=== PATIENT | female | born 1965 | race Caucasian/White ===

== ENCOUNTER 2020-05-01 07:39 | Outpatient (REF) | payer OTHER, SELFPAY ==
[2020-05-01 07:59] LABS: COVID-19 Test Negative (Negative)
== END 2020-05-01 07:40 | disposition home or self-care (01) ==
LOC: HO.LAB 07:39
PROVIDERS: PCP Internal Medicine; Visit Provider Internal Medicine
DX: Z20.822 Contact with and (suspected) exposure to COVID-19 (principal)
CPT/HCPCS: 36415; 87635; C9803

== ENCOUNTER 2020-06-02 10:17 | Outpatient (REF) | payer OTHER, SELFPAY ==
--- NOTE | ~2020-06-02 | XR_ITS ---
EXAMINATION: XR HIP, RIGHT CLINICAL INFORMATION: Right hip pain COMPARISON: None TECHNIQUE: Two views of the right hip. FINDINGS: Bone alignment is normal. No fracture or dislocation is seen. The joint space is normal. Soft tissues are normal. XR/XR hip RT w PEL1V IMPRESSION: Normal right hip.
[2020-06-02 11:18] LABS: Hematocrit 34.5 % (37-47); Hemoglobin 9.9 g/dl (12.0-16.0); Mean Corpuscular HGB Conc 28.7 g/dl (31.0-35.0); Mean Corpuscular Hemoglobin 21.6 pg (27.0-33.0); Mean Corpuscular Volume 75.3 fL (80-98); Mean Platelet Volume 9.9 fL (9.4-12.3); Platelet Count 445 X10*3/uL (160-400); Red Blood Count 4.58 X10*6/uL (4.20-5.50); Red Cell Distribution Width 15.7 % (11.0-16.0); White Blood Count 6.4 X10*3/uL (4.8-10.8)
[2020-06-02 11:39] LABS: Alanine Aminotransferase 25 U/L (0-31); Albumin Level 4.2 g/dL (3.5-5.0); Alkaline Phosphatase 92 U/L (39-117); Anion Gap 12 (12-20); Aspartate Amino Transferase 21 U/L (5-31); Bilirubin Direct 0.2 mg/dL (0.0-0.5); Bilirubin Total 0.6 mg/dL (0.0-1.0); Blood Urea Nitrogen 12 mg/dL (9-16); Calcium 8.9 mg/dL (8.4-10.2); Carbon Dioxide 24 mmol/L (22-29); Chloride 109 mmol/L (96-108); Cholesterol 180 mg/dL; Estimated Glomerular Filt Rate > 60; Glucose Random 100 mg/dL (60-115); HDL Cholesterol 34 mg/dL; LDL Cholesterol Calculated 126 mg/dl; Potassium 4.4 mmol/L (3.3-5.1); Sodium 141 mmol/L (135-145); Total Protein 7.2 g/dL (6.5-8.0); Triglycerides 100 mg/dL
[2020-06-02 14:27] LABS: Erythrocyte Sedimentation Rate 26 MM/HR (0-20)
== END 2020-06-02 10:18 | disposition home or self-care (01) ==
LOC: HO.LAB 10:17
PROVIDERS: PCP Internal Medicine; Visit Provider Internal Medicine
DX: K21.9 Gastro-esophageal reflux disease without esophagitis (principal); M25.551 Pain in right hip
CPT/HCPCS: 36415; 73502; 80048; 80061; 80076; 85027; 85652

== ENCOUNTER 2020-07-30 12:53 | Outpatient (REF) | payer OTHER, SELFPAY | END 2020-07-30 12:54 | disposition home or self-care (01) | LOC: HO.LAB 12:53 | PROVIDERS: Visit Provider Nurse Practitioner Family | DX: R30.0 Dysuria (principal) | CPT/HCPCS: 87086 ==

== ENCOUNTER 2020-07-30 13:58 | Emergency (ER) | payer OTHER, SELFPAY ==
--- NOTE | ~2020-07-30 | CT_ITS ---
EXAMINATION: CT ABDOMEN AND PELVIS WITHOUT CONTRAST CLINICAL INFORMATION: Left flank pain COMPARISON: CT abdomen and pelvis noncontrast 11/05/2015; ultrasound renal 05/29/2016 TECHNIQUE: Multidetector volumetric imaging was performed from the superior aspect of the liver through the pubic symphysis. Sagittal and coronal reformatted images were obtained on the technologist's workstation. No oral or intravenous contrast. This CT examination was performed using dose optimization techniques as appropriate, variously including the following: *Automated exposure control *Adjustment of mA and/or kV according to patient size (this includes techniques or standardized protocols for targeted exams where dose is matched to indication/reason for exam; i.e. extremities or head) *Use of iterative reconstruction technique DLP: 723 mGy-cm FINDINGS: LUNG BASES: The visualized lung bases are unremarkable. LIVER, GALLBLADDER, AND BILIARY TREE: The liver is normal in size, shape, and attenuation. No focal hepatic lesion or biliary ductal dilatation is present. Prior cholecystectomy. Common duct unremarkable. PANCREAS: Unremarkable. SPLEEN: Normal in size. Small splenule left upper quadrant, 0.8 cm. ADRENAL GLANDS: Normal. KIDNEYS, URETERS, BLADDER: There is a punctate calculus at the left bladder base under 3 mm (series 4 image 689, coronal 55, sagittal 43). No bladder dilatation or wall thickening or diverticulum. There is no hydronephrosis, hydroureter, or perinephric stranding. No other definite urinary tract calculi. There is a cyst lower pole right kidney 1.1 cm and water attenuation, 7 HU. GASTROINTESTINAL TRACT: No bowel obstruction or acute inflammatory changes in bowel or mesentery. Appendix normal. There is some accentuated circumferential submucosal areolar tissue in the cecum and ascending colon. No wall thickening or paracolic stranding. Terminal ileum unremarkable. ABDOMINAL WALL: No significant hernia is appreciated. LYMPH NODES: No lymphadenopathy. VASCULAR: Incidental retroaortic left renal vein. PELVIC VISCERA: Unremarkable. OSSEOUS STRUCTURES: Unremarkable. CT/CT abdomen pelvis wo con IMPRESSION: 1. Punctate calculus left bladder base, under 3 mm. No proximal obstruction or perinephric stranding. 2. No bowel obstruction or acute inflammatory changes in bowel or mesentery. 3. Prior cholecystectomy. No ductal dilatation.
[2020-07-30 14:01] VITALS: BP 134/67; BP 143/78; PULSE 78; PULSE 79; RESP 16; TEMP 36.8; O2SAT 97; BMI 29.9
[2020-07-30 14:28] VITALS: PULSE 79; RESP 16
[2020-07-30] MEDS: 0.9 % Sodium Chloride 1,000 ML 999 ML IVCONT (14:31)
[2020-07-30 14:36] LABS: Basophils Absolute Auto 0.1 X10*3/uL (0.0-0.2); Basophils Percent Auto 0.6 % (0-2); Eosinophils Absolute Auto 0.3 X10*3/uL (0.0-0.4); Eosinophils Percent Auto 3.4 % (0-4); Hematocrit 38.4 % (37-47); Hemoglobin 11.2 g/dl (12.0-16.0); Imm Gran Abs Auto 0.04 X10*3/uL (0.00-0.03); Imm Gran Pct Auto 0.4 % (0.0-0.4); Lymphocytes Absolute Auto 1.9 X10*3/uL (1.2-4.9); Lymphocytes Percent Auto 19.9 % (20-40); Mean Corpuscular HGB Conc 29.2 g/dl (31.0-35.0); Mean Corpuscular Volume 78.7 fL (80-98); Mean Platelet Volume 9.2 fL (9.4-12.3); Monocytes Absolute Auto 0.4 X10*3/uL (0.1-1.2); Monocytes Percent Auto 4.2 % (2-11); Neutrophils Absolute Auto 6.9 X10*3/uL (2.0-8.3); Neutrophils Percent Auto 71.5 % (45-73); Platelet Count 371 X10*3/uL (160-400); Red Blood Count 4.88 X10*6/uL (4.20-5.50); Red Cell Distribution Width 18.9 % (11.0-16.0); White Blood Count 9.7 X10*3/uL (4.8-10.8)
[2020-07-30 14:37] LABS: MANUAL DIFF FLAG NO
[2020-07-30 15:08] LABS: Alanine Aminotransferase 28 U/L (0-31); Albumin Level 4.3 g/dL (3.5-5.0); Alkaline Phosphatase 90 U/L (39-117); Anion Gap 14 (12-20); Aspartate Amino Transferase 21 U/L (5-31); Bilirubin Direct 0.2 mg/dL (0.0-0.5); Bilirubin Total 0.5 mg/dL (0.0-1.0); Blood Urea Nitrogen 17 mg/dL (9-16); Calcium 8.8 mg/dL (8.4-10.2); Carbon Dioxide 24 mmol/L (22-29); Chloride 110 mmol/L (96-108); Creatinine Clr Calc Pharmacy 71.5; Estimated Glomerular Filt Rate > 60; Glucose Random 139 mg/dL (60-115); Lipase 6 U/L (8-78); Sodium 144 mmol/L (135-145); Total Protein 7.1 g/dL (6.5-8.0)
[2020-07-30 15:14] LABS: Troponin-I High Sensitivity < 3.5 ng/L (<3.5-17.0)
--- NOTE | 2020-07-30 15:50 | ED.FEMALEGU ---
HPI - Female Genitourinary General Chief complaint: Urogenital-Female Stated complaint: DIZZINESS FROM URGENT CARE Time Seen by Provider: 07/30/20 14:11 Source: patient Mode of arrival: ambulatory Limitations: no limitations History of Present Illness HPI Narrative: 55-year-old female came in for evaluation of urinary symptoms. 55-year-old female came in from the walk-in urgent care clinic patient was there for evaluation of frequency urination with dysuria while patient was evaluated there started to have severe left flank pain and became diaphoretic and the lightheadedness lasted for about 10-15 minutes patient was transferred to the emergency department for further evaluation for her symptoms. Patient in the emergency department appear very stable with no acute distress, patient declined any pain male, no chest pain, do not feel lightheadedness any more. Related Data Home Medications Medication Instructions Recorded Confirmed topiramate 100 mg tablet 100 mg PO BEDTIME 06/08/20 06/18/20 Previous Rx's Medication Instructions Recorded fluticasone 250 mcg-salmeterol 50 1 inh INHALATION Q12H #60 ea 04/09/20 mcg/dose blistr powdr for inhalation meloxicam 15 mg tablet 15 mg PO DAILY 30 Days #30 tab 06/02/20 esomeprazole magnesium 40 mg 40 mg PO DAILY #90 cap 06/11/20 capsule,delayed release cholecalciferol (vitamin D3) 50 50 mcg PO DAILY #90 cap 06/18/20 mcg (2,000 unit) capsule docusate sodium 100 mg capsule 100 mg PO DAILY #90 cap 06/18/20 ferrous fumarate 325 mg (106 mg 325 mg PO DAILY #90 tab 06/25/20 iron) tablet citalopram 10 mg tablet 10 mg PO DAILY #90 tab 07/09/20 montelukast 10 mg tablet 10 mg PO DAILY #90 tab 07/09/20 Allergies Allergy/AdvReac Type Severity Reaction Status Date / Time hair dye Allergy Unknown itchiness Uncoded 06/02/20 09:36 Review of Systems Review of Systems: All other systems are reviewed and are negative Constitutional: Reports as per HPI and Reports no additional constitutional complaints Eyes: Reports as per HPI and Reports no additional eye complaints Reports system reviewed and no additional complaints, except as documented Cardiovascular: Reports as per HPI and Reports no additional cardiovascular complaints Respiratory: Reports as per HPI and Reports no additional respiratory complaints Gastrointestinal: Reports as per HPI and Reports no additional gastrointestinal complaints Genitourinary: Reports no additional female genitourinary complaints Musculoskeletal: Reports no additional musculoskeletal complaints Skin/Breast: Reports system reviewed and no additional complaints, except as docu Psychiatric: Reports no additional psychiatric complaints Endocrine: Reports no additional endocrine complaints Hematologic/Lymphatic: Reports no additional hematologic/lymphatic complaints Allergic/Immunologic: Reports no additional allergic/immunologic complaints Reports system reviewed and no additional complaints, except as documented and Reports Abnormal speech present [facility] Past Medical History Medical History Chronic right sacroiliac pain Depression Dyslipidemia GERD (gastroesophageal reflux disease) Kidney stones Microcytic hypochromic anemia Mild intermittent asthma Vitamin D deficiency Surgical History H/O cystoscopy Hx of cholecystectomy Previous section Family History Family History Father Diabetes mellitus Bronchial asthma Mother Breast cancer Social History Social History Alcohol intake: never Smoking Status: Never smoker Use of substances other than those prescribed or required for medical reasons: No Advance Directives: No Advance Directives Information Provided: No Physical Exam Vital Signs: Vital Signs: Last Vital Signs Temp 98.2 F 07/30/20 14:01 Pulse 79 07/30/20 14:28 Resp 16 07/30/20 14:28 BP 134/67 07/30/20 14:01 Pulse Ox 97 07/30/20 14:01 Body Mass Index 29.9 Vital signs have been reviewed as appeared to be correct. Blood pressure normal. Heart rate normal. Respiration rate normal. Temperature normal. Oxygen saturation normal. Appearance: Alert. Oriented X3. No acute distress. Head: Normal external exam. Normocephalic. Atraumatic. No Garsia signs noted. No raccoon eyes noted Eyes: PERRLA. EOMI. Conjunctiva and sclera normal. Eyelids normal. ENT: TM's Normal. Pharynx normal. Uvula midline. Moist mucous membranes. No trismus noted. No drooling noted. No muffled voice noted. Neck: Normal inspection. Neck supple. FROM. No adenopathy. Thyroid Normal. No meningeal signs. No neck mass noted. CVS: Normal heart rate and rhythm. Heart sound normal. No murmurs noted. Pulses normal throughout. Respiratory: No respiratory distress. Painless inspiration. Breath sounds normal. No wheezes/rales/rhonchi noted. Chest nontender. No accessory muscle usage noted or decreased air movement noted. Abdomen: Soft and nontender. Bowel sounds normal in all 4 quadrants. No distention noted. No organomegaly noted. No visible injury noted. Back: No CVA tenderness. Full range of motion noted. Skin: Skin warm and dry. Normal skin color. Normal skin turgor. No rashes/lesions/lacerations noted. Extremities: No lower extremity edema. Extremities exhibit normal range of motion. Extremities nontender. Neuro: Oriented X 3. No motor deficit. No sensory deficit. Reflexes normal. Course Course Course Narrative: Assessment and plan. 55-year-old female came in for few days of urine symptoms, patient had sudden pain while she was evaluated at the Urgent Care with diaphoresis was sent here, patient now is asymptomatic with no pain CT suggesting recently passing stone in the bladder. Patient has unremarkable labs, patient has no symptoms now. Patient was instructed to drink plenty of fluid at this point no further intervention is needed. [facility] - Female Genitourinary Lab Data Attestation: I reviewed the patient's lab results. Result diagrams: 07/30/20 14:27 07/30/20 14:27 Labs: Lab Results 07/30/20 07/30/20 07/30/20 Range/Units 14:27 14:27 14:27 WBC 9.7 (4.8-10.8) X10*3/uL RBC 4.88 (4.20-5.50) X10*6/uL Hgb 11.2 L (12.0-16.0) g/dl Hct 38.4 (37-47) % MCV 78.7 L (80-98) fL MCH 23.0 L (27.0-33.0) pg MCHC 29.2 L (31.0-35.0) g/dl RDW 18.9 H (11.0-16.0) % Plt Count 371 (160-400) X10*3/uL MPV 9.2 L (9.4-12.3) fL Immature Gran % (Auto) 0.4 (0.0-0.4) % Neut % (Auto) 71.5 (45-73) % Lymph % (Auto) 19.9 L (20-40) % [place] % (Auto) 4.2 (2-11) % Eos % (Auto) 3.4 (0-4) % Baso % (Auto) 0.6 (0-2) % Lymph # (Auto) 1.9 (1.2-4.9) X10*3/uL [place] # (Auto) 0.4 (0.1-1.2) X10*3/uL Eos # (Auto) 0.3 (0.0-0.4) X10*3/uL Baso # (Auto) 0.1 (0.0-0.2) X10*3/uL Abs Immat Gran (auto) 0.04 H (0.00-0.03) X10*3/uL Absolute Neuts (auto) 6.9 (2.0-8.3) X10*3/uL Absolute Nucleated RBC 0.000 (0.0-0.012) X10*3/uL Nucleated RBC % (auto) 0.0 (0.0-0.2) /100WBC Sodium 144 (135-145) mmol/L Potassium 4.0 (3.3-5.1) mmol/L Chloride 110 H (96-108) mmol/L Carbon Dioxide 24 (22-29) mmol/L Anion Gap 14 (12-20) BUN 17 H (9-16) mg/dL Creatinine 0.95 (0.5-1.4) mg/dL Estim Creat Clear Calc 71.5 Estimated GFR > 60 Random Glucose 139 H D (60-115) mg/dL Calcium 8.8 (8.4-10.2) mg/dL Total Bilirubin 0.5 (0.0-1.0) mg/dL Direct Bilirubin 0.2 (0.0-0.5) mg/dL AST 21 (5-31) U/L ALT 28 (0-31) U/L Alkaline Phosphatase 90 (39-117) U/L Troponin I High Sens < 3.5 (<3.5-17.0) ng/L Total Protein 7.1 (6.5-8.0) g/dL Albumin 4.3 (3.5-5.0) g/dL Lipase 6 L (8-78) U/L Imaging Data CT scan - abdomen: Radiologist's impression: 1. Punctate calculus left bladder base, under 3 mm. No proximal obstruction or perinephric stranding. 2. No bowel obstruction or acute inflammatory changes in bowel or mesentery. 3. Prior cholecystectomy. No ductal dilatation. Discharge Plan Discharge Clinical Impression: Dysuria, Renal colic on left side Patient Disposition: Home, Self-Care Instructions: Renal Colic (ED) Prescriptions: No Action fluticasone propion-salmeterol [Advair Diskus] 250-50 mcg/dose blister with device 1 inh inhalation Q12H Qty: 60 RF: 6 esomeprazole magnesium 40 mg capsule,delayed release(DR/EC) 40 mg PO DAILY Qty: 90 RF: 0 ferrous fumarate 325 mg (106 mg iron) tablet 325 mg PO DAILY Qty: 90 RF: 0 citalopram 10 mg tablet 10 mg PO DAILY Qty: 90 RF: 1 montelukast 10 mg tablet 10 mg PO DAILY Qty: 90 RF: 1 topiramate 100 mg tablet 100 mg PO BEDTIME RF: 0 meloxicam 15 mg tablet 15 mg PO DAILY 30 Days Qty: 30 RF: 0 cholecalciferol (vitamin D3) 50 mcg (2,000 unit) capsule 50 mcg PO DAILY Qty: 90 RF: 0 docusate sodium 100 mg capsule 100 mg PO DAILY Qty: 90 RF: 1 Referrals: Brandi Gallegos MD [Primary Care Provider] - 2 days
[2020-07-30 16:08] LABS: Appearance Urine CLEAR; Color Urine YELLOW; Glucose Urine UA NEG (NEG); Leukocyte Esterase Urine NEG (NEG); Nitrite Urine NEG (NEG); PH 5.5 (5.0-8.0); Specific Gravity - Urine 1.025 (1.005-1.025); Urine Blood 2+ (NEG); Urine Ketones NEG (NEG); Urine Protein NEG (NEG-TRACE)
[2020-07-30 16:12] LABS: UPreg QC Valid YES; Urine Pregnancy NEGATIVE (NEGATIVE)
[2020-07-30 16:22] LABS: Squamous Epithelial Cell Urine 1+ /LPF; WBC Urine 0-2 /HPF (0-4)
== END 2020-07-30 16:28 | disposition home or self-care (01) ==
PROVIDERS: Emergency Provider Emergency Medicine; PCP Internal Medicine
DX: N23 Unspecified renal colic (principal); R30.0 Dysuria; R42 Dizziness and giddiness; Z79.899 Other long term (current) drug therapy
CPT/HCPCS: 36415; 74176; 80048; 80076; 81001; 81003; 81025; 83690; 84484; 85025; 96360; 99285

== ENCOUNTER 2020-08-17 07:35 | Outpatient (REF) | payer OTHER, SELFPAY ==
[2020-08-17 07:53] LABS: COVID-19 Test Negative (Negative)
== END 2020-08-17 07:36 | disposition home or self-care (01) ==
LOC: HO.EMPCOV 07:35
PROVIDERS: Visit Provider Internal Medicine
DX: Z20.822 Contact with and (suspected) exposure to COVID-19 (principal)
CPT/HCPCS: 36415; 87635; C9803

== ENCOUNTER 2020-09-06 11:12 | Outpatient (REF) | payer OTHER, SELFPAY ==
[2020-09-06 11:40] LABS: MANUAL DIFF FLAG NO
[2020-09-06 11:50] LABS: Basophils Absolute Auto 0.1 X10*3/uL (0.0-0.2); Basophils Percent Auto 0.7 % (0-2); Eosinophils Absolute Auto 0.4 X10*3/uL (0.0-0.4); Eosinophils Percent Auto 5.5 % (0-4); Hematocrit 39.2 % (37-47); Hemoglobin 11.8 g/dl (12.0-16.0); Imm Gran Abs Auto 0.02 X10*3/uL (0.00-0.03); Imm Gran Pct Auto 0.3 % (0.0-0.4); Lymphocytes Absolute Auto 2.4 X10*3/uL (1.2-4.9); Lymphocytes Percent Auto 35.6 % (20-40); Mean Corpuscular HGB Conc 30.1 g/dl (31.0-35.0); Mean Corpuscular Hemoglobin 24.1 pg (27.0-33.0); Mean Corpuscular Volume 80.2 fL (80-98); Mean Platelet Volume 9.2 fL (9.4-12.3); Monocytes Absolute Auto 0.4 X10*3/uL (0.1-1.2); Monocytes Percent Auto 6.1 % (2-11); Neutrophils Absolute Auto 3.5 X10*3/uL (2.0-8.3); Neutrophils Percent Auto 51.8 % (45-73); Platelet Count 401 X10*3/uL (160-400); Red Blood Count 4.89 X10*6/uL (4.20-5.50); Red Cell Distribution Width 16.6 % (11.0-16.0); White Blood Count 6.9 X10*3/uL (4.8-10.8)
[2020-09-06 12:13] LABS: Iron 41 mcg/dL (30-160); Percent Iron Saturation 12 % (15-50); Total Iron Binding Capacity 349 mcg/dL (228-428); Unsaturated Iron Binding 308 ug/dL
[2020-09-06 12:37] LABS: Ferritin 27 ng/mL (10-250); Vitamin D 25-OH Total 37.7 ng/mL (>30)
== END 2020-09-06 11:13 | disposition home or self-care (01) ==
LOC: HO.LAB 11:12
PROVIDERS: PCP Internal Medicine; Visit Provider Internal Medicine
DX: D50.9 Iron deficiency anemia, unspecified (principal); E55.9 Vitamin D deficiency, unspecified
CPT/HCPCS: 36415; 82306; 82728; 83540; 85025

== ENCOUNTER 2020-10-18 07:22 | Outpatient (REF) | payer OTHER, SELFPAY ==
--- NOTE | ~2020-10-18 | MM_ITS ---
EXAMINATION: MM SCREENING DIGITAL BREAST TOMOSYNTHESIS, BILATERAL CLINICAL INFORMATION: Screening. Asymptomatic. The lifetime risk of breast cancer based on the Tyrer-Cuzick Model is 14.8%. COMPARISON: Mammography: October 13, 2019 and studies dating back to July 12, 2014 TECHNIQUE: Digital breast tomosynthesis is performed in both the craniocaudal and mediolateral oblique views along with computer-aided detection (CAD). Synthesized 2D images are generated from the tomosynthesis. Additional left exaggerated craniocaudal view performed. FINDINGS: The breasts are heterogeneously dense, which may obscure small masses (ACR BI-RADS breast composition Category c). There are no significant masses, abnormal calcifications, or other abnormalities. MM/MM tomosynthesis screening BI IMPRESSION: There are no significant changes from prior study. ASSESSMENT: BI-RADS 1: Negative RECOMMENDATION: Routine annual mammography screening. This patient's information was entered into a reminder system with a target due date for their next mammogram.
== END 2020-10-18 07:23 | disposition home or self-care (01) ==
LOC: HO.MAMMO 07:22
PROVIDERS: Visit Provider Internal Medicine
DX: Z12.31 Encounter for screening mammogram for malignant neoplasm of breast (principal)
CPT/HCPCS: 77063; 77067

== ENCOUNTER 2021-03-19 08:48 | Outpatient (REF) | payer OTHER, SELFPAY ==
[2021-03-19 11:41] LABS: MANUAL DIFF FLAG NO
[2021-03-19 11:44] LABS: Basophils Absolute Auto 0.1 X10*3/uL (0.0-0.2); Basophils Percent Auto 1.1 % (0-2); Eosinophils Absolute Auto 0.3 X10*3/uL (0.0-0.4); Eosinophils Percent Auto 4.8 % (0-4); Hematocrit 41.2 % (37.0-47.0); Imm Gran Abs Auto 0.02 X10*3/uL (0.00-0.03); Imm Gran Pct Auto 0.3 % (0.0-0.4); Lymphocytes Absolute Auto 2.2 X10*3/uL (1.2-4.9); Lymphocytes Percent Auto 33.3 % (20-40); Mean Corpuscular HGB Conc 31.6 g/dl (31.0-35.0); Mean Corpuscular Hemoglobin 26.6 pg (27.0-33.0); Mean Corpuscular Volume 84.4 fL (80.0-98.0); Monocytes Absolute Auto 0.4 X10*3/uL (0.1-1.2); Monocytes Percent Auto 6.3 % (2-11); Neutrophils Absolute Auto 3.5 x10*3/uL (2.0-8.3); Neutrophils Percent Auto 54.2 % (45-73); Platelet Count 395 X10*3/uL (160-400); Red Blood Count 4.88 X10*6/uL (4.20-5.50); Red Cell Distribution Width 13.3 % (11.0-16.0); White Blood Count 6.5 X10*3/uL (4.8-10.8)
[2021-03-19 12:15] LABS: Anion Gap 13 (12-20); Blood Urea Nitrogen 8 mg/dL (9-16); Calcium 9.4 mg/dL (8.4-10.2); Carbon Dioxide 24 mmol/L (22-29); Chloride 110 mmol/L (96-108); Cholesterol 199 mg/dL; Estimated Glomerular Filt Rate > 60; Glucose Fasting 108 mg/dL (60-99); HDL Cholesterol 31 mg/dL; Iron 49 mcg/dL (30-160); LDL Cholesterol Calculated 145 mg/dl; Percent Iron Saturation 15 % (15-50); Sodium 143 mmol/L (135-145); Total Iron Binding Capacity 333 mcg/dL (228-428); Triglycerides 115 mg/dL; Unsaturated Iron Binding 284 ug/dL
[2021-03-19 12:37] LABS: Vitamin D 25-OH Total 33.8 ng/mL (>30)
== END 2021-03-19 08:49 | disposition home or self-care (01) ==
LOC: HO.HMGCLDS 08:48
PROVIDERS: PCP Internal Medicine; Visit Provider Internal Medicine
DX: Z00.01 Encounter for general adult medical examination with abnormal findings (principal); D50.9 Iron deficiency anemia, unspecified; E55.9 Vitamin D deficiency, unspecified; E78.5 Hyperlipidemia, unspecified; F32.9 Major depressive disorder, single episode, unspecified; I10 Essential (primary) hypertension; J45.20 Mild intermittent asthma, uncomplicated; K21.9 Gastro-esophageal reflux disease without esophagitis; M21.611 Bunion of right foot
CPT/HCPCS: 36415; 80048; 80061; 82306; 83540; 85025

== ENCOUNTER 2021-05-10 03:29 | Emergency (ER) | payer OTHER, SELFPAY ==
--- NOTE | ~2021-05-10 | CT_ITS ---
EXAMINATION: CT ABDOMEN AND PELVIS WITHOUT CONTRAST CLINICAL INFORMATION: Right flank pain COMPARISON: 07/30/2020 TECHNIQUE: Multidetector volumetric imaging was performed from the superior aspect of the liver through the pubic symphysis. Sagittal and coronal reformatted images were obtained on the technologist's workstation. This CT examination was performed using dose optimization techniques as appropriate, variously including the following: *Automated exposure control *Adjustment of mA and/or kV according to patient size (this includes techniques or standardized protocols for targeted exams where dose is matched to indication/reason for exam; i.e. extremities or head) *Use of iterative reconstruction technique DLP: 267 mGy-cm FINDINGS: LUNG BASES: The visualized lung bases are unremarkable. LIVER, GALLBLADDER, AND BILIARY TREE: The liver is normal in size, shape, and attenuation. No focal hepatic lesion or biliary ductal dilatation is present. Cholecystectomy. PANCREAS: Unremarkable. SPLEEN: Unremarkable. ADRENAL GLANDS: Unremarkable. KIDNEYS AND URETERS: The kidneys are normal in size, shape, and attenuation. No hydronephrosis, hydroureter, or calculi seen. No perinephric stranding. Right midpole simple renal cyst measures 1.5 cm. No follow-up imaging recommended. BLADDER: Unremarkable. GASTROINTESTINAL TRACT: The stomach is unremarkable. Normal caliber small bowel. No obstruction. No colonic wall thickening or acute inflammatory changes. Normal appendix. No free air or free fluid. ABDOMINAL WALL: No significant hernia is appreciated. LYMPH NODES: Normal. VASCULAR: Normal caliber aorta. Retroaortic left renal vein. PELVIC VISCERA: The uterus and adnexa are unremarkable. OSSEOUS STRUCTURES: No acute or suspicious osseous abnormality. CT/CT abdomen pelvis wo con IMPRESSION: No acute findings of the abdomen or pelvis. No inflammatory changes. No hydronephrosis or nephrolithiasis. Fleischner guidelines were followed.
[2021-05-10 03:54] VITALS: BP 155/90; PULSE 75; RESP 20; TEMP 37; O2SAT 96; BMI 30.7
--- NOTE | 2021-05-10 04:07 | ED_ITS ---
HPI - Abdominal Pain General Chief Complaint: Abdominal Pain Stated Complaint: lower R side back pain [id number] Time Seen by Provider: 05/10/21 04:03 Source: patient Mode of arrival: ambulatory Limitations: no limitations History of Present Illness MD elicited complaint: flank pain Pertinent past history: kidney stones Onset (ago): week(s) (3) Pain Consistency: intermittent Location: RLQ Severity: moderate Quality: stabbing Radiation: RLQ Migration to: RLQ Exacerbating factors: movement Relieving factors: nothing Context: history of similar episodes Associated symptoms: denies other symptoms Related Data Home Medications Medication Instructions Recorded Confirmed topiramate 100 mg tablet 100 mg PO BEDTIME 06/08/20 03/19/21 cetirizine 10 mg tablet 10 mg PO DAILY 03/19/21 03/19/21 diclofenac sodium 1 % topical gel g TOPICAL 03/19/21 03/19/21 fluocinonide 0.05 % topical cream appl TOPICAL 03/19/21 03/19/21 Previous Rx's Medication Instructions Recorded cholecalciferol (vitamin D3) 50 50 mcg PO DAILY #90 cap 06/18/20 mcg (2,000 unit) capsule ferrous fumarate 325 mg (106 mg 325 mg PO DAILY #90 tab 09/17/20 iron) tablet esomeprazole magnesium 40 mg 40 mg PO DAILY #90 cap 12/03/20 capsule,delayed release hydroxyzine HCl 25 mg tablet 25 mg PO BEDTIME PRN #20 tab 12/10/20 docusate sodium 100 mg capsule 100 mg PO DAILY #90 cap 12/24/20 fluticasone 250 mcg-salmeterol 50 1 inh INHALATION Q12H #60 ea 02/06/21 mcg/dose blistr powdr for inhalation (Advair Diskus) citalopram 10 mg tablet 10 mg PO DAILY #90 tab 04/16/21 montelukast 10 mg tablet 10 mg PO DAILY #90 tab 04/16/21 cyclobenzaprine 10 mg tablet 10 mg PO TID PRN #14 tab 05/10/21 nitrofurantoin 100 mg PO BID 7 Days #14 cap 05/10/21 monohydrate/macrocrystals 100 mg capsule (Macrobid) Allergies Allergy/AdvReac Type Severity Reaction Status Date / Time hair dye Allergy Unknown itchiness Uncoded 05/10/21 03:58 Review of Systems Review of Systems Constitutional : No Fever, No Chills ENT/Mouth : No sore throat Eyes: No Eye Pain, No Swelling, No Redness Cardiovascular : No Chest Pain, No SOB Respiratory : No Cough, No Sputum, No Wheezing Gastrointestinal : no Nausea, no Vomiting, No Diarrhea, positive abdominal pain Genitourinary : no Dysuria, no urinary frequency, no Hematuria, positive Flank Pain, no hesitancy Musculoskeletal : No joint pain, No Myalgias, pos back pain Skin : No Skin Lesions, No rash Neuro : No Weakness, No Numbness, No Headache Psych : No Anxiety/Panic, No Depression Heme/Lymph: No Bruising, No Lymphadenopathy Endocrine : No Polyuria, No Polydipsia All other systems reviewed and are negative Physical Exam Verdana 4l Vital Signs: Verdana 4d Verdana 4d Vital Signs: Verdana 4d Verdana 4Bd Last Vital Signs Verdana 4d Continuity Manager New 4d Continuity Manager New 4d Temp 98.6 F 05/10/21 03:54 Continuity Manager New 4d Pulse 75 05/10/21 03:54 Continuity Manager New 4d Resp 20 05/10/21 03:54 BP 155/90 H 05/10/21 03:54 Pulse Ox 96 05/10/21 03:54 BMI result Body Mass Index 30.7 Appearance: Alert. Oriented X3. No acute distress. Eyes: Pupils equal, round and reactive to light. ENT: Pharynx normal. Neck: Normal inspection. Neck supple. CVS: Normal heart rate and rhythm. Pulses normal. Respiratory: No respiratory distress. Breath sounds normal. Abdomen: Soft and nontender. Back: pos R CVA ttp Skin: Skin warm and dry. Normal skin color. Normal skin turgor. Extremities: No lower extremity edema. No calf ttp Neuro: Oriented X 3. No motor deficit. No sensory deficit. Course Course Course Narrative: no acute CT scan findings - UA + will start on macrobid and flexeril MDM - Abdominal Pain MDM Narrative Medical decision making narrative: 55 yo female with hx of HLD, depression, asthma, anemia, GERD here with c/o R flank pain x 3 weeks worse with movements denies trauma at this time will need labs, UA, CT scan for renal colic. No vomiting will start on oral pain medications. Dispo per results and findings. Lab Data Result diagrams: 05/10/21 03:56 05/10/21 03:56 Labs: Lab Results 05/10/21 05/10/21 05/10/21 Range/Units 03:56 03:56 03:56 WBC 7.5 (4.8-10.8) X10*3/uL RBC 4.82 (4.20-5.50) X10*6/uL Hgb 13.1 (12.0-16.0) g/dl Hct 40.4 (37.0-47.0) % MCV 83.8 (80.0-98.0) fL MCH 27.2 (27.0-33.0) pg MCHC 32.4 (31.0-35.0) g/dl RDW 12.9 (11.0-16.0) % Plt Count 365 (160-400) X10*3/uL MPV 9.4 (9.4-12.3) fL Absolute Nucleated RBC 0.000 (0.0-0.012) X10*3/uL Nucleated RBC % (auto) 0.0 (0.0-0.2) /100WBC Sodium 142 (135-145) mmol/L Potassium 3.9 (3.3-5.1) mmol/L Chloride 105 (96-108) mmol/L Carbon Dioxide 29 (22-29) mmol/L Anion Gap 12 (12-20) BUN 9 (9-16) mg/dL Creatinine 0.85 (0.5-1.4) mg/dL Estim Creat Clear Calc 80.8 Estimated GFR > 60 Random Glucose 113 (60-115) mg/dL Calcium 9.4 (8.4-10.2) mg/dL Total Bilirubin 0.5 (0.0-1.0) mg/dL AST 27 (5-31) U/L ALT 35 H (0-31) U/L Alkaline Phosphatase 90 (39-117) U/L Total Protein 7.3 (6.5-8.0) g/dL Albumin 4.1 (3.5-5.0) g/dL Urine Color Urine Appearance Urine pH (5.0-8.0) Ur Specific [place] (1.005-1.025) Urine Protein (NEG-TRACE) MG/DL Urine Glucose (UA) (NEG) MG/DL Urine Ketones (NEG) MG/DL Urine Blood (NEG) Urine Nitrite (NEG) Ur Leukocyte Esterase (NEG) Urine RBC (0) /HPF Urine WBC (0-4) /HPF Ur Squamous Epith Cells /LPF Urine Bacteria /LPF Hyaline Casts /LPF Urine Mucus /LPF COVID-19 ([facility]) Negative (Negative) COVID-19 Clin Com See Note 05/10/21 Range/Units 04:35 WBC (4.8-10.8) X10*3/uL RBC (4.20-5.50) X10*6/uL Hgb (12.0-16.0) g/dl Hct (37.0-47.0) % MCV (80.0-98.0) fL MCH (27.0-33.0) pg MCHC (31.0-35.0) g/dl RDW (11.0-16.0) % Plt Count (160-400) X10*3/uL MPV (9.4-12.3) fL Absolute Nucleated RBC (0.0-0.012) X10*3/uL Nucleated RBC % (auto) (0.0-0.2) /100WBC Sodium (135-145) mmol/L Potassium (3.3-5.1) mmol/L Chloride (96-108) mmol/L Carbon Dioxide (22-29) mmol/L Anion Gap (12-20) BUN (9-16) mg/dL Creatinine (0.5-1.4) mg/dL Estim Creat Clear Calc Estimated GFR Random Glucose (60-115) mg/dL Calcium (8.4-10.2) mg/dL Total Bilirubin (0.0-1.0) mg/dL AST (5-31) U/L ALT (0-31) U/L Alkaline Phosphatase (39-117) U/L Total Protein (6.5-8.0) g/dL Albumin (3.5-5.0) g/dL Urine Color YELLOW Urine Appearance CLEAR Urine pH 6.0 (5.0-8.0) Ur Specific [place] 1.020 (1.005-1.025) Urine Protein NEG (NEG-TRACE) MG/DL Urine Glucose (UA) NEG (NEG) MG/DL Urine Ketones NEG (NEG) MG/DL Urine Blood NEG (NEG) Urine Nitrite NEG (NEG) Ur Leukocyte Esterase 1+ H (NEG) Urine RBC 0-2 (0) /HPF Urine WBC 30-49 H (0-4) /HPF Ur Squamous Epith Cells 2+ /LPF Urine Bacteria 2+ /LPF Hyaline Casts 0-2 /LPF Urine Mucus 1+ /LPF COVID-19 ([facility]) (Negative) COVID-19 Clin Com Discharge Plan Discharge Clinical Impression: Acute flank pain, UTI (urinary tract infection) Patient Disposition: Home, Self-Care Instructions: Urinary Tract Infection in Women (DC), Flank Pain (ED) Additional Instructions: return to ED for any worsening symptoms or concerns Prescriptions: New cyclobenzaprine 10 mg tablet 10 mg PO TID PRN (Reason: muscle spasm) Qty: 14 0RF nitrofurantoin monohyd/m-cryst [Macrobid] 100 mg capsule 100 mg PO BID 7 Days Qty: 14 0RF Rx Instructions: must administer with a meal/food No Action ferrous fumarate 325 mg (106 mg iron) tablet 325 mg PO DAILY Qty: 90 0RF esomeprazole magnesium 40 mg capsule,delayed release(DR/EC) 40 mg PO DAILY Qty: 90 0RF docusate sodium 100 mg capsule 100 mg PO DAILY Qty: 90 1RF fluticasone propion-salmeterol [Advair Diskus] 250-50 mcg/dose blister with device 1 inh inhalation Q12H Qty: 60 6RF citalopram 10 mg tablet 10 mg PO DAILY Qty: 90 1RF montelukast 10 mg tablet 10 mg PO DAILY Qty: 90 1RF topiramate 100 mg tablet 100 mg PO BEDTIME 0RF diclofenac sodium 1 % gel topical 0RF fluocinonide 0.05 % cream topical 0RF cetirizine 10 mg tablet 10 mg PO DAILY 0RF cholecalciferol (vitamin D3) 50 mcg (2,000 unit) capsule 50 mcg PO DAILY Qty: 90 0RF hydroxyzine HCl 25 mg tablet 25 mg PO BEDTIME PRN (Reason: itching) Qty: 20 0RF Referrals: Brandi Gallegos MD [Primary Care Provider] - 3 days (if not better) Stand Alone Forms: Work/School Release [facility] Past Medical History Attestation statement: The following information was validated with the patient. Medical History Bunion of great toe of right foot Chronic right sacroiliac pain Depression Dyslipidemia GERD (gastroesophageal reflux disease) Kidney stones Microcytic hypochromic anemia Mild intermittent asthma Numerous moles Positional lightheadedness Rash of back Vitamin D deficiency Surgical History H/O cystoscopy Hx of cholecystectomy Previous section Family History Family History Father Diabetes mellitus Bronchial asthma Mother Breast cancer Social History Social History Housing: Condominium Alcohol intake: never Patient Tobacco Use Status: Never used Tobacco e-Cigarette/Vaping Use: Never Used Advance Directives: No Advance Directives Information Provided: No Current occupational status: employed
[2021-05-10 04:08] LABS: Hematocrit 40.4 % (37.0-47.0); Hemoglobin 13.1 g/dl (12.0-16.0); Mean Corpuscular HGB Conc 32.4 g/dl (31.0-35.0); Mean Corpuscular Hemoglobin 27.2 pg (27.0-33.0); Mean Corpuscular Volume 83.8 fL (80.0-98.0); Mean Platelet Volume 9.4 fL (9.4-12.3); Platelet Count 365 X10*3/uL (160-400); Red Blood Count 4.82 X10*6/uL (4.20-5.50); Red Cell Distribution Width 12.9 % (11.0-16.0); White Blood Count 7.5 X10*3/uL (4.8-10.8)
[2021-05-10] MEDS: HYDROcodone Bit/Acetam 5/325 TABLET 1 TAB PO (04:27)
[2021-05-10] MEDS: Ondansetron ODT 4 MG TAB.RAPDIS TRANSLINGU (04:27)
[2021-05-10 04:28] LABS: COVID-19 Test Negative (Negative); IDNOW Serial# 9DD0AD1C
[2021-05-10] MEDS: Cyclobenzaprine HCl 10 MG TABLET PO (04:28)
[2021-05-10 04:36] LABS: Alanine Aminotransferase 35 U/L (0-31); Albumin Level 4.1 g/dL (3.5-5.0); Alkaline Phosphatase 90 U/L (39-117); Anion Gap 12 (12-20); Aspartate Amino Transferase 27 U/L (5-31); Bilirubin Total 0.5 mg/dL (0.0-1.0); Blood Urea Nitrogen 9 mg/dL (9-16); Calcium 9.4 mg/dL (8.4-10.2); Carbon Dioxide 29 mmol/L (22-29); Chloride 105 mmol/L (96-108); Creatinine Clr Calc Pharmacy 80.8; Estimated Glomerular Filt Rate > 60; Glucose Random 113 mg/dL (60-115); Potassium 3.9 mmol/L (3.3-5.1); Sodium 142 mmol/L (135-145); Total Protein 7.3 g/dL (6.5-8.0)
[2021-05-10 04:43] LABS: Appearance Urine CLEAR; Color Urine YELLOW; Glucose Urine UA NEG (NEG); Leukocyte Esterase Urine 1+ (NEG); Nitrite Urine NEG (NEG); UACC Culture Trigger YES; Urine Blood NEG (NEG); Urine Ketones NEG (NEG); Urine Protein NEG (NEG-TRACE)
[2021-05-10 04:51] LABS: Bacteria Urine 2+ /LPF; Hyaline Casts Urine 0-2 /LPF; Mucus Urine 1+ /LPF; RBC Urine 0-2 /HPF (0); Squamous Epithelial Cell Urine 2+ /LPF; UACC CULT YES; WBC Urine 30-49 /HPF (0-4)
[2021-05-10] MEDS: Nitrofurantoin Monohyd/M-Cryst 100 MG CAPSULE PO (05:15)
[2021-05-10 05:17] VITALS: BP 141/73; PULSE 77
== END 2021-05-10 05:20 | disposition home or self-care (01) ==
PROVIDERS: Emergency Provider Emergency Medicine; PCP Internal Medicine
DX: R10.31 Right lower quadrant pain (principal); N39.0 Urinary tract infection, site not specified; Z79.899 Other long term (current) drug therapy; Z20.822 Contact with and (suspected) exposure to COVID-19
CPT/HCPCS: 36415; 74176; 80053; 81001; 85027; 87086; 87635; 99284

== ENCOUNTER 2021-06-25 19:49 | Emergency (ER) | payer OTHER, SELFPAY ==
[2021-06-25 20:28] VITALS: BP 167/84; PULSE 76; RESP 18; TEMP 37; O2SAT 96; BMI 30.2
== END 2021-06-26 00:41 | disposition left against medical advice (07) ==
PROVIDERS: Emergency Provider Emergency Medicine; PCP Internal Medicine
DX: R51.9 Headache, unspecified (principal)
CPT/HCPCS: 99281; 99282

== ENCOUNTER → 2021-07-19 07:58 | Outpatient (BNVA) | payer OTHER, SELFPAY | PROVIDERS: PCP Internal Medicine; Visit Provider Advanced Practice Midwife | DX: Z13.89 Encounter for screening for other disorder (principal) ==

== ENCOUNTER 2021-10-21 07:33 | Outpatient (REF) | payer OTHER, SELFPAY ==
--- NOTE | ~2021-10-21 | MM_ITS ---
EXAMINATION: MM SCREENING DIGITAL BREAST TOMOSYNTHESIS, BILATERAL CLINICAL INFORMATION: Screening. Asymptomatic. The lifetime risk of breast cancer based on the Tyrer-Cuzick Model is 18%. COMPARISON: Mammography: 10/18/2020, 10/13/2019, 08/03/2018 TECHNIQUE: Digital breast tomosynthesis is performed in both the craniocaudal and mediolateral oblique views along with computer-aided detection (CAD). Synthesized 2D images are generated from the tomosynthesis. FINDINGS: There are scattered areas of fibroglandular density (ACR BI-RADS breast composition Category b). There are no significant masses, abnormal calcifications, or other abnormalities. Parenchymal pattern is similar to prior studies. MM/MM tomosynthesis screening BI IMPRESSION: No mammographic evidence of malignancy. ASSESSMENT: BI-RADS 1: Negative RECOMMENDATION: Routine annual mammography screening. This patient's information was entered into a reminder system with a target due date for their next mammogram.
== END 2021-10-21 07:34 | disposition home or self-care (01) ==
LOC: HO.MAMMO 07:33
PROVIDERS: PCP Internal Medicine; Visit Provider Internal Medicine
DX: Z12.31 Encounter for screening mammogram for malignant neoplasm of breast (principal)
CPT/HCPCS: 77063; 77067

== ENCOUNTER 2022-01-24 11:53 | Emergency (ER) | payer OTHER, SELFPAY ==
[2022-01-24 11:55] VITALS: BP 139/111; PULSE 71; RESP 18; TEMP 36.8; O2SAT 97; BMI 30.2
--- NOTE | 2022-01-24 12:01 | ECG_ITS ---
Test Reason : DIZZINESS Blood Pressure : / mmHG Vent. Rate : 072 BPM Atrial Rate : 072 BPM P-R Int : 142 ms QRS Dur : 080 ms QT Int : 408 ms P-R-T Axes : 006 -17 030 degrees QTc Int : 446 ms Normal sinus rhythm Normal ECG No previous ECGs available Referred By: Generic ED Physician Electronically Signed By:MEGHNA QUINONEZ MD
[2022-01-24 12:16] LABS: MANUAL DIFF FLAG NO
[2022-01-24 12:18] LABS: Basophils Absolute Auto 0.1 X10*3/uL (0.0-0.2); Eosinophils Absolute Auto 0.3 X10*3/uL (0.0-0.4); Eosinophils Percent Auto 4.2 % (0-4); Hematocrit 40.7 % (37.0-47.0); Hemoglobin 13.1 g/dl (12.0-16.0); Imm Gran Abs Auto 0.03 X10*3/uL (0.00-0.03); Imm Gran Pct Auto 0.4 % (0.0-0.4); Lymphocytes Absolute Auto 1.8 X10*3/uL (1.2-4.9); Lymphocytes Percent Auto 25.5 % (20-40); Mean Corpuscular HGB Conc 32.2 g/dl (31.0-35.0); Mean Corpuscular Hemoglobin 26.9 pg (27.0-33.0); Mean Corpuscular Volume 83.6 fL (80.0-98.0); Mean Platelet Volume 9.2 fL (9.4-12.3); Monocytes Absolute Auto 0.4 X10*3/uL (0.1-1.2); Neutrophils Absolute Auto 4.5 x10*3/uL (2.0-8.3); Neutrophils Percent Auto 62.9 % (45-73); Platelet Count 350 X10*3/uL (160-400); Red Blood Count 4.87 X10*6/uL (4.20-5.50); Red Cell Distribution Width 12.9 % (11.0-16.0); White Blood Count 7.2 X10*3/uL (4.8-10.8)
[2022-01-24 12:31] LABS: Anion Gap 16 (12-20); Blood Urea Nitrogen 12 mg/dL (9-16); Calcium 9.1 mg/dL (8.4-10.2); Carbon Dioxide 25 mmol/L (22-29); Chloride 105 mmol/L (96-108); Creatinine Clr Calc Pharmacy 79.1; Estimated Glomerular Filt Rate > 60; Glucose Random 114 mg/dL (60-115); Sodium 142 mmol/L (135-145)
[2022-01-24 12:38] LABS: Troponin-I High Sensitivity < 3.5 ng/L (<3.5-17.0)
--- OUTSIDE RECORDS SUMMARY | 2022-01-24 15:07 | XMS_ITS ---
:1965 Author Name Brandi Gallegos Care Team Providers Name Role Phone Rosy Brandi Grullon Unavailable Unavailable PROBLEMS Type Condition ICD9-CM Code CLI10-IF Code Onset Condition SNO MED Code Dates Status Problem Hallux rigidus, M20.21 Active 6654 000 right foot Problem Hallux valgus M20.12 Active 331172 01 (acquired), left foot ALLERGIES Substance Reaction Event Type Date Status Hair Dye Sweling ,itcing Drug Allergy Dec, Active ENCOUNTERS Encounter Location Date Diagnosis [facility] [address], [place] [address] [facility] Dec, Karthik lux valgus [place], [place] (acquired), [place]f [place] [id number] M20.12 ; Hallux rigidus, right f oot M20.21 ; Pain in right foot M79.671 and Metatarsalgia, r ight foot M77.41 [facility] [address] Jan, Karthik lux rigidus, right [place], [place] foot M20.21 ; H allux [id number] valgus (acquired ), left foot M20.12 ; Pa in in right foot M79.6 71 and Metatarsalgia, r ight foot M77.41 IMMUNIZATIONS Vaccine Route Administration Date Status COVID-19 Pfizer BioNTech Vaccine Unknown Apr 26, 2020 Administered Influenza Unknown Jan 15, 2021 Administered SOCIAL HISTORY Qualifiers Date Never Smoker REASON FOR REFERRAL FUNCTIONAL STATUS PLAN OF CARE Activity Details Follow Up prn Reason: Future Appointment Provider Name:Kaye armenta, 2022-02-28 01:45:00 PM, [address] [facility] [place], [phone], Pending Test X ray : Foot, left 3V Pending Test X ray : Foot, right 3V VITAL SIGNS Height 5 ft 6 in in 2021-12-26 Weight 189 lbs 2021-12-26 BMI 30.50 kg/m2 2021-12-26 Blood pressure systolic 120 mm Hg 2021-12-26 Blood pressure diastolic 70 mm Hg 2021-12-26 MEDICATIONS Medication Instructions Dosage Frequency Start End Duration Statu s Date Date Esomeprazole Orally Once a 1 capsule 24h 30 day(s) A ctive Magnesium 40 MG day Docusate Sodium Orally Once a 1 tablet as 24h Active 100 MG day needed Voltaren 1 % Externally apply as directed 30 day s Active bid to foot Citalopram Orally Once a 1 tablet 24h Active Hydrobromide 10 day MG iron Active Topiramate 100 Orally Once a 1 tablet 24h Ac tive MG day Advair Diskus Active Montelukast Orally Once a 1 tablet 24h Activ e Sodium 10 MG day PROCEDURES Procedure Date Ordered Result Body Site X-RAY EXAM OF LEFT FOOT 3V Feb 07, 2021 X-RAY EXAM OF RIGHT FOOT 3V Feb 07, 2021 RESULTS No Results REASON FOR VISIT Insurance Providers [facility] Member Patient Patient Patient Patient Patient Subscriber Subscriber Subscriber Group Insurance Plan Plan Plan Plan ID Relationship Address Phone Name Date of ID Name Date of No Type Insurance Insurance Insurance Coverage to Subscriber Address Phone Name Dates [place] [phone] [employer] [place] [id number] Benefits [id number] [address] MEDICAL (GENERAL) HISTORY Type Description Date Medical History Headaches/Migraines Medical History Reflux ( GERD) Surgical History No know Surgical history
== END 2022-01-24 15:24 | disposition left against medical advice (07) ==
PROVIDERS: Emergency Provider Emergency Medicine; PCP Internal Medicine
DX: R42 Dizziness and giddiness (principal); H53.8 Other visual disturbances; R51.9 Headache, unspecified; R07.89 Other chest pain; Z79.899 Other long term (current) drug therapy
CPT/HCPCS: 36415; 80048; 84484; 85025; 93005; 99283; 99284

== ENCOUNTER 2022-01-30 16:33 | Emergency (ER) | payer OTHER, SELFPAY ==
--- NOTE | ~2022-01-30 | CT_ITS ---
EXAMINATION: CT HEAD WITHOUT CONTRAST CLINICAL INFORMATION: Word finding difficulty and dizziness COMPARISON: None TECHNIQUE: Contiguous axial imaging was performed from the skull base to vertex without intravenous administration of contrast. This CT examination was performed using dose optimization techniques as appropriate, variously including the following: *Automated exposure control *Adjustment of mA and/or kV according to patient size (this includes techniques or standardized protocols for targeted exams where dose is matched to indication/reason for exam; i.e. extremities or head) *Use of iterative reconstruction technique DLP: 711 mGy-cm FINDINGS: No intra or extra-axial fluid collection, hemorrhage, or mass. The taylor-white matter differentiation is maintained. No territorial encephalomalacia. No ventriculomegaly, midline shift or herniation. Basal cisterns are patent. No cerebral volume loss. Small focus of apparent low attenuation in the left caudate head on image 26, series 2, possibly a lacunar infarct of uncertain acuity versus artifact. No calvarial fracture. Hyperostosis frontalis interna noted. Visualized paranasal sinuses and mastoid air cells are normally aerated. CT/CT head/brain wo IV con IMPRESSION: 1. No intracranial hemorrhage or mass. 2. Small focus of apparent low attenuation in the left caudate head, possibly a lacunar infarct of uncertain acuity versus artifact. If clinical concern for acute infarct, consider MRI for further assessment as indicated.
[2022-01-30 16:39] VITALS: BP 184/80; PULSE 76; RESP 16; O2SAT 96; BMI 29.9
== END 2022-01-30 22:28 | disposition left against medical advice (07) ==
PROVIDERS: Emergency Provider Emergency Medicine; PCP Internal Medicine
DX: R51.9 Headache, unspecified (principal); M54.50 Low back pain, unspecified; E11.9 Type 2 diabetes mellitus without complications; Z20.822 Contact with and (suspected) exposure to COVID-19; Z79.899 Other long term (current) drug therapy
CPT/HCPCS: 70450; 99281; 99284

== ENCOUNTER 2022-02-12 00:55 | Emergency (ER) | payer OTHER, SELFPAY ==
--- NOTE | ~2022-02-12 | CT_ITS ---
EXAMINATION: CT angio head neck CLINICAL INFORMATION: Dizziness. COMPARISON: CT scan of the head 01/30/2022. TECHNIQUE: Hand Tennis Ball Coverer images were obtained. A CT angiogram of the head and neck was performed in the arterial phase after the intravenous administration of 70 mL Omnipaque 350. Pre and delayed postcontrast images of the head were also obtained. MIP reconstructions were generated in multiple orientations at the acquisition workstation. Multiple three-dimensional surface rendered images and maximum intensity projection images were generated on a dedicated 3-D lab workstation. Arterial stenoses are measured in accordance with NASCET criteria or similar method if applicable. This CT examination was performed using dose optimization techniques as appropriate, including one or more of the following: Automated exposure control, iterative reconstruction, and adjustment of technique factors (mA and/or kVp) according to patient size (this includes techniques or standardized protocols for targeted exams where dose is matched to indication/reason for exam). Fleischner Society criteria for the followup of incidental pulmonary nodules was implemented if appropriate. Total exam dose-length product 2377 mGy-cm FINDINGS: Head: There is subtle focus of hypoattenuation involving the left caudate head. Garcia-white matter differentiation is otherwise preserved. Postcontrast images reveal no abnormal intracranial mass or enhancement. No intracranial mass effect or midline shift. Lateral and third ventricles are normal. No hydrocephalus. The calvarium and skull base are intact. Mastoid air cells and middle ear cavities are well aerated. There are a few small retention cysts within the maxillary sinuses and sphenoid sinus. Otherwise no active paranasal sinus disease. CT angiogram neck: The aortic arch apex is normal. Origins of the major aortic branches are widely patent. Common carotid arteries and carotid bifurcations are normal. No stenosis of the extracranial internal carotid arteries. The cervical segments of the vertebral arteries as well as their origins are patent. CT angiogram head: Intracranial internal carotid arteries are normal. Intradural vertebral artery segments and basilar artery are normal. Anterior, middle, and posterior cerebral artery complexes are normal. No intracranial large vessel occlusion. No evidence of aneurysm or high flow vascular lesion. Other: Soft tissues of the neck including the thyroid gland are normal. No pathologically enlarged cervical lymph nodes. Lung apices are clear. CT/CT angio head neck IMPRESSION: Unremarkable CT angiogram of the head and neck. No stenosis of the cervical carotid or vertebral arteries. No intracranial large vessel occlusion. Again there is a subtle focus of hypoattenuation visualized within the left caudate head. Garcia-white matter distribution is otherwise preserved. No abnormal intracranial mass or enhancement.
[2022-02-12 01:18] VITALS: BP 154/94; PULSE 82; RESP 18; TEMP 36.9; O2SAT 96; BMI 30.3
[2022-02-12 02:37] LABS: MANUAL DIFF FLAG NO
[2022-02-12 02:50] LABS: Basophils Absolute Auto 0.1 X10*3/uL (0.0-0.2); Basophils Percent Auto 0.8 % (0-2); Eosinophils Absolute Auto 0.3 X10*3/uL (0.0-0.4); Eosinophils Percent Auto 4.2 % (0-4); Hematocrit 41.1 % (37.0-47.0); Hemoglobin 13.1 g/dl (12.0-16.0); Imm Gran Abs Auto 0.02 X10*3/uL (0.00-0.03); Imm Gran Pct Auto 0.3 % (0.0-0.4); Lymphocytes Percent Auto 39.6 % (20-40); Mean Corpuscular HGB Conc 31.9 g/dl (31.0-35.0); Mean Corpuscular Hemoglobin 26.7 pg (27.0-33.0); Mean Corpuscular Volume 83.7 fL (80.0-98.0); Mean Platelet Volume 9.3 fL (9.4-12.3); Monocytes Absolute Auto 0.5 X10*3/uL (0.1-1.2); Monocytes Percent Auto 6.8 % (2-11); Neutrophils Absolute Auto 3.6 x10*3/uL (2.0-8.3); Neutrophils Percent Auto 48.3 % (45-73); Platelet Count 359 X10*3/uL (160-400); Red Blood Count 4.91 X10*6/uL (4.20-5.50); White Blood Count 7.5 X10*3/uL (4.8-10.8)
--- NOTE | 2022-02-12 02:52 | PC.NURSE ---
pt a&ox3, at bedside, labs drawn, pt pending ED provider.
[2022-02-12 03:01] LABS: Anion Gap 16 (12-20); Blood Urea Nitrogen 12 mg/dL (9-16); Calcium 9.2 mg/dL (8.4-10.2); Carbon Dioxide 26 mmol/L (22-29); Chloride 104 mmol/L (96-108); Creatinine Clr Calc Pharmacy 74.9; Estimated Glomerular Filt Rate > 60; Glucose Random 109 mg/dL (60-115); Potassium 3.8 mmol/L (3.3-5.1); Sodium 142 mmol/L (135-145)
[2022-02-12 03:44] LABS: COVID-19 Test Negative (Negative)
[2022-02-12 06:00] VITALS: BP 131/79; PULSE 69; RESP 16; TEMP 36.8; O2SAT 94
--- NOTE | 2022-02-12 06:42 | ED.DIZZY ---
HPI - Dizziness General Chief Complaint: Dizziness Stated Complaint: light headed, dizziness Time Seen by Provider: 02/12/22 06:36 Source: patient and old records reviewed Mode of arrival: ambulatory Limitations: no limitations History of Present Illness HPI Narrative: 56 yo female with hx of asthma, depression, HLD was seen here on 01/30 in waiting room but LWT had CT scan that showed possible left lacunar infarct. She has been experiencing intermittent non reproduceable lightheadness. No other symptoms. She has not had a cold or change in mediactions, no CP/SOB. MD elicited complaint: dizziness and lightheadedness Onset (ago): week(s) (3) Timing: sudden onset, gradual onset and intermittent Severity: moderate Description: lightheadedness Context: other (occurs at any time) History of similar symptoms: No Exacerbating factors: nothing Relieving factors: nothing Associated symptoms: denies other symptoms Related Data Home Medications Medication Instructions Recorded Confirmed cetirizine 10 mg tablet 10 mg PO DAILY 03/19/21 05/19/21 fluocinonide 0.05 % topical cream appl topical 03/19/21 05/19/21 Previous Rx's Medication Instructions Recorded cholecalciferol (vitamin D3) 50 50 mcg PO DAILY #90 caps 06/18/20 mcg (2,000 unit) capsule ferrous fumarate 325 mg (106 mg 325 mg PO DAILY #90 tabs 09/17/20 iron) tablet hydroxyzine HCl 25 mg tablet 25 mg PO BEDTIME PRN itching #20 12/10/20 tabs docusate sodium 100 mg capsule 100 mg PO DAILY #90 caps 12/24/20 fluticasone 250 mcg-salmeterol 50 1 inh inhalation Q12H #60 ea 02/06/21 mcg/dose blistr powdr for inhalation (Advair Diskus) cyclobenzaprine 10 mg tablet 10 mg PO TID PRN muscle spasm #14 05/10/21 tabs citalopram 10 mg tablet 10 mg PO DAILY #90 tabs 10/25/21 montelukast 10 mg tablet 10 mg PO DAILY #90 tabs 10/25/21 esomeprazole magnesium 40 mg 40 mg PO DAILY #90 caps 11/19/21 capsule,delayed release aspirin 81 mg tablet,delayed 81 mg PO DAILY #30 tabs 02/12/22 release atorvastatin 20 mg tablet 20 mg PO BEDTIME #30 tabs 02/12/22 Allergies Allergy/AdvReac Type Severity Reaction Status Date / Time hair dye Allergy Unknown itchiness Uncoded 01/24/22 10:40 Review of Systems Review of Systems: Constitutional : No Fever, No Chills, No Fatigue ENT/Mouth : No sore throat, No Rhinorrhea Eyes: No Eye Pain, No Swelling, No Redness Cardiovascular : No Chest Pain, No SOB, No Dyspnea on Exertion Respiratory : No Cough, No Sputum Gastrointestinal : No Nausea, No Vomiting, No Diarrhea, No abdominal Pain Genitourinary : No Dysuria, No Urinary Frequency, No Hematuria, Musculoskeletal : No joint pain, No Myalgias, No Joint Swelling Skin : No Skin Lesions, No rash Neuro : No Weakness, No Numbness, pos Dizziness, no Headache Psych : No Anxiety/Panic, No Depression Heme/Lymph: No Bruising, No Bleeding,No Lymphadenopathy Endocrine : No Polyuria, No Polydipsia All other systems reviewed and are negative [facility] Past Medical History Attestation statement: The following information was validated with the patient. Medical History Bunion of great toe of right foot Chronic right sacroiliac pain Depression Dyslipidemia GERD (gastroesophageal reflux disease) Kidney stones Microcytic hypochromic anemia Mild intermittent asthma Numerous moles Positional lightheadedness Rash of back Vitamin D deficiency Surgical History H/O cystoscopy Hx of cholecystectomy Previous section Family History Family History Father Diabetes mellitus Bronchial asthma Mother Breast cancer Social History Social History Housing: Condominium Alcohol intake: never Patient Tobacco Use Status: Never used Tobacco Smoked in Last 30 Days: No e-Cigarette/Vaping Use: Never Used Use of substances other than those prescribed or required for medical reasons: No Advance Directives: No Advance Directives Information Provided: No Current occupational status: employed Physical Exam Vital Signs: Vital Signs: Last Vital Signs Temp 98.4 F 02/12/22 08:55 Pulse 70 02/12/22 08:55 Resp 18 02/12/22 08:55 BP 136/85 02/12/22 08:55 Pulse Ox 95 02/12/22 08:55 O2 Del Method 02/12/22 08:55 BMI result Body Mass Index 30.3 Appearance: Alert. Oriented X3. No acute distress. Eyes: Pupils equal, round and reactive to light. ENT: Pharynx normal. Neck: Normal inspection. Neck supple. CVS: Normal heart rate and rhythm. Pulses normal. Respiratory: No respiratory distress. Breath sounds normal. Abdomen: Soft and nontender. Skin: Skin warm and dry. Normal skin color. Normal skin turgor. Extremities: No lower extremity edema. No calf ttp Neuro: Oriented X 3. No motor deficit. No sensory deficit. no ataxia, no drift Course Course Course Narrative: will start on aspirin and statin, refer to PCP, no afib here and carotids are clear - suspect this might be cause of her symptoms. BP has been good other than initial on arrival MDM - Dizziness MDM Narrative Medical decision making narrative: 56 yo female with hx of asthma, depression, HLD was seen here on 01/30 in waiting room but LWT had CT scan that showed possible left lacunar infarct - at this time will obtain basic labs, EKG, CTA head and neck to look for possible cause and to see if lacunar infarct is present as cause of her symptoms. dispo per results and findings. has no CP/SOB to suggest ACS or PE. Lab Data Result diagrams: 02/12/22 02:32 02/12/22 02:32 Labs: Lab Results 02/12/22 02/12/22 02/12/22 Range/Units 02:32 02:32 02:32 WBC 7.5 (4.8-10.8) X10*3/uL RBC 4.91 (4.20-5.50) X10*6/uL Hgb 13.1 (12.0-16.0) g/dl Hct 41.1 (37.0-47.0) % MCV 83.7 (80.0-98.0) fL MCH 26.7 L (27.0-33.0) pg MCHC 31.9 (31.0-35.0) g/dl RDW 13.0 (11.0-16.0) % Plt Count 359 (160-400) X10*3/uL MPV 9.3 L (9.4-12.3) fL Immature Gran % (Auto) 0.3 (0.0-0.4) % Neut % (Auto) 48.3 (45-73) % Lymph % (Auto) 39.6 (20-40) % [place] % (Auto) 6.8 (2-11) % Eos % (Auto) 4.2 H (0-4) % Baso % (Auto) 0.8 (0-2) % Lymph # (Auto) 3.0 (1.2-4.9) X10*3/uL [place] # (Auto) 0.5 (0.1-1.2) X10*3/uL Eos # (Auto) 0.3 (0.0-0.4) X10*3/uL Baso # (Auto) 0.1 (0.0-0.2) X10*3/uL Abs Immat Gran (auto) 0.02 (0.00-0.03) X10*3/uL Absolute Neuts (auto) 3.6 (2.0-8.3) x10*3/uL Absolute Nucleated RBC 0.000 (0.0-0.012) X10*3/uL Nucleated RBC % (auto) 0.0 (0.0-0.2) /100WBC Sodium 142 (135-145) mmol/L Potassium 3.8 (3.3-5.1) mmol/L Chloride 104 (96-108) mmol/L Carbon Dioxide 26 (22-29) mmol/L Anion Gap 16 (12-20) BUN 12 (9-16) mg/dL Creatinine 0.90 (0.5-1.4) mg/dL Estim Creat Clear Calc 74.9 Estimated GFR > 60 Random Glucose 109 (60-115) mg/dL Calcium 9.2 (8.4-10.2) mg/dL Troponin I High Sens (<3.5-17.0) ng/L Urine Color Urine Appearance Urine pH (5.0-9.0) Ur Specific [place] (1.005-1.025) Urine Protein (Neg-Trace) mg/dL Urine Glucose (UA) (Negative) mg/dL Urine Ketones (Negative) mg/dL Urine Blood (Negative) Urine Nitrite (Negative) Ur Leukocyte Esterase (Negative) COVID-19 ([facility]) Negative (Negative) COVID-19 Clin Com See Note 02/12/22 02/12/22 Range/Units 02:32 07:19 WBC (4.8-10.8) X10*3/uL RBC (4.20-5.50) X10*6/uL Hgb (12.0-16.0) g/dl Hct (37.0-47.0) % MCV (80.0-98.0) fL MCH (27.0-33.0) pg MCHC (31.0-35.0) g/dl RDW (11.0-16.0) % Plt Count (160-400) X10*3/uL MPV (9.4-12.3) fL Immature Gran % (Auto) (0.0-0.4) % Neut % (Auto) (45-73) % Lymph % (Auto) (20-40) % [place] % (Auto) (2-11) % Eos % (Auto) (0-4) % Baso % (Auto) (0-2) % Lymph # (Auto) (1.2-4.9) X10*3/uL [place] # (Auto) (0.1-1.2) X10*3/uL Eos # (Auto) (0.0-0.4) X10*3/uL Baso # (Auto) (0.0-0.2) X10*3/uL Abs Immat Gran (auto) (0.00-0.03) X10*3/uL Absolute Neuts (auto) (2.0-8.3) x10*3/uL Absolute Nucleated RBC (0.0-0.012) X10*3/uL Nucleated RBC % (auto) (0.0-0.2) /100WBC Sodium (135-145) mmol/L Potassium (3.3-5.1) mmol/L Chloride (96-108) mmol/L Carbon Dioxide (22-29) mmol/L Anion Gap (12-20) BUN (9-16) mg/dL Creatinine (0.5-1.4) mg/dL Estim Creat Clear Calc Estimated GFR Random Glucose (60-115) mg/dL Calcium (8.4-10.2) mg/dL Troponin I High Sens < 3.5 (<3.5-17.0) ng/L Urine Color Yellow Urine Appearance Hazy Urine pH 6.0 (5.0-9.0) Ur Specific [place] >= 1.030 H (1.005-1.025) Urine Protein Negative (Neg-Trace) mg/dL Urine Glucose (UA) Negative (Negative) mg/dL Urine Ketones Negative (Negative) mg/dL Urine Blood Negative (Negative) Urine Nitrite Negative (Negative) Ur Leukocyte Esterase Negative (Negative) COVID-19 ([facility]) (Negative) COVID-19 Clin Com ECG Data Attestation: I personally reviewed and interpreted this ECG as follows: ECG interpretation date: 02/12/22 ECG interpretation time: 07:31 Interpretation: Rate: 69 Rhythm: NSR [place]: left Normal P waves. Normal JAI. Normal QRS complex. ST T wave : normal no MARIXA qTC: normal prior studies: no acute ischemia The study has been interpreted contemporaneously by me. . Discharge Plan Discharge Clinical Impression: Left sided lacunar infarction Patient Disposition: Home, Self-Care Instructions: Ischemic Stroke (DC), Stroke (DC) Additional Instructions: return to ED for any worsening symptoms or concerns please follow up with your primary care doctor for ECHO as well as outpatient holter monitor lipid studies are pending from the ED - your primary care doctor should be able to view them start on aspirin 81mg daily take new statin medication daily Prescriptions: New aspirin 81 mg tablet,delayed release (DR/EC) 81 mg PO DAILY Qty: 30 0RF atorvastatin 20 mg tablet 20 mg PO BEDTIME Qty: 30 0RF No Action ferrous fumarate 325 mg (106 mg iron) tablet 325 mg PO DAILY Qty: 90 0RF docusate sodium 100 mg capsule 100 mg PO DAILY Qty: 90 1RF fluticasone propion-salmeterol [Advair Diskus] 250-50 mcg/dose blister with device 1 inh inhalation Q12H Qty: 60 6RF montelukast 10 mg tablet 10 mg PO DAILY Qty: 90 1RF citalopram 10 mg tablet 10 mg PO DAILY Qty: 90 1RF esomeprazole magnesium 40 mg capsule,delayed release(DR/EC) 40 mg PO DAILY Qty: 90 0RF cyclobenzaprine 10 mg tablet 10 mg PO TID PRN (Reason: muscle spasm) Qty: 14 0RF fluocinonide 0.05 % cream topical cetirizine 10 mg tablet 10 mg PO DAILY cholecalciferol (vitamin D3) 50 mcg (2,000 unit) capsule 50 mcg PO DAILY Qty: 90 0RF hydroxyzine HCl 25 mg tablet 25 mg PO BEDTIME PRN (Reason: itching) Qty: 20 0RF Referrals: Physician,Nonstaff [Primary Care Provider] - (PCP this week) Stand Alone Forms: Work/School Release
--- NOTE | 2022-02-12 07:04 | ECG_ITS ---
Test Reason : dizziness Blood Pressure : / mmHG Vent. Rate : 069 BPM Atrial Rate : 069 BPM P-R Int : 148 ms QRS Dur : 080 ms QT Int : 426 ms P-R-T Axes : 010 -10 013 degrees QTc Int : 456 ms Normal sinus rhythm Normal ECG When compared with ECG of 24-JAN-2022 12:05, No significant change was found Referred By: Roslyn King Electronically Signed By:MEGHNA QUINONEZ MD
[2022-02-12 07:05] VITALS: BP 148/81; PULSE 69
[2022-02-12 07:06] VITALS: BP 168/84; PULSE 75
[2022-02-12 07:08] VITALS: BP 164/88; PULSE 80
[2022-02-12 07:28] LABS: Appearance Urine Hazy; Color Urine Yellow; Glucose Urine UA Negative (Negative); Leukocyte Esterase Urine Negative (Negative); Nitrite Urine Negative (Negative); Specific Gravity - Urine >= 1.030 (1.005-1.025); Urine Blood Negative (Negative); Urine Ketones Negative (Negative); Urine Protein Negative (Neg-Trace)
[2022-02-12 08:24] LABS: Troponin-I High Sensitivity < 3.5 ng/L (<3.5-17.0)
[2022-02-12 08:55] VITALS: BP 136/85; PULSE 70; RESP 18; TEMP 36.9; O2SAT 95
[2022-02-12] MEDS: iohexoL 350 MG/ML 100 ML INFUS..BTL IV (09:03)
[2022-02-12 10:46] LABS: Cholesterol 200 mg/dL; HDL Cholesterol 36 mg/dL; LDL Cholesterol Calculated 140 mg/dl; Triglycerides 121 mg/dL
--- NOTE | 2022-02-12 10:52 | MHC.STROKE ---
09:[address] VALERA THAT PATIENT IS A STROKE FROM 01/30/22 AND IS REQUESTING I SEE THE PATIENT. I MET WITH THE PATIENT TO PROVIDE STROKE EDUCATION. I REVIEWED THE STROKE BOOKLET, HER BP, HER CTA RESULTS, I GAVE HER A COPY OF THE CTA REPORT. WE DISCUSSED HER RISK FACTORS AND GOALS. SHE WILL FOLLOW UP WITH HER PCP AND AN ECHO IS RECOMMENDED TO COMPLETE HER WORK UP. HER LIPID PANEL IS PENDING AND SHE WILL CHECK WITH HER PCP.
== END 2022-02-12 10:46 | disposition home or self-care (01) ==
PROVIDERS: Emergency Provider Emergency Medicine
DX: I63.81 Other cerebral infarction due to occlusion or stenosis of small artery (principal); R42 Dizziness and giddiness; E78.5 Hyperlipidemia, unspecified; Z20.822 Contact with and (suspected) exposure to COVID-19; Z79.899 Other long term (current) drug therapy
CPT/HCPCS: 70496; 70498; 80048; 80061; 81003; 84484; 85025; 87635; 93005; 99284; 99285; Q9967

== ENCOUNTER → 2022-03-04 07:15 | Outpatient (REF) | payer OTHER, SELFPAY ==
--- NOTE | 2022-03-04 07:20 | CA_ITS ---
Transthoracic Echocardiogram Patient (Last, First, Middle): Steff Brandt, Gender: Female Date of : 1965 Age: 56 Procedure Date: 03/04/2022 Procedure Type: Transthoracic Echocardiogram Location: OP Height: 167.64 cm Weight: 85.28 kg BSA: 1.95 m2 Heart Rate: bpm BP: 140 / 90 mmHg Reinsurance Analyst: TO Referring MD: Brandi Gallegos MD Symptoms: R42 - Dizziness and giddiness Study Quality: Technically Difficult, contrast used ECG Rhythm: Sinus Conclusions: - The left ventricular systolic function is normal. The calculated ejection fraction is 69% by biplane method. - There is mild septal asymmetric hypertrophy. - No obvious valvular pathology seen on this study. Findings Procedure Information Contrast agent, definity, is being given per protocol without apparent complications. Left Ventricle Normal left ventricular cavity size. There is normal left ventricular wall thickness. The left ventricular systolic function is normal. The calculated ejection fraction is 69% by biplane method. There is no evidence of regional wall motion abnormalities. Diastolic function is normal for age. There is mild septal asymmetric hypertrophy. Right Ventricle Normal right ventricular cavity size and systolic function. Atria Both atria are normal in size. Interatrial shunt cannot be excluded. Aortic Valve There is a normal trileaflet aortic valve. There is no aortic valve stenosis. There is no aortic valve regurgitation. Mitral Valve The mitral valve appears normal. There is no mitral valve regurgitation. There is no mitral valve stenosis. Pulmonic Valve The pulmonic valve is likely normal. Tricuspid Valve There is trace tricuspid valve regurgitation. There is no evidence of pulmonary hypertension. Great Vessels The asc aorta is normal in size. Venous The inferior vena cava is normal in size and collapses greater than 50% with inspiration. Pericardium/Pleural There is no evidence of pericardial effusion. Prior Study Comparison No prior study available for comparison. If clinically indicated, consider bubble study. Recommendations, Care & Conclusions No obvious valvular pathology seen on this study. Measurements 2D Linear Measurements IVSd: 1.23 0.6-0.9/0.6-1.0 cm LVIDd: 4.30 3.9-5.3/4.2-5.9 cm LVIDd Index: 2.21 2.4-3.2/2.2-3.1 cm/m2 LVIDs: 2.73 2.0-3.6 cm LVPWd: 0.97 0.7-1.1 cm LA Diam: 3.50 2.7-3.8/3.0-4.0 cm LAIDs Index: 1.79 1.5-2.3 cm/m2 LV Mass: 202.66 67-162/88-224 g LV Mass Index: 103.93 43-95/49-115 g/m2 LVOT Diam: 2.00 3.0+(-)1.3 cm 2D Systolic Function EF 4C: 69.00 >55% EF 2C: 66.80 >55% EF BiP: 68.50 >55% Mitral Valve MV Pk E: 0.43 MV PK A: 0.64 MV Decel Time: 186.00 E/A: 0.70 E'Lateral: 8.92 E'Medial: 6.53 E/E' Med: 6.60 E/E' Lat: 4.80 PHT: 55.00 MVA PHT: 4.00 Decel Fallon: 2.30 Aortic Valve AoV Pk Joseph: 1.16 AoV Mn Joseph: 0.81 AoV VTI: 0.22 AoV Pk Grad: 5.00 Aov Mn Grad: 3.00 NTAHALY Cont.VTI: 1.98 LVOT LVOT Pk Joseph: 0.83 LVOT Mn Joseph: 0.52 LVOT VTI: 0.14 LVOT Pk Grad: 3.00 LVOT Mn Grad: 1.00 LVOT Diam: 2.00 LVOT Area: 3.14 Diastolic Function MV Pk E: 0.43 MV Pk A: 0.64 E/A: 0.70 E'Medial: 6.53 E/E' Med: 6.60 E' Laterial: 8.92 E/E' Lat: 4.80 Right Ventricle TAPSE (mm): 19.40 TVS' Joseph: 8.59 Tricuspid Valve RA Press: 3.00 Great Vessels Aorta Sinus of Valsalva: 3.25 2.0-3.5 cm Ao Asc: 2.80 2.1-3.4 cm Updated in Other Vendor System with Status of Final Saurabh Rangel MD electronically signed on 03/04/2022 12:24:51 PM with status of Final
== END ==
LOC: HO.CARD 07:15
PROVIDERS: Visit Provider Internal Medicine
DX: R42 Dizziness and giddiness (principal)
CPT/HCPCS: 93306; Q9957

== ENCOUNTER 2022-04-11 16:34 | Outpatient (REF) | payer OTHER, SELFPAY ==
[2022-04-11 17:29] LABS: Influenza A PCR NEGATIVE (Negative); Influenza B PCR NEGATIVE (Negative); Resp Syncy Virus RNA Qual PCR NEGATIVE (Negative); SARS COV2 PCR INHOUSE NEGATIVE (Negative)
== END 2022-04-11 16:35 | disposition home or self-care (01) ==
LOC: HO.LNP 16:34
PROVIDERS: Visit Provider Physician Assistant Medical
DX: Z20.822 Contact with and (suspected) exposure to COVID-19 (principal); R05.9 Cough, unspecified
CPT/HCPCS: 0241U

== ENCOUNTER 2022-04-15 07:41 | Emergency (ER) | payer OTHER, SELFPAY ==
--- NOTE | ~2022-04-15 | XR_ITS ---
EXAMINATION: XR CHEST CLINICAL INFORMATION: Cough. COMPARISON: None TECHNIQUE: Frontal view of the chest was obtained. FINDINGS: The lungs are well-expanded and clear. Heart size and pulmonary vascularity is normal. There is moderate spondylosis dorsal spine. No lytic or sclerotic process seen. XR/XR chest 1V IMPRESSION: Unremarkable chest examination.
[2022-04-15 07:46] VITALS: BP 130/84; PULSE 102; O2SAT 95
[2022-04-15 07:47] VITALS: BP 138/78; PULSE 113; RESP 18; TEMP 36.9; O2SAT 94; BMI 30.3
--- NOTE | 2022-04-15 08:02 | ECG_ITS ---
Test Reason : UPPER RESPIRATORY Blood Pressure : / mmHG Vent. Rate : 096 BPM Atrial Rate : 096 BPM P-R Int : 134 ms QRS Dur : 076 ms QT Int : 354 ms P-R-T Axes : 013 -18 -14 degrees QTc Int : 447 ms Normal sinus rhythm Normal ECG When compared with ECG of 12-FEB-2022 07:21, No significant change was found Referred By: Roslyn King Electronically Signed By:CHARLES TOLEDO
[2022-04-15 08:11] LABS: COVID-19 Test Positive (Negative); IDNOW Serial# 16C4AD1C
[2022-04-15 08:22] LABS: MANUAL DIFF FLAG NO
--- NOTE | 2022-04-15 08:22 | ED_ITS ---
HPI - URI/Sore Throat General Chief Complaint: Upper Respiratory Symptoms Stated Complaint: +COVID W/SOB 95%RA PER EMS Time Seen by Provider: 04/15/22 07:56 Source: patient Mode of arrival: EMS Limitations: no limitations History of Present Illness HPI Narrative: 56 yo female with hx of HLD, GERD, prior episodes of dizziness, vaccinated for COVID x 3 here with c/o feeling URI symptoms x 3 weeks went to an urgent care on Thursday her COVID was negative but then home test today was positive. Her main complaint is lack of appetite and nausea. She feels weak and dizzy when she stands. Her triage states chest pain and dyspnea but she denies chest pain and shortness of breath to me on triage. She states she just feels nauseated and dehydrated with dizziness and hasn't been able to eat or drink much. MD elicited complaint: other (cough, nausea, dizziness) Onset (ago): week(s) (3 weeks of URI but dizziness n/v for 3 days) Consistency: intermittent Severity: moderate Description of mucous: clear Able to tolerate fluids by mouth: Yes Exacerbating factors: other (gets dizzy when she stands) Relieving factors: rest Associated symptoms: myalgias, rhinorrhea and cough Treatments prior to arrival: none Related Data Home Medications Medication Instructions Recorded Confirmed cetirizine 10 mg tablet 10 mg PO DAILY 03/19/21 02/21/22 fluocinonide 0.05 % topical cream appl topical 03/19/21 02/21/22 Previous Rx's Medication Instructions Recorded cholecalciferol (vitamin D3) 50 50 mcg PO DAILY #90 caps 06/18/20 mcg (2,000 unit) capsule citalopram 10 mg tablet 10 mg PO DAILY #90 tabs 10/25/21 montelukast 10 mg tablet 10 mg PO DAILY #90 tabs 10/25/21 esomeprazole magnesium 40 mg 40 mg PO DAILY #90 caps 11/19/21 capsule,delayed release aspirin 81 mg tablet,delayed 81 mg PO DAILY #90 tabs 03/13/22 release atorvastatin 20 mg tablet 20 mg PO BEDTIME #90 tabs 03/13/22 fluticasone 250 mcg-salmeterol 50 1 inh inhalation Q12H #180 ea 03/13/22 mcg/dose blistr powdr for inhalation (Advair Diskus) amoxicillin 875 mg-potassium 1 tab PO BID #10 tabs 04/11/22 clavulanate 125 mg tablet dextromethorphan-guaifenesin 10 10 ml PO Q4-6H PRN cough #237 mL 04/11/22 mg-100 mg/5 mL oral syrup (Adult Tussin DM) ondansetron 4 mg disintegrating 4 mg PO Q8H PRN nausea and 04/15/22 tablet vomiting #20 tabs Allergies Allergy/AdvReac Type Severity Reaction Status Date / Time hair dye Allergy Unknown itchiness Uncoded 04/11/22 12:46 Review of Systems Review of Systems: Constitutional : No Fever, pos Chills, pos Fatigue, pos anorexia ENT/Mouth : No sore throat, pos Rhinorrhea Eyes: No Eye Pain, No Swelling, No Redness Cardiovascular : No Chest Pain, No SOB, No Dyspnea on Exertion Respiratory : pos Cough, No Sputum Gastrointestinal : pos Nausea, pos Vomiting, No Diarrhea, No abdominal Pain Genitourinary : No Dysuria, No Urinary Frequency, No Hematuria, Musculoskeletal : No joint pain, No Myalgias, No Joint Swelling Skin : No Skin Lesions, No rash Neuro : No Weakness, No Numbness, pos Dizziness, no Headache Psych : No Anxiety/Panic, No Depression Heme/Lymph: No Bruising, No Bleeding,No Lymphadenopathy Endocrine : No Polyuria, No Polydipsia All other systems reviewed and are negative [facility] Past Medical History Attestation statement: The following information was validated with the patient. Medical History Bunion of great toe of right foot Chronic right sacroiliac pain Depression Dyslipidemia GERD (gastroesophageal reflux disease) Kidney stones Microcytic hypochromic anemia Mild intermittent asthma Numerous moles Positional lightheadedness Rash of back Vitamin D deficiency Surgical History H/O cystoscopy Hx of cholecystectomy Previous section Family History Family History Father Diabetes mellitus Bronchial asthma Mother Breast cancer Social History Social History Housing: Condominium Alcohol intake: never Patient Tobacco Use Status: Never used Tobacco e-Cigarette/Vaping Use: Never Used Advance Directives: No Advance Directives Information Provided: Yes Current occupational status: employed Cognitive needs: No Hearing needs: No Vision needs: Yes Physical Exam Vital Signs: Vital Signs: Last Vital Signs Temp 98.5 F 04/15/22 07:47 Pulse 85 04/15/22 09:53 Resp 16 04/15/22 09:53 BP 115/61 04/15/22 09:53 Pulse Ox 94 04/15/22 09:53 O2 Del Method 04/15/22 09:53 BMI result Body Mass Index 30.3 Appearance: Alert. Oriented X3. No acute distress. Eyes: Pupils equal, round and reactive to light. ENT: Pharynx normal. Neck: Normal inspection. Neck supple. CVS: Normal heart rate and rhythm. Pulses normal. Respiratory: No respiratory distress. Breath sounds normal. Abdomen: Soft and non-tender. Skin: Skin warm and dry. Normal skin color. Normal skin turgor. Extremities: No lower extremity edema. No calf ttp Neuro: Oriented X 3. No motor deficit. No sensory deficit. no drift Course Course Course Narrative: labs stable, feels better can be DC home. Medications Administered Discontinued Medications Generic Name Dose Route Start Last Admin Trade Name Freq PRN Reason Stop Dose Admin Acetaminophen 650 mg 04/15/22 08:21 04/15/22 08:30 Acetaminophen 325 Mg Tablet PO 04/15/22 08:22 650 mg ONCE ONE Administration Sodium Chloride 1,000 mls @ 999 mls/hr 04/15/22 08:15 04/15/22 09:38 Ns IVCONT 04/15/22 09:15 Infused .Q1H1M ARMAAN Infusion Ondansetron HCl 4 mg 04/15/22 08:02 04/15/22 08:30 Ondansetron Hcl 4 Mg/2 Ml Vial IVPUSH 04/15/22 08:03 4 mg ONCE ONE Administration Medical Decision Making Medical Decision Making MDM Narrative: 56 yo female with hx of HLD, GERD, prior episodes of dizziness, vaccinated for COVID x 3 here wtih URI symptoms and n/v with dizziness upon standing but no other neuro deficits - at this time suspect dehydration and has hx of dizziness posterior stroke seems unlikely. She also denies CP/SOB to me VTE seems unlikely without shortness of breath or chest pain - denies any issues taking deep breaths. Will obtain basic labs, hydrate, zofran and reassess. I have reviewed and interpreted the patient's labs and reviewed and interpreted radiologist readings of studies done in ED today. Differential Diagnosis Differential Diagnoses: The differential diagnosis associated with the presentation includes COVID, dehydration, vertigo Lab Data MDM Lab Attestation statement: I reviewed the patient's lab results. Result Diagrams: 04/15/22 08:13 04/15/22 08:13 Labs: Lab Results 04/15/22 04/15/22 04/15/22 Range/Units 07:56 07:56 08:13 WBC 6.5 (4.8-10.8) X10*3/uL RBC 4.40 (4.20-5.50) X10*6/uL Hgb 11.3 L (12.0-16.0) g/dl Hct 36.3 L (37.0-47.0) % MCV 82.5 (80.0-98.0) fL MCH 25.7 L (27.0-33.0) pg MCHC 31.1 (31.0-35.0) g/dl RDW 13.3 (11.0-16.0) % Plt Count 338 (160-400) X10*3/uL MPV 9.0 L (9.4-12.3) fL Immature Gran % (Auto) 0.3 (0.0-0.4) % Neut % (Auto) 70.4 (45-73) % Lymph % (Auto) 17.7 L (20-40) % [place] % (Auto) 10.3 (2-11) % Eos % (Auto) 0.8 (0-4) % Baso % (Auto) 0.5 (0-2) % Lymph # (Auto) 1.2 (1.2-4.9) X10*3/uL [place] # (Auto) 0.7 (0.1-1.2) X10*3/uL Eos # (Auto) 0.1 (0.0-0.4) X10*3/uL Baso # (Auto) 0.0 (0.0-0.2) X10*3/uL Abs Immat Gran (auto) 0.02 (0.00-0.03) X10*3/uL Absolute Neuts (auto) 4.6 (2.0-8.3) x10*3/uL Absolute Nucleated RBC 0.000 (0.0-0.012) X10*3/uL Nucleated RBC % (auto) 0.0 (0.0-0.2) /100WBC Sodium (135-145) mmol/L Potassium (3.3-5.1) mmol/L Chloride (96-108) mmol/L Carbon Dioxide (22-29) mmol/L Anion Gap (12-20) BUN (9-16) mg/dL Creatinine (0.5-1.4) mg/dL Estim Creat Clear Calc Estimated GFR Random Glucose (60-115) mg/dL Calcium (8.4-10.2) mg/dL Magnesium (1.6-2.6) mg/dL Total Bilirubin (0.0-1.0) mg/dL Direct Bilirubin (0.0-0.5) mg/dL AST (5-31) U/L ALT (0-31) U/L Alkaline Phosphatase (39-117) U/L Troponin I High Sens (<3.5-17.0) ng/L Total Protein (6.5-8.0) g/dL Albumin (3.5-5.0) g/dL Lipase (8-78) U/L COVID-19 (SARITA) Positive A (Negative) COVID-19 Clin Com See Note Influenza Type A (NICK) Negative (Negative) Influenza Type B (NICK) Negative (Negative) Influenza A & B Note See Note 04/15/22 04/15/22 Range/Units 08:13 08:13 WBC (4.8-10.8) X10*3/uL RBC (4.20-5.50) X10*6/uL Hgb (12.0-16.0) g/dl Hct (37.0-47.0) % MCV (80.0-98.0) fL MCH (27.0-33.0) pg MCHC (31.0-35.0) g/dl RDW (11.0-16.0) % Plt Count (160-400) X10*3/uL MPV (9.4-12.3) fL Immature Gran % (Auto) (0.0-0.4) % Neut % (Auto) (45-73) % Lymph % (Auto) (20-40) % [place] % (Auto) (2-11) % Eos % (Auto) (0-4) % Baso % (Auto) (0-2) % Lymph # (Auto) (1.2-4.9) X10*3/uL [place] # (Auto) (0.1-1.2) X10*3/uL Eos # (Auto) (0.0-0.4) X10*3/uL Baso # (Auto) (0.0-0.2) X10*3/uL Abs Immat Gran (auto) (0.00-0.03) X10*3/uL Absolute Neuts (auto) (2.0-8.3) x10*3/uL Absolute Nucleated RBC (0.0-0.012) X10*3/uL Nucleated RBC % (auto) (0.0-0.2) /100WBC Sodium 139 (135-145) mmol/L Potassium 4.2 (3.3-5.1) mmol/L Chloride 104 (96-108) mmol/L Carbon Dioxide 27 (22-29) mmol/L Anion Gap 12 (12-20) BUN 14 (9-16) mg/dL Creatinine 0.87 (0.5-1.4) mg/dL Estim Creat Clear Calc 77.5 Estimated GFR > 60 Random Glucose 126 H (60-115) mg/dL Calcium 8.8 (8.4-10.2) mg/dL Magnesium 1.9 (1.6-2.6) mg/dL Total Bilirubin 0.5 (0.0-1.0) mg/dL Direct Bilirubin 0.2 (0.0-0.5) mg/dL AST 57 H (5-31) U/L ALT 54 H (0-31) U/L Alkaline Phosphatase 79 (39-117) U/L Troponin I High Sens < 3.5 (<3.5-17.0) ng/L Total Protein 6.9 (6.5-8.0) g/dL Albumin 4.0 (3.5-5.0) g/dL Lipase 14 (8-78) U/L COVID-19 ([facility]ARITA) (Negative) COVID-19 Clin Com Influenza Type A (NICK) (Negative) Influenza Type B (NICK) (Negative) Influenza A & B Note Independent Interpretation I performed an independent interpretation of an: EKG and Plain X-Ray Interpretation: Rate: 96 Rhythm: NSR Lillian: left Normal P waves. Normal JAI. Normal QRS complex. ST T wave : no MARIXA, nonspecific qTC: normal prior studies: no acute ischemia The study has been interpreted contemporaneously by me. . Independent Historian Clinical information obtained from an independent historian. History obtained from or confirmed by: EMS External Record Review External record reviewed: Inpatient record and Prior outpatient labs Prescription Management I considered prescription management with: Antiviral (out of window for paxlovid given symptoms > 5 days) Discharge Plan Discharge Clinical Impression: COVID-19 Nausea & vomiting Qualifiers: Vomiting type: unspecified Qualified Code(s): R11.2 - Nausea with vomiting, unspecified Patient Disposition: Home, Self-Care Instructions: Acute Nausea and Vomiting (ED), COVID-19 (Coronavirus Disease 2019) (ED) Additional Instructions: return to ED for any worsening symptoms or concerns return for chest pain, you are so short of breath you cannot walk to your own bathroom, numbness, weakness. take your medications as prescribed, stay hydrated. Prescriptions: New ondansetron 4 mg tablet,disintegrating 4 mg PO Q8H PRN (Reason: nausea and vomiting) Qty: 20 0RF No Action montelukast 10 mg tablet 10 mg PO DAILY Qty: 90 1RF citalopram 10 mg tablet 10 mg PO DAILY Qty: 90 1RF esomeprazole magnesium 40 mg capsule,delayed release(DR/EC) 40 mg PO DAILY Qty: 90 0RF aspirin 81 mg tablet,delayed release (DR/EC) 81 mg PO DAILY Qty: 90 1RF atorvastatin 20 mg tablet 20 mg PO BEDTIME Qty: 90 1RF fluticasone propion-salmeterol [Advair Diskus] 250-50 mcg/dose blister with device 1 inh inhalation Q12H Qty: 180 1RF fluocinonide 0.05 % cream topical cetirizine 10 mg tablet 10 mg PO DAILY cholecalciferol (vitamin D3) 50 mcg (2,000 unit) capsule 50 mcg PO DAILY Qty: 90 0RF dextromethorphan-guaifenesin [Adult Tussin DM] 10-100 mg/5 mL syrup 10 ml PO Q4-6H PRN (Reason: cough) Qty: 237 0RF amoxicillin-pot clavulanate 875-125 mg tablet 1 tab PO BID Qty: 10 0RF Interventions: ED Discharge Assessment Last Done: 04/15/22 10:50 Discharge Date/Time: 04/15/22 10:51
[2022-04-15 08:24] LABS: IDNOW Serial# BCCEAD1C; Influenza A Negative (Negative); Influenza B2 Negative (Negative)
[2022-04-15 08:25] LABS: Basophils Percent Auto 0.5 % (0-2); Eosinophils Absolute Auto 0.1 X10*3/uL (0.0-0.4); Eosinophils Percent Auto 0.8 % (0-4); Hematocrit 36.3 % (37.0-47.0); Hemoglobin 11.3 g/dl (12.0-16.0); Imm Gran Abs Auto 0.02 X10*3/uL (0.00-0.03); Imm Gran Pct Auto 0.3 % (0.0-0.4); Lymphocytes Absolute Auto 1.2 X10*3/uL (1.2-4.9); Lymphocytes Percent Auto 17.7 % (20-40); Mean Corpuscular HGB Conc 31.1 g/dl (31.0-35.0); Mean Corpuscular Hemoglobin 25.7 pg (27.0-33.0); Mean Corpuscular Volume 82.5 fL (80.0-98.0); Monocytes Absolute Auto 0.7 X10*3/uL (0.1-1.2); Monocytes Percent Auto 10.3 % (2-11); Neutrophils Absolute Auto 4.6 x10*3/uL (2.0-8.3); Neutrophils Percent Auto 70.4 % (45-73); Platelet Count 338 X10*3/uL (160-400); Red Cell Distribution Width 13.3 % (11.0-16.0); White Blood Count 6.5 X10*3/uL (4.8-10.8)
[2022-04-15] MEDS: 0.9 % Sodium Chloride 1,000 ML 999 ML IVCONT (08:29)
[2022-04-15] MEDS: ondansetron HCL 4 MG/2 ML VIAL IVPUSH (08:30)
[2022-04-15] MEDS: Acetaminophen 325 MG TABLET 650 MG PO (08:30)
[2022-04-15 08:48] LABS: Alanine Aminotransferase 54 U/L (0-31); Alkaline Phosphatase 79 U/L (39-117); Anion Gap 12 (12-20); Aspartate Amino Transferase 57 U/L (5-31); Bilirubin Direct 0.2 mg/dL (0.0-0.5); Bilirubin Total 0.5 mg/dL (0.0-1.0); Blood Urea Nitrogen 14 mg/dL (9-16); Calcium 8.8 mg/dL (8.4-10.2); Carbon Dioxide 27 mmol/L (22-29); Chloride 104 mmol/L (96-108); Creatinine Clr Calc Pharmacy 77.5; Estimated Glomerular Filt Rate > 60; Glucose Random 126 mg/dL (60-115); Lipase 14 U/L (8-78); Magnesium 1.9 mg/dL (1.6-2.6); Potassium 4.2 mmol/L (3.3-5.1); Sodium 139 mmol/L (135-145); Total Protein 6.9 g/dL (6.5-8.0)
[2022-04-15 08:50] LABS: Troponin-I High Sensitivity < 3.5 ng/L (<3.5-17.0)
[2022-04-15 09:53] VITALS: BP 115/61; PULSE 85; RESP 16; O2SAT 94
== END 2022-04-15 10:51 | disposition home or self-care (01) ==
PROVIDERS: Emergency Provider Emergency Medicine; PCP Internal Medicine
DX: U07.1 COVID-19 (principal); R11.2 Nausea with vomiting, unspecified; E78.5 Hyperlipidemia, unspecified; Z79.02 Long term (current) use of antithrombotics/antiplatelets; Z79.82 Long term (current) use of aspirin; Z79.899 Other long term (current) drug therapy
CPT/HCPCS: 36415; 71045; 80048; 80076; 83690; 83735; 84484; 85025; 87502; 87635; 93005; 96361; 96374; 99284; J2405

== ENCOUNTER → 2022-04-22 08:12 | Outpatient (BNVA) | payer OTHER, SELFPAY | PROVIDERS: PCP Internal Medicine; Visit Provider Psychiatry & Neurology Neurology | DX: R42 Dizziness and giddiness (principal) ==

== ENCOUNTER → 2022-05-01 09:05 | Outpatient (REF) | payer OTHER, SELFPAY | LOC: HO.SL 09:05 | PROVIDERS: PCP Internal Medicine; Visit Provider Psychiatry & Neurology Neurology | DX: G47.10 Hypersomnia, unspecified (principal); R06.83 Snoring | CPT/HCPCS: 95806 ==

== ENCOUNTER 2022-05-02 07:16 | Outpatient (REF) | payer OTHER, SELFPAY ==
--- NOTE | ~2022-05-02 | MR_ITS ---
EXAMINATION: MR head/brain wo con CLINICAL INFORMATION: Transient cerebral ischemic attack. COMPARISON: CT angiography head 02/12/2022. TECHNIQUE: Unenhanced MRI of the brain FINDINGS: Diffusion-weighted images demonstrate no evidence of acute infarcts. The ventricles and sulci are normal in size and configuration. Mild number scattered punctate T2 hyperintensities are noted with findings most pronounced within the left and right suresh radiata. Minimal scattered periventricular T2 hyperintensities and minimal subcortical punctate T2 hyperintensities are additionally noted. Susceptibility weighted images reveal no evidence of acute or chronic hemorrhage within the brain parenchyma. The craniocervical junction cerebellar tonsils are normal in configuration. No marrow signal abnormalities are noted. Normal flow-related signal intensity is visualized in the major intracranial vessels and dural sinuses. Mild mucosal thickening is present in the maxillary sinuses. Moderate scattered mucosal thickening and retained secretions are present in the ethmoid air cells and frontal sinuses. Moderate concentric mucosal thickening is noted in the sphenoid sinus. No mastoid or middle ear cavity effusions visualized. MR/MR head/brain wo con IMPRESSION: *Mild chronic microangiopathic ischemic changes. In the correct clinical setting, findings could correlate with hypertensive or diabetic microangiopathic disease. *Mild-moderate chronic pansinusitis.
== END 2022-05-02 07:17 | disposition home or self-care (01) ==
LOC: HO.MRI 07:16
PROVIDERS: PCP Internal Medicine; Visit Provider Psychiatry & Neurology Neurology
DX: R42 Dizziness and giddiness (principal); Z86.73 Personal history of transient ischemic attack (TIA), and cerebral infarction without residual deficits
CPT/HCPCS: 70551

== ENCOUNTER → 2022-06-27 20:30 | Outpatient (REF) | payer OTHER, SELFPAY | LOC: HO.SL 20:30 | PROVIDERS: PCP Internal Medicine; Visit Provider Psychiatry & Neurology Neurology | DX: G47.33 Obstructive sleep apnea (adult) (pediatric) (principal); R06.83 Snoring | CPT/HCPCS: 95810 ==

== ENCOUNTER 2022-08-28 05:49 | Day surgery (SDC) | payer OTHER, SELFPAY ==
[2022-08-11 07:16] LABS: MANUAL DIFF FLAG NO
[2022-08-11 07:32] LABS: Basophils Absolute Auto 0.1 X10*3/uL (0.0-0.2); Basophils Percent Auto 0.8 % (0-2); Eosinophils Absolute Auto 0.4 X10*3/uL (0.0-0.4); Eosinophils Percent Auto 4.9 % (0-4); Hemoglobin 10.3 g/dl (12.0-16.0); Imm Gran Abs Auto 0.02 X10*3/uL (0.00-0.03); Imm Gran Pct Auto 0.3 % (0.0-0.4); Lymphocytes Absolute Auto 2.7 X10*3/uL (1.2-4.9); Lymphocytes Percent Auto 33.3 % (20-40); Mean Corpuscular HGB Conc 29.4 g/dl (31.0-35.0); Mean Corpuscular Hemoglobin 22.3 pg (27.0-33.0); Mean Corpuscular Volume 75.8 fL (80.0-98.0); Mean Platelet Volume 9.3 fL (9.4-12.3); Monocytes Absolute Auto 0.5 X10*3/uL (0.1-1.2); Monocytes Percent Auto 5.9 % (2-11); Neutrophils Absolute Auto 4.4 x10*3/uL (2.0-8.3); Neutrophils Percent Auto 54.8 % (45-73); Platelet Count 428 X10*3/uL (160-400); Red Blood Count 4.62 X10*6/uL (4.20-5.50); Red Cell Distribution Width 15.6 % (11.0-16.0)
--- NOTE | 2022-08-11 07:36 | ECG_ITS ---
Test Reason : preop Blood Pressure : / mmHG Vent. Rate : 083 BPM Atrial Rate : 083 BPM P-R Int : 144 ms QRS Dur : 078 ms QT Int : 394 ms P-R-T Axes : 030 -07 042 degrees QTc Int : 462 ms Normal sinus rhythm Normal ECG When compared with ECG of 15-APR-2022 08:13, No significant change was found Referred By: Brandi Gallegos Electronically Signed By:RACHEL AZAR MD
[2022-08-11 07:54] LABS: Alanine Aminotransferase 19 U/L (0-31); Aspartate Amino Transferase 17 U/L (5-31); Blood Urea Nitrogen 10 mg/dL (9-16); Cholesterol 126 mg/dL; Estimated Glomerular Filt Rate > 60; HDL Cholesterol 33 mg/dL; LDL Cholesterol Calculated 72 mg/dl; Triglycerides 105 mg/dL
[2022-08-26 11:30] VITALS: BMI 31.6
[2022-08-26 14:55] VITALS: BMI 31.0
--- NOTE | 2022-08-27 10:48 | P.CONAN_ITS ---
Documented by User: Krystin Schneider NP 08/27/22 10:50 HPI - Anesthesia Eval Consult details Narrative: 57yo F for Right Cheilectomy 1st Metatarsal joint, Arthro surface implant PCP cleared PMF[facility] Active Problems Active Problems: All Active Problems (Updated 08/26/22 @ 14:57 by Sarai Rosas, RN) Hypersomnia (Acute) Migraine (Acute) Microcytic hypochromic anemia (Acute) Tubular adenoma of colon (Acute) Positional lightheadedness (Acute) Numerous moles (Acute) Bunion of great toe of right foot (Acute) Mild intermittent asthma (Acute) Dyslipidemia (Acute) Depression (Acute) Chronic right sacroiliac pain (Acute) GERD (gastroesophageal reflux disease) (Acute) Past Medical History Medical History (Updated 08/26/22 @ 14:57 by Sarai Rosas, JOSELINE) Bunion of great toe of right foot Chronic right sacroiliac pain Depression Dyslipidemia GERD (gastroesophageal reflux disease) Kidney stones Microcytic hypochromic anemia Mild intermittent asthma Numerous moles 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 Positional lightheadedness Rash of back Tubular adenoma of colon Vitamin D deficiency Family History Family History Father Diabetes mellitus Bronchial asthma Mother Breast cancer Surgical History Surgical History H/O cystoscopy Hx of cholecystectomy Previous section Social History Social History (Updated 08/26/22 @ 14:55 by Sarai Rosas RN) Housing: Condominium Are you a primary medicare sales executive to a significant other at home: No Do you presently have visiting nurse or other home services: No Alcohol intake: never Patient Tobacco Use Status: Never used Tobacco e-Cigarette/Vaping Use: Never Used Use of substances other than those prescribed or required for medical reasons: No Have you been hit, kicked, punched, or otherwise hurt by someone within the past year? If so, by whom?: No Are you DNR?: No Advance Directives: No Advance Directives Information Provided: Yes Advance Directives on File: No Recently lost weight without trying: No Nutrition Risks: No Nutritional Risk Current occupational status: employed Cognitive needs: No Hearing needs: No Vision needs: Yes Meds Allergies Allergy/AdvReac Type Severity Reaction Status Date / Time hair dye Allergy Unknown itchiness Uncoded 08/13/22 09:47 Home Medications Medication Instructions Recorded Confirmed Last Taken Type esomeprazole magnesium 40 mg 40 mg PO BEDTIME 08/26/22 Unknown History capsule,delayed release Exam Exam Date and Time: August 27, 2022 1048 Height,Weight and Vital Signs: Height 5 ft 6 in Weight 87.09 kg Pertinent Lab Results Pertinent Lab Results: Laboratory Tests 08/11/22 08/11/22 07:15 07:15 WBC 8.0 RBC 4.62 Hgb 10.3 L Hct 35.0 L MCV 75.8 L MCH 22.3 L MCHC 29.4 L RDW 15.6 Plt Count 428 H D MPV 9.3 L Immature Gran % (Auto) 0.3 Neut % (Auto) 54.8 Lymph % (Auto) 33.3 [place] % (Auto) 5.9 Eos % (Auto) 4.9 H Baso % (Auto) 0.8 Lymph # (Auto) 2.7 [place] # (Auto) 0.5 Eos # (Auto) 0.4 Baso # (Auto) 0.1 Abs Immat Gran (auto) 0.02 Absolute Neuts (auto) 4.4 Absolute Nucleated RBC 0.000 Nucleated RBC % (auto) 0.0 BUN 10 Creatinine 0.84 Estim Creat Clear Calc TNP Estimated GFR > 60 AST 17 ALT 19 Triglycerides 105 Cholesterol 126 LDL Cholesterol, Calc 72 HDL Cholesterol 33 Narrative Narrative: EKG 08/2022 Vent. Rate : 083 BPM ? ? Atrial Rate : 083 BPM ?? P-R Int : 144 ms? QRS Dur : 078 ms ? ? QT Int : 394 ms ? ? ? P-R-T Axes : 030 -07 042 degrees ?? QTc Int : 462 ms ? Normal sinus rhythm Normal ECG When compared with ECG of 15-APR-2022 08:13, No significant change was found Assessment and Plan Assessment Anesthesia Assessment: Chart Reviewed Documented by User: Ana María Noriega MD 08/28/22 07:28 [facility] Past Medical History Medical History (Updated 08/26/22 @ 14:57 by Sarai Rosas, RN) Bunion of great toe of right foot Chronic right sacroiliac pain Depression Dyslipidemia GERD (gastroesophageal reflux disease) Kidney stones Microcytic hypochromic anemia Mild intermittent asthma Numerous moles 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 Positional lightheadedness Rash of back Tubular adenoma of colon Vitamin D deficiency Family History Family History Father Diabetes mellitus Bronchial asthma Mother Breast cancer Family history of problems with anesthesia: No Surgical History Surgical History H/O cystoscopy Hx of cholecystectomy Previous section History of Problems with Anesthesia: No Social History Social History (Updated 08/26/22 @ 14:55 by Sarai Rosas, RN) Housing: [facility] Are you a primary medicare sales executive to a significant other at home: No Do you presently have visiting nurse or other home services: No Alcohol intake: never Patient Tobacco Use Status: Never used Tobacco e-Cigarette/Vaping Use: Never Used Use of substances other than those prescribed or required for medical reasons: No Have you been hit, kicked, punched, or otherwise hurt by someone within the past year? If so, by whom?: No Are you DNR?: No Advance Directives: No Advance Directives Information Provided: Yes Advance Directives on File: No Recently lost weight without trying: No Nutrition Risks: No Nutritional Risk Current occupational status: employed Cognitive needs: No Hearing needs: No Vision needs: Yes Meds Allergies Allergy/AdvReac Type Severity Reaction Status Date / Time hair dye Allergy Unknown itchiness Uncoded 08/13/22 09:47 Home Medications Medication Instructions Recorded Confirmed Last Taken Type esomeprazole magnesium 40 mg 40 mg PO BEDTIME 08/26/22 Unknown History capsule,delayed release Exam Airway Mallampati Class: III TM Dist: >3cm Neck ROM: Full Assessment and Plan Assessment Anesthesia Assessment: Anesthesia Plan Discussed Final Anesthetic Review Family History of Problems with Anesthesia: No History of Problems with Anesthesia: No NPO: Yes ASA Class: III Final Preanesthetic Review: No Changes in Pt Med Stat, Meds/Allgs Chart Reviewed, Consent Obtained/Reviewed and Anes Risks/Benef Reviewed Patient Risk: Intermediate Procedure Risk: Low Anesthetic Plan Anesthetic Plan: MAC: Disposition: Standard PACU
--- NOTE | 2022-08-27 14:15 | HP_ITS ---
DATE OF SERVICE: 08/28/2022 PREOPERATIVE DIAGNOSIS: Hallux limitus, right foot. PLANNED PROCEDURE: Cheilectomy, right foot with possible 1st MPJ implant, right foot. PAST MEDICAL HISTORY: Headaches, migraines, GERD. CURRENT MEDICATIONS: Ferrous sulfate, baby aspirin, atorvastatin, Advair, citalopram, docusate sodium, omeprazole, iron, montelukast sodium. SURGICAL HISTORY: Denies. FAMILY HISTORY: Foot problems, kidney disease, liver disease, poor circulation, diabetes, hypertension, heart disease, stroke, cancer. SOCIAL HISTORY: Patient is a nonsmoker. Denies any illicit drug use. Relates no alcohol use. 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 ALLERGIES: SHE HAS ALLERGIES TO HAIR DYE. NO KNOWN DRUG ALLERGIES. HOSPITALIZATIONS: Denies. REVIEW OF SYSTEMS: Within normal limits. HISTORY OF PRESENT ILLNESS: This is a 57-year-old female, who presents with sharp, aching and throbbing pain in her right great toe joint that has been getting progressively worse over the last several years. She has tried changing shoes, Aleve, and rest without any relief of symptoms. PHYSICAL EXAMINATION: GENERAL: Reveals a pleasant, alert, well-nourished, well-developed, well-hydrated individual, who demonstrates proper attention to body habitus, in no acute distress. She is oriented x3. NEUROLOGIC: Reveals normal pain sensation. Vibratory sensation is intact. Pinprick sensation is normal. There is no anesthesias, burning, or tingling bilaterally. VASCULAR: DP and PT pulses are 2/4 bilaterally. Capillary refill is immediate to all digits. Skin temperature, elasticity, and turgor are normal. Pigmentation is normal. There is no edema. DERMATOLOGIC: Reveals normal texture, elasticity and turgor. There are no masses. Interspaces are clear. ORTHOPEDIC: Muscle strength is 5/5 in a symmetrical fashion. There is a dorsally medially prominent 1st metatarsophalangeal joint of the right foot with pain on palpation. There is limited dorsal range of motion, plantar range of motion and pain associated with range of motion of the right 1st metatarsophalangeal joint. IMAGING STUDIES: X-ray exam reveals normal bone and soft tissue density per patient's age and sex. There is increased 1st intermetatarsal angle and hallux abductus angle consistent with small bunion deformity as well as narrowing of the 1st MPJ joint space with increased density of the 1st MPJ and an asymmetrical narrowing. There is squaring of the 1st metatarsal head and there is an exostosis located at the dorsal aspect of the 1st metatarsal head. PLAN: Podiatric surgical procedures were discussed in detail with the patient including risks, benefits, and possible complications. No guarantees were given and written and oral informed consents were obtained. We discussed potential surgical complications including, but not limited to, pain, swelling, bleeding, scarring, numbness, infection, delayed or nonhealing, floppy, unstable or shortened toe, recurrence, failure of the procedure, plantar flexor downward or upper position of toe, need for further surgery, as well as possibility of life, limb, or toe. Also discussed the possibility of failure of implants and need for further surgery. Discussed the use of IV and local anesthesia and the usual postoperative course for healing. No guarantees were given. The patient verbally indicated a full understanding of the above mentioned conversation. Discussed with them specific surgical interventions including a cheilectomy versus modified Alvarado bunionectomy versus joint implants versus joint fusion. Discussed the benefits and recovery times of all the above decisions. We discussed making an intraoperative decision upon evaluation of the cartilage of the 1st metatarsophalangeal joint. The patient has verbally and written consent saying that she wants to have either a cheilectomy or if the cartilage is severely damaged to have a joint implant. The patient like to proceed with surgical treatment. She will obtain preoperative labs as well as medical clearance for surgery and anesthesia. She is made aware to stop any and all blood thinners at least 1 week prior to surgery and is aware that driving is not allowed for portion of the postoperative period. The patient is also made aware of the smoking, tobacco is not allowed. The patient was given a prescription for narcotic. She can have fill the prescription and discuss she should take the lowest dosage of narcotics for shortest duration of time. The patient will be partial weightbearing to the right foot with a postoperative shoe and crutches as needed. The patient will follow up in my office for all postoperative followup care. Kaye Monte DPM LP/PRECIOUS / [id number]
--- NOTE | ~2022-08-28 | FL_ITS ---
EXAMINATION: XR FLUOROSCOPY WITH IMAGES CLINICAL INFORMATION: Right bunion. COMPARISON: None available. TECHNIQUE: Fluoroscopy Supervised By: Kaye Monte. Fluoroscopy Time: 13.64 seconds. Cumulative Dose: 0.3843 mGy. DAP: 0.0232 Gycm2. Images: 2. FINDINGS: There are 2 images of right 1st digit revealing prosthesis along the distal 1st metatarsal at the metatarsophalangeal joint in alignment. No other bony abnormality seen. FL/FL guidance in OR IMPRESSION: Fluoroscopy was provided to referring physician for right 1st digit bunion correction and placement of right 1st distal metatarsal prosthesis.
[2022-08-28 06:26] VITALS: BP 144/74; PULSE 88; RESP 16; TEMP 36.2; O2SAT 96
[2022-08-28] MEDS: Lactated Ringers 1,000 ML 100 ML IVCONT (06:37)
--- NOTE | 2022-08-28 07:36 | MHC.SHP ---
Pre-Procedural Eval Section A Date of Service: 08/28/22 The patient is an INPATIENT: No Changes since office visit: No Cold of Flu in the past 2 weeks, No New Medical Problems, No Changes in Medication and No Patient answered all questions The History & Physical has been completed within 30 days and I have reviewed it.: Yes Section B Chief Complaint: Other deformities of toe(s) (acquired), right foot Allergies: Allergies Allergy/AdvReac Type Severity Reaction Status Date / Time hair dye Allergy Unknown itchiness Uncoded 08/13/22 09:47 Plan I have reviewed the history and physical and performed a pertinent physical examination on my patient. No changes have occurred unless specified. Time Spent With Patient Time: Total time managing care of this patient today ____ minutes.
[2022-08-28 08:55] VITALS: BP 146/77; PULSE 82; RESP 16; TEMP 36.6; O2SAT 100
[2022-08-28 09:10] VITALS: BP 137/79; PULSE 73; RESP 16; TEMP 36.6; O2SAT 96
--- NOTE | 2022-08-28 09:10 | PM.OP ---
Brief Operative Note Date of Service: 08/28/22 Pre-op diagnosis: Hallux Limitus Right Post-op diagnosis: same Procedure: Right partial 1st MPJ implant Implants: Arthrosurface 1st MPJ implant Surgeon: Kaye Monte Anesthesia: MAC and local Was an Graphic Design Teacher used for this Procedure?: Yes Graphic Design Teacher: Carl Flood Estimated blood loss (mL): 1 Tourniquet time (min): 39 Pathology: none sent Condition: stable Disposition: PACU
--- NOTE | 2022-08-28 14:22 | OP_ITS ---
DATE OF SERVICE: 08/28/2022 SURGEON: Kaye Monte DPM PREOPERATIVE DIAGNOSIS: Hallux limitus, right foot. POSTOPERATIVE DIAGNOSIS: Hallux limitus, right foot. PROCEDURE PERFORMED: A right partial 1st metatarsophalangeal joint implant with Arthrosurface. ESTIMATED BLOOD LOSS: Less than 1 cc. COMPLICATIONS: None. ANESTHESIA: Monitored anesthetic care with local consisting preoperatively of 18 cc of 0.5% Marcaine plain and 2% lidocaine plain and postoperatively of 0.5% Marcaine plain and 1 cc of dexamethasone ASSISTANTS: Carl Flood DPM. SPECIMENS: Bone right 1st Metatarsal GRAFT OR IMPLANTS: Implant was the eduardo 1st metatarsophalangeal joint implant from [employer]ros[employer]. HEMOSTASIS: A pneumatic ankle tourniquet set at 250 mmHg for 39 minutes. INDICATIONS FOR SURGERY: The patient had painful arthritic joint to the right 1st metatarsophalangeal joint with significant arthritic changes on x-ray, pain on palpation, and with range of motion and walking of the right foot. The above-mentioned surgery was discussed in detail with the patient including risks, benefits, and possible complications. No guarantees were given and written and oral informed consent was obtained. PROCEDURE IN DETAIL: Patient was brought into the operating room, placed on the operating table in the supine position. The patient was given 2 g of cefazolin as a prophylactic preoperative antibiotic. The right foot was anesthetized with the above mentioned local anesthetic and the foot was scrubbed, prepped, and draped in a sterile manner. Attention was directed to the right foot. The foot was exsanguinated and pneumatic ankle tourniquet was inflated to 250 mmHg. Attention was directed to the 1st metatarsophalangeal joint where an incision was made. The incision was deepened down through subcutaneous tissue. Great care being taken to retract vital, neuro, and vascular structures, and all bleeders were cauterized as necessary. A capsulotomy was made medial and parallel to the extensor tendon and the soft tissues were freed about the head of the 1st metatarsal base of the proximal phalanx. Upon incision into the 1st metatarsophalangeal joint, there was noted to be significant dorsal medial and lateral hypertrophy of the joints in both the head of the 1st metatarsal and base of the proximal phalanx, and upon evaluation of the 1st metatarsal head cartilage, about 75% of the cartilage was degenerated or worn away with significant bone on bone arthritis. A McGlamry elevator was introduced to free up any adhesions. It was decided to move forward with the 1st MPJ implant at that time due to the severe cartilage damage. Minimal damage was noted to the base of the proximal phalanx cartilage, therefore a eduardo implant was used. A guide pin from the Arthrosurface kit was then placed in the central aspect of the 1st metatarsal head and was checked under C-arm fluoroscopy. The 1st metatarsal head was then drilled with the drill guide. The hole was then tapped with 1 mm of decompression and then the stem of the implant, a 9.5 mm taper post was inserted under standard technique. The joint was then reamed distally as well as dorsally. Any remaining hypertrophied bone was removed with power instrumentation, rongeurs, and was power rasped smooth. The wound was irrigated with normal sterile saline. A trial was placed and the foot was put through range of motion. The trial implant was removed, and then the implant was inserted. A 15 mm x 2.5 mm x 4.5 mm DF component was then placed and tapped into insertion. Any remaining overhanging bone or uneven bone was removed and the wound was copiously irrigated with normal sterile saline. The toe was put through range of motion. On the table, there was noted to be about 80 degrees of dorsiflexory range of motion of the 1st metatarsophalangeal joint. The capsular structures were then reapproximated with 3-0 Vicryl in a continuous running fashion. The subcutaneous tissues were reapproximated with 4-0 Vicryl in an interrupted suture technique and the skin was reapproximated with 5-0 Monocryl in a continuous running fashion, and 4-0 nylon for retention sutures. A postoperative injection of 5 cc of 0.5% Marcaine plain and 1 cc of dexamethasone was administered to the foot. The incision was then dressed with Steri-Strips, Betadine soaked gauze, 4x4s, fluffs, Kerlix, cast padding, and an Jhonatan bandage. The patient tolerated procedure and anesthesia well. She was transferred to the recovery room with vital signs stable and vascular status at preoperative levels. Following a period of postoperative recovery the patient be discharged home with written and oral postoperative instructions, and the patient will follow up in my office for all postoperative followup care. Kaye Monte DPM LP/PRECIOUS / [id number] SARIAH
== END 2022-08-28 10:00 | disposition home or self-care (01) ==
PROVIDERS: PCP Internal Medicine; Visit Provider Podiatrist
PROC: (CPT 28291; principal; 2022-08-28 07:30)
DX: M20.5X1 Other deformities of toe(s) (acquired), right foot (principal); E78.5 Hyperlipidemia, unspecified; D50.9 Iron deficiency anemia, unspecified; G47.33 Obstructive sleep apnea (adult) (pediatric); J45.20 Mild intermittent asthma, uncomplicated; E55.9 Vitamin D deficiency, unspecified; K21.9 Gastro-esophageal reflux disease without esophagitis; F32.A Depression, unspecified; Z79.82 Long term (current) use of aspirin; Z79.51 Long term (current) use of inhaled steroids; Z79.899 Other long term (current) drug therapy
CPT/HCPCS: 28291; 36415; 80061; 82565; 84450; 84460; 84520; 85025; 88304; 88311; 93005; C1776; J0690; J1100; J2250; J2405; J3010

== ENCOUNTER 2022-10-20 10:41 | Outpatient (AMB) | payer OTHER, SELFPAY ==
--- NOTE | 2022-10-20 12:10 | MHC.OFFWIV ---
Intake Vital Signs 10/20/22 12:18 Height 5 ft 6 in BP 138/82 Blood Pressure Location Lt brachial Position Sitting Pulse 71 Pulse Source Pulse Oximeter Temp 96.4 F L Temp Source Temporal Artery Scan Pulse Oximetry (%) 98 Oxygen Delivery Method Room Air Intake Visit Reasons: EP, ? UTI Intake Note: Pt is here c/o frequent urination, burning sensation as well as lower back pain since this morning. Patient Tobacco Use Status: Never used Tobacco Allergies hair dye Allergy (Unknown, Uncoded 10/20/22 12:18) itchiness HPI EP, ? UTI HPI Details Patient presents with pain in the left flank and pelvis along with burning with urination and blood in the urine since this morning. Patient does note personal history of kidney stones, none recently. She does have nausea and vomiting secondary to pain. Denies fever, chills, anorexia, diarrhea or upper abdominal pain. [facility] Medical History (Updated 08/26/22 @ 14:57 by Sarai Rosas RN) Bunion of great toe of right foot Chronic right sacroiliac pain Depression Dyslipidemia GERD (gastroesophageal reflux disease) Kidney stones Microcytic hypochromic anemia Mild intermittent asthma Numerous moles 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 Positional lightheadedness Rash of back Tubular adenoma of colon Vitamin D deficiency Surgical History H/O cystoscopy Hx of cholecystectomy Previous section Family History Father Diabetes mellitus Bronchial asthma Mother Breast cancer Social History (Updated 08/26/22 @ 14:55 by Sarai Rosas RN) Housing: Condominium Are you a primary child care associate teacher to a significant other at home: No Do you presently have visiting nurse or other home services: No Alcohol intake: never Patient Tobacco Use Status: Never used Tobacco e-Cigarette/Vaping Use: Never Used Current occupational status: employed Cognitive needs: No Hearing needs: No Vision needs: Yes Female Reproductive History Menstrual Age of Menarche: 10 Review of Systems Const Reports as per HPI and Reports no additional complaints Card Reports as per HPI and Reports no additional complaints Resp Reports as per HPI and Reports no additional complaints GI Reports as per HPI and Reports no additional complaints Reports as per HPI Musc Reports no additional complaints and Reports as per HPI Neuro Reports no additional complaints and Reports as per HPI Physical Exam Vital Signs: Last Vital Signs Temp 96.4 F L 10/20/22 12:18 Pulse 71 10/20/22 12:18 BP 138/82 10/20/22 12:18 Pulse Ox 98 10/20/22 12:18 Oxygen Delivery Method Room Air 10/20/22 12:18 Const General: cooperative, comfortable and no acute distress Orientation/consciousness: patient oriented x3 Resp Effort & Inspection: normal respiratory effort Auscultation: clear to auscultation bilaterally Cardio Rate: regular rate Rhythm: regular rhythm Heart sounds: S1 normal heart sound present and S2 normal heart sound present GI Other: Abimbola exam except diffuse pain in the lower abdomen General: Yes CVA tenderness (Left) Back/Spine/Pelvis Back: CVA tenderness (Left) Neuro General: patient oriented x3 Extrem General: Yes no pedal edema Results AMB Urinalysis, Automated UA Leukoctes 0 Jacques/uL Last Edit by Mary Jo Tim CMA on 10/20/22 12:24 UA Nitrite Negative Last Edit by Mary Jo Tim CMA on 10/20/22 12:24 UA Urobilinogen 0.2 mg/dL Last Edit by Mary Jo Tim CMA on 10/20/22 12:24 UA Protein 15 mg/dL Last Edit by Mary Jo Tim CMA on 10/20/22 12:24 UA pH 6.0 Last Edit by Mary Jo Tim CMA on 10/20/22 12:24 UA Blood 200 Chente/uL Last Edit by Mary Jo Tim CMA on 10/20/22 12:24 UA Specific [place] 1.025 Last Edit by Mary Jo Tim CMA on 10/20/22 12:24 UA Ketone Negative Last Edit by Mary Jo Tim CMA on 10/20/22 12:24 UA Bilirubin 0 mg/dL Last Edit by Mary Jo Tim CMA on 10/20/22 12:24 UA Glucose 0 mg/dL Last Edit by Mary Jo Tim CMA on 10/20/22 12:24 Results Reviewed Results Reviewed: Laboratory Last Values Urine pH (Auto) 6.0 10/20/22 12:22 Specific [place] (Auto) 1.025 10/20/22 12:22 Urine Protein (Auto) 15 mg/dL 10/20/22 12:22 Glucose (UA)(Auto) 0 mg/dL 10/20/22 12:22 Urine Ketones (Auto) Negative 10/20/22 12:22 Urine Blood (Auto) 200 Chente/uL 10/20/22 12:22 Urine Nitrite (Auto) Negative 10/20/22 12:22 Urine Bilirubin (Auto) 0 mg/dL 10/20/22 12:22 Urine Urobilinogen (Auto) 0.2 mg/dL 10/20/22 12:22 Leukocyte Esterase (Auto) 0 Jacques/uL 10/20/22 12:22 Assessment & Plan Assessment & Plan (1) Flank pain, acute: Code(s): R10.9 - Unspecified abdominal pain (2) Hematuria: Code(s): R31.9 - Hematuria, unspecified Qualifiers: Hematuria type: other microscopic Qualified Code(s): R31.29 - Other microscopic hematuria (3) History of nephrolithiasis: Code(s): Z87.442 - Personal history of urinary calculi Plan Stat ultrasound of the kidneys to rule out nephro lithiasis that may be obstructing. I have sent medications to pharmacy Macrobid, Percocet for severe pain, Flomax and prednisone. Will report ultrasound results as available. Will direct her to ER if there is an obstructing stone that may need Urology consult. Orders: Orders US renal doppler Today R10.9 - Unspecified abdominal pain, R31.9 - Hematuria, unspecified, Z87.442 - Personal history of urinary calculi DONNELL Eduardo AMB Urinalysis Automated Today Z13.9 - Encounter for screening, unspecified Bismark Yeboah MD Medications: New nitrofurantoin monohyd/m-cryst 100 mg (Macrobid) must administer with a meal/food 100 mg PO Q12H 5 days 10 caps 0RF DONNELL Eduardo prednisone 20 mg PO DAILY 5 days 5 tabs 0RF DONNELL Eduardo tamsulosin (Flomax) 0.8 mg (2 x 0.4 mg) PO DAILY 14 caps 0RF DONNELL Eduardo oxycodone-acetaminophen 5-325 mg (Percocet) Partial Fill upon patient request. 1 tab PO Q6H PRN 7 tabs 0RF pain (scale score 7-10) DONNELL Eduardo Discontinued esomeprazole magnesium 40 mg PO DAILY 90 caps 0RF Coding Level of Care Code Est Pt Level 4 (27587) Diagnoses Flank pain, acute R10.9 Hematuria R31.29 Hematuria type: other microscopic History of nephrolithiasis Z87.442
[2022-10-20 12:18] VITALS: BP 138/82; PULSE 71; TEMP 35.8; O2SAT 98
== END 2022-10-20 13:31 | disposition home or self-care (01) ==
PROVIDERS: PCP Internal Medicine; Visit Provider Physician Assistant
DX: R10.9 Unspecified abdominal pain (principal); R31.29 Other microscopic hematuria; Z87.442 Personal history of urinary calculi; Z13.9 Encounter for screening, unspecified
CPT/HCPCS: 81003; 99214

== ENCOUNTER 2022-10-20 13:11 | Outpatient (REF) | payer OTHER, SELFPAY | END 2022-10-20 13:12 | disposition home or self-care (01) | LOC: HO.HMGCX 13:11 | PROVIDERS: PCP Internal Medicine; Visit Provider Physician Assistant | DX: R10.9 Unspecified abdominal pain (principal); R31.9 Hematuria, unspecified; Z87.442 Personal history of urinary calculi | CPT/HCPCS: 76775 ==

== ENCOUNTER 2022-10-24 13:00 | Outpatient (RCR) | payer OTHER, SELFPAY | END 2022-12-03 16:00 | disposition home or self-care (01) | LOC: HO.PTCHIC 13:00 | PROVIDERS: PCP Internal Medicine; Visit Provider Podiatrist | DX: M20.21 Hallux rigidus, right foot (principal) | CPT/HCPCS: 97110; 97112; 97140; 97161 ==

== ENCOUNTER 2022-11-05 07:22 | Outpatient (REF) | payer OTHER, SELFPAY ==
--- NOTE | ~2022-11-05 | MM_ITS ---
EXAMINATION: MM SCREENING DIGITAL BREAST TOMOSYNTHESIS, BILATERAL CLINICAL INFORMATION: Screening. Asymptomatic. The lifetime risk of breast cancer based on the Tyrer-Cuzick Model is 13.4%. COMPARISON: Mammography: 10/28/2020, 10/13/2019, 08/03/2018, and dating back to 2017. TECHNIQUE: Digital breast tomosynthesis is performed in both the craniocaudal and mediolateral oblique views along with computer-aided detection (CAD). Synthesized 2D images are generated from the tomosynthesis. FINDINGS: There are scattered areas of fibroglandular density (ACR BI-RADS breast composition Category b). Breast parenchyma is bordering on heterogeneously dense. There is a small 1 rounded view asymmetry in the central right breast on the CC projection, middle one third, which localizes inferiorly on the tomographic views. No definite correlate on the right MLO view. Diagnostic imaging recommended. There are otherwise no suspicious masses, suspicious grouped calcifications, or areas of architectural distortion. The parenchymal pattern is stable from prior exams. MM/MM tomosynthesis screening BI IMPRESSION: 1 view asymmetry seen in the right CC view centrally, middle one third, localizing inferiorly on the tomographic projections without MLO correlate. Recommend the following views: 3-D spot compression cc view, 90 degree full-field mediolateral 3-D view, and scheduled ultrasound if felt warranted by the reading clinician. There are no suspicious findings in the left breast. Stable pattern of asymmetric breast tissue noted in the upper outer quadrant of both breasts. ASSESSMENT: BI-RADS BI-RADS 0 - Incomplete: Needs additional Imaging. RECOMMENDATION: 1. Additional views of the right breast. 2. Targeted ultrasound if warranted after review of the additional views. 3. Radiology department staff will contact the patient for additional imaging. Additional Imaging required This examination should not preclude the clinical evaluation of a suspicious palpable abnormality.
== END 2022-11-05 07:23 | disposition home or self-care (01) ==
LOC: HO.MAMMO 07:22
PROVIDERS: PCP Internal Medicine; Visit Provider Internal Medicine
DX: Z12.31 Encounter for screening mammogram for malignant neoplasm of breast (principal)
CPT/HCPCS: 77063; 77067

== ENCOUNTER → 2022-11-05 07:30 | Outpatient (BNV) | payer OTHER, SELFPAY | PROVIDERS: PCP Internal Medicine; Visit Provider Radiology Diagnostic Radiology | DX: Z12.31 Encounter for screening mammogram for malignant neoplasm of breast (principal) | CPT/HCPCS: 77063; 77067 ==

== ENCOUNTER 2022-12-01 12:55 | Outpatient (REF) | payer OTHER, SELFPAY ==
--- NOTE | ~2022-12-01 | US_ITS ---
EXAMINATION: MM DIAGNOSTIC DIGITAL BREAST TOMOSYNTHESIS, RIGHT US BREAST LIMITED, RIGHT MAMMOGRAPHY: CLINICAL INFORMATION: Evaluate small 1 view asymmetry in the central right breast on CC projection, middle one third seen on screening exam. The lifetime risk of breast cancer based on the Tyrer-Cuzick Model is 13.4%. COMPARISON: Mammography: A 2122, 11/05/2022, 10/21/2021, and dating back to 2013. TECHNIQUE: Digital breast tomosynthesis is performed in full field right digital 3-D mediolateral view, as well as 3-D spot compression right CC and right mediolateral views along with computer-aided detection (CAD). Synthesized 2D images are generated from the tomosynthesis. FINDINGS: There are scattered areas of fibroglandular density (ACR BI-RADS breast composition Category b). The small rounded one view asymmetry completely effaces on spot compression views, consistent with superimposition artifact of normal tissue. Additionally, on the full-field right mediolateral view, a 1 view asymmetry in the anterior right breast just inferior to the nipple line also effaces near completely on spot compression view, and is consistent with superimposition artifact of normal tissue. ULTRASOUND: CLINICAL INFORMATION: Evaluate one view asymmetry anterior right breast just inferior to the nipple line, seen on ML view. COMPARISON: No prior breast ultrasound. TECHNIQUE: Targeted sonographic evaluation was performed using a high frequency linear transducer. Selected archived documentation. FINDINGS: RIGHT BREAST: There is a mixture of fatty and fibroglandular tissue. No suspicious mass is seen. There is no pathologic acoustic shadowing. There is no axillary adenopathy. There is no ultrasonographic imaging correlate to the one view asymmetric density in the anterior right breast. US/US breast RT limited mamm only IMPRESSION: No imaging findings suspicious for malignancy. Recommend the patient resume routine annual screening to include both breasts. OVERALL ASSESSMENT: Mammography: BI-RADS 1 - Negative Ultrasound: BI-RADS 1 - Negative RECOMMENDATION: 1 year F/U Results were provided to the patient at time of visit by the technologist. This patient's information was entered into a reminder system with a target due date for their next mammogram.
== END 2022-12-01 12:56 | disposition home or self-care (01) ==
LOC: HO.MAMMO 12:55
PROVIDERS: PCP Internal Medicine; Visit Provider Internal Medicine
DX: N64.89 Other specified disorders of breast (principal)
CPT/HCPCS: 76642; 77061; 77065

== ENCOUNTER → 2022-12-01 13:00 | Outpatient (BNV) | payer OTHER, SELFPAY | PROVIDERS: PCP Internal Medicine; Visit Provider Radiology Diagnostic Radiology | DX: R92.8 Other abnormal and inconclusive findings on diagnostic imaging of breast (principal) | CPT/HCPCS: 76642; 77061; 77065 ==

== ENCOUNTER 2023-04-16 11:42 | Emergency (ER) | payer OTHER, SELFPAY ==
[2023-04-16 12:58] VITALS: BP 144/89; PULSE 92; RESP 16; TEMP 36.6; O2SAT 99; BMI 28.0
--- NOTE | 2023-04-16 13:09 | ED_ITS ---
HPI - Chest Pain General Chief Complaint: Headache Stated Complaint: Dizziness Related Data Home Medications ?Medication ?Instructions ?Recorded ?Confirmed topiramate 25 mg tablet 25 mg PO DAILY 08/24/23 02/05/24 Previous Rx's ?Medication ?Instructions ?Recorded montelukast 10 mg tablet 10 mg PO DAILY #90 tabs 08/12/23 albuterol sulfate 90 mcg/actuation 2 puff inhalation QID PRN 08/24/23 aerosol inhaler shortness of breath or wheezing #8.5 grams atorvastatin 20 mg tablet 20 mg PO BEDTIME #90 tabs 09/21/23 esomeprazole magnesium 40 mg 40 mg PO BEDTIME #90 caps 10/20/23 capsule,delayed release fluticasone 250 mcg-salmeterol 50 1 inh inhalation Q12H #60 ea 12/18/23 mcg/dose blistr powdr for inhalation (Wixela Inhub) folic acid 1 mg tablet 2 mg (2 x 1 mg) PO DAILY #90 tabs 01/08/24 citalopram 10 mg tablet 10 mg PO DAILY #30 tabs 02/08/24 Allergies Allergy/AdvReac Type Severity Reaction Status Date / Time No Known Allergies Allergy Verified 02/08/24 09:21 [facility] Past Medical History Onset Date is defined in the Problem List Problems that require an onset date and time if occurred within 24 hrs of arrival to the ED Aortic Dissection and Rupture; Neurologic impairment; Cardiopulmonary Arrest; Endotracheal Intubation; Insertion or Replacement of Mechanical Circulatory Assist Device Medical History (Updated 02/14/24 @ 04:58 by Yon Cantu MD) History of kidney stones History of depression History of adenomatous polyp of colon Vitamin B12 deficiency 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 Bunion of great toe of right foot Microcytic hypochromic anemia Mild intermittent asthma Dyslipidemia Chronic right sacroiliac pain GERD (gastroesophageal reflux disease) Surgical History H/O cystoscopy Previous section Hx of cholecystectomy Family History Family History Father Diabetes mellitus Bronchial asthma Mother Breast cancer Cervical cancer Social History Social History Household Members: Spouse Housing: Condominium Are you a primary caregivers homecare to a significant other at home: No Do you presently have visiting nurse or other home services: No Alcohol intake: never Patient Tobacco Use Status: Never used Tobacco e-Cigarette/Vaping Use: Never Used service: No Current occupational status: employed Current occupation: [employer] Cognitive needs: No Hearing needs: No Vision needs: Yes Physical Exam 2 Vital Signs: Vital Signs: Last Vital Signs Temp 98.1 F 04/16/23 13:10 Pulse 82 04/16/23 13:10 Resp 16 04/16/23 13:10 BP 167/72 H 04/16/23 13:10 Pulse Ox 97 04/16/23 13:10 O2 Del Method Room Air 04/16/23 13:10 BMI result Body Mass Index 31.4 Course Reevaluation(s) Reevaluation #1: RME: 57yo female with Asthma, and GERD who presents with dizziness and neck pain on the right for one day. Patient told in the past she had a minor stroke and she is worried that today is a stroke. Denies nausea or vomiting and states that she has had blurry vision. Patient with frontal headache. MRI showed mild small vessel disease in April. PE: non focal neuro exam Medical Decision Making Lab Data 04/16/23 13:56 04/16/23 13:56 Labs: Lab Results 04/16/23 Range/Units 13:56 WBC 7.5 (4.8-10.8) X10*3/uL RBC 4.55 (4.20-5.50) X10*6/uL Hgb 11.3 L (12.0-16.0) g/dl Hct 36.8 L (37.0-47.0) % MCV 80.9 (80.0-98.0) fL MCH 24.8 L (27.0-33.0) pg MCHC 30.7 L (31.0-35.0) g/dl RDW 13.4 (11.0-16.0) % Plt Count 401 H (160-400) X10*3/uL MPV 9.1 L (9.4-12.3) fL Immature Gran % (Auto) 0.3 (0.0-0.4) % Neut % (Auto) 60.8 (45-73) % Lymph % (Auto) 28.6 (20-40) % Taylor % (Auto) 5.6 (2-11) % Eos % (Auto) 3.9 (0-4) % Baso % (Auto) 0.8 (0-2) % Lymph # (Auto) 2.1 (1.2-4.9) X10*3/uL Taylor # (Auto) 0.4 (0.1-1.2) X10*3/uL Eos # (Auto) 0.3 (0.0-0.4) X10*3/uL Baso # (Auto) 0.1 (0.0-0.2) X10*3/uL Abs Immat Gran (auto) 0.02 (0.00-0.03) X10*3/uL Absolute Neuts (auto) 4.6 (2.0-8.3) x10*3/uL Absolute Nucleated RBC 0.000 (0.0-0.012) X10*3/uL Nucleated RBC % (auto) 0.0 (0.0-0.2) /100WBC Sodium 143 (135-145) mmol/L Potassium 3.8 (3.3-5.1) mmol/L Chloride 106 (96-108) mmol/L Carbon Dioxide 30 H (22-29) mmol/L Anion Gap 11 L (12-20) BUN 9 (9-16) mg/dL Creatinine 0.77 (0.5-1.4) mg/dL Estim Creat Clear Calc 88.0 Estimated GFR > 60 Random Glucose 139 H (60-115) mg/dL Calcium 9.4 D (8.4-10.2) mg/dL Discharge Plan Discharge Clinical Impression: Patient left without being seen Patient Disposition: Elopement Prescriptions: No Action montelukast 10 mg tablet 10 mg PO DAILY Qty: 90 1RF atorvastatin 20 mg tablet 20 mg PO BEDTIME Qty: 90 1RF Rx Instructions: Schedule next PCP appt for future refills esomeprazole magnesium 40 mg capsule,delayed release(DR/EC) 40 mg PO BEDTIME Qty: 90 1RF fluticasone propion-salmeterol [Wixela Inhub] 250-50 mcg/dose blister with device 1 inh inhalation Q12H Qty: 60 2RF folic acid 1 mg Tablet 2 mg PO DAILY Qty: 90 3RF topiramate 25 mg tablet 25 mg PO DAILY albuterol sulfate 90 mcg/actuation HFA aerosol inhaler 2 puff inhalation QID PRN (Reason: shortness of breath or wheezing) Qty: 8.5 0RF citalopram 10 mg tablet 10 mg PO DAILY Qty: 30 0RF Discharge Date/Time: 04/17/23 02:58 Print Language: Chadian
[2023-04-16 13:10] VITALS: BP 167/72; PULSE 82; RESP 16; TEMP 36.7; O2SAT 97; BMI 31.4
== END 2023-04-17 02:58 | disposition left against medical advice (07) ==
LOC: HO.ED 04-17 02:51
PROVIDERS: Emergency Provider Emergency Medicine; PCP Internal Medicine
DX: R07.89 Other chest pain (principal); R42 Dizziness and giddiness; Z79.899 Other long term (current) drug therapy
CPT/HCPCS: 36415; 70450; 80048; 85025; 93005; 99283; 99284

== ENCOUNTER → 2023-04-16 13:16 | Outpatient (BNV) | payer OTHER, SELFPAY | PROVIDERS: PCP Internal Medicine; Visit Provider Internal Medicine Cardiovascular Disease | DX: R42 Dizziness and giddiness (principal); G43.909 Migraine, unspecified, not intractable, without status migrainosus | CPT/HCPCS: 93010 ==

== ENCOUNTER 2023-05-07 08:04 | Outpatient (AMB) | payer OTHER, SELFPAY ==
[2023-05-07 08:20] VITALS: BP 154/80; BMI 31.8
--- NOTE | 2023-05-07 08:20 | A.OFFVIS_ITS ---
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 She is doing well with no concerns. Does not eat a healthy diet currently. Is not currently active with exercise. Currently not sexually active. Denies any vaginal irritation. Dryness with intimacy. STI testing offered; she declines. Last pap smear; 2017. Last mammogram; 2022. Colonoscopy is not UTD. Denies any family history of ovarian or colon cancer. FH breast cancer. [facility] Medical History 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 Tubular adenoma of colon Positional lightheadedness Numerous moles Rash of back Bunion of great toe of right foot Kidney stones Vitamin D deficiency Microcytic hypochromic anemia Mild intermittent asthma Dyslipidemia Depression Chronic right sacroiliac pain GERD (gastroesophageal reflux disease) Surgical History H/O cystoscopy Previous section Hx of cholecystectomy Family History (Updated 05/07/23 @ 08:23 by ALFREDA Mercedes) Father Diabetes mellitus Bronchial asthma Mother Breast cancer Cervical cancer Social History (Updated 05/07/23 @ 09:02 by Sonia Cole CNM) Housing: Condominium Are you a primary healthcare or medical to a significant other at home: No Do you presently have visiting nurse or other home services: No Alcohol intake: never Patient Tobacco Use Status: Never used Tobacco e-Cigarette/Vaping Use: Never Used Current occupational status: employed Current occupation: [employer] Cognitive needs: No Hearing needs: No Vision needs: Yes Female Reproductive History Menstrual Age of Menarche: 10 control method: none Total pregnancies: 1 Number of Living Children: 1 Review of Systems Const All systems reviewed & are unremarkable except as noted in HPI and below Reports as per HPI Eyes Reports no additional complaints ENT Reports no additional complaints Card Reports no additional complaints Resp Reports no additional complaints GI Reports as per HPI and Reports no additional complaints Reports as per HPI Musc Reports no additional complaints Skin/Breast Reports as per HPI Neuro Reports no additional complaints Psych Reports no additional complaints Endo Reports no additional complaints Alden/Lymph Reports no additional complaints Aller/Immun Reports no additional complaints Physical Exam Vital Signs: Last Vital Signs BP 154/80 H 05/07/23 08:20 BMI result Body Mass Index 31.8 Const General: cooperative, healthy appearing, no acute distress, well developed and alert Orientation/consciousness: patient oriented x3 HEENT Head: Yes normal to inspection Eyes General: appearance normal, both eyes and all related structures Neck Neck: Yes normal visual inspection Thyroid: Thyroid normal Chest Chest palpation & inspection: normal inspection of the chest and other (no puckering, dimpling, peau de orange, retraction, discharge, masses) Breast/axilla inspection: normal inspection of the breasts Breast/axilla palpation: normal palpation of the breasts Resp Effort & Inspection: normal respiratory effort GI Inspection: Yes normal to inspection, Yes obesity and Yes scar Palpation (GI): Soft to palpation Rectal Exam - Female: deferred General: Yes bladder normal to palpation External Female Exam: normal external appearance and normal appearance of the urethra Speculum Exam - Vagina: normal appearance of the vagina, normal palpation, normal vaginal discharge and vagina atrophic Speculum Exam - Cervix: normal appearance of the cervix, normal palpation and Other cervical findings present (Bled with Pap) Bimanual exam- vagina & uterus: normal bimanual exam, normal palpation, uterine size normal, bladder normal to palpation, normal palpation and non-tender Bimanual Exam- Adnexa, other: no masses Skin Other: Multiple nevi General skin exam: no rashes or lesions noted Rashes: no rashes Neuro General: patient oriented x3 Cognition (Neuro): normal cognition Extrem General: Yes normal to inspection Psych Attitude: cooperative Thought process: Normal thought process present Assessment & Plan Assessment & Plan (1) Encounter for well woman exam with routine gynecological exam: Code(s): Z01.419 - Encounter for gynecological examination (general) (routine) without abnormal findings (2) Multiple nevi: Code(s): D22.9 - Melanocytic nevi, unspecified Plan Discussed: Current recommendations for pap smears per ASCCP guidelines. Breast awareness, periodic self breast exams and yearly mammogram. Maintain a healthy lifestyle, well balanced diet including Calcium 1,200 mg and Vitamin D 600 IU daily, and routine exercise. Vaginal dryness: Replens, lubrication. Contact the office with any postmenopausal bleeding. Discuss colonoscopy planning with her PCP. Referral to Dermatology for general skin check. All of her questions and concerns were addressed to the best of my ability. 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 This note is constructed using voice recognition software. While every effort has been made to ensure accuracy, agricultural research technologist errors may have been included. Orders: Orders Pap Smear Today Z01.419 - Encounter for gynecological examination (general) (routine) without abnormal findings Referrals Dermatology Referral D22.9 - Melanocytic nevi, unspecified Coding Level of Care Code Est Pt Prev Care 40-64y(27820) Diagnoses Encounter for well woman exam with routine gynecological exam Z01.419 Multiple nevi D22.9
== END 2023-05-07 09:05 | disposition home or self-care (01) ==
LOC: HO.HWSW 08:04
PROVIDERS: PCP Internal Medicine; Visit Provider Advanced Practice Midwife
DX: Z01.419 Encounter for gynecological examination (general) (routine) without abnormal findings (principal); D22.9 Melanocytic nevi, unspecified
CPT/HCPCS: 99396

== ENCOUNTER 2023-05-07 08:04 | Outpatient (REF) | payer OTHER, SELFPAY ==
[2023-05-15 05:29] LABS: HPV mRNA E6/E7 rflx Not Detected (Not Detected)
== END 2023-05-07 08:05 | disposition home or self-care (01) ==
LOC: HO.LNP 08:04
PROVIDERS: PCP Internal Medicine; Visit Provider Advanced Practice Midwife
DX: Z01.419 Encounter for gynecological examination (general) (routine) without abnormal findings (principal); D22.9 Melanocytic nevi, unspecified
CPT/HCPCS: 87624; 88142

== ENCOUNTER 2023-08-24 08:03 | Outpatient (AMB) | payer OTHER, SELFPAY ==
--- NOTE | 2023-08-24 08:12 | AM.OFFWIN_ITS ---
Intake Vital Signs 08/24/23 08:18 Height 5 ft 6 in Weight 197 lb BMI 31.8 BP 136/82 Blood Pressure Location Rt brachial Position Sitting Pulse 76 Pulse Source Pulse Oximeter Temp 98.8 F Temp Source Oral Pulse Oximetry (%) 98 Intake Visit Reasons: EP wheezing and coughing Intake Note: pt is here for wheezing, coughing since Patient Tobacco Use Status: Never used Tobacco Allergies hair dye Allergy (Unknown, Uncoded 08/24/23 08:19) itchiness Do you need a note to return to daycare/school/sports/work: Yes HPI HPI Comments History of Present Illness Details Patient today for sick visit Endorses cough, congestion and wheezing for last 4 days. Denies ear pain, sore throat, headache, fatigue, bodyaches. Denies fever, chest pain, shortness of breath, palpitations, syncope, weakness history of asthma, using her daily inhaler, Wixela, as prescribed has used albuterol MDI in the past but does not currently have one [facility] Medical History 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 Tubular adenoma of colon Positional lightheadedness Numerous moles Rash of back Bunion of great toe of right foot Kidney stones Vitamin D deficiency Microcytic hypochromic anemia Mild intermittent asthma Dyslipidemia Depression Chronic right sacroiliac pain GERD (gastroesophageal reflux disease) Surgical History H/O cystoscopy Previous section Hx of cholecystectomy Family History (Updated 05/07/23 @ 08:23 by ALFREDA Mercedes) Father Diabetes mellitus Bronchial asthma Mother Breast cancer Cervical cancer Social History (Updated 05/07/23 @ 09:02 by Sonia Cole CNM) Housing: Condominium Are you a primary care team assistant to a significant other at home: No Do you presently have visiting nurse or other home services: No Alcohol intake: never Patient Tobacco Use Status: Never used Tobacco e-Cigarette/Vaping Use: Never Used Current occupational status: employed Current occupation: [employer] Cognitive needs: No Hearing needs: No Vision needs: Yes Female Reproductive History Menstrual Age of Menarche: 10 Review of Systems Const All systems reviewed & are unremarkable except as noted in HPI and below Physical Exam Vital Signs: Last Vital Signs Temp 98.8 F 08/24/23 08:18 Pulse 76 08/24/23 08:18 BP 136/82 08/24/23 08:18 Pulse Ox 98 08/24/23 08:18 BMI result Body Mass Index 31.8 General: awake, alert, oriented. Answers questions appropriately. Fully engaged in examination. Skin: warm, dry, intact HEENT: TMs intact bilaterally, no redness. Posterior pharynx without erythema or exudate. Sclera without icterus or injection. Cardiac: External chest normal in appearance. Respiratory: +cough. faint expiratory wheeze Abdomen: without gross distension. Neurological: Oriented to person, place, time and situation. Thought process intact. Psychiatric: Appropriate mood and affect. Good judgment and insight. Assessment & Plan Assessment & Plan (1) URI (upper respiratory infection): Code(s): J06.9 - Acute upper respiratory infection, unspecified Plan URI, no abx warranted. Albuterol MDI as needed Prednisone 40mg po daily X 5 days Benzonatate 100mg po bid as needed Rest, drink plenty of fluids, tylenol or motrin as needed. Follow up with pcp or in clinic for any new or worsening symptoms. Go to ER for shortness of breath, chest pain, palpitations, weakness, dizziness. Medications: New albuterol sulfate 90 mcg/actuation 2 puffs inhalation QID PRN 8.5 grams 0RF shortness of breath or wheezing benzonatate 100 mg PO BID PRN 20 caps 0RF cough prednisone 40 mg (2 x 20 mg) PO DAILY 5 days 10 tabs 0RF Coding Level of Care Code Est Pt Level 3 (10900) Diagnoses URI (upper respiratory infection) J06.9
[2023-08-24 08:18] VITALS: BP 136/82; PULSE 76; TEMP 37.1; O2SAT 98; BMI 31.8
== END 2023-08-24 09:31 | disposition home or self-care (01) ==
PROVIDERS: PCP Internal Medicine; Visit Provider Registered Nurse Emergency
DX: J06.9 Acute upper respiratory infection, unspecified (principal)
CPT/HCPCS: 99213

== ENCOUNTER 2023-09-25 11:59 | Outpatient (AMB) | payer OTHER, SELFPAY ==
[2023-09-25 12:10] VITALS: BP 128/80; PULSE 93; TEMP 36.9; O2SAT 98; BMI 30.8
--- NOTE | 2023-09-25 12:10 | MHC.OFFWIV ---
Intake Vital Signs 09/25/23 12:10 Height 5 ft 6 in Weight 191 lb BMI 30.8 BP 128/80 Blood Pressure Location Rt brachial Position Sitting Pulse 93 Pulse Source Pulse Oximeter Temp 98.5 F Temp Source Oral Pulse Oximetry (%) 98 Oxygen Delivery Method Room Air Intake Visit Reasons: EP dizzy/headache Intake Note: pt here c/o dizzy/headache. Started 3 wks ago. Comes and goes intermittently Patient Tobacco Use Status: Never used Tobacco Allergies hair dye Allergy (Unknown, Uncoded 09/25/23 12:11) itchiness Do you need a note to return to daycare/school/sports/work: No HPI HPI Comments History of Present Illness Details 58-year-old female complaining of dizziness for the last few weeks. She denies any ear pain, head congestion, cough, fever or sore throat. She denies any associated chest pain, shortness of breath. She states she has been eating and drinking normally. She states the dizziness feels like she is off balance and not room spinning. She states this has never happened before. She has not done anything to make it better but she says it just kind of gets better on its own with time. Movement seems to make it worse. [facility] Medical History 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 Tubular adenoma of colon Positional lightheadedness Numerous moles Rash of back Bunion of great toe of right foot Kidney stones Vitamin D deficiency Microcytic hypochromic anemia Mild intermittent asthma Dyslipidemia Depression Chronic right sacroiliac pain GERD (gastroesophageal reflux disease) Surgical History H/O cystoscopy Previous section Hx of cholecystectomy Family History (Updated 05/07/23 @ 08:23 by ALFREDA Mercedes) Father Diabetes mellitus Bronchial asthma Mother Breast cancer Cervical cancer Social History (Updated 05/07/23 @ 09:02 by Sonia Cole CNM) Housing: Condominium Are you a primary respiratory care specialist to a significant other at home: No Do you presently have visiting nurse or other home services: No Alcohol intake: never Patient Tobacco Use Status: Never used Tobacco e-Cigarette/Vaping Use: Never Used Current occupational status: employed Current occupation: [employer] Cognitive needs: No Hearing needs: No Vision needs: Yes Female Reproductive History Menstrual Age of Menarche: 10 Review of Systems Const All systems reviewed & are unremarkable except as noted in HPI and below Physical Exam Const General: cooperative, healthy appearing, comfortable, no acute distress and well developed Orientation/consciousness: patient oriented x3 Limitations: no limitations HEENT Head: Yes normal to inspection Ears: external ears normal, TM normal on the left, Abnormal EAC present EAC tenderness on the right and TM abnormal (right side ) wth effusion, erythematous and with fluid behind the TM Mouth: Normal oral and palatal mucosa present and moist mucous membranes Throat: Yes posterior oropharynx normal, Yes tonsils normal and Yes uvula midline Eyes General: appearance normal, both eyes and all related structures Resp Effort & Inspection: normal respiratory effort and able to speak in complete sentences Neuro General: patient oriented x3 Assessment & Plan Assessment & Plan (1) Otitis media, right: Code(s): H66.91 - Otitis media, unspecified, right ear Qualifiers: Otitis media type: mucoid Chronicity: acute Qualified Code(s): H65.191 - Other acute nonsuppurative otitis media, right ear Plan: Symptoms are likely from the ear infection, advised if it does not resolve once her infection clears up to follow up with her PCP. Plan See above Medications: New amoxicillin 875 mg PO Q12H 10 tabs 0RF Coding Level of Care Code Est Pt Level 3 (84535) Diagnoses Acute mucoid otitis media of right ear H65.191 Otitis media type: mucoid Chronicity: acute
== END 2023-09-25 13:06 | disposition home or self-care (01) ==
PROVIDERS: PCP Internal Medicine; Visit Provider Physician Assistant
DX: H65.191 Other acute nonsuppurative otitis media, right ear (principal)
CPT/HCPCS: 99213

== ENCOUNTER 2023-10-12 10:05 | Emergency (ER) | payer OTHER, SELFPAY ==
--- NOTE | ~2023-10-12 | XR_ITS ---
EXAMINATION: XR CHEST CLINICAL INFORMATION: Dizziness COMPARISON: Chest x-ray on 04/15/2022 TECHNIQUE: Frontal view of the chest was obtained. FINDINGS: vascularity. LUNGS: Lungs are clear. No pneumothorax is seen. BONES: Bony skeleton is intact. XR/XR chest 1V IMPRESSION: Unchanged Normal chest x-ray.
[2023-10-12 10:30] VITALS: BP 146/66; PULSE 85; RESP 16; TEMP 36.3; O2SAT 96; BMI 30.2
--- NOTE | 2023-10-12 10:34 | ECG_ITS ---
Test Reason : CP Blood Pressure : / mmHG Vent. Rate : 079 BPM Atrial Rate : 079 BPM P-R Int : 136 ms QRS Dur : 080 ms QT Int : 392 ms P-R-T Axes : 005 -17 011 degrees QTc Int : 449 ms Normal sinus rhythm Normal ECG When compared with ECG of 16-APR-2023 14:46, No significant change was found Referred By: Generic ED Physician Electronically Signed By:CHARLES TOLEDO
[2023-10-12 11:08] LABS: MANUAL DIFF FLAG NO
[2023-10-12 11:10] LABS: Basophils Absolute Auto 0.1 X10*3/uL (0.0-0.2); Basophils Percent Auto 0.8 % (0-2); Eosinophils Absolute Auto 0.2 X10*3/uL (0.0-0.4); Eosinophils Percent Auto 2.9 % (0-4); Hematocrit 32.2 % (37.0-47.0); Hemoglobin 9.2 g/dl (12.0-16.0); Imm Gran Abs Auto 0.03 X10*3/uL (0.00-0.03); Imm Gran Pct Auto 0.4 % (0.0-0.4); Lymphocytes Percent Auto 26.1 % (20-40); Mean Corpuscular HGB Conc 28.6 g/dl (31.0-35.0); Mean Corpuscular Hemoglobin 21.1 pg (27.0-33.0); Mean Corpuscular Volume 73.9 fL (80.0-98.0); Mean Platelet Volume 9.2 fL (9.4-12.3); Monocytes Absolute Auto 0.5 X10*3/uL (0.1-1.2); Monocytes Percent Auto 6.5 % (2-11); Neutrophils Percent Auto 63.3 % (45-73); Platelet Count 457 X10*3/uL (160-400); Red Blood Count 4.36 X10*6/uL (4.20-5.50); Red Cell Distribution Width 17.2 % (11.0-16.0); White Blood Count 7.8 X10*3/uL (4.8-10.8)
[2023-10-12 11:26] LABS: Alanine Aminotransferase 17 U/L (0-31); Albumin Level 4.3 g/dL (3.5-5.0); Alkaline Phosphatase 93 U/L (39-117); Anion Gap 13 (12-20); Aspartate Amino Transferase 17 U/L (5-31); Bilirubin Total 0.4 mg/dL (0.0-1.0); Blood Urea Nitrogen 13 mg/dL (9-16); Calcium 9.6 mg/dL (8.4-10.2); Carbon Dioxide 22 mmol/L (22-29); Chloride 112 mmol/L (96-108); Creatinine Clr Calc Pharmacy 74.5; Estimated Glomerular Filt Rate > 60; Glucose Random 143 mg/dL (60-115); Potassium 3.7 mmol/L (3.3-5.1); Sodium 143 mmol/L (135-145); Total Protein 7.6 g/dL (6.5-8.0)
[2023-10-12 11:33] LABS: Troponin-I High Sensitivity < 2.7 ng/L (<3.5-17.0)
[2023-10-12 13:57] VITALS: BP 151/70; PULSE 81; RESP 16; TEMP 36.9; O2SAT 98
--- NOTE | 2023-10-12 13:59 | ED.GENADULT ---
HPI - General Adult General Chief complaint: Dizziness Stated complaint: lightheaded dizzy Time Seen by Provider: 10/12/23 21:52 Source: patient Mode of arrival: ambulatory Limitations: no limitations History of Present Illness ED Provider: tatiana EWING narrative: Patient Complaining of dizziness new onset severe several months getting worse lately feels off balance especially when she changes position quickly no ringing in the ear no focal weakness no tremors no headache no syncope or palpitation no tinnitus no nausea no vomiting Related Data Home Medications ?Medication ?Instructions ?Recorded ?Confirmed topiramate 25 mg tablet 25 mg PO DAILY 08/24/23 Previous Rx's ?Medication ?Instructions ?Recorded esomeprazole magnesium 40 mg 40 mg PO BEDTIME #90 caps 12/08/22 capsule,delayed release fluticasone 250 mcg-salmeterol 50 1 inh inhalation Q12H #180 ea 02/05/23 mcg/dose blistr powdr for inhalation (Advair Diskus) fluticasone 250 mcg-salmeterol 50 1 inh inhalation Q12H #60 ea 05/21/23 mcg/dose blistr powdr for inhalation (Wixela Inhub) aspirin 81 mg tablet,delayed 81 mg PO DAILY #90 tabs 07/09/23 release citalopram 10 mg tablet 10 mg PO DAILY #90 tabs 08/12/23 montelukast 10 mg tablet 10 mg PO DAILY #90 tabs 08/12/23 albuterol sulfate 90 mcg/actuation 2 puff inhalation QID PRN 08/24/23 aerosol inhaler shortness of breath or wheezing #8.5 grams prednisone 20 mg tablet 40 mg (2 x 20 mg) PO DAILY 5 days 08/24/23 #10 tabs atorvastatin 20 mg tablet 20 mg PO BEDTIME #90 tabs 09/21/23 amoxicillin 875 mg tablet 875 mg PO Q12H #10 tabs 09/25/23 meclizine 25 mg tablet 25 mg PO TID PRN dizziness #20 tabs 10/12/23 Allergies Allergy/AdvReac Type Severity Reaction Status Date / Time No Known Allergies Allergy Verified 10/12/23 10:32 Review of Systems Review of Systems: Yes all other systems are reviewed and are negative PMFSH Past Medical History Medical History 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 Tubular adenoma of colon Positional lightheadedness Numerous moles Rash of back Bunion of great toe of right foot Kidney stones Vitamin D deficiency Microcytic hypochromic anemia Mild intermittent asthma Dyslipidemia Depression Chronic right sacroiliac pain GERD (gastroesophageal reflux disease) Surgical History H/O cystoscopy Previous section Hx of cholecystectomy Family History Family History Father Diabetes mellitus Bronchial asthma Mother Breast cancer Cervical cancer Social History Social History Housing: Condominium Are you a primary complex care nurse to a significant other at home: No Do you presently have visiting nurse or other home services: No Alcohol intake: never Patient Tobacco Use Status: Never used Tobacco Smoked in Last 30 Days: No e-Cigarette/Vaping Use: Never Used Use of substances other than those prescribed or required for medical reasons: No Advance Directives: No Do you have a plan to hurt others: No Plan Patient : No Current occupational status: employed Current occupation: [employer] Cognitive needs: No Hearing needs: No Vision needs: Yes Physical Exam ED Vital Signs: Vital Signs - 24 hr 10/12/23 22:10 10/12/23 22:48 10/12/23 22:48 Temperature Pulse Rate 81 84 86 Respiratory Rate Blood Pressure 147/69 H 153/76 H 150/74 H Pulse Oximetry Oxygen Delivery Method 10/12/23 23:21 10/12/23 23:44 Temperature 98.0 F 98.0 F Pulse Rate 80 80 Respiratory Rate 16 16 Blood Pressure 140/77 H 140/77 H Pulse Oximetry 98 98 Oxygen Delivery Method Room Air Room Air BMI result Body Mass Index 30.2 Appearance: Alert. Oriented X3. No acute distress. No orthostatic hypotension Eyes: PERRLA, No Nystagmus ENT: Pharynx normal. Oral Mucosa moist Neck: Normal inspection. Neck supple. CVS: Normal heart rate and rhythm. Pulses normal. Respiratory: No respiratory distress. Equal air entry bilateral, no wheezing/rales/rhonchi Abdomen: Soft and nontender. Bowel sounds are present, no mass palpable, no CVA tenderness Skin: Skin warm and dry. Normal skin color. Normal skin turgor. Extremities: No lower extremity edema. No calf tenderness Neuro: Oriented X 3. No motor deficit. No sensory deficit.No cerebellar signs , cranial nerves II-XII intact no tremor Course Course Course Narrative: RME performed by Angelica Hamilton PA-C. Patient is a 58 year old assigned female at presenting to the emergency department with lightheadedness. Patient states she has been feeling lightheaded for months and it is worse when she goes from sitting to standing. Detailed physical exam and review of systems are deferred to the crisis clinician. EKG, labs, imaging, and swabs ordered. Patient placed back in the waiting room pending room availability and results. Medications Administered Discontinued Medications Generic Name Dose Route Start Last Admin Trade Name Freq PRN Reason Stop Dose Admin Meclizine HCl 50 mg 10/12/23 22:18 10/12/23 22:27 Meclizine Hcl 25 Mg Tablet PO 10/12/23 22:19 50 mg ONCE ONE Administration Medical Decision Making Medical Decision Making [facility] [place] Narrative: Patient with nonspecific no central signs likely benign positional vertigo blood pressure stable history of same for many months will prescribe meclizine labs are stable patient had CT scan in 05/06 which was negative for similar reasons Differential Diagnosis Differential Diagnoses: The differential diagnosis associated with the presentation includes BPPV/cerebellar stroke/orthostatic hypotension Admission/Observation Consideration of admission/observation: Escalation of care including admission/observation considered Lab Data [facility] [place] Lab Attestation statement: I reviewed the patient's lab results. 10/12/23 11:02 10/12/23 11:02 Labs: Lab Results 10/12/23 10/12/23 10/12/23 Range/Units 11:02 19:44 22:59 WBC 7.8 (4.8-10.8) X10*3/uL RBC 4.36 (4.20-5.50) X10*6/uL Hgb 9.2 L (12.0-16.0) g/dl Hct 32.2 L (37.0-47.0) % MCV 73.9 L (80.0-98.0) fL MCH 21.1 L (27.0-33.0) pg MCHC 28.6 L (31.0-35.0) g/dl RDW 17.2 H (11.0-16.0) % Plt Count 457 H (160-400) X10*3/uL MPV 9.2 L (9.4-12.3) fL Immature Gran % (Auto) 0.4 (0.0-0.4) % Neut % (Auto) 63.3 (45-73) % Lymph % (Auto) 26.1 (20-40) % [place] % (Auto) 6.5 (2-11) % Eos % (Auto) 2.9 (0-4) % Baso % (Auto) 0.8 (0-2) % Lymph # (Auto) 2.0 (1.2-4.9) X10*3/uL [place] # (Auto) 0.5 (0.1-1.2) X10*3/uL Eos # (Auto) 0.2 (0.0-0.4) X10*3/uL Baso # (Auto) 0.1 (0.0-0.2) X10*3/uL Abs Immat Gran (auto) 0.03 (0.00-0.03) X10*3/uL Absolute Neuts (auto) 5.0 (2.0-8.3) x10*3/uL Absolute Nucleated RBC 0.000 (0.0-0.012) X10*3/uL Nucleated RBC % (auto) 0.0 (0.0-0.2) /100WBC Sodium 143 (135-145) mmol/L Potassium 3.7 (3.3-5.1) mmol/L Chloride 112 H (96-108) mmol/L Carbon Dioxide 22 (22-29) mmol/L Anion Gap 13 (12-20) BUN 13 (9-16) mg/dL Creatinine 0.88 (0.5-1.4) mg/dL Estim Creat Clear Calc 74.5 Estimated GFR > 60 Random Glucose 143 H (60-115) mg/dL Calcium 9.6 (8.4-10.2) mg/dL Total Bilirubin 0.4 (0.0-1.0) mg/dL AST 17 (5-31) U/L ALT 17 (0-31) U/L Alkaline Phosphatase 93 (39-117) U/L Troponin I High Sens < 2.7 (<3.5-17.0) ng/L Total Protein 7.6 (6.5-8.0) g/dL Albumin 4.3 (3.5-5.0) g/dL Urine Color Yellow Urine Appearance Clear Urine pH 6.5 (5.0-9.0) Ur Specific [place] 1.020 (1.005-1.025) Urine Protein Negative (Neg-Trace) mg/dL Urine Glucose (UA) Negative (Negative) mg/dL Urine Ketones Trace (Negative) mg/dL Urine Blood Negative (Negative) Urine Nitrite Negative (Negative) Ur Leukocyte Esterase Negative (Negative) Influenza Type A (PCR) NEGATIVE (Negative) Influenza Type B (PCR) NEGATIVE (Negative) RSV RNA Qual (PCR) NEGATIVE (Negative) SARS-CoV-2 RNA (RT-PCR) NEGATIVE (Negative) Independent Interpretation I performed an independent interpretation of an: EKG Interpretation: Normal sinus rhythm heart rate 79 beats per minute normal interval normal axis no arrhythmias no acute ST T wave changes Discharge Plan Discharge Clinical Impression: Benign paroxysmal positional vertigo Patient Disposition: Home, Self-Care Instructions: Benign Paroxysmal Positional Vertigo (ED) Additional Instructions: Care and cautions as advised Meclizine 1 tablet every 8 hours as needed for dizziness Follow with your PCP Prescriptions: New meclizine 25 mg tablet 25 mg PO TID PRN (Reason: dizziness) Qty: 20 0RF No Action esomeprazole magnesium 40 mg capsule,delayed release(DR/EC) 40 mg PO BEDTIME Qty: 90 1RF fluticasone propion-salmeterol [Advair Diskus] 250-50 mcg/dose blister with device 1 inh inhalation Q12H Qty: 180 1RF fluticasone propion-salmeterol [Wixela Inhub] 250-50 mcg/dose blister with device 1 inh inhalation Q12H Qty: 60 2RF aspirin 81 mg tablet,delayed release (DR/EC) 81 mg PO DAILY Qty: 90 1RF citalopram 10 mg tablet 10 mg PO DAILY Qty: 90 1RF montelukast 10 mg tablet 10 mg PO DAILY Qty: 90 1RF atorvastatin 20 mg tablet 20 mg PO BEDTIME Qty: 90 1RF Rx Instructions: Schedule next PCP appt for future refills amoxicillin 875 mg tablet 875 mg PO Q12H Qty: 10 0RF topiramate 25 mg tablet 25 mg PO DAILY albuterol sulfate 90 mcg/actuation HFA aerosol inhaler 2 puff inhalation QID PRN (Reason: shortness of breath or wheezing) Qty: 8.5 0RF prednisone 20 mg tablet 40 mg PO DAILY 5 Days Qty: 10 0RF Interventions: ED Discharge Assessment Last Done: 10/12/23 23:44 Discharge Date/Time: 10/12/23 23:45 Print Language: Barbadian
[2023-10-12 20:33] LABS: Influenza A PCR NEGATIVE (Negative); Influenza B PCR NEGATIVE (Negative); Resp Syncy Virus RNA Qual PCR NEGATIVE (Negative); SARS COV2 PCR INHOUSE NEGATIVE (Negative)
[2023-10-12 22:10] VITALS: BP 147/69; PULSE 81
[2023-10-12] MEDS: Meclizine HCl 25 MG TABLET 50 MG PO (22:27)
[2023-10-12 22:48] VITALS: BP 150/74; BP 153/76; PULSE 84; PULSE 86
[2023-10-12 23:07] LABS: Appearance Urine Clear; Color Urine Yellow; Glucose Urine UA Negative (Negative); Leukocyte Esterase Urine Negative (Negative); Nitrite Urine Negative (Negative); PH 6.5 (5.0-9.0); Urine Blood Negative (Negative); Urine Ketones Trace mg/dL (Negative); Urine Protein Negative (Neg-Trace)
[2023-10-12 23:21] VITALS: BP 140/77; PULSE 80; RESP 16; TEMP 36.7; O2SAT 98
[2023-10-12 23:44] VITALS: BP 140/77; PULSE 80; RESP 16; TEMP 36.7; O2SAT 98
== END 2023-10-12 23:45 | disposition home or self-care (01) ==
PROVIDERS: Physician Assistant Medical; Emergency Provider Internal Medicine; PCP Internal Medicine
DX: H81.13 Benign paroxysmal vertigo, bilateral (principal); R07.89 Other chest pain; Z79.899 Other long term (current) drug therapy; Z03.818 Encounter for observation for suspected exposure to other biological agents ruled out
CPT/HCPCS: 0241U; 36415; 71045; 80053; 81003; 84484; 85025; 93005; 99283; 99285

== ENCOUNTER → 2023-10-12 10:34 | Outpatient (BNV) | payer OTHER, SELFPAY | PROVIDERS: PCP Internal Medicine; Visit Provider Internal Medicine | DX: R07.9 Chest pain, unspecified (principal) | CPT/HCPCS: 93010 ==

== ENCOUNTER 2023-11-11 07:15 | Outpatient (REF) | payer OTHER, SELFPAY ==
--- NOTE | ~2023-11-11 | MM_ITS ---
EXAMINATION: MM SCREENING DIGITAL BREAST TOMOSYNTHESIS, BILATERAL CLINICAL INFORMATION: Screening. Asymptomatic. COMPARISON: Mammography: This study is compared with prior exams dating back to 2019. TECHNIQUE: Digital breast tomosynthesis is performed in both the craniocaudal and mediolateral oblique views along with computer-aided detection (CAD). Synthesized 2D images are generated from the tomosynthesis. FINDINGS: There are scattered areas of fibroglandular density (ACR BI-RADS breast composition Category b). There is a focal asymmetry in the deep third of the low 12:00 position of the right breast. Additional mammographic and targeted sonographic imaging of this finding is advised. In the left breast, there are no significant masses, abnormal calcifications, or other abnormalities. MM/MM tomosynthesis screening BI IMPRESSION: Focal asymmetry of the right breast warrants additional mammographic and targeted sonographic imaging. No mammographic signs of malignancy left breast. ASSESSMENT: BI-RADS BI-RADS 0 - Incomplete: Needs additional Imaging. RECOMMENDATION: 1. Additional views of the right breast. 2. Targeted ultrasound after review of the additional views. 3. Radiology department staff will contact the patient for additional imaging. Additional Imaging required This examination should not preclude the clinical evaluation of a suspicious palpable abnormality. This patient's information was entered into a reminder system with a target due date for their next mammogram.
== END 2023-11-11 07:16 | disposition home or self-care (01) ==
LOC: HO.MAMMO 07:15
PROVIDERS: PCP Internal Medicine; Visit Provider Internal Medicine
DX: Z12.31 Encounter for screening mammogram for malignant neoplasm of breast (principal)
CPT/HCPCS: 77063; 77067

== ENCOUNTER → 2023-11-11 07:30 | Outpatient (BNV) | payer OTHER, SELFPAY | PROVIDERS: PCP Internal Medicine; Visit Provider Radiology Diagnostic Radiology | DX: Z12.31 Encounter for screening mammogram for malignant neoplasm of breast (principal) | CPT/HCPCS: 77063; 77067 ==

== ENCOUNTER 2023-12-21 09:12 | Outpatient (AMB) | payer OTHER, SELFPAY ==
--- NOTE | 2023-12-21 10:41 | MHC.OFFWIV ---
Intake Vital Signs 12/21/23 10:45 12/21/23 11:02 Height 5 ft 6 in Weight 187 lb BMI 30.2 BP 148/82 H Blood Pressure Location Rt brachial Position Sitting Pulse 109 H 105 H Pulse Source Pulse Oximeter Pulse Oximeter Temp 98.8 F Temp Source Oral Pulse Oximetry (%) 98 Oxygen Delivery Method Room Air Intake Visit Reasons: EP cough, fever, body ache [phone] Intake Note: pt c/o cough, fever, body aches. Started yesterday. Tested POS for Covid this morning Patient Tobacco Use Status: Never used Tobacco Allergies No Known Allergies Allergy (Verified 12/21/23 10:41) Do you need a note to return to daycare/school/sports/work: Yes HPI HPI Comments History of Present Illness Details Patient is a 58-year-old female complaining of 2 days have headaches, body aches, subjective fevers and chills, a slight dry cough. She denies any nausea vomiting diarrhea, shortness of breath or chest pain. She states she has not been drinking as much as she know she should be. She states she tested positive for COVID this morning, she states her and her are both sick. [facility] Medical History 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 Tubular adenoma of colon Positional lightheadedness Numerous moles Rash of back Bunion of great toe of right foot Kidney stones Vitamin D deficiency Microcytic hypochromic anemia Mild intermittent asthma Dyslipidemia Depression Chronic right sacroiliac pain GERD (gastroesophageal reflux disease) Surgical History H/O cystoscopy Previous section Hx of cholecystectomy Family History Father Diabetes mellitus Bronchial asthma Mother Breast cancer Cervical cancer Social History Housing: Condominium Are you a primary childcare teacher to a significant other at home: No Do you presently have visiting nurse or other home services: No Alcohol intake: never Patient Tobacco Use Status: Never used Tobacco e-Cigarette/Vaping Use: Never Used Current occupational status: employed 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: No Hearing needs: No Vision needs: Yes Female Reproductive History Menstrual Age of Menarche: 10 Review of Systems Const All systems reviewed & are unremarkable except as noted in HPI and below Physical Exam Vital Signs: Last Vital Signs Temp 98.8 F 12/21/23 10:45 Pulse 105 H 12/21/23 11:02 BP 148/82 H 12/21/23 10:45 Pulse Ox 98 12/21/23 10:45 Oxygen Delivery Method Room Air 12/21/23 10:45 BMI result Body Mass Index 30.2 Const General: cooperative, healthy appearing, comfortable and no acute distress Orientation/consciousness: patient oriented x3 Limitations: no limitations HEENT Head: Yes normal to inspection Ears: hearing grossly normal bilaterally, external ears normal and TM's normal bilaterally General nose exam: Normal external nose present, Normal nares present and No nasal discharge present Face and sinus: Yes normal facial exam and Yes sinus tenderness Mouth: Normal oral and palatal mucosa present and moist mucous membranes Throat: Yes tonsils normal, Yes uvula midline and Yes posterior oropharynx abnormal (Erythema) Eyes General: appearance normal, both eyes and all related structures Neck Neck: Yes normal visual inspection Resp Effort & Inspection: normal respiratory effort, able to speak in complete sentences, Actively coughing, no respiratory distress, not tachypneic, no tripod positioning and no use of accessory muscles Auscultation: clear to auscultation bilaterally Cardio Rate: regular rate Rhythm: regular rhythm Heart sounds: normal S1 and S2 Skin General skin exam: no rashes or lesions noted Neuro General: patient oriented x3 Extrem General: Yes normal to inspection and Yes no clubbing, cyanosis or edema Assessment & Plan Assessment & Plan (1) Sinusitis: Code(s): J32.9 - Chronic sinusitis, unspecified Qualifiers: Sinusitis location: maxillary Chronicity: acute Recurrence: non-recurrent Qualified Code(s): J01.00 - Acute maxillary sinusitis, unspecified Plan: Indigo interacts with patient's medications, discuss this with her. She should use Flonase and [id number] medications to feel better, can also use a Neti pot with distilled water. Did discuss her heart rate being a little elevated most likely due to some dehydration so I recommended she increase her fluid intake a little bit and avoid getting dehydrated. Wrote work note for this week and recommended she wear a mask at work next week for her 1st 5 days back. Plan See above Orders: Orders SARS-CoV2/FLU/RSV Today J06.9 - Acute upper respiratory infection, unspecified Coding Level of Care Code Est Pt Level 3 (31151) Diagnoses Acute non-recurrent maxillary sinusitis J01.00 Sinusitis location: maxillary Chronicity: acute Recurrence: non-recurrent
[2023-12-21 10:45] VITALS: BP 148/82; PULSE 109; TEMP 37.1; O2SAT 98; BMI 30.2
[2023-12-21 11:02] VITALS: PULSE 105
== END 2023-12-21 11:15 | disposition home or self-care (01) ==
PROVIDERS: PCP Internal Medicine; Visit Provider Physician Assistant
DX: J01.00 Acute maxillary sinusitis, unspecified (principal)
CPT/HCPCS: 99213

== ENCOUNTER 2023-12-21 10:52 | Outpatient (REF) | payer OTHER, SELFPAY ==
[2023-12-21 14:53] LABS: Influenza A PCR NEGATIVE (Negative); Influenza B PCR NEGATIVE (Negative); Resp Syncy Virus RNA Qual PCR NEGATIVE (Negative); SARS COV2 PCR INHOUSE POSITIVE (Negative)
== END 2023-12-21 10:53 | disposition home or self-care (01) ==
LOC: HO.LAB 10:52
PROVIDERS: Visit Provider Physician Assistant
DX: J06.9 Acute upper respiratory infection, unspecified (principal)
CPT/HCPCS: 0241U

== ENCOUNTER 2023-12-30 10:52 | Outpatient (REF) | payer OTHER, SELFPAY ==
--- NOTE | ~2023-12-30 | MM_ITS ---
EXAMINATION: MM DIAGNOSTIC DIGITAL BREAST TOMOSYNTHESIS, RIGHT CLINICAL INFORMATION: Diagnostic exam, follow-up focal asymmetry right breast 1:00 axis seen on screening exam. COMPARISON: Mammography: 11/11/2023, 12/01/2022, 11/05/2022, 10/21/2021, and exams dating back to 2017. TECHNIQUE: Digital breast tomosynthesis is performed in the following views: 3-D Spot compression right CC and right MLO views. Computer-aided diagnosis was used for this study. FINDINGS: There are scattered areas of fibroglandular density (ACR BI-RADS breast composition Category b). Spot compression views demonstrate no definite persistence of the focal asymmetry in question within the right breast 1:00 axis. Spot compression views demonstrate this is consistent with overlapping normal fibroglandular tissues, (summation artifact) and has an appearance which is unchanged from exams dating back to 2017. No persistent suspicious abnormalities are present. MM/MM tomosynthesis added views R IMPRESSION: There are no persistent findings suspicious for malignancy. Recommend the patient resume routine annual screening mammography. ASSESSMENT: BI-RADS BI-RADS 1 - Negative RECOMMENDATION: 1 year F/U Results were provided to the patient at time of visit by the technologist. This patient's information was entered into a reminder system with a target due date for their next mammogram. Electronically signed by: Fabien Hurt MD 12/30/2023 11:54 AM EDT
== END 2023-12-30 10:53 | disposition home or self-care (01) ==
LOC: HO.MAMMO 10:52
PROVIDERS: PCP Internal Medicine; Visit Provider Internal Medicine
DX: N64.89 Other specified disorders of breast (principal)
CPT/HCPCS: 77061; 77065

== ENCOUNTER → 2023-12-30 11:00 | Outpatient (BNV) | payer OTHER, SELFPAY | PROVIDERS: PCP Internal Medicine; Visit Provider Radiology Diagnostic Radiology | DX: N64.89 Other specified disorders of breast (principal) | CPT/HCPCS: 77061; 77065 ==

== ENCOUNTER 2024-01-01 07:13 | Outpatient (REF) | payer OTHER, SELFPAY ==
[2024-01-01 07:26] LABS: MANUAL DIFF FLAG NO
[2024-01-01 07:59] LABS: Basophils Absolute Auto 0.1 X10*3/uL (0.0-0.2); Basophils Percent Auto 0.6 % (0-2); Eosinophils Absolute Auto 0.3 X10*3/uL (0.0-0.4); Eosinophils Percent Auto 3.8 % (0-4); Hemoglobin 8.5 g/dl (12.0-16.0); Imm Gran Abs Auto 0.06 X10*3/uL (0.00-0.03); Imm Gran Pct Auto 0.8 % (0.0-0.4); Lymphocytes Absolute Auto 2.7 X10*3/uL (1.2-4.9); Lymphocytes Percent Auto 34.3 % (20-40); Mean Corpuscular HGB Conc 27.4 g/dl (31.0-35.0); Mean Corpuscular Hemoglobin 19.6 pg (27.0-33.0); Mean Corpuscular Volume 71.6 fL (80.0-98.0); Mean Platelet Volume 9.5 fL (9.4-12.3); Monocytes Absolute Auto 0.6 X10*3/uL (0.1-1.2); Monocytes Percent Auto 7.2 % (2-11); Neutrophils Absolute Auto 4.2 x10*3/uL (2.0-8.3); Neutrophils Percent Auto 53.3 % (45-73); Platelet Count 611 X10*3/uL (160-400); Red Blood Count 4.33 X10*6/uL (4.20-5.50); Red Cell Distribution Width 18.1 % (11.0-16.0); White Blood Count 7.9 X10*3/uL (4.8-10.8)
[2024-01-01 08:44] LABS: Alanine Aminotransferase 20 U/L (0-31); Albumin Level 4.1 g/dL (3.5-5.0); Alkaline Phosphatase 82 U/L (39-117); Aspartate Amino Transferase 17 U/L (5-31); Bilirubin Direct 0.2 mg/dL (0.0-0.5); Bilirubin Total 0.4 mg/dL (0.0-1.0); Iron 21 mcg/dL (30-160); Percent Iron Saturation 7 % (15-50); Total Iron Binding Capacity 315 mcg/dL (228-428); Total Protein 7.5 g/dL (6.5-8.0); Unsaturated Iron Binding 294 ug/dL
[2024-01-01 08:50] LABS: Carcinoembryonic Antigen < 1.73 ng/mL; Ferritin 12 ng/mL (10-250)
[2024-01-01 08:57] LABS: Folate 14.1 ng/mL (> or = 4.0); Vitamin B12 198 pg/mL (200-900)
[2024-01-04 09:38] LABS: Immunoglobulin A 483 mg/dL (47-310)
[2024-01-04 20:33] LABS: Gliadin Deamidated IgA Ab <1.0 U/mL; Gliadin Deamidated IgG Ab <1.0 U/mL; Transglutaminase Ab IgG <1.0 U/mL; Transglutaminase IgA <1.0 U/mL
[2024-01-05 23:24] LABS: Endomysial IgA Antibody Negative (Negative)
== END 2024-01-01 07:14 | disposition home or self-care (01) ==
LOC: HO.LAB 07:13
PROVIDERS: PCP Internal Medicine; Visit Provider Internal Medicine
DX: D50.9 Iron deficiency anemia, unspecified (principal)
CPT/HCPCS: 36415; 80076; 82378; 82607; 82728; 82746; 82784; 83540; 85025; 86231; 86258; 86364

== ENCOUNTER → 2024-01-08 10:16 | Outpatient (BNV) | payer OTHER, SELFPAY | PROVIDERS: PCP Internal Medicine; Visit Provider Internal Medicine Medical Oncology | DX: D50.9 Iron deficiency anemia, unspecified (principal) | CPT/HCPCS: 99204; 99213 ==

== ENCOUNTER 2024-01-13 08:47 | Day surgery (SDC) | payer OTHER, SELFPAY ==
--- NOTE | 2024-01-12 10:04 | HO.ANESPROP2 ---
Documented by User: Krystin Schneider NP 01/12/24 10:06 HPI - Anesthesia Eval Consult details Narrative: 58yo F for Upper Endoscopy and Colonoscopy Follows [facility] [place] Heme for anemia. Transfused 1 unit PRBC 01/08/28 at [facility] Active Problems Active Problems: All Active Problems Sinusitis (Acute) Otitis media, right (Acute) URI (upper respiratory infection) (Acute) Migraine (Acute) Hypersomnia (Acute) Microcytic hypochromic anemia (Acute) Tubular adenoma of colon (Acute) Positional lightheadedness (Acute) Numerous moles (Acute) Bunion of great toe of right foot (Acute) Mild intermittent asthma (Acute) Dyslipidemia (Acute) Depression (Acute) Chronic right sacroiliac pain (Acute) GERD (gastroesophageal reflux disease) (Acute) Past Medical History Medical History 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 Tubular adenoma of colon Positional lightheadedness Numerous moles Rash of back Bunion of great toe of right foot Kidney stones Vitamin D deficiency Microcytic hypochromic anemia Mild intermittent asthma Dyslipidemia Depression Chronic right sacroiliac pain GERD (gastroesophageal reflux disease) Family History Family History Father Diabetes mellitus Bronchial asthma Mother Breast cancer Cervical cancer Family history of problems with anesthesia: No Surgical History Surgical History H/O cystoscopy Previous section Hx of cholecystectomy History of Problems with Anesthesia: No Social History Social History Housing: Condominium Are you a primary career services assistant to a significant other at home: No Do you presently have visiting nurse or other home services: No Alcohol intake: never Patient Tobacco Use Status: Never used Tobacco e-Cigarette/Vaping Use: Never Used Use of substances other than those prescribed or required for medical reasons: No Are you DNR?: No Advance Directives: No Advance Directives Information Provided: Yes Current occupational status: employed 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 Rate : 079 BPM Atrial Rate : 079 BPM P-R Int : 136 ms QRS Dur : 080 ms QT Int : 392 ms P-R-T Axes : 005 -17 011 degrees QTc Int : 449 ms Normal sinus rhythm Normal ECG When compared with ECG of 16-APR-2023 14:46, No significant change was found Assessment and Plan Assessment Anesthesia Assessment: Chart Reviewed Final Anesthetic Review Family History of Problems with Anesthesia: No History of Problems with Anesthesia: No Documented by User: Naya Kay MD 01/13/24 10:27 COUNT INCLUDES THE [facility] Past Medical History Medical History 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 Tubular adenoma of colon Positional lightheadedness Numerous moles Rash of back Bunion of great toe of right foot Kidney stones Vitamin D deficiency Microcytic hypochromic anemia Mild intermittent asthma Dyslipidemia Depression Chronic right sacroiliac pain GERD (gastroesophageal reflux disease) Family History Family History Father Diabetes mellitus Bronchial asthma Mother Breast cancer Cervical cancer Surgical History Surgical History H/O cystoscopy Previous section Hx of cholecystectomy Social History Social History Housing: Condominium Are you a primary career services assistant to a significant other at home: No Do you presently have visiting nurse or other home services: No Alcohol intake: never Patient Tobacco Use Status: Never used Tobacco e-Cigarette/Vaping Use: Never Used Use of substances other than those prescribed or required for medical reasons: No Are you DNR?: No Advance Directives: No Advance Directives Information Provided: Yes Current occupational status: employed 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 Cognitive needs: No Hearing needs: No Vision needs: Yes Meds Allergies Allergy/AdvReac Type Severity Reaction Status Date / Time No Known Allergies Allergy Verified 01/13/24 09:31 Home Medications ?Medication ?Instructions ?Recorded ?Confirmed ?Last Taken ?Type topiramate 25 mg tablet 25 mg PO DAILY 08/24/23 01/13/24 Unknown History Exam Airway Mallampati Class: III TM Dist: >3cm Neck ROM: Full Heart: rrr Lungs: cta Assessment and Plan Assessment Anesthesia Assessment: Anesthesia Plan Discussed Final Anesthetic Review NPO: Yes ASA Class: III Final Preanesthetic Review: No Changes in Pt Med Stat, Meds/Allgs Chart Reviewed, Consent Obtained/Reviewed and Anes Risks/Benef Reviewed Patient Risk: Intermediate Procedure Risk: Low Anesthetic Plan Anesthetic Plan: MAC: Disposition: Standard PACU
[2024-01-13 09:31] VITALS: BP 141/73; PULSE 77; RESP 16; TEMP 36.3; O2SAT 97; BMI 30.2
[2024-01-13] MEDS: Lactated Ringers 1,000 ML 100 ML IVCONT (09:59)
[2024-01-13 12:28] VITALS: BP 118/84; PULSE 114; RESP 16; TEMP 37.4; O2SAT 94
--- NOTE | 2024-01-13 12:40 | PM.OP ---
Brief Operative Note Date of Service: 01/13/24 Pre-op diagnosis: Anemia Post-op diagnosis: other (Hiatal hernia, Gastric polyps, R/O Celiac disease, Diverticulosis) Procedure: EGD with biopsies, Colonoscopy to the cecum and TI Surgeon: Amarjit Linares MD Anesthesia: MAC Was an Mechanical Engineering Specialist used for this Procedure?: No Estimated blood loss (mL): 2.0 Pathology: other (A. Descending duodenum B. Gastric polyps) Condition: stable Disposition: PACU
[2024-01-13 12:51] VITALS: BP 112/65; PULSE 86; RESP 18; TEMP 36.3; O2SAT 96
--- NOTE | 2024-01-13 13:23 | OP_ITS ---
DATE OF SERVICE: 01/13/2024 SURGEON: Amarjit Linares MD INDICATIONS: The patient presents for evaluation of iron-deficiency anemia. Full consent has been obtained from her for this, including risks of bleeding and perforation. PREOPERATIVE DIAGNOSIS: Iron-deficiency anemia. POSTOPERATIVE DIAGNOSIS: PROCEDURE PERFORMED: Esophagogastroduodenoscopy with biopsies, and colonoscopy to the cecum and terminal ileum. ESTIMATED BLOOD LOSS: COMPLICATIONS: ANESTHESIA: Monitored anesthesia care. ASSISTANTS: SPECIMENS: POSTOPERATIVE DIAGNOSES: Iron-deficiency anemia, hiatal hernia, gastric polyps, rule out celiac disease, diverticulosis, and internal hemorrhoids. DESCRIPTION OF PROCEDURE: The patient was placed in the left lateral decubitus position. The Olympus video gastroscope was passed in the posterior oropharynx and upper esophagus under direct vision. The scope was passed slowly to the distal esophagus. The gastroesophageal junction appeared at 35 cm. This appeared regular, without any sign of esophagitis nor Hernandez esophagus. There was a small hiatal hernia. The scope entered the stomach and was advanced to pylorus. The duodenum was cannulated to the descending portion. The duodenum including the bulb appeared normal without mass or ulceration. Biopsies were obtained from the 2nd and 3rd portions of duodenum. The scope was withdrawn back in the stomach. The gastric antrum and body appeared normal with good peristalsis. The scope was retroflexed, visualizing the proximal stomach carefully, which appeared normal, without any sign of mass or ulceration, other than some hyperplastic-appearing gastric polyps. Two of these were biopsied. The scope was straightened and withdrawn back to the esophagus. The esophageal mucosa appeared normal. The scope was withdrawn from the patient. She was turned around for the colonoscopy. The digital rectal exam revealed no abnormalities. The Olympus video pediatric colonoscope was then entered into the rectum and advanced to the cecum with the assistance of abdominal wall pressure. Once in the cecum, I did identify normal-appearing cecal pouch with appendiceal orifice and a normal-appearing ileocecal valve. The terminal ileum was cannulated and appeared normal. Scope was withdrawn back in the colon. The entire cecum and ileocecal valve appeared normal. The scope was slowly withdrawn assessing all mucosal surfaces carefully. Preparation was excellent. I did not visualize any sign of polyps, colitis, nor angiodysplasias. There was a mild amount of sigmoid diverticulosis. In the rectum, scope was retroflexed, visualizing internal hemorrhoids, but no other pathology. The rectal mucosa appeared normal. The scope was straightened and withdrawn from the patient. She tolerated the procedure well and was returned to the recovery area in stable condition. IMPRESSION: 1. Hiatal hernia. 2. Gastric polyps. 3. Rule out celiac disease. 4. Diverticulosis. 5. Internal hemorrhoids. PLAN: The results of the biopsy will be checked. At this point, I do not see any findings today that would account for her anemia, although we shall await the results of the duodenal biopsies to assess for any celiac disease, although recent laboratories were negative for that. She has already received a unit of blood and a single iron infusion from Dr. Canela in Hematology and is schedule for further iron infusions. However, I shall start her on some oral iron and will most likely refer her for a small bowel video capsule study for further evaluation of the anemia. I did advise her to speak with her primary care physician and/or neurologist as to whether she needs the low-dose aspirin on a long-term basis as there is no definite indication for that at this time and perhaps that is contributing to the anemia as well. She will be seen in followup in the office. This has been discussed with her as well. MD MANDO Nuñez/PRECIOUS / [phone]
== END 2024-01-13 13:06 | disposition home or self-care (01) ==
PROVIDERS: PCP Internal Medicine; Visit Provider Internal Medicine
PROC: (CPT 45378; principal; 2024-01-13 10:20)
DX: D50.9 Iron deficiency anemia, unspecified (principal); Z86.0101 Personal history of adenomatous and serrated colon polyps; K57.30 Diverticulosis of large intestine without perforation or abscess without bleeding; K64.8 Other hemorrhoids; K21.9 Gastro-esophageal reflux disease without esophagitis; K44.9 Diaphragmatic hernia without obstruction or gangrene; K31.7 Polyp of stomach and duodenum; R53.83 Other fatigue; G47.33 Obstructive sleep apnea (adult) (pediatric); R42 Dizziness and giddiness; I10 Essential (primary) hypertension; J45.909 Unspecified asthma, uncomplicated; Z79.82 Long term (current) use of aspirin; Z79.899 Other long term (current) drug therapy; Z79.51 Long term (current) use of inhaled steroids; Z90.49 Acquired absence of other specified parts of digestive tract
CPT/HCPCS: 45378; 43239; 88305; J1100; J1596; J2003; J2704

== ENCOUNTER 2024-02-08 08:30 | Outpatient (AMB) | payer OTHER, SELFPAY ==
[2024-02-08 08:49] VITALS: BP 136/80; PULSE 82; O2SAT 97; BMI 30.5
--- NOTE | 2024-02-08 08:49 | MHC.PC.OV ---
Vital Signs 02/08/24 08:49 Height 5 ft 6 in Weight 189 lb BMI 30.5 BP 136/80 Blood Pressure Location Lt brachial Position Sitting Pulse 82 Pulse Source Pulse Oximeter Pulse Oximetry (%) 97 Oxygen Delivery Method Room Air Intake Visit Reasons: PE overdue Intake Note: Pt is here today for her PE: last mammogram 12/30/23, papsmear 05/12/23, colonoscopy 06/08/17 Allergies No Known Allergies Allergy (Verified 02/08/24 09:21) Medication List - Last Reconciled 02/08/24 by Brandi Gallegos MD albuterol sulfate 90 mcg/actuation 2 puffs inhalation QID PRN atorvastatin 20 mg PO BEDTIME citalopram 10 mg PO DAILY esomeprazole magnesium 40 mg PO BEDTIME fluticasone propion-salmeterol 250-50 mcg/dose (Wixela Inhub) 1 inh inhalation Q12H folic acid 2 mg (2 x 1 mg) PO DAILY montelukast 10 mg PO DAILY topiramate 25 mg PO DAILY Tobacco use date assessed: 02/08/24 Dental Screening Dental Screen Date: 02/08/24 Did you have a dental visit in the last 12 months?: Yes Did you have a dental problem in the last 6 months where you did not have access to dental care?: Yes Was dental information given to patient?: Patient has dentist HPI PE overdue HPI Details 58 year old lady with past medical history of dyslipidemia, mild intermittent asthma, depression in remission, GERD, history of internal hemorrhoids and tubular adenoma of colon, and anemia, here today for her physical exam, she is up-to-date with her screening mammogram, last done 12/30/2023, up-to-date with her cervical cancer screening, goes to her own OBGYN, last Pap smear was done 05/12/2023, last screening colonoscopy done 01/13/2024, done by Dr. Linares showed presence of diverticulosis and internal hemorrhoids with no polyps seen. Asthma stable controlled on Wixela and albuterol inhaler, would like to taking montelukast. Patient also would like to taper off citalopram, states that depression is controlled, does not feel that she needs it. Overdue for recheck on her lipids has been compliant with taking her medications Up-to-date with her vaccines but does not want to get a COVID booster. [facility] Medical History History of kidney stones History of depression History of adenomatous polyp of colon Vitamin B12 deficiency 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 Bunion of great toe of right foot Microcytic hypochromic anemia Mild intermittent asthma Dyslipidemia Chronic right sacroiliac pain GERD (gastroesophageal reflux disease) Surgical History H/O cystoscopy Previous section Hx of cholecystectomy Family History Father Diabetes mellitus Bronchial asthma Mother Breast cancer Cervical cancer Social History Household Members: Spouse Housing: Condominium Are you a primary career information specialist to a significant other at home: No Do you presently have visiting nurse or other home services: No Alcohol intake: never Patient Tobacco Use Status: Never used Tobacco e-Cigarette/Vaping Use: Never Used service: No Current occupational status: employed Current occupation: [employer] Cognitive needs: No Hearing needs: No Vision needs: Yes Female Reproductive History Menstrual Age of Menarche: 10 Questionnaire PHQ-9 Over the last 2 weeks, how often have you been bothered by any of the following problems? 1. Little interest or pleasure in doing things: not at all 2. Feeling down, depressed, or hopeless: not at all 3. Trouble falling or staying asleep, or sleeping too much: not at all 4. Feeling tired or having little energy: not at all 5. Poor appetite or overeating: not at all 6. Feeling bad about yourself - or that you are a failure or have let yourself or your family down: not at all 7. Trouble concentrating on things, such as reading the newspaper or watching television: not at all 8. Moving or speaking so slowly that other people could have noticed. Or the opposite - being so fidgety or restless that you have been moving around a lot more than usual: not at all 9. Thoughts that you would be better off or of hurting yourself in some way: not at all Total score: 0 Depression Screening Interpretation: Negative Depression Screening Done: Yes 99548 - PHQ-9 Billing: Yes Source: Developed by Drs. Amarjit Serrato, Omar Cantu and colleagues, with an educational mitchell from [employer]. Thrive Questionnaire Date Thrive assessed: 02/08/24 I am a: Patient What is your living situation today?: I have a steady place to live Within the past 12 months, did the food you bought not last and you didn't have the money to get more?: Never true Within the past 12 months, did you worry whether your food would run out before you got money to buy more?: Never true Do you have trouble paying for medicines?: No Do you have trouble getting transportation to medical appointments?: No Do you have trouble paying your heating and electricity bill?: No Do you have trouble taking care of your child, family member or friend?: No Do you have trouble with day-to-day activities such as bathing, preparing meals, shopping, managing finances, etc.?: No Are you currently unemployed and looking for a job?: No Are you interested in more education?: No Please select the resources that you would like help with: None Currently or been in a relationship where the following occur: No concerns reported THRIVE Score: 0 AUDIT C Alcohol Use Questionnaire (AUDIT-C) 1. How often do you have a drink containing alcohol?: Never Total Score: 0 JEZ-7 AMB Questionnaire JEZ-7 Date JEZ - 7 assessed: 02/08/24 Feeling nervous, anxious, or on edge: 0 = Not at all Not being able to stop or control worryin = Not at all Worrying too much about different things: 0 = Not at all Trouble relaxin = Not at all Being so restless that it is hard to sit still: 0 = Not at all Becoming easily annoyed or irritable: 0 = Not at all Feeling afraid as if something awful might happen: 0 = Not at all Total JEZ-7 score (0-4 normal; 5-9 mild; 10-14 moderate; 15-21 severe): 0 Source: Developed by Sasha Pitts Kurt Kroenke and colleagues, with an educational mitchell from [employer]. JEZ-7 Assessment Billing JEZ-7 Assessment Tool: JEZ-7 Assessment 37402 Review of Systems Const Denies fatigue, Denies headache(s), Denies lethargy, Denies malaise and Denies weakness Eyes Details: She sees Dr. Neff Denies change in vision and Denies diplopia ENT Reports Normal hearing present and Denies headache(s) Card Denies chest pain, Denies palpitations and Denies dyspnea Resp Denies cough and Denies dyspnea GI Reports no additional complaints Reports no additional complaints Musc Reports as per HPI, Denies muscle weakness, Reports stiffness and Denies tingling Skin/Breast Denies breast pain, Denies breast mass, Denies lesions and Denies rash Neuro Reports Normal hearing present, Denies headache(s), Denies focal weakness, Denies memory loss, Denies seizure-like activity, Denies Sensory deficit (Neuro), Denies tingling and Denies weakness Psych Denies memory loss Endo Denies fatigue and Denies palpitations Alden/Lymph Denies easy bleeding and Denies easy bruising Aller/Immun Reports seasonal rhinorrhea Physical exam (Primary Care) Vital Signs: Last Vital Signs Pulse 82 02/08/24 08:49 BP 136/80 02/08/24 08:49 Pulse Ox 97 02/08/24 08:49 Oxygen Delivery Method Room Air 02/08/24 08:49 BMI result Body Mass Index 30.5 Tobacco/Smoking Status: Tobacco use Status Tobacco use date assessed 02/08/24 02/08/24 08:52 Patient Tobacco Use Status Never used Tobacco 02/08/24 08:52 e-Cigarette/Vaping Use Never Used 02/08/24 08:52 PHQ-9: PHQ-9 Score PHQ-9: Total score 0 02/08/24 09:23 Depression Screening Interpretation: Negative Thrive Assessment: Date of Thrive Assessment Date Thrive assessed 02/08/24 02/08/24 08:52 Currently or been in a relationship where the following occur: No concerns reported Advance Care Planning discussion: Completed/Scanned Date of discussion: 02/08/24 Who was present: Patient Forms completed: Health Care Proxy Time spent: 16-45 minutes Actual minutes spent: 4 Const General: cooperative, comfortable and no acute distress Nutritional Appearance: obese Orientation/consciousness: patient oriented x3 HENMT Head: Yes normocephalic and Yes atraumatic General nose exam: Normal external nose present and No nasal discharge present Face and sinus: Yes face symmetric Mouth: Normal oral and palatal mucosa present and moist mucous membranes Eyes General: appearance normal, both eyes and all related structures Neck Neck: Yes full ROM Chest Breast/axilla palpation: normal palpation of the breasts Resp Effort & Inspection: normal respiratory effort and able to speak in complete sentences Auscultation: clear to auscultation bilaterally Cardio Other: S1-S2 present regular rate and rhythm GI Palpation (GI): Soft to palpation, nontender and no guarding Auscultation: normoactive bowel sounds General: Yes no CVA tenderness Back/Spine/Pelvis Back: no CVA tenderness and No back tenderness Skin General skin exam: no rashes or lesions noted Neuro General: patient oriented x3, gait normal, moves all extremities, Normal light touch and pain sensation, no focal motor deficits, CN's II-XI intact bilaterally and deep tendon reflexes 2+ bilaterally Cranial nerves: Yes Normal hearing present Gait exam (Neuro): Normal gait present Sensory Exam: No Sensory deficit (Neuro) Romberg Test: Negative Extrem General: Yes full ROM, Yes no clubbing, cyanosis or edema, Yes normal gait and Yes other (bunion right ) Psych Appearance: grossly normal and well kempt Mental Status: mental status grossly normal Speech and movement: Normal speech and movement present Affect: normal affect Attitude: cooperative Thought process: Normal thought process present Thought content: Normal thought content present Coding Level of Care Code Est Pt Prev Care 40-64y(74940) Diagnoses Annual visit for general adult medical examination with abnormal findings Z00. Vitamin B12 deficiency E53.8 Microcytic hypochromic anemia D50.9 Mild intermittent asthma J45.20 Dyslipidemia E78.5 Gastroesophageal reflux disease without esophagitis K21.9 Esophagitis presence: without esophagitis History of depression Z86.59 Advanced directives, counseling/discussion Z71.89 Additional Codes Vital Signs *Quality* - Advance Care Planning discussion: Completed/Scanned ([id number]) Vital Signs *Quality* - Time spent: 16-45 minutes ([id number]) JEZ-7 Assessment Billing - JEZ-7 Assessment Tool: JEZ-7 Assessment 28574 ([id number]) Assessment & Plan Assessment & Plan (1) Annual visit for general adult medical examination with abnormal findings: Code(s): Z00.01 - Encounter for general adult medical examination with abnormal findings Plan: Will check appropriate labs. Recommended dental visit every 6 months and regular eye exams, at least every 2 years. Take adequate calcium in diet and vitamin-D 3 at 2000 IU per cap once a day, in addition to weight-bearing exercises to help maintain good muscle tone and weight control. she is up-to-date with her screening mammogram, last done 12/30/2023, up-to-date with her cervical cancer screening, goes to her own OBGYN, last Pap smear was done 05/12/2023, last screening colonoscopy done 01/13/2024, done by Dr. Linares showed presence of diverticulosis and internal hemorrhoids with no polyps seen. Has had all her adult vaccinations, but does not want to get a COVID booster (2) Vitamin B12 deficiency: Code(s): E53.8 - Deficiency of other specified B group vitamins Category: Medical Plan: Ordered vitamin B12 level checked (3) Microcytic hypochromic anemia: Code(s): D50.9 - Iron deficiency anemia, unspecified Category: Medical Plan: Ordered vitamin B12 folic acid level (4) Mild intermittent asthma: Code(s): J45.20 - Mild intermittent asthma, uncomplicated Category: Medical Plan: Controlled on present treatment (5) Dyslipidemia: Code(s): E78.5 - Hyperlipidemia, unspecified Category: Medical Plan: Fasting lipid panel ordered today Continue atorvastatin 20 mg a day , in addition to adherence to low-cholesterol diet and regular exercise, at least 30 minutes 3 to 4 times a week. Advised patient to make healthy food choices, eat more fruits, vegetables, whole grains, wild caught fish and low-fat dairy. Limit amount of meat and fried or fatty food products, as well as processed foods and fast foods. (6) GERD (gastroesophageal reflux disease): Code(s): K21.9 - Gastro-esophageal reflux disease without esophagitis Category: Medical Qualifiers: Esophagitis presence: without esophagitis Qualified Code(s): K21.9 - Gastro-esophageal reflux disease without esophagitis Plan: Controlled on esomeprazole 40 mg daily (7) History of depression: Code(s): Z86.59 - Personal history of other mental and behavioral disorders Plan: Patient would like to taper off citalopram, prescription was given for 10 mg tablet for 30 tablets, and instruct patient on how to slowly taper off citalopram (8) Advanced directives, counseling/discussion: Code(s): Z71.89 - Other specified counseling Plan: Initiated the conversation about Advanced Directives. Advanced Directives help patients prepare for current and future decisions about their medical treatment and place of care. Discussed with patient that it is a process where a patients current condition and prognosis are reviewed, their wishes for information regarding their illness are elicited, and likely medical dilemmas are presented and options discussed. Healthcare proxy form completed today. The form can be amended as needed, reviewed yearly and make changes as needed Orders: Orders Lipid Panel 02/08/24 E53.8 - Deficiency of other specified B group vitamins, Z00.01 - Encounter for general adult medical examination with abnormal findings, Z13.220 - Encounter for screening for lipoid disorders, Z78.0 - Asymptomatic menopausal state Vitamin D 25-OH Total 02/08/24 E53.8 - Deficiency of other specified B group vitamins, Z00.01 - Encounter for general adult medical examination with abnormal findings, Z13.220 - Encounter for screening for lipoid disorders, Z78.0 - Asymptomatic menopausal state Vitamin B12 and Folate 02/08/24 E53.8 - Deficiency of other specified B group vitamins, Z00.01 - Encounter for general adult medical examination with abnormal findings, Z13.220 - Encounter for screening for lipoid disorders, Z78.0 - Asymptomatic menopausal state Medications: Refilled citalopram 10 mg PO DAILY 30 tabs 0RF
== END 2024-02-08 09:43 | disposition home or self-care (01) ==
PROVIDERS: PCP Internal Medicine; Visit Provider Internal Medicine
DX: Z00.01 Encounter for general adult medical examination with abnormal findings (principal); E53.8 Deficiency of other specified B group vitamins; D50.9 Iron deficiency anemia, unspecified; J45.20 Mild intermittent asthma, uncomplicated; E78.5 Hyperlipidemia, unspecified; K21.9 Gastro-esophageal reflux disease without esophagitis; Z86.59 Personal history of other mental and behavioral disorders; Z71.89 Other specified counseling; Z00.00 Encounter for general adult medical examination without abnormal findings

== ENCOUNTER → 2024-02-08 08:30 | Outpatient (BNVA) | payer OTHER, SELFPAY | PROVIDERS: PCP Internal Medicine; Visit Provider Internal Medicine | DX: Z00.01 Encounter for general adult medical examination with abnormal findings (principal); E53.8 Deficiency of other specified B group vitamins; D50.9 Iron deficiency anemia, unspecified; J45.20 Mild intermittent asthma, uncomplicated; E78.5 Hyperlipidemia, unspecified; K21.9 Gastro-esophageal reflux disease without esophagitis; Z86.59 Personal history of other mental and behavioral disorders; Z71.89 Other specified counseling | CPT/HCPCS: 96127 ==

== ENCOUNTER 2024-02-19 08:04 | Outpatient (REF) | payer OTHER, SELFPAY ==
[2024-02-19 09:36] LABS: Cholesterol 125 mg/dL (<200); HDL Cholesterol 33 mg/dL (>40); LDL Cholesterol Calculated 69 mg/dL (<100); Triglycerides 118 mg/dL (<150)
[2024-02-19 10:01] LABS: Vitamin D 25-OH Total 21.9 ng/mL (>30)
[2024-02-19 11:30] LABS: Folate > 20.0 ng/mL (> or = 4.0); Vitamin B12 292 pg/mL (200-900)
== END 2024-02-19 08:05 | disposition home or self-care (01) ==
LOC: HO.LAB 08:04
PROVIDERS: PCP Internal Medicine; Visit Provider Internal Medicine
DX: Z00.01 Encounter for general adult medical examination with abnormal findings (principal); Z13.220 Encounter for screening for lipoid disorders; E53.8 Deficiency of other specified B group vitamins; Z78.0 Asymptomatic menopausal state
CPT/HCPCS: 36415; 80061; 82306; 82607; 82746

== ENCOUNTER 2024-03-04 14:00 | Outpatient (RCR) | payer OTHER, SELFPAY ==
[2024-01-11 14:00] VITALS: BP 129/72; PULSE 78; RESP 18; TEMP 36.6; O2SAT 98; BMI 30.2
[2024-01-11] MEDS: Iron Sucrose Complex 200 MG, Iron Sucrose Complex 100 MG in 0.9 % Sodium Chloride 250 ML 177 MG IV (14:09)
[2024-01-11] MEDS: 0.9 % Sodium Chloride Flush 10 ML SYRINGE 5 ML IVFLUSH (15:46)
[2024-01-22 13:55] VITALS: BP 136/76; PULSE 74; RESP 16; TEMP 36.6; O2SAT 98
[2024-01-22] MEDS: Iron Sucrose Complex 200 MG, Iron Sucrose Complex 100 MG in 0.9 % Sodium Chloride 250 ML 177 MG IV (14:04)
[2024-01-29] MEDS: Iron Sucrose Complex 200 MG, Iron Sucrose Complex 100 MG in 0.9 % Sodium Chloride 250 ML 177 MG IV (13:55)
[2024-01-29 13:57] VITALS: BP 152/62; PULSE 83; RESP 16; TEMP 36.6; O2SAT 98
[2024-02-05 13:51] VITALS: BP 160/57; PULSE 87; RESP 18; TEMP 36.3
[2024-02-05] MEDS: Iron Sucrose Complex 200 MG, Iron Sucrose Complex 100 MG in 0.9 % Sodium Chloride 250 ML 177 MG IV (14:02)
--- NOTE | 2024-02-05 14:20 | HO.INF ---
LABS DUE ON FOURTH VISIT. SOME LABS DRAWN IN DR MESA OFFICE. DR MESA CONTACTED. NO NEED FOR FURTHER LABS TODAY.
[2024-02-12 13:52] VITALS: BP 153/57; PULSE 84; RESP 16; TEMP 36.6; O2SAT 96
[2024-02-12] MEDS: Iron Sucrose Complex 200 MG, Iron Sucrose Complex 100 MG in 0.9 % Sodium Chloride 250 ML 177 MG IV (13:56)
[2024-02-19 13:49] VITALS: BP 157/64; PULSE 88; RESP 18; TEMP 36.6; O2SAT 97
[2024-02-19] MEDS: Iron Sucrose Complex 200 MG, Iron Sucrose Complex 100 MG in 0.9 % Sodium Chloride 250 ML 177 MG IV (13:54)
[2024-02-26 13:52] VITALS: BP 146/79; PULSE 79; TEMP 36.2; O2SAT 97
[2024-02-26] MEDS: Iron Sucrose Complex 200 MG, Iron Sucrose Complex 100 MG in 0.9 % Sodium Chloride 250 ML 177 MG IV (13:58)
[2024-03-04 13:51] VITALS: BP 133/78; PULSE 82; RESP 14; TEMP 36.1; O2SAT 95
[2024-03-04] MEDS: Iron Sucrose Complex 200 MG, Iron Sucrose Complex 100 MG in 0.9 % Sodium Chloride 250 ML 177 MG IV (13:59)
[2024-03-04 15:33] LABS: Hematocrit 38.9 % (37.0-47.0); Hemoglobin 12.3 g/dl (12.0-16.0); Mean Corpuscular HGB Conc 31.6 g/dl (31.0-35.0); Mean Corpuscular Hemoglobin 25.7 pg (27.0-33.0); Mean Corpuscular Volume 81.2 fL (80.0-98.0); Mean Platelet Volume 9.1 fL (9.4-12.3); Platelet Count 312 X10*3/uL (160-400); Red Blood Count 4.79 X10*6/uL (4.20-5.50); Red Cell Distribution Width 21.4 % (11.0-16.0); White Blood Count 6.5 X10*3/uL (4.8-10.8)
[2024-03-04 16:07] LABS: Alanine Aminotransferase 34 U/L (0-31); Alkaline Phosphatase 88 U/L (39-117); Anion Gap 12 (12-20); Aspartate Amino Transferase 31 U/L (5-31); Bilirubin Total 0.3 mg/dL (0.0-1.0); Blood Urea Nitrogen 10 mg/dL (9-16); Calcium 9.2 mg/dL (8.4-10.2); Carbon Dioxide 25 mmol/L (22-29); Chloride 108 mmol/L (96-108); Creatinine Clr Calc Pharmacy 88.7; Estimated Glomerular Filt Rate > 60; Glucose Random 127 mg/dL (60-115); Potassium 3.8 mmol/L (3.3-5.1); Sodium 141 mmol/L (135-145)
[2024-03-04 16:21] LABS: Ferritin 859 ng/mL (10-250)
== END 2024-03-04 15:46 | disposition home or self-care (01) ==
LOC: HO.INF 14:00
PROVIDERS: Visit Provider Internal Medicine Medical Oncology
DX: D50.9 Iron deficiency anemia, unspecified (principal)
CPT/HCPCS: 36415; 80053; 82728; 85027; 96365; 96366; J1756

== ENCOUNTER 2024-03-08 12:51 | Outpatient (AMB) | payer OTHER, SELFPAY ==
--- NOTE | 2024-03-08 13:00 | AM.OFFWIN_ITS ---
Intake Vital Signs 03/08/24 13:01 Weight 188 lb 6 oz BP 128/82 Blood Pressure Location Lt brachial Position Sitting Pulse 82 Pulse Source Pulse Oximeter Pulse Oximetry (%) 98 Oxygen Delivery Method Room Air Intake Visit Reasons: EP-light continue headaches Intake Note: Patient here for headaches and lightheaded that has been present since thursday. Patient Tobacco Use Status: Never used Tobacco Allergies No Known Allergies Allergy (Verified 03/08/24 13:02) Do you need a note to return to daycare/school/sports/work: Yes HPI HPI Comments History of Present Illness Details History of Present Illness The patient is a 58-year-old female presenting with dizziness and ear congestion. The dizziness has been ongoing since the previous Thursday, coinciding with an iron infusion. The dizziness is described as a sensation of being off balance and has been occurring daily. The patient denies passing out or losing consciousness. Associated symptoms include a mild cough but no nausea or vomiting. There is no reported ear pain, head stuffiness, or cold-like congestion. The patient has a history of headaches and was previously advised to undergo vestibular rehabilitation, which she did not pursue. Meclizine (25mg) has been used to manage symptoms in the past; however, the medication induced drowsiness, unsuitable for daytime use. The patient has had multiple courses of antibiotics for dental issues, the last of which was approximately a month ago after the removal of an infected tooth. Physical Exam General: Cooperative, healthy appearing, comfortable and no acute distress Orientation/consciousness: Patient oriented x3 Limitations: No limitations Head: Normal to inspection Ears: Hearing grossly normal bilaterally, external ears normal, and purulent effusion noted bilateral TM's Nose: Normal external nose present, Normal nares present and No nasal discharge present Face and sinus: Normal facial exam Mouth: Normal oral and palatal mucosa present and moist mucous membranes Throat: Yes tonsils normal, Yes uvula midline. Posterior oropharynx erythema Eyes: Appearance normal, both eyes and all related structures Neck: Normal visual inspection Respirtory: Normal respiratory effort, able to speak in complete sentences, Actively coughing, no respiratory distress, not tachypneic, no tripod positioning and no use of accessory muscles Skin: No rashes or lesions noted Neuro: Patient oriented x3, all cranial nerves intact and working with no deficits Extremities: Normal to inspection and Yes no clubbing, cyanosis or edema [facility] Medical History History of kidney stones History of depression History of adenomatous polyp of colon Vitamin B12 deficiency 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 Bunion of great toe of right foot Microcytic hypochromic anemia Mild intermittent asthma Dyslipidemia Chronic right sacroiliac pain GERD (gastroesophageal reflux disease) Surgical History H/O cystoscopy Previous section Hx of cholecystectomy Family History Father Diabetes mellitus Bronchial asthma Mother Breast cancer Cervical cancer Social History Household Members: Spouse Housing: Condominium Are you a primary senior care provider to a significant other at home: No Do you presently have visiting nurse or other home services: No Alcohol intake: never Patient Tobacco Use Status: Never used Tobacco e-Cigarette/Vaping Use: Never Used service: No Current occupational status: employed Current occupation: [employer] Cognitive needs: No Hearing needs: No Vision needs: Yes Female Reproductive History Menstrual Age of Menarche: 10 Review of Systems Const All systems reviewed & are unremarkable except as noted in HPI and below Physical Exam Vital Signs: Last Vital Signs Pulse 82 03/08/24 13:01 BP 128/82 03/08/24 13:01 Pulse Ox 98 03/08/24 13:01 Oxygen Delivery Method Room Air 03/08/24 13:01 Assessment & Plan Assessment & Plan (1) Otitis media: Code(s): H66.90 - Otitis media, unspecified, unspecified ear Qualifiers: Otitis media type: suppurative Chronicity: acute Laterality: bilateral Recurrence: non-recurrent Spontaneous tympanic membrane rupture: without spontaneous rupture Qualified Code(s): H66.003 - Acute suppurative otitis media without spontaneous rupture of ear drum, bilateral Plan: Patient requesting liquid antibiotics so I sent amoxicillin to pharmacy along with a smaller dose of meclizine with the hopes it is effective but does not make her drowsy. Medications: New meclizine 12.5 mg PO TID PRN 20 tabs 0RF dizziness amoxicillin 875 mg (10.9375 mL) PO BID 10 days 220 mL 0RF Coding Level of Care Code Est Pt Level 3 (05292) Diagnoses Non-recurrent acute suppurative otitis media of both ears without spontaneous rupture of tympanic membranes H66.003 Otitis media type: suppurative Chronicity: acute Laterality: bilateral Recurrence: non-recurrent Spontaneous tympanic membrane rupture: without spontaneous rupture
[2024-03-08 13:01] VITALS: BP 128/82; PULSE 82; O2SAT 98
== END 2024-03-08 13:27 | disposition home or self-care (01) ==
PROVIDERS: PCP Internal Medicine; Visit Provider Physician Assistant
DX: H66.003 Acute suppurative otitis media without spontaneous rupture of ear drum, bilateral (principal)

== ENCOUNTER 2024-03-31 10:46 | Outpatient (AMB) | payer OTHER, SELFPAY ==
--- OUTSIDE RECORDS SUMMARY | 2024-03-31 10:48 | XMS_ITS ---
Author Organization [facility] Address [address] [place] [address] Care Team Providers Care Orthopedic Physical Therapist Name Role Phone Rosy GUZMAN, Brandi Primary Care Provider Amarjit Dawson [phone] REASON FOR VISIT ? on iron pill Encounters Encounter Location Date Provider Diagnosis [facility] [address] [place] [address] 02/03/2024 Amarjit Linares PLAN OF TREATMENT Next Appt Details Provider Name:Amarjit Linares , 06/24/2024 02:20:00 PM, [address], [address], [place], [address],
--- OUTSIDE RECORDS SUMMARY | 2024-03-31 10:48 | XMS_ITS ---
Author Organization [facility] Address [address] [place] [address] Care Team Providers Care Food Sampler Name Role Phone Brandi Gallegos MD Primary Care Provider Amarjit Dawson [phone] REASON FOR VISIT B12 deficiency MEDICATIONS Medication SIG (Take, Route, Frequency, Duration) Notes Start Date End Date Status Lisinopril 10 MG TK 1 T PO QD Oral fo r 30 Not-Taking Montelukast Sodium 10 MG TK 1 T PO QD IN THE THIERNO Oral for 30 Active Citalopram Hydrobromide 10 MG TK 1 T PO QD Oral for 30 Active Topiramate 100 MG TK 1 T PO QD HS Oral for 30 Active Esomeprazole Magnesium 20 MG 1 tablet Orally Once a day Active Advair Diskus 100-50 MCG/DOSE INHALE 1 PUFF PO BID Inhalation for 30 Active Aspirin 81 81 MG 1 tablet Orally Once a day for 30 day(s) Active Atorvastatin Calcium 10 MG 1 tablet Orally Once a day for 30 day(s) Active Encounters Encounter Location Date Provider Diagnosis [facility] [address] [place] [address] 03/03/2024 Amarjit Linares B12 deficiency E53.8 ASSESSMENTS Encounter Date Diagnosis Assessment Notes Treatment Notes Treatment Clinical Notes 03/03/2024 B12 deficiency (ICD-10 - E53.8) PLAN OF TREATMENT Next Appt Details Provider Name:Amarjit Linares , 06/24/2024 02:20:00 PM, [address], [address], [place], [address], MEDICATIONS ADMINISTERED Medication Instructions Date of Administration Dosage Notes B-12 03/03/2024 1000 mL
--- OUTSIDE RECORDS SUMMARY | 2024-03-31 10:48 | XMS_ITS ---
Author Organization [facility] Address [address] [place] [address] Care Team Providers Care Square Cutter Name Role Phone Brandi Gallegos MD Primary Care Provider Amarjit Dawson [phone] REASON FOR VISIT B12 deficiency MEDICATIONS Medication SIG (Take, Route, Frequency, Duration) Notes Start Date End Date Status Montelukast Sodium 10 MG TK 1 T PO QD IN THE THIERNO Oral for 30 Active Citalopram Hydrobromide 10 MG TK 1 T PO QD Oral for 30 Active Topiramate 100 MG TK 1 T PO QD HS Oral for 30 Active Esomeprazole Magnesium 20 MG 1 tablet Orally Once a day Active Lisinopril 10 MG TK 1 T PO QD Oral fo r 30 Not-Taking Advair Diskus 100-50 MCG/DOSE INHALE 1 PUFF PO BID Inhalation for 30 Active Aspirin 81 81 MG 1 tablet Orally Once a day for 30 day(s) Active Atorvastatin Calcium 10 MG 1 tablet Orally Once a day for 30 day(s) Active Encounters Encounter Location Date Provider Diagnosis [facility] [address] [place] [address] 01/27/2024 Amarjit Linares B12 deficiency E53.8 ASSESSMENTS Encounter Date Diagnosis Assessment Notes Treatment Notes Treatment Clinical Notes 01/27/2024 B12 deficiency (ICD-10 - E53.8) PLAN OF TREATMENT Next Appt Details Provider Name:Amarjit Linares , 06/24/2024 02:20:00 PM, [address], [address], [place], [address],
--- OUTSIDE RECORDS SUMMARY | 2024-03-31 10:49 | XMS_ITS ---
Author Organization [facility] Address [address] [place] [address] Care Team Providers Care Truck Shop Supervisor Name Role Phone Rosy GUZMAN, Brandi Grullon Primary Care Provider Un available Carl Flood Unavailable [phone] Kaye Monte Unavailable [phone] Allergies Allergen (clinical drug ingredient) Drug/Non Drug Allergy documented on EMR Reaction Allergy Type Onset Date Status Hair dye Hair Dye Sweling ,itcing Allergy Acti ve REASON FOR VISIT Pcp- 09/02, Post-op Medications Medication SIG (Take, Route, Frequency, Duration) Notes Start Date End Date Status Work Note . . . Patient can retu rn full duty without restrictions starting November 11 2022 10/28/2022 Active Advair Diskus Active Esomeprazole Magnesium 40 MG 1 capsule Orally Once a day for 30 day(s) Active Citalopram Hydrobromide 10 MG 1 tablet Orally Once a day Active Docusate Sodium 100 MG 1 tablet as neede d Orally Once a day Active Atorvastatin Calcium Active Voltaren 1 % as directed External ly apply bid to foot for 30 days Not-Taking Ferrous Sulfate Acti ve Baby Aspirin Active Topiramate 100 MG 1 tablet Orally Once a day Not-Taking Neurontin 300 MG 1 capsule Orally Onc e a day at night for 14 days 08/21/2022 Active oxyCODONE HCl 5 MG 1-2 tablet as needed Orally every 4-6 hrs for 7 days 08/21/2022 Active iron Active Montelukast Sodium 10 MG 1 tablet Orally Once a day Active Physical Therapy . . . 2-3x/week for 3- 4 weeks 09/14/2022 Active Social History Tobacco Use: Social History Observation Description Date Details (start date - stop date) Never Smoker NA - NA Tobacco Use/Smoking Question Answer Notes Are you a: nonsmoker Additional Findings: Tobacco Non-User Current no n-smoker Alcohol Screen Question Answer Notes Did you have a drink containing alcohol in the p ast year? No Points 0 Interpretation Negative Tobacco use other than smoking: Question Answer Notes Are you an other tobacco user? No Vital Signs Height 5 ft 6 in in 10/28/2022 Weight 192 lbs 10/28/2022 BMI 30.99 kg/m2 10/28/2022 Encounters Encounter Location Date Provider Diagnosis [facility] [address] [place] [address] 10/28/2022 Kaye Monte Hallux rigidus, right foot M20.21 Assessments Encounter Date Diagnosis (ICD Code) Assessment Notes Treatment Notes Treatment Clinical Notes Section Notes 10/28/2022 Hallux rigidus, right foot (ICD-10 - M20.21) Plan Of Treatment Medication Medication Name Sig Start Date Stop Date Notes Work Note . . . Patient can retu rn full duty without restrictions starting November 11 2022 10/28/2022 Pending Test Test Name Order Date X ray : Foot, right 3V 10/28/2022 Next Appt Details Follow Up: prn, Reason: Progress Notes * Steff PARMAR LDOB:1965 (57 yo F)Acc No.[id number]:10/28/2022 Progress Notes Patient:?Steff Parmar Provider:?Kaye Monte DPM :1965???Age:57 Y???Sex:Female D ate:10/28/2022 Address:[address] [place] [address], [address], [place], [place] Pcp:Surendra Pang Subjective: * Chief Complaints: * ???Pcp- 09/02Post-op * HPI: ???Post-op:?The patient presents for post-op of?Right 1st MPJ implant.?Date of Surgery?:?08/28/2022 ?Current symptoms include?Pt denies fever, chills, nausea, calf pain, SOB, or increased anxiety, Pt states pain under control.? Pt presents WB with sneaker, relates little to no pain and occational swelling. Pt states she started PT on October 16. * ROS:?General/Constitutional:?Nausea?denies, denies, denies, denies.?Vomiting?denies, denies, denies, denies.?Hunger Thirst?denies, denies, denies, denies.?Loss appetite?denies, denies, denies, denies.?Chills?denies, denies, denies, denies.?Fatigue?denies, denies, denies, denies.?Fever?denies, denies, denies, denies.?Night Sweats?denies, denies, denies, denies.?Unexplained weight loss?denies, denies, denies, denies.?Unexplained weight gain?denies, denies, denies, denies.?HEENTM:?Dentures?denies, denies, denies, denies.?Dizziness?denies, denies, denies, denies.?Glasses/contacts?denies, denies, denies, denies.?Retinopathy?denies, denies, denies, denies.?Blurred/double vision?denies, denies, denies, denies.?TMJ?denies, denies, denies, denies.?Discharge/drainage?denies, denies, denies, denies.?Implants?denies, denies, denies, denies.?Sore throat?denies, denies, denies, denies.?Dental implants?denies, denies, denies, denies.?Hard of hearing ?denies, denies, denies, denies.?Difficulty chewing/swallowing/speaking?denies, denies, denies, denies.?Nose bleeds?denies, denies, denies, denies.?Sore mouth?denies, denies, denies, denies.?Respiratory:?On Oxygen?denies, denies, denies, denies.?Pneumonia/pleurisy?denies, denies, denies, denies.?Bronchitis?denies, denies, denies, denies.?Emphysema?denies, denies, denies, denies.?Coughing?denies, denies, denies, denies. Cough blood?denies, denies, denies, denies.?Shortness of breath?denies, denies, denies, denies.?Wheezing?denies, denies, denies, denies.?Cardiovascular:?Pacemaker?denies, denies, denies, denies.?MVP?denies, denies, denies, denies.?WPW?denies, denies, denies, denies.?CHF?denies, denies, denies, denies.?Heart attack?denies, denies, denies, denies.?Septal defect?denies, denies, denies, denies.?Rapid beat?denies, denies, denies, denies.?Chest pain ?denies, denies, denies, denies.?Atrial Fib.?denies, denies, denies, denies.?Murmur/Palpitations?denies, denies, denies, denies.?Gastrointestinal:?Hemorrhoids?denies, denies, denies, denies.?Stomach/Abdominal pain?denies, denies, denies, denies.?Dark blood stool?denies, denies, denies, denies.?Irritable bowel ?denies, denies, denies, denies.?Constipation?denies, denies, denies, denies.?Diarrhea?denies, denies, denies, denies.?Hematology:?Swelling?denies, denies, denies, denies.?Clots?denies, denies, denies, denies.?Varicose Veins?denies, denies, denies, denies.?Bruising?denies, denies, denies, denies.?Bleeding problem?denies, denies, denies, denies.?Genitourinary:?Blood urine?denies, denies, denies, denies.?Frequent/Painfu/urination/bladder control?denies, denies, denies, denies.?Kidney stones?denies, denies, denies, denies.?Infection (UTI)?denies, denies, denies, denies.?Nephropathy denies, denies, denies, denies.?sex trans dis (STD)?denies, denies, denies, denies.?Prostate?denies, denies, denies, denies.?Musculoskeletal:?Hammertoes?denies, denies, denies, denies.?Bunions?denies, denies, denies, denies.?Back Pain?denies, denies, denies, denies.?Muscle Cramps/ Resting?denies, denies, denies, denies.?Muscle cramps / walking?denies, denies, denies, denies.?Generalized aches and pains?denies, denies, denies, denies.?Weakness?denies, denies, denies, denies.?Integ.:?Naranjo?denies, denies, denies, denies.?Scars?denies, denies, denies, denies.?Corns/calluses?denies, denies, denies, admits.?Ingrown nails?denies, denies, denies, denies.?Painful nails?denies, denies, denies, denies. Open Sores?denies, denies, denies, denies.?Rashes?denies, denies, denies, denies.?Neurologic:?Difficulty sleeping?denies, denies, denies, denies.?Brain disorder?denies, denies, denies, denies.?Numbness?denies, denies, denies, denies.?Balance trouble?denies, denies, denies, denies.?Confusion?denies, denies, denies, denies.?Fainting/blackouts?denies, denies, denies, denies.?Tingling?denies, denies, denies, denies.?Tremors?denies, denies, denies, denies.? * Medical History:? * Surgical History:?1st MPJ Ri ght Arthrosurface Implant 08/28/22 * Hospitalization/Major Diagno stic Procedure:?Denies Past Hospitalization * Family History:?Mother: dece ased, foot problems.?Father: alive, foot problems, kidney/liver disease, defects, poor circulation, diagnosed with Family history of arthritis, Diabetic - NIDDM, Unspecified essential hypertension, Unspecified heart disease, Unspecified cerebral artery occlusion with cerebral infarction, Other malignant neoplasm of unspecified site.? * Social History:?Tobacco Use:?Tobacco Use/Smoking?Are you a:?nonsmoker ?Additional Findings: Tobacco Non-User?Current non-smoker ?Tobacco use other than smoking?Are you an other tobacco user??No ???Drugs/Alcohol:?Drugs?Have you used drugs other than those for medical reasons in the past 12 months??No ?Alcohol Screen?Did you have a drink containing alcohol in the past year??No ?Points?0 ?Interpretation?Negative ???Miscellaneous:?Caffeine: yes, frequency:, 1-2 cups per day. ?Exercise: yes. 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 * Medications:?TakingFerrous S ulfate Baby Aspirin Atorvastatin Calcium Advair Diskus Citalopram Hydrobromide 10 MG Tablet 1 tablet Orally Once a dayDocusate Sodium 100 MG Capsule 1 tablet as needed Orally Once a dayEsomeprazole Magnesium 40 MG Capsule Delayed Release 1 capsule Orally Once a dayiron Montelukast Sodium 10 MG Tablet 1 tablet Orally Once a dayNeurontin 300 MG Capsule 1 capsule Orally Once a day at nightoxyCODONE HCl 5 MG Tablet 1-2 tablet as needed Orally every 4-6 hrsPhysical Therapy . . . . 2-3x/weekTaking Ferrous Sulfate Taking Baby Aspirin Taking Atorvastatin Calcium Taking Advair Diskus Taking Citalopram Hydrobromide 10 MG Tablet 1 tablet Orally Once a dayTaking Docusate Sodium 100 MG Capsule 1 tablet as needed Orally Once a dayTaking Esomeprazole Magnesium 40 MG Capsule Delayed Release 1 capsule Orally Once a dayTaking iron Taking Montelukast Sodium 10 MG Tablet 1 tablet Orally Once a dayTaking Neurontin 300 MG Capsule 1 capsule Orally Once a day at nightTaking oxyCODONE HCl 5 MG Tablet 1-2 tablet as needed Orally every 4-6 hrsTaking Physical Therapy . . . . 2-3x/weekNot-Taking/PRNTopiramate 100 MG Tablet 1 tablet Orally Once a dayVoltaren 1 % Gel as directed Externally apply bid to footMedication List reviewed and reconciled with the patientNot-Taking/PRN Topiramate 100 MG Tablet 1 tablet Orally Once a dayNot-Taking/PRN Voltaren 1 % Gel as directed Externally apply bid to footMedication List reviewed and reconciled with the patient * Allergies:?Hair Dye: Sweling ,itcing - Allergyyes[Allergies Verified] Objective: * Vitals:?Ht: 5 ft 6 in, Wt:19 2, BMI:30.99, Shoe size: 7W, Ht-cm: 167.64 cm, Wt- k.09 kg. * Examination: ???Dermatologic: ?SURGICAL SITE??Incision edges are well aligned and adhered, CFT intact , No signs or symptoms consistent with infection , (+), NO??Pain on palpation/No ecchymosis/LESS edema, (-), erythema/hematoma/dehiscence/cellulitis.?Orthopedic: ?BUNION:?alignment of toe is rectus in all plains, ROM is without discomfort; ROM about 60 degrees right 1st MPJ.?X-Rays: ?Views:?3 views of Foot , RIGHT , AP , LAT , LO.?Findings:?Normal bone and soft tissue density consistent for Patients age and sex , increase in soft tissue contour and density at the symptomatic site , radiolucent soft tissue gas absent.?HAV:?Balaji 1st MPJ right intact and stable 1st metatarsal head, clean resection of bone, no sharp edges or spicules.?Fracture:?Negative fractures identified.? Assessment: * Assessment: 1.?Hallux rigidus, right raimundo t - M20.21 (Primary)? Plan: * Treatment: * Imaging:? * ?Imaging: X ray : Foot, right 3V * Procedure Codes:?46788 X-RAY EXAM OF RIGHT FOOT 3V, Modifiers: 26 , RT * Preventive Medicine:? ??Counseling:?Post-op:?I reviewed with the patient the usual surgical post-op course. The patient is to call with any questions/complications, and will follow-up as needed, perform ROM (3-4 times a day; 20-25 reps each) exercises at the foot joint and ankle, continue with firm-soled shoe for stability and support-discussed better brands of shoes, gradually increase activity to tolerance, The Pt. was counseled on the x- rays, continued treatment options, and the importance of following all homecare instructions, Pt to continue to ice and elevate foot to help with post op swelling and pain, return to work November 11.? * Follow Up:?prn * Images: * Sign off status: Completed true * Provider:?Kaye Monte DPM Date:? Generated for Tsering jeffrey/Mikayla/Mary Lou on:?03/31/2024 10:48 AM EST History and Physical Notes * HPI (History of Present Illness) Category Sub-Category Detail Notes Category Not es Post-op The patient presents for post-op of Right 1st MPJ implant Pt presents WB with sneaker, relates little to no pain and occational swelling. Pt states she started PT on October 16 Current symptoms include Pt denies fever , chills, nausea, calf pain, SOB, or increased anxiety, Pt states pain under control Date of Surgery :: 08/28/2022 Examination Category Sub-Category Detail Notes Category Not es Dermatologic SURGICAL SITE Incision edges a re well aligned and adhered, CFT intact , No signs or symptoms consistent with infection , (+), NO Pain on palpation/No ecchymosis/LESS edema, (-), erythema/hematoma/dehiscence/castro lulitis Orthopedic BUNION: alignment of toe is rectus in all plains, ROM is without discomfort; ROM about 60 degrees right 1st MPJ X-Rays - IMAGING REPORT Findings: Normal b one and soft tissue density consistent for Patients age and sex , increase in soft tissue contour and density at the symptomatic site , radiolucent soft tissue gas absent Fracture: Negative fractures i dentified HAV: Balaji 1st MPJ right i ntact and stable 1st metatarsal head, clean resection of bone, no sharp edges or spicules Views: 3 views of Foot , RI GHT , AP , LAT , LO
--- OUTSIDE RECORDS SUMMARY | 2024-03-31 10:49 | XMS_ITS ---
Author Organization [facility] Address [address] [place] [address] Care Team Providers Care Fire Fighter Name Role Phone Rosy GUZMAN, Brandi Grullon Primary Care Provider Un available Carl Flood Unavailable [phone] Kaye Monte Unavailable [phone] Encounters Encounter Location Date Provider Diagnosis [facility] [address] [place] [address] 10/08/2022 Kaye Monte Plan Of Treatment No Information Progress Notes * Steff PARMAR LDOB:1965 (58 yo F)Acc No.[id number]:10/08/2022 Progress Notes Patient:?Steff PARMAR Provider:?Kaye Monte DPM :1965???Age:57 Y???Sex:Female D ate:10/08/2022 Address:[address] [place] [address], [address], [id number] Pcp:Surendra Pang Subjective: * Chief Complaints: * ??? * Medical History:? Objective: * Vitals:? Assessment: Plan: * Treatment: * Images: * The named appointment provid er may or may not be the originator of this progress note, and it is not deemed complete until electronically signed by the appointment provider. Sign off status: Pending * Provider:?Kaye Monte DPM Date:? Generated for Tsering jeffrey/Mikayla/Mary Lou on:?03/31/2024 10:48 AM EST
--- OUTSIDE RECORDS SUMMARY | 2024-03-31 10:49 | XMS_ITS | Patient Health Record ---
Author Organization [facility] Formerly [facility] Address [address] [place] [address] Care Team Providers Care Agriculturist Name Role Phone Rosy GUZMAN, Brandi Grullon Primary Care Provider Un available Carl Flood Unavailable [phone] Allergies Allergen (clinical drug ingredient) Drug/Non Drug Allergy documented on EMR Reaction Allergy Type Onset Date Status Hair dye Hair Dye Sweling ,itcing Allergy Acti ve Reason For Referral No Information Medications Medication SIG (Take, Route, Frequency, Duration) Notes Start Date End Date Status Neurontin 300 MG 1 capsule Orally Onc e a day at night for 14 days 08/21/2022 Active oxyCODONE HCl 5 MG 1-2 tablet as needed Orally every 4-6 hrs for 7 days 08/21/2022 Active iron Active Montelukast Sodium 10 MG 1 tablet Orally Once a day Active Atorvastatin Calcium Active Voltaren 1 % as directed External ly apply bid to foot for 30 days Not-Taking Advair Diskus Active Ferrous Sulfate Acti ve Physical Therapy . . . 2-3x/week for 3- 4 weeks 09/14/2022 Active Baby Aspirin Active Topiramate 100 MG 1 tablet Orally Once a day Not-Taking Work Note . . . Patient can retu rn full duty without restrictions starting November 11 2022 10/28/2022 Active Esomeprazole Magnesium 40 MG 1 capsule Orally Once a day for 30 day(s) Active Citalopram Hydrobromide 10 MG 1 tablet Orally Once a day Active Docusate Sodium 100 MG 1 tablet as neede d Orally Once a day Active Immunizations Vaccine Route Administration Date Status Comme nts COVID-19 Pfizer BioNTech Vaccine Unknown 04/26/2020 Administered 1st 04/04/2020 Influenza Unknown 01/15/2021 Administered Social History Tobacco Use: Social History Observation [...] Are you an other tobacco user? No Problems Problem Type SNOMED Code ICD Code Onset Dates Problem Status W/U Status Risk Notes Problem Acquired hallux valgus (35290629) Hallux valgus (acquired), left foot (M20.12) Active confirmed Problem [id number] Hallux valgus (acquired), right foot (M20.11) Active confirmed Problem Acquired hallux rigidus (7253472) Hallux rigidus, right foot (M20.21) Active confirmed Plan Of Treatment Pending Test Test Name Order Date X ray : Foot, left 3V 02/07/2021 X ray : Foot, right 3V 07/30/2022 X ray : Foot, right 3V 09/02/2022 X ray : Foot, right 3V 09/12/2022 X ray : Foot, right 3V 09/23/2022 X ray : Foot, right 3V 10/28/2022 X ray : Foot, right 3V 02/07/2021 Insurance Providers Payer Name Payer Address Payer Phone Subscriber Number Group Number Insured Name Patient Relationship to Insured Coverage Start Date Coverage End Date Blue Benefits [address] [address] [place] [address] [id number] Steff Brandt Self - patient is the insured Medical (General) History Medical History History ICD Code Headaches/Migraines Reflux ( GERD) Surgical History Surgery Date(Month/Year) 1st MPJ Right Arthrosurface Implant 08/28
--- OUTSIDE RECORDS SUMMARY | 2024-03-31 10:49 | XMS_ITS | Patient Health Record ---
Author Organization [facility] Address [address] [place] [address] Care Team Providers Care Fire Operations Forester Name Role Phone Rosy GUZMAN, Brandi Primary Care Provider Amarjit Dawson [phone] ALLERGIES No Known Allergies RESULTS Component Value Reference Range Notes Ferritin Reviewed date:01/01/2024 04:46:05 PM Interpretation: Performing Lab:[facility], [address] [place] [phone] Notes/Report: Ferritin 12 10-250 ng/mL Vitamin B12 and Folate Reviewed date:01/07/2024 07:03:32 PM Interpretation: Performing Lab:[facility], [address] [place] [phone] Notes/Report: Vitamin B12 198 200-900 pg/mL NORMAL 200-900 PG/ML INDETERMINATE 160-199 PG/ML DEFICIENT < 160 PG/ML Folate 14.1 > or = 4.0 ng/mL Reference Values: > or = 4.0 ng/mL < 4.0 ng/mL suggests folate deficiency Methotrexate, aminopterin and folinic acid (leucovorin) are chemotherapeutic agents whose molecular structures are similar to folate; therefore, the Breaker Machine Tender folate assay cannot be used for patients using these drugs. Complete Blood Count Auto Di ff Reviewed date:01/07/2024 07:02:33 PM Interpretation: Performing Lab:[facility], [address] [place] [phone] Notes/Report: White Blood Count 7.9 4.8-10.8 X10*3/uL Red Blood Count 4.33 4.20-5.50 X10*6/uL Hemoglobin 8.5 12.0-16.0 g/dl Hematocrit 31.0 37.0-47.0 % Mean Corpuscular Volume 71.6 80.0-98.0 fL Mean Corpuscular Hemoglobin 19.6 27.0-33.0 pg Mean Corpuscular HGB Conc 27.4 31.0-35.0 g/dl Red Cell Distribution Width 18.1 11.0-16.0 % Platelet Count 611 160-400 X10*3/uL Mean Platelet Volume 9.5 9.4-12.3 fL Neutrophils Percent Auto 53.3 45-73 % Imm Gran Pct Auto 0.8 0.0-0.4 % Lymphocytes Percent Auto 34.3 20-40 % Monocytes Percent Auto 7.2 2-11 % Eosinophils Percent Auto 3.8 0-4 % Basophils Percent Auto 0.6 0-2 % NRBC Pct Auto 0.0 0.0-0.2 /100WBC Neutrophils Absolute Auto 4.2 2.0-8.3 x10*3/u L Imm Gran Abs Auto 0.06 0.00-0.03 X10*3/uL Lymphocytes Absolute Auto 2.7 1.2-4.9 X10*3/u L Monocytes Absolute Auto 0.6 0.1-1.2 X10*3/uL Eosinophils Absolute Auto 0.3 0.0-0.4 X10*3/u L Basophils Absolute Auto 0.1 0.0-0.2 X10*3/uL NRBC Abs Auto 0.000 0.0-0.012 X10*3/uL Liver Panel Reviewed date:01/01/2024 04:45:28 PM Interpretation: Performing Lab:[facility], [address] [place] [phone] Notes/Report: Bilirubin Total 0.4 0.0-1.0 mg/dL Bilirubin Direct 0.2 0.0-0.5 mg/dL Aspartate Amino Transferase 17 5-31 U/L Alanine Aminotransferase 20 0-31 U/L Total Protein 7.5 6.5-8.0 g/dL Albumin Level 4.1 3.5-5.0 g/dL Alkaline Phosphatase 82 39-117 U/L IRON PROFILE Reviewed date:01/01/2024 04:45:36 PM Interpretation: Performing Lab:[facility], [address] [place] [phone] Notes/Report: Iron 21 30-160 mcg/dL Total Iron Binding Capacity 315 228-428 mcg/d L Percent Iron Saturation 7 15-50 % Unsaturated Iron Binding 294 Carcinoembryonic Antigen Reviewed date:01/01/2024 04:45:43 PM Interpretation: Performing Lab:[facility], [address] [place] [phone] Notes/Report: Carcinoembryonic Antigen < 1.73 CEA Reference Range: 93.4% Non-Smokers = 0.0-3.0 ng/mL 95.6% Smokers = 0.0-5.0 ng/mL CEA Methodology: Viera Alinity i Chemiluminescent Microparticle Immunoassay (CMIA) CEA testing can have significant value in monitoring of patients with diagnosed malignancies in whom changing concentrations of CEA are observed. Values obtained with different assay methods cannot be used interchangeably. Immunoglobulin A Reviewed date:01/06/2024 07:04:20 PM Interpretation: Performing Lab:[facility], [address] [place] [phone] Notes/Report: Immunoglobulin A 483 47-310 mg/dL THIS TEST WAS PERFORMED AT: [facility] [address] [place] [phone] CHADWICK MENDEZ MD Transglutaminase Ab IgG Reviewed date:01/06/2024 07:04:27 PM Interpretation: Performing Lab:[facility], [address] [place] [phone] Notes/Report: Transglutaminase Ab IgG <1.0 Value Interpretation ----- <15.0 Antibody not detected > or = 15.0 Antibody detected THIS TEST WAS PERFORMED AT: [facility] [address] [place] [phone] CHADWICK MENDEZ MD Transglutaminase IgA Reviewed date:01/06/2024 07:04:33 PM Interpretation: Performing Lab:[facility], [address] [place] [phone] Notes/Report: Transglutaminase IgA <1.0 Value Interpretation ----- <15.0 Antibody not detected > or = 15.0 Antibody detected THIS TEST WAS PERFORMED AT: [facility] [address] [place] [phone] CHADWICK MENDEZ MD Gliadin Ab Panel Reviewed date:01/06/2024 07:04:41 PM Interpretation: Performing Lab:[facility], [address] [place] [phone] Notes/Report: Gliadin Deamidated IgA Ab <1.0 Value Interpretation ----- <15.0 Antibody not detected > or = 15.0 Antibody detected Gliadin Deamidated IgG Ab <1.0 Value Interpretation ----- <15.0 Antibody not detected > or = 15.0 Antibody detected THIS TEST WAS PERFORMED AT: [facility] [address] [place] [phone] CHADWICK MENDEZ MD Endomysial IgA rflx Titer Reviewed date:01/06/2024 07:04:48 PM Interpretation: Performing Lab:[facility], [address] [place] [phone] Notes/Report: Endomysial IgA Antibody Negative Negative THIS TEST WAS PERFORMED AT: [employer]/[address] [phone] CRISSY FORMAN MD,PHD Endomysial Titer TNP Pathology Reviewed date:01/27/2024 12:38:02 AM Interpretation: Performing Lab:[facility], [address] [place] [phone] Notes/Report: REASON FOR REFERRAL No Information MEDICATIONS Medication SIG (Take, Route, Frequency, Duration) [...] Once a day for 30 day(s) Active Montelukast Sodium 10 MG TK 1 T PO QD IN THE THIERNO Oral for 30 Active Citalopram Hydrobromide 10 MG TK 1 T PO QD Oral for 30 Active Topiramate 100 MG TK 1 T PO QD HS Oral for 30 Active Esomeprazole Magnesium 20 MG 1 tablet Orally Once a day Active IMMUNIZATIONS Vaccine Route Administration Date Status Comme nts Influenza Unknown 03/10/2023 Administered SOCIAL HISTORY Tobacco Use: Social History Observation Description Date Details (start date - stop date) Never Smoker NA - NA Sex Assigned At : Social History Observation Description Sex Assigned At Unknown Tobacco Use/Smoking Question Answer Notes Patient is a nonsmoker Alcohol Screen Question Answer Notes Did you have a drink containing alcohol in the p ast year? No Points 0 Interpretation Negative PROBLEMS Problem Type ICD Code Onset Dates Problem Status W/U Status Risk SNOMED Code Notes Problem Gastroesophageal reflux disease, esophagitis presence not specified (K21.9) Active confirmed [id number] Problem Encounter for screening for malignant neoplasm of colon (Z12.11) Active confirmed 679552577 Problem History of adenomatous polyp of colon (Z86.010) Active confirmed History o f adenomatous polyp of colon (553589361) Problem Microcytic anemia (D50.9) Active confirmed Microcytic anemia (543771574) Problem B12 deficiency (E53.8) Active confirmed 040133155 Problem Iron deficiency anemia (D50.9) Active confirmed Iron deficien cy anemia (38063100) Problem Diverticulosis of large intestine without perforation or abscess without bleeding (K57.30) Active confirmed Diverticul ar disease of colon (624932619) Problem Gastric polyps (K31.7) Active confirmed Benign neoplasm of stomach (78714326) Problem Anemia (D64.9) Active confirmed Anemia (593500190) VITAL SIGNS Temperature 97.8 degrees Fahrenheit 12/30/2023 Blood pressure diastolic 00 mm Hg 12/30/2023 Height 66 in 12/30/2023 Blood pressure systolic 000 mm Hg 12/30/2023 Weight 189 lb 6 oz lbs 12/30/2023 BMI 30.56 kg/m2 12/30/2023 Encounters Encounter Location Date Provider Diagnosis [facility] Outpatient [address] [place] [phone] 01/13/2024 Amarjit Linares Iron deficiency anem ia D50.9 ; Diverticulosis of large intestine without perforation or abscess without bleeding K57.30 ; Other hemorrhoids K64.8 ; Hiatal hernia K44.9 and Gastric polyps K31.7 [facility] [address] [place] [phone] 10/01/2023 Amarjit Linares [facility] [address] [place] [phone] 12/30/2023 Amarjit Linares Gastroesophageal ref lux disease, esophagitis presence not specified K21.9 ; Microcytic anemia D50.9 ; Encounter for screening for malignant neoplasm of colon Z12.11 and History of adenomatous polyp of colon Z86.010 [facility] [address] [place] [phone] 01/08/2024 Amarjit Linares B12 deficiency E53.8 [facility] [address] [place] [phone] 01/15/2024 Amarjit Linares B12 deficiency E53.8 [facility] [address] [place] [phone] 01/27/2024 Amarjit Linares B12 deficiency E53.8 [facility] [address] [place] [phone] 03/03/2024 Amarjit Linares B12 deficiency E53.8 [facility] [address] [place] [phone] 08/24/2023 Amarjit Linares [facility] [address] [place] [phone] 12/30/2023 Amarjit Linares [facility] [address] [place] [phone] 01/07/2024 Amarjit Linaers [facility] [address] [place] [phone] 01/17/2024 Amarjit Linares [facility] [address] [place] [id number] 01/26/2024 Amarjit Linares Anemia D64.9 [facility] [address] [place] [phone] 02/03/2024 Amarjit Linares ASSESSMENTS Encounter Date Diagnosis Assessment Notes Treatment Notes Treatment Clinical Notes 01/13/2024 Diverticulosis of large intestine without perforation or abscess without bleeding (ICD-10 - K57.30) 01/13/2024 Iron deficiency anem ia (ICD-10 - D50.9) 12/30/2023 Gastroesophageal reflux disease, esophagitis presence not specified (ICD-10 - K21.9) 12/30/2023 Microcytic anemia (ICD-10 - D50.9) 01/08/2024 B12 deficiency (ICD- 10 - E53.8) 01/15/2024 B12 deficiency (ICD- 10 - E53.8) 01/27/2024 B12 deficiency (ICD- 10 - E53.8) 03/03/2024 B12 deficiency (ICD- 10 - E53.8) 01/26/2024 Anemia (ICD-10 - D64.9) 01/13/2024 Other hemorrhoids (ICD-10 - K64.8) 12/30/2023 Encounter for screening for malignant neoplasm of colon (ICD-10 - Z12.11) Do not take aspirin for 3 days before the colonoscopy 01/13/2024 Hiatal hernia (ICD-1 0 - K44.9) 12/30/2023 History of adenomato us polyp of colon (ICD-10 - Z86.010) 01/13/2024 Gastric polyps (ICD- 10 - K31.7) PLAN OF TREATMENT Pending Test Test Name Order Date LIVER PROFILE 12/30/2023 IRON + IBC (FE) 12/30/2023 IRON + IBC (FE) 01/26/2024 CEA 12/30/2023 CBC w DIFF 12/30/2023 CBC w DIFF 01/26/2024 CELIAC PANEL #10 12/30/2023 Ferritin 01/26/2024 Vitamin B12 01/26/2024 Future Test Test Name Order Date UPPER GI ENDOSCOPY 03/24/2017 COLONOSCOPY 03/24/2017 UPPER GI ENDOSCOPY 12/30/2023 COLONOSCOPY 12/30/2023 Next Appt Details Provider Name:Amarjit Linares , 06/24/2024 02:20:00 PM, [address] [place] [address], [address], [place], [address], Insurance Providers Payer Name Payer Address Payer Phone Subscriber Number Group Number Insured Name Patient Relationship to Insured Coverage Start Date Coverage End Date [employer] [place] [address] [address] [place] [address] [id number] Steff Brandt Self - patient is the insured MEDICATIONS ADMINISTERED Medication Instructions Date of Administration Dosage Notes B12 01/08/2024 1000 mL B12 01/15/2024 1000 mL B12 01/27/2024 1000 mL B-12 03/03/2024 1000 mL MEDICAL (GENERAL) HISTORY Medical History History ICD Code Hypertension Asthma Denies AR,DM,CV ,renal disease Kidney stones Depression/Anxiety Migraines Colonoscopy 05/2017 small tubular adenoma s removed EGD in 05/2017 small hiatal hernia but no esophagitis or Hernandez's esophagus Microcytic anemia with a hemoglobin of 9 .2 and MCV of 74 in October of 2023 Surgical History Surgery Date(Month/Year) Cholecystectomy x1
--- NOTE | 2024-03-31 12:41 | MHC.OFFWIV ---
Intake Vital Signs 03/31/24 12:42 Weight 187 lb BP 130/92 H Blood Pressure Location Rt brachial Position Sitting Pulse 96 Pulse Source Pulse Oximeter Temp 99.4 F Temp Source Oral Pulse Oximetry (%) 96 Oxygen Delivery Method Room Air Intake Visit Reasons: EP coughing, wheezing Intake Note: Patient here for cough,sneezing and congestion that started thursday. Patient Tobacco Use Status: Never used Tobacco Allergies No Known Allergies Allergy (Verified 03/31/24 12:44) Do you need a note to return to daycare/school/sports/work: No HPI HPI Comments History of Present Illness Details History The patient is a 58-year-old female presenting with cough and wheezing. The symptoms began approximately five days ago, which aligns with the onset on Thursday. The cough is characterized as dry and persistent. She denies fever but mentioned having a slight elevation in temperature to 99.4?F, although she does not perceive this as significant. Despite the lack of apparent fever, the patient experiences fatigue and headaches. The wheezing started concurrently and differs from previous encounters as the patient has not been diagnosed with asthma or COPD, yet is using Wixella, a medication typically for such conditions. She has a rescue inhaler but has predominantly relied on Wixella and has not increased its use. In terms of recent interventions, the patient has been self-medicating with Nyquil and Tylenol, without notable relief. She has not utilized any decongestants. There are no reports of nasal congestion or sore throat. There is no shortness of breath or ear pain, but she reports a background of ear surgery with resultant scar tissue. No other members of her household are reported ill. Home COVID testing was negative. Physical Exam General: Cooperative, healthy appearing, comfortable and no acute distress Orientation/consciousness: Patient oriented x3 Limitations: No limitations Head: Normal to inspection Ears: Hearing grossly normal bilaterally, external ears normal and TM's normal bilaterally. Some wax in the left ear, scar tissue present right TM Nose: Normal external nose present, Normal nares present and No nasal discharge present Face and sinus: Normal facial exam and No sinuses nontender Mouth: Normal oral and palatal mucosa present and moist mucous membranes Throat: Yes tonsils normal, Yes uvula midline. Posterior oropharynx erythema Eyes: Appearance normal, both eyes and all related structures Neck: Normal visual inspection Respiratory: Expiratory wheezes. Normal respiratory effort, able to speak in complete sentences, Actively coughing, no respiratory distress, not tachypneic, no tripod positioning and no use of accessory muscles. Cardiovascular: Regular rate and rhythm. Normal S1 and S2 Skin: No rashes or lesions noted Neuro: Patient oriented x3 Extremities: Normal to inspection and Yes no clubbing, cyanosis or edema PFSH Medical History History of kidney stones History of depression History of adenomatous polyp of colon Vitamin B12 deficiency 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 Bunion of great toe of right foot Microcytic hypochromic anemia Mild intermittent asthma Dyslipidemia Chronic right sacroiliac pain GERD (gastroesophageal reflux disease) Surgical History H/O cystoscopy Previous section Hx of cholecystectomy Family History Father Diabetes mellitus Bronchial asthma Mother Breast cancer Cervical cancer Social History Household Members: Spouse Housing: Condominium Are you a primary patient care assistant to a significant other at home: No Do you presently have visiting nurse or other home services: No Alcohol intake: never Patient Tobacco Use Status: Never used Tobacco e-Cigarette/Vaping Use: Never Used service: No Current occupational status: employed Current occupation: [employer] Cognitive needs: No Hearing needs: No Vision needs: Yes Female Reproductive History Menstrual Age of Menarche: 10 Review of Systems Const All systems reviewed & are unremarkable except as noted in HPI and below Physical Exam Vital Signs: Last Vital Signs Temp 99.4 F 03/31/24 12:42 Pulse 106 H 03/31/24 12:42 BP 130/92 H 03/31/24 12:42 Pulse Ox 96 03/31/24 12:42 Oxygen Delivery Method Room Air 03/31/24 12:42 Assessment & Plan Assessment & Plan (1) URI, acute: Code(s): J06.9 - Acute upper respiratory infection, unspecified Plan: Plan -Sent flu/covid and RSV testing - Initiate a course of prednisone, 40 mg daily in the morning for five days to reduce inflammation and expand airway passages. - Start azithromycin Z-Rashad with a loading dose of two tablets on the first day, followed by one tablet daily for four days as an anti-inflammatory and antibiotic coverage, pending chest x-ray results. - Order a chest x-ray to evaluate for possible pneumonia. If pneumonia is confirmed, consider an additional antibiotic for comprehensive coverage. - Patient advised regarding maintaining adequate hydration to counter possible dehydration and fluid loss from low-grade fever. - Prescriptions will be sent to the [facility] pharmacy. - Instruct the patient to remain at home until results and overall condition improve sufficiently. - Authorization to provide a work note excusing absence from work until symptoms resolve and upon reassessment of improvement. Patient was informed and verbally consented to the use of an ambient scribe for clinic note documentation during this visit Orders: Orders XR chest 2V Today R05.9 - Cough, unspecified SARS-CoV2/FLU/RSV Today J06.9 - Acute upper respiratory infection, unspecified Medications: New azithromycin For 250 mg dose pack: take 500 mg today (day 1), then 250 mg for 4 days (days 2-5) PO 6 tabs 0RF prednisone 40 mg (2 x 20 mg) PO DAILY 10 tabs 0RF Coding Level of Care Code Est Pt Level 4 (00553) Diagnoses URI, acute J06.9
[2024-03-31 12:42] VITALS: BP 130/92; PULSE 96; TEMP 37.4; O2SAT 96
== END 2024-03-31 13:01 | disposition home or self-care (01) ==
PROVIDERS: PCP Internal Medicine; Visit Provider Physician Assistant
DX: J06.9 Acute upper respiratory infection, unspecified (principal)

== ENCOUNTER 2024-03-31 10:46 | Outpatient (REF) | payer OTHER, SELFPAY ==
[2024-03-31 17:40] LABS: Influenza A PCR NEGATIVE (Negative); Influenza B PCR NEGATIVE (Negative); Resp Syncy Virus RNA Qual PCR NEGATIVE (Negative); SARS COV2 PCR INHOUSE NEGATIVE (Negative)
== END 2024-03-31 10:47 | disposition home or self-care (01) ==
LOC: HO.LAB 10:46
PROVIDERS: PCP Internal Medicine; Visit Provider Physician Assistant
DX: J06.9 Acute upper respiratory infection, unspecified (principal)
CPT/HCPCS: 0241U

== ENCOUNTER 2024-03-31 12:57 | Outpatient (REF) | payer OTHER, SELFPAY ==
--- NOTE | ~2024-03-31 | XR_ITS ---
EXAMINATION: XR CHEST CLINICAL INFORMATION: R05.9 - Cough, unspecified COMPARISON: 10/12/2023 TECHNIQUE: 2 views of the chest were obtained. FINDINGS: Heart is normal in size. There is streaky opacity seen in the left lung base best appreciated on the AP view likely within the lingula. No pleural effusions. XR/XR chest 2V IMPRESSION: Streaky opacity in the left lung base likely within the lingula. Electronically signed by: Glen Nolasco MD 04/02/2024 08:42 PM EST
== END 2024-03-31 12:58 | disposition home or self-care (01) ==
LOC: HO.HMGCX 12:57
PROVIDERS: PCP Internal Medicine; Visit Provider Physician Assistant
DX: R05.9 Cough, unspecified (principal)
CPT/HCPCS: 71046

== ENCOUNTER 2024-04-07 07:29 | Emergency (ER) | payer OTHER, SELFPAY ==
--- NOTE | ~2024-04-07 | CT_ITS ---
EXAMINATION: CT ABDOMEN AND PELVIS WITHOUT CONTRAST CLINICAL INFORMATION: Left flank pain. COMPARISON: None available. TECHNIQUE: Multidetector volumetric imaging was performed from the superior aspect of the liver through the pubic symphysis. Sagittal and coronal reformatted images were obtained on the technologist's workstation. This CT examination was performed using dose optimization techniques as appropriate, variously including the following: *Automated exposure control *Adjustment of mA and/or kV according to patient size (this includes techniques or standardized protocols for targeted exams where dose is matched to indication/reason for exam; i.e. extremities or head) *Use of iterative reconstruction technique DLP: 684 mGy-cm FINDINGS: LUNG BASES: The visualized lung bases are unremarkable. LIVER, GALLBLADDER, AND BILIARY TREE: The liver is normal in size, shape, and attenuation. No focal hepatic lesion or biliary ductal dilatation is present. Gallbladder is surgically absent. PANCREAS: Unremarkable. SPLEEN: Unremarkable. ADRENAL GLANDS: Unremarkable. KIDNEYS AND URETERS: -There are small cysts in the left kidney upper pole, right kidney mid to lower pole. No hydronephrosis or mass. - There is a 2 mm nonobstructing calculus in the inferior pole of the right kidney. No additional calculi. -Ureters are nondilated. BLADDER: Unremarkable. GASTROINTESTINAL TRACT: The small and large bowel are unremarkable. No evidence of appendicitis. ABDOMINAL WALL: No significant hernia is appreciated. LYMPH NODES: Normal. VASCULAR: -Normal. -Retroaortic left renal vein. PELVIC VISCERA: -Senescent uterus. No adnexal masses. OSSEOUS STRUCTURES: -No lytic or blastic bone lesions. No fractures. -Mild spinal degenerative changes, most notable at L5-S1. CT/CT abdomen pelvis wo IV con IMPRESSION: 1. No acute findings in the abdomen or pelvis. No obstructive uropathy identified. No etiology for left flank pain. 2. 2 mm nonobstructing calculus inferior pole right kidney. 3. Cholecystectomy. 4. Additional ancillary findings as discussed. Electronically signed by: Fabien Hurt MD 04/07/2024 10:16 AM SAGAR
--- OUTSIDE RECORDS SUMMARY | 2024-04-07 07:31 | XMS_ITS ---
Author Organization [facility] Address [address] [place] [address] Care Team Providers Care Gamewell Operator Name Role Phone Brandi Gallegos MD Primary Care Provider Amarjit Dawson [phone] REASON FOR VISIT B12 deficiency MEDICATIONS Medication [...] Active Encounters Encounter Location Date Provider Diagnosis [facility] [address] [place] [address] 01/27/2024 Amarjit Linares B12 deficiency E53.8 ASSESSMENTS Encounter Date Diagnosis Assessment Notes Treatment Notes Treatment Clinical Notes 01/27/2024 B12 deficiency (ICD-10 - E53.8) PLAN OF TREATMENT Next Appt Details Provider Name:Amarjit Linares , 06/24/2024 02:20:00 PM, [address], [address], [place], [address],
--- OUTSIDE RECORDS SUMMARY | 2024-04-07 07:31 | XMS_ITS | Patient Health Record ---
Author Organization [facility] Address [address] [place] [address] Care Team Providers Care Customer Leader Name Role Phone Rosy GUZMAN, Brandi Primary Care Provider Amarjit Dawson [phone] ALLERGIES No Known Allergies RESULTS Component Value Reference Range Notes Ferritin Reviewed date:01/01/2024 04:46:05 PM Interpretation: Performing Lab:[facility], [address] [place] [phone] Notes/Report: Ferritin 12 10-250 ng/mL Vitamin B12 and Folate Reviewed date:01/07/2024 07:03:32 PM Interpretation: Performing Lab:[facility], [address] [place] [phone] Notes/Report: Vitamin B12 198 200-900 pg/mL NORMAL 200-900 PG/ML INDETERMINATE 160-199 PG/ML DEFICIENT < 160 PG/ML Folate 14.1 > or = 4.0 ng/mL Reference Values: > or = 4.0 ng/mL < 4.0 ng/mL suggests folate deficiency Methotrexate, aminopterin and folinic acid (leucovorin) are chemotherapeutic agents whose molecular structures are similar to folate; therefore, the Environmental Conflict Manager folate assay cannot be used for patients using these drugs. Complete Blood Count Auto Di ff Reviewed date:01/07/2024 07:02:33 PM Interpretation: Performing Lab:[facility], [address] [place] [phone] Notes/Report: White Blood Count 7.9 4.8-10.8 X10*3/uL [...] Panel Reviewed date:01/01/2024 04:45:28 PM Interpretation: Performing Lab:[facility], [address] [place] [phone] Notes/Report: Bilirubin Total 0.4 0.0-1.0 mg/dL Bilirubin Direct 0.2 0.0-0.5 mg/dL Aspartate Amino Transferase 17 5-31 U/L Alanine Aminotransferase 20 0-31 U/L Total Protein 7.5 6.5-8.0 g/dL Albumin Level 4.1 3.5-5.0 g/dL Alkaline Phosphatase 82 39-117 U/L IRON PROFILE Reviewed date:01/01/2024 04:45:36 PM Interpretation: Performing Lab:[facility], [address] [place] [phone] Notes/Report: Iron 21 30-160 mcg/dL Total Iron Binding Capacity 315 228-428 mcg/d L Percent Iron Saturation 7 15-50 % Unsaturated Iron Binding 294 Carcinoembryonic Antigen Reviewed date:01/01/2024 04:45:43 PM Interpretation: Performing Lab:[facility], [address] [place] [phone] Notes/Report: Carcinoembryonic Antigen < 1.73 CEA Reference [...] A Reviewed date:01/06/2024 07:04:20 PM Interpretation: Performing Lab:[facility], [address] [place] [phone] Notes/Report: Immunoglobulin A 483 47-310 mg/dL THIS TEST WAS PERFORMED AT: [facility] [address] [place] [phone] CHADWICK MENDEZ MD Transglutaminase Ab IgG Reviewed date:01/06/2024 07:04:27 PM Interpretation: Performing Lab:[facility], [address] [place] [phone] Notes/Report: Transglutaminase Ab IgG <1.0 Value Interpretation ----- <15.0 Antibody not detected > or = 15.0 Antibody detected THIS TEST WAS PERFORMED AT: [facility] [address] [place] [phone] CHADWICK MENDEZ MD Transglutaminase IgA Reviewed date:01/06/2024 07:04:33 PM Interpretation: Performing Lab:[facility], [address] [place] [phone] Notes/Report: Transglutaminase IgA <1.0 Value Interpretation ----- <15.0 Antibody not detected > or = 15.0 Antibody detected THIS TEST WAS PERFORMED AT: [facility] [address] [place] [phone] CHADWICK MENDEZ MD Gliadin Ab Panel Reviewed date:01/06/2024 07:04:41 PM Interpretation: Performing Lab:[facility], [address] [place] [phone] Notes/Report: Gliadin Deamidated IgA Ab <1.0 Value Interpretation ----- <15.0 Antibody not detected > or = 15.0 Antibody detected Gliadin Deamidated IgG Ab <1.0 Value Interpretation ----- <15.0 Antibody not detected > or = 15.0 Antibody detected THIS TEST WAS PERFORMED AT: [facility] [address] [place] [phone] CHADWICK MENDEZ MD Endomysial IgA rflx Titer Reviewed date:01/06/2024 07:04:48 PM Interpretation: Performing Lab:[facility], [address] [place] [phone] Notes/Report: Endomysial IgA Antibody Negative Negative THIS TEST WAS PERFORMED AT: [facility]/[address] [phone] CRISSY FORMAN MD,PHD Endomysial Titer TNP Pathology Reviewed date:01/27/2024 12:38:02 AM Interpretation: Performing Lab:[facility], [address] [place] [phone] Notes/Report: REASON FOR REFERRAL No Information MEDICATIONS [...] esophagitis presence not specified (K21.9) Active confirmed 878666055 Problem Encounter for screening for malignant neoplasm of colon (Z12.11) Active confirmed 572231272 Problem History of adenomatous polyp of colon (Z86.010) Active confirmed History o f adenomatous polyp of colon (416547549) Problem Microcytic anemia (D50.9) Active confirmed Microcytic anemia (055547446) Problem B12 deficiency (E53.8) Active confirmed 273119256 Problem Iron deficiency anemia (D50.9) Active confirmed Iron deficien cy anemia (49648391) Problem Diverticulosis of large intestine without perforation or abscess without bleeding (K57.30) Active confirmed Diverticul ar disease of colon (457181653) Problem Gastric polyps (K31.7) Active confirmed Benign neoplasm of stomach (06642998) Problem Anemia (D64.9) Active confirmed Anemia (314920529) VITAL SIGNS Temperature 97.8 degrees Fahrenheit 12/30/2023 Blood pressure diastolic 00 mm Hg 12/30/2023 Height 66 in 12/30/2023 Blood pressure systolic 000 mm Hg 12/30/2023 Weight 189 lb 6 oz lbs 12/30/2023 BMI 30.56 kg/m2 12/30/2023 Encounters Encounter Location Date Provider Diagnosis [facility] Outpatient [address] [place] [phone] 01/13/2024 Amarjit Linares Iron deficiency anem ia D50.9 ; Diverticulosis of large intestine without perforation or abscess without bleeding K57.30 ; Other hemorrhoids K64.8 ; Hiatal hernia K44.9 and Gastric polyps K31.7 [facility] [address] [place] [phone] 10/01/2023 Amarjit Linares [facility] [address] [place] [phone] 12/30/2023 Amarjit Linares Gastroesophageal ref lux disease, esophagitis presence not specified K21.9 ; Microcytic anemia D50.9 ; Encounter for screening for malignant neoplasm of colon Z12.11 and History of adenomatous polyp of colon Z86.010 [facility] [address] [place] [phone] 01/08/2024 Amarjit Linares B12 deficiency E53.8 [facility] [address] [place] [phone] 01/15/2024 Amarjit Linares B12 deficiency E53.8 [facility] [address] [place] [phone] 01/27/2024 Amarjit Linares B12 deficiency E53.8 [facility] [address] [place] [phone] 03/03/2024 Amarjit Linares B12 deficiency E53.8 [facility] [address] [place] [phone] 08/24/2023 Amarjit Linares [facility] [address] [place] [address] 12/30/2023 Amarjit Linares [facility] [address] [place] [phone] 01/07/2024 Amarjit Linares [facility] [address] [place] [phone] 01/17/2024 Amarjit Linares [facility] [address] [place] [phone] 01/26/2024 Amarjit Linares Anemia D64.9 [facility] [address] [place] [phone] 02/03/2024 Amarjit Linares ASSESSMENTS Encounter Date Diagnosis [...] (FE) 01/26/2024 CEA 12/30/2023 CBC w DIFF 01/26/2024 CBC w DIFF 12/30/2023 CELIAC PANEL #10 12/30/2023 Ferritin 01/26/2024 Vitamin B12 01/26/2024 Future Test Test Name Order Date UPPER GI ENDOSCOPY 03/24/2017 COLONOSCOPY 03/24/2017 UPPER GI ENDOSCOPY 12/30/2023 COLONOSCOPY 12/30/2023 Next Appt Details Provider Name:Amarjit Linares , 06/24/2024 02:20:00 PM, [address] [place] [address], [address], [place], [address], Insurance Providers Payer Name Payer Address Payer Phone Subscriber Number Group Number Insured Name Patient Relationship to Insured Coverage Start Date Coverage End Date [employer] [place] [address] [address] [place] [address] [id number] Steff Brandt Self - patient is the insured MEDICATIONS ADMINISTERED Medication Instructions Date of Administration Dosage Notes B12 01/08/2024 1000 mL B12 01/15/2024 1000 mL B12 01/27/2024 1000 mL B-12 03/03/2024 1000 mL MEDICAL (GENERAL) HISTORY Medical History History ICD Code Hypertension Asthma Denies NM,DM,CV ,renal disease Kidney stones Depression/Anxiety Migraines Colonoscopy 05/2017 small tubular adenoma s removed EGD in 05/2017 small hiatal hernia but no esophagitis or Hernandez's esophagus Microcytic anemia with a hemoglobin of 9 .2 and MCV of 74 in October of 2023 Surgical History Surgery Date(Month/Year) Cholecystectomy x1
--- OUTSIDE RECORDS SUMMARY | 2024-04-07 07:31 | XMS_ITS ---
Author Organization [facility] Address [address] [place] [address] Care Team Providers Care Civil Structural Designer Name Role Phone Rosy GUZMAN, Brandi Primary Care Provider Amarjit Dawson [phone] REASON FOR VISIT ? on iron pill Encounters Encounter Location Date Provider Diagnosis [facility] [address] [place] [address] 02/03/2024 Amarjit Linares PLAN OF TREATMENT Next Appt Details Provider Name:Amarjit Linares , 06/24/2024 02:20:00 PM, [address], [address], [place], [address],
--- OUTSIDE RECORDS SUMMARY | 2024-04-07 07:32 | XMS_ITS | Patient Health Record ---
Author Organization [facility] Address [address] [place] [address] Care Team Providers Care Interpreter For The Deaf Name Role Phone Rosy GUZMAN, Brandi Grullon Primary Care Provider Un available Carl Flood Unavailable [phone] Allergies Allergen (clinical drug ingredient) Drug/Non Drug [...] Status Risk Notes Problem Acquired hallux valgus (48418801) Hallux valgus (acquired), left foot (M20.12) Active confirmed Problem [id number] Hallux valgus (acquired), right foot (M20.11) Active confirmed Problem Acquired hallux rigidus (3458967) Hallux rigidus, right foot (M20.21) Active confirmed [...] Coverage End Date [employer] Benefits [address] [address] [place] [address] [id number] Steff Brandt Self - patient is the insured Medical (General) History Medical History History ICD Code Headaches/Migraines Reflux ( GERD) Surgical History Surgery Date(Month/Year) 1st MPJ Right Arthrosurface Implant 08/28
--- OUTSIDE RECORDS SUMMARY | 2024-04-07 07:32 | XMS_ITS ---
Author Organization [facility] Address [address] [place] [address] Care Team Providers Care Paper Cone Drying Machine Operator Name Role Phone Rosy GUZMAN, Brandi Grullon Primary Care Provider Un available Carl Flood Unavailable [phone] Kaye Monte Unavailable [phone] Encounters Encounter Location Date Provider Diagnosis [facility] [address] [place] [address] 10/08/2022 Kaye Monte Plan Of Treatment No Information Progress Notes * Steff PARMAR LDOB:1965 (58 yo F)Acc No.[id number]:10/08/2022 Progress Notes Patient:?Steff PARMAR Provider:?Kaye Monte DPM :1965???Age:57 Y???Sex:Female D ate:10/08/2022 Address:[address] [place] [address], [address], [id number] Pcp:Surendra Pang Subjective: * Chief Complaints: * [...] DPM Date:? Generated for Tsering jeffrey/Mikayla/Mary Lou on:?04/07/2024 07:31 AM EST
--- OUTSIDE RECORDS SUMMARY | 2024-04-07 07:32 | XMS_ITS ---
Author Organization [facility] Address [address] [place] [address] Care Team Providers Care Insole Coverer Name Role Phone Rosy GUZMAN, Brandi Grullon Primary Care Provider Un available Carl Flood Unavailable [phone] Kaye Monte Unavailable [phone] Allergies Allergen (clinical drug ingredient) Drug/Non Drug [...] 10/28/2022 Encounters Encounter Location Date Provider Diagnosis [facility] [place] [address] [place] [address] 10/28/2022 Kaye Monte Hallux rigidus, right foot [...] * Steff PARMAR LDOB:1965 (57 yo F)Acc No.[id number]:10/28/2022 Progress Notes Patient:?Steff Parmar Provider:?Kaye Monte DPM :1965???Age:57 Y???Sex:Female D ate:10/28/2022 Address:[address] [place] [address], [address], [place], [place] Pcp:Surendra Pang Subjective: * Chief Complaints: * [...] 1-2 cups per day. ?Exercise: yes. 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 * Medications:?TakingFerrous S ulfate Baby Aspirin Atorvastatin [...] ray : Foot, right 3V * Procedure Codes:?67796 X-RAY EXAM OF RIGHT FOOT 3V, Modifiers: [...] Tsering jeffrey/Mikayla/Mary Lou on:?04/07/2024 07:31 AM EST History and Physical Notes * [...]
[2024-04-07 07:44] VITALS: BP 161/88; PULSE 78; RESP 16; TEMP 36.6; O2SAT 95
[2024-04-07 08:43] VITALS: BP 189/90; PULSE 70; RESP 16; TEMP 36.9; O2SAT 97
--- OUTSIDE RECORDS SUMMARY | 2024-04-07 08:48 | XMS_ITS ---
Author Organization [facility] Address [address] [place] [address] Care Team Providers Care Intensive Care Medicine Specialist Name Role Phone Brandi Gallegos MD Primary Care Provider Amarjti Dawson [phone] REASON FOR VISIT B12 deficiency MEDICATIONS Medication [...] Active Encounters Encounter Location Date Provider Diagnosis [facility] [address] [place] [address] 03/03/2024 Amarjit Linares B12 deficiency E53.8 ASSESSMENTS Encounter Date Diagnosis Assessment Notes Treatment Notes Treatment Clinical Notes 03/03/2024 B12 deficiency (ICD-10 - E53.8) PLAN OF TREATMENT Next Appt Details Provider Name:Amarjit Linares , 06/24/2024 02:20:00 PM, [address], [address], [place], [address], MEDICATIONS ADMINISTERED Medication Instructions Date of Administration Dosage Notes B-12 03/03/2024 1000 mL
[2024-04-07 08:52] LABS: MANUAL DIFF FLAG NO
[2024-04-07 08:55] LABS: Appearance Urine Clear; Color Urine Yellow; Glucose Urine UA Negative (Negative); Leukocyte Esterase Urine Negative (Negative); Nitrite Urine Negative (Negative); PH 6.5 (5.0-9.0); Specific Gravity - Urine 1.015 (1.005-1.025); Urine Blood Negative (Negative); Urine Ketones Negative (Negative); Urine Protein Negative (Neg-Trace)
[2024-04-07 08:56] LABS: Basophils Absolute Auto 0.1 X10*3/uL (0.0-0.2); Basophils Percent Auto 0.5 % (0-2); Eosinophils Absolute Auto 0.4 X10*3/uL (0.0-0.4); Eosinophils Percent Auto 4.7 % (0-4); Hematocrit 43.9 % (37.0-47.0); Hemoglobin 14.5 g/dl (12.0-16.0); Imm Gran Abs Auto 0.12 X10*3/uL (0.00-0.03); Imm Gran Pct Auto 1.3 % (0.0-0.4); Lymphocytes Absolute Auto 2.5 X10*3/uL (1.2-4.9); Lymphocytes Percent Auto 26.3 % (20-40); Mean Corpuscular Hemoglobin 27.7 pg (27.0-33.0); Mean Corpuscular Volume 83.8 fL (80.0-98.0); Mean Platelet Volume 8.9 fL (9.4-12.3); Monocytes Absolute Auto 0.5 X10*3/uL (0.1-1.2); Monocytes Percent Auto 5.1 % (2-11); Neutrophils Absolute Auto 5.8 x10*3/uL (2.0-8.3); Neutrophils Percent Auto 62.1 % (45-73); Platelet Count 345 X10*3/uL (160-400); Red Blood Count 5.24 X10*6/uL (4.20-5.50); Red Cell Distribution Width 16.4 % (11.0-16.0); White Blood Count 9.3 X10*3/uL (4.8-10.8)
[2024-04-07] MEDS: ondansetron HCL 4 MG/2 ML VIAL IVPUSH (08:58)
[2024-04-07] MEDS: Ketorolac Tromethamine 15 MG/ML VIAL IVPUSH (09:00)
[2024-04-07 09:01] VITALS: RESP 18
[2024-04-07] MEDS: Morphine Sulfate 4 MG/ML CARTRIDGE IVPUSH (09:01)
--- NOTE | 2024-04-07 09:10 | ED_ITS ---
HPI - Abdominal Pain General Chief Complaint: Abdominal Pain Stated Complaint: kidney stone Time Seen by Provider: 04/07/24 07:57 Source: patient and old records reviewed Mode of arrival: ambulatory Limitations: no limitations History of Present Illness ED Provider: MORAIMA HPI narrative: 58 yo female with PMH of renal colic, HLD, migraines, anemia, GERD here with c/o waking up abruptly with dysuria and R flank pain with nausea. NO fevers, chills. Worried she has a kidney stone. She has no hematuria, she took no medications prior to arrival. She states pain is sharp around R flank MD elicited complaint: flank pain Pertinent past history: kidney stones Onset (ago): hour(s) (few) Pain Consistency: constant Location: R flank Severity: severe Quality: stabbing Radiation: none Migration to: no migration Exacerbating factors: nothing Relieving factors: nothing Context: history of similar episodes Associated symptoms: nausea and dysuria Related Data Home Medications ?Medication ?Instructions ?Recorded ?Confirmed topiramate 25 mg tablet 25 mg PO DAILY 08/24/23 02/05/24 Previous Rx's ?Medication ?Instructions ?Recorded albuterol sulfate 90 mcg/actuation 2 puff inhalation QID PRN 08/24/23 aerosol inhaler shortness of breath or wheezing #8.5 grams fluticasone 250 mcg-salmeterol 50 1 inh inhalation Q12H #60 ea 12/18/23 mcg/dose blistr powdr for inhalation (Wixela Inhub) folic acid 1 mg tablet 2 mg (2 x 1 mg) PO DAILY #90 tabs 01/08/24 meclizine 12.5 mg tablet 12.5 mg PO TID PRN dizziness #20 03/08/24 tabs atorvastatin 20 mg tablet 20 mg PO BEDTIME #90 tabs 03/21/24 esomeprazole magnesium 40 mg 40 mg PO BEDTIME #90 caps 03/21/24 capsule,delayed release azithromycin 250 mg tablet See Rx Instructions PO .COMPLEX #6 03/31/24 tabs prednisone 20 mg tablet 40 mg (2 x 20 mg) PO DAILY #10 tabs 03/31/24 amoxicillin 875 mg-potassium 1 tab PO Q12H #14 tabs 04/04/24 clavulanate 125 mg tablet cyclobenzaprine 10 mg tablet 10 mg PO TID PRN muscle spasm #20 04/07/24 tabs lidocaine 5 % topical patch 1 patch topical DAILY #30 ea 04/07/24 Allergies Allergy/AdvReac Type Severity Reaction Status Date / Time No Known Allergies Allergy Verified 04/07/24 07:45 Review of Systems Review of Systems Constitutional : No Fever, No Chills ENT/Mouth : No sore throat Eyes: No Eye Pain, No Swelling, No Redness Cardiovascular : No Chest Pain, No SOB Respiratory : No Cough, No Sputum, No Wheezing Gastrointestinal : positive Nausea, no Vomiting, No Diarrhea, positive abdominal pain Genitourinary : positive Dysuria, positive urinary frequency, no Hematuria, positive Flank Pain Musculoskeletal : No joint pain, No Myalgias Skin : No Skin Lesions, No rash Neuro : No Weakness, No Numbness, No Headache Psych : No Anxiety/Panic, No Depression All other systems reviewed and are negative [facility] Past Medical History Attestation statement: The following information was validated with the patient. Source: old records reviewed Medical History History of kidney stones History of depression History of adenomatous polyp of colon Vitamin B12 deficiency 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 Bunion of great toe of right foot Microcytic hypochromic anemia Mild intermittent asthma Dyslipidemia Chronic right sacroiliac pain GERD (gastroesophageal reflux disease) Surgical History H/O cystoscopy Previous section Hx of cholecystectomy Family History Family History Father Diabetes mellitus Bronchial asthma Mother Breast cancer Cervical cancer Social History Social History Household Members: Spouse Housing: Condominium Are you a primary healthcare applications analyst to a significant other at home: No Do you presently have visiting nurse or other home services: No Alcohol intake: never Patient Tobacco Use Status: Never used Tobacco e-Cigarette/Vaping Use: Never Used Advance Directives: Yes Advance Directives on File: Yes Advance Directives Date on File: 02/08/24 service: No Current occupational status: employed Current occupation: [employer] Cognitive needs: No Hearing needs: No Vision needs: Yes Physical Exam ED Vital Signs: Vital Signs - 24 hr 04/07/24 07:44 04/07/24 08:43 04/07/24 09:01 Temperature 97.9 F 98.4 F Pulse Rate 78 70 Respiratory Rate 16 16 18 Blood Pressure 161/88 H 189/90 H Pulse Oximetry 95 97 Oxygen Delivery Method Room Air Room Air BMI result Body Mass Index 30.0 Appearance: Alert. Oriented X3. No acute distress. Eyes: Pupils equal, round and reactive to light. ENT: Pharynx normal. Neck: Normal inspection. Neck supple. CVS: Normal heart rate and rhythm. Pulses normal. Respiratory: No respiratory distress. Breath sounds normal. Abdomen: Soft and nontender. R CVA ttp Skin: Skin warm and dry. Normal skin color. Normal skin turgor. Extremities: No lower extremity edema. No calf ttp Neuro: Oriented X 3. No motor deficit. No sensory deficit. Medical Decision Making Medical Decision Making [facility] Narrative: 58 yo female with PMH of renal colic, HLD, migraines, anemia, GERD here with c/o R flank pain, nausea, dysuria at this time basic labs, CT scan for renal colic ordered, IV morphine/toradol for pain. Possible renal colic, UTI, constipation. No sig pain on abdominal exam to suggest ischemia. Differential Diagnosis Differential Diagnoses: The differential diagnosis associated with the presentation includes renal colic, UTI, constipation Admission/Observation Consideration of admission/observation: Escalation of care including admission/observation considered pain improved labs normal UA normal CT scan no acute findings stable for DC Lab Data [facility] Lab Attestation statement: I reviewed the patient's lab results. 04/07/24 08:42 04/07/24 08:42 Labs: Lab Results 04/07/24 04/07/24 Range/Units 08:42 08:47 WBC 9.3 (4.8-10.8) X10*3/uL RBC 5.24 (4.20-5.50) X10*6/uL Hgb 14.5 (12.0-16.0) g/dl Hct 43.9 (37.0-47.0) % MCV 83.8 (80.0-98.0) fL MCH 27.7 (27.0-33.0) pg MCHC 33.0 (31.0-35.0) g/dl RDW 16.4 H (11.0-16.0) % Plt Count 345 (160-400) X10*3/uL MPV 8.9 L (9.4-12.3) fL Immature Gran % (Auto) 1.3 H (0.0-0.4) % Neut % (Auto) 62.1 (45-73) % Lymph % (Auto) 26.3 (20-40) % Kleberg % (Auto) 5.1 (2-11) % Eos % (Auto) 4.7 H (0-4) % Baso % (Auto) 0.5 (0-2) % Lymph # (Auto) 2.5 (1.2-4.9) X10*3/uL Kle[place] # (Auto) 0.5 (0.1-1.2) X10*3/uL Eos # (Auto) 0.4 (0.0-0.4) X10*3/uL Baso # (Auto) 0.1 (0.0-0.2) X10*3/uL Abs Immat Gran (auto) 0.12 H (0.00-0.03) X10*3/uL Absolute Neuts (auto) 5.8 (2.0-8.3) x10*3/uL Absolute Nucleated RBC 0.000 (0.0-0.012) X10*3/uL Nucleated RBC % (auto) 0.0 (0.0-0.2) /100WBC Sodium 143 (135-145) mmol/L Potassium 3.7 (3.3-5.1) mmol/L Chloride 107 (96-108) mmol/L Carbon Dioxide 29 (22-29) mmol/L Anion Gap 11 L (12-20) BUN 15 (9-16) mg/dL Creatinine 0.88 (0.5-1.4) mg/dL Estim Creat Clear Calc 74.3 Estimated GFR > 60 Random Glucose 167 H (60-115) mg/dL Calcium 9.8 D (8.4-10.2) mg/dL Total Bilirubin 0.5 (0.0-1.0) mg/dL Direct Bilirubin 0.2 (0.0-0.5) mg/dL AST 26 (5-31) U/L ALT 41 H (0-31) U/L Alkaline Phosphatase 82 (39-117) U/L Total Protein 7.5 (6.5-8.0) g/dL Albumin 4.2 (3.5-5.0) g/dL Lipase 12 (8-78) U/L Urine Color Yellow Urine Appearance Clear Urine pH 6.5 (5.0-9.0) Ur Specific [place] 1.015 (1.005-1.025) Urine Protein Negative (Neg-Trace) mg/dL Urine Glucose (UA) Negative (Negative) mg/dL Urine Ketones Negative (Negative) mg/dL Urine Blood Negative (Negative) Urine Nitrite Negative (Negative) Ur Leukocyte Esterase Negative (Negative) Independent Interpretation I performed an independent interpretation of an: CT Scan (no stone noted) Radiology Impression Discussion of test interpretation with radiology: I have reviewed the radiologist's reading. External Record Review External record reviewed: Outpatient record Prescription Management I considered prescription management with: Pain Medication and Other Medications Administered Discontinued Medications Generic Name Dose Route Start Last Admin Trade Name Freq PRN Reason Stop Dose Admin Ketorolac Tromethamine 15 mg 04/07/24 08:46 04/07/24 09:00 Ketorolac Tromethamine 15 Mg/Ml Vial IVPUSH 04/07/24 08:47 15 mg ONCE ONE Administration Morphine Sulfate 4 mg 04/07/24 08:46 04/07/24 09:01 Morphine Sulfate 4 Mg/Ml Cartridge IVPUSH 04/07/24 08:47 4 mg ONCE ONE Administration Protocol Ondansetron HCl 4 mg 04/07/24 08:46 04/07/24 08:58 Ondansetron Hcl 4 Mg/2 Ml Vial IVPUSH 04/07/24 08:47 4 mg ONCE ONE Administration Discharge Plan Discharge Clinical Impression: Flank pain, acute Patient Disposition: Home, Self-Care Instructions: Flank Pain (ED) Additional Instructions: labs normal urine normal CT scan no acute cause of pain please return for any worsening symptoms or concerns such as pain, rash, fevers, unable to eat or drink CT/CT abdomen pelvis wo IV con IMPRESSION: 1. No acute findings in the abdomen or pelvis. No obstructive uropathy identified. No etiology for left flank pain. 2. 2 mm nonobstructing calculus inferior pole right kidney. 3. Cholecystectomy. 4. Additional ancillary findings as discussed. Prescriptions: New cyclobenzaprine 10 mg tablet 10 mg PO TID PRN (Reason: muscle spasm) Qty: 20 0RF lidocaine 5 % adhesive patch,medicated 1 patch topical DAILY Qty: 30 0RF Rx Instructions: leave on most painful area for up to 12 hrs No Action fluticasone propion-salmeterol [Wixela Inhub] 250-50 mcg/dose blister with device 1 inh inhalation Q12H Qty: 60 2RF atorvastatin 20 mg tablet 20 mg PO BEDTIME Qty: 90 1RF Rx Instructions: Schedule next PCP appt for future refills esomeprazole magnesium 40 mg capsule,delayed release(DR/EC) 40 mg PO BEDTIME Qty: 90 1RF amoxicillin-pot clavulanate 875-125 mg tablet 1 tab PO Q12H Qty: 14 0RF folic acid 1 mg Tablet 2 mg PO DAILY Qty: 90 3RF topiramate 25 mg tablet 25 mg PO DAILY albuterol sulfate 90 mcg/actuation HFA aerosol inhaler 2 puff inhalation QID PRN (Reason: shortness of breath or wheezing) Qty: 8.5 0RF meclizine 12.5 mg tablet 12.5 mg PO TID PRN (Reason: dizziness) Qty: 20 0RF azithromycin 250 mg tablet See Rx Instructions PO .COMPLEX Qty: 6 0RF Rx Instructions: For 250 mg dose pack: take 500 mg today (day 1), then 250 mg for 4 days (days 2-5) PO prednisone 20 mg tablet 40 mg PO DAILY Qty: 10 0RF Stand Alone Forms: Work/School Release Print Language: Montserratian
[2024-04-07 09:13] LABS: Alanine Aminotransferase 41 U/L (0-31); Albumin Level 4.2 g/dL (3.5-5.0); Alkaline Phosphatase 82 U/L (39-117); Anion Gap 11 (12-20); Aspartate Amino Transferase 26 U/L (5-31); Bilirubin Direct 0.2 mg/dL (0.0-0.5); Bilirubin Total 0.5 mg/dL (0.0-1.0); Blood Urea Nitrogen 15 mg/dL (9-16); Calcium 9.8 mg/dL (8.4-10.2); Carbon Dioxide 29 mmol/L (22-29); Chloride 107 mmol/L (96-108); Creatinine Clr Calc Pharmacy 74.3; Estimated Glomerular Filt Rate > 60; Glucose Random 167 mg/dL (60-115); Lipase 12 U/L (8-78); Potassium 3.7 mmol/L (3.3-5.1); Sodium 143 mmol/L (135-145); Total Protein 7.5 g/dL (6.5-8.0)
--- NOTE | 2024-04-07 11:31 | PC.NURSE ---
Pt. requesting additional pain meds. at this time. Dr. King aware
[2024-04-07] MEDS: Lidocaine 4 % Patch ADH..PATCH 1 PATCH TRANSDERMA (12:15)
[2024-04-07 12:17] VITALS: BP 133/79; PULSE 63; RESP 16; TEMP 36.6; O2SAT 96
[2024-04-07 12:23] VITALS: BP 133/79; PULSE 63; RESP 16; TEMP 36.6; O2SAT 96
== END 2024-04-07 12:23 | disposition home or self-care (01) ==
PROVIDERS: Emergency Provider Emergency Medicine; PCP Internal Medicine
DX: R10.9 Unspecified abdominal pain (principal); Z87.442 Personal history of urinary calculi
CPT/HCPCS: 36415; 74176; 80048; 80076; 81003; 83690; 85025; 96374; 96375; 99284; J1885; J2270; J2405

== ENCOUNTER → 2024-04-07 08:46 | Outpatient (BNV) | payer OTHER, SELFPAY | PROVIDERS: Emergency Provider Emergency Medicine; PCP Internal Medicine; Visit Provider Radiology Diagnostic Radiology | DX: R10.9 Unspecified abdominal pain (principal) | CPT/HCPCS: 74176 ==

== ENCOUNTER 2024-05-19 08:01 | Outpatient (REF) | payer OTHER, SELFPAY ==
[2024-05-19 11:51] LABS: Influenza A PCR NEGATIVE (Negative); Influenza B PCR NEGATIVE (Negative); Resp Syncy Virus RNA Qual PCR NEGATIVE (Negative); SARS COV2 PCR INHOUSE NEGATIVE (Negative)
== END 2024-05-19 08:02 | disposition home or self-care (01) ==
LOC: HO.LAB 08:01
PROVIDERS: PCP Internal Medicine; Visit Provider Nurse Practitioner Family
DX: J06.9 Acute upper respiratory infection, unspecified (principal); R11.2 Nausea with vomiting, unspecified
CPT/HCPCS: 0241U

== ENCOUNTER 2024-07-21 07:53 | Outpatient (AMB) | payer OTHER, SELFPAY ==
--- OUTSIDE RECORDS SUMMARY | 2024-07-21 07:57 | XMS_ITS | Patient Health Record ---
Author Organization [facility] Address [address] [place] [address] Care Team Providers Care Face Hardener Name Role Phone Rosy GUZMAN, Brandi Primary Care Provider Amarjit Dawson [phone] Allergies No Known Allergies Results Component Value Reference Range Notes Ferritin Reviewed date:01/01/2024 04:46:05 PM Interpretation: Performing Lab:[facility], [address] [place] [phone] Notes/Report: Ferritin 12 10-250 ng/mL Vitamin B12 and Folate Reviewed date:01/07/2024 07:03:32 PM Interpretation: Performing Lab:[facility], [address] [place] [phone] Notes/Report: Vitamin B12 198 200-900 pg/mL NORMAL 200-900 PG/ML INDETERMINATE 160-199 PG/ML DEFICIENT < 160 PG/ML Folate 14.1 > or = 4.0 ng/mL Reference Values: > or = 4.0 ng/mL < 4.0 ng/mL suggests folate deficiency Methotrexate, aminopterin and folinic acid (leucovorin) are chemotherapeutic agents whose molecular structures are similar to folate; therefore, the Priming Mixture Carrier folate assay cannot be used for patients using these drugs. Complete Blood Count Auto Di ff Reviewed date:01/07/2024 07:02:33 PM Interpretation: Performing Lab:[facility], [address] [place] [phone] Notes/Report: White Blood Count 7.9 4.8-10.8 X10*3/uL [...] Panel Reviewed date:01/01/2024 04:45:28 PM Interpretation: Performing Lab:[facility], [address] [place] [phone] Notes/Report: Bilirubin Total 0.4 0.0-1.0 mg/dL Bilirubin Direct 0.2 0.0-0.5 mg/dL Aspartate Amino Transferase 17 5-31 U/L Alanine Aminotransferase 20 0-31 U/L Total Protein 7.5 6.5-8.0 g/dL Albumin Level 4.1 3.5-5.0 g/dL Alkaline Phosphatase 82 39-117 U/L IRON PROFILE Reviewed date:01/01/2024 04:45:36 PM Interpretation: Performing Lab:[facility], [address] [place] [phone] Notes/Report: Iron 21 30-160 mcg/dL Total Iron Binding Capacity 315 228-428 mcg/dL Percent Iron Saturation 7 15-50 % Unsaturated Iron Binding 294 Carcinoembryonic Antigen Reviewed date:01/01/2024 04:45:43 PM Interpretation: Performing Lab:[facility], [address] [place] [phone] Notes/Report: Carcinoembryonic Antigen < 1.73 CEA Reference [...] A Reviewed date:01/06/2024 07:04:20 PM Interpretation: Performing Lab:[facility], [address] [place] [phone] Notes/Report: Immunoglobulin A 483 47-310 mg/dL THIS TEST WAS PERFORMED AT: [facility] [address] [place] [phone] CHADWICK MENDEZ MD Transglutaminase Ab IgG Reviewed date:01/06/2024 07:04:27 PM Interpretation: Performing Lab:[facility], [address] [place] [phone] Notes/Report: Transglutaminase Ab IgG <1.0 Value Interpretation ----- <15.0 Antibody not detected > or = 15.0 Antibody detected THIS TEST WAS PERFORMED AT: [facility] [address] [place] [phone] CHADWICK MENDEZ MD Transglutaminase IgA Reviewed date:01/06/2024 07:04:33 PM Interpretation: Performing Lab:[facility], [address] [place] [phone] Notes/Report: Transglutaminase IgA <1.0 Value Interpretation ----- <15.0 Antibody not detected > or = 15.0 Antibody detected THIS TEST WAS PERFORMED AT: [facility] [address] [place] [phone] CHADWICK MENDEZ MD Gliadin Ab Panel Reviewed date:01/06/2024 07:04:41 PM Interpretation: Performing Lab:[facility], [address] [place] [phone] Notes/Report: Gliadin Deamidated IgA Ab <1.0 Value Interpretation ----- <15.0 Antibody not detected > or = 15.0 Antibody detected Gliadin Deamidated IgG Ab <1.0 Value Interpretation ----- <15.0 Antibody not detected > or = 15.0 Antibody detected THIS TEST WAS PERFORMED AT: [facility] [address] [place] [phone] CHADWICK MENDEZ MD Endomysial IgA rflx Titer Reviewed date:01/06/2024 07:04:48 PM Interpretation: Performing Lab:[facility], [address] [place] [phone] Notes/Report: Endomysial IgA Antibody Negative Negative THIS TEST WAS PERFORMED AT: [facility]/[address] [phone] CRISSY FORMAN MD,PHD Endomysial Titer TNP Pathology Reviewed date:01/27/2024 12:38:02 AM Interpretation: Performing Lab:[facility], [address] [place] [phone] Notes/Report: Name: Steff Brandt Age/Sex: 58/F [facility] 1965 [id number]#: [id number] Attend Dr: Amarjit Linares MD Re01/13/24 Status: [facility] Location: [facility] Disch: SPEC : [id number] RECD: 01/13/243 STATUS: JORGEFranny Dodie NUM: [id number] HENRI: 01/13/24-1216 [facility] DR: Amarjit Linares MD ENTERED: 01/13/24-8748 SP TYPE: Surgical OTHR DR: Brandi Gallegos MD ORDERED: HE Stain/6, Gross Micro L4/2, H. pylori Diagnosis A. Duodenum, descending, biopsy: Duodenal mucosa with preserved villi and no specific change; no evidence of celiac disease. B. Gastric polyps: Fundic gland polyps; negative for intestinal metaplasia and dysplasia; no active inflammation. Clinical History Pre-Op Dx: Iron deficiency anemia Post-Op Dx: Gastric polyps, hiatal hernia, diverticulosis, hemorrhoids Microscopic Description Microscopic sections reviewed. Material Received A. Descending duodenum, r/o celiac disease B. Gastric polyps Gross Description Received in 2 parts. A. Received in formalin labeled ?descending duodenum R/0 celiac disease? are 4 fragments of pink-milian soft tissue measuring 0.3-0.4 cm in greatest dimension which are wrapped in lens paper and entirely submitted for microscopic examination, 4 pieces in cassette A. B. Received in formalin labeled ?gastric polyps? are 2 fragments of milian-white soft tissue measuring 0.3 and 0.3 cm in greatest dimension which are wrapped in lens paper and entirely submitted for microscopic examination, 2 pieces in cassette B. [facility] Copies To: Brandi Gallegos MD [facility] Primary Care, [address] [address] CONTINUED ON NEXT PAGE Name: Steff Brandt Age/Sex: 58/F : 1965 Unit#: [id number] Attend Dr: Amarjit Linares MD Re01/13/24 Status: [facility] Location: [facility] Disch: SPEC : [id number] RECD: 01/13/24 STATUS: BRAULIO NEWTON NUM: [id number] HENRI: 01/13/241216 [facility] DR: Amarjit Linares MD ENTERED: 01/13/24-0160 SP TYPE: Surgical OTHR DR: Brandi Gallegos MD ORDERED: KAHLIL Stain/6, Gross Micro L4/2, H. pylori Copies To: (Continued) Amarjit Linares MD [address] [place] [phone] Signed (signatur e on file) Sarai Worrell 01/14/24 1628 END OF REPORT Reason For Referral No Information Medications Medication [...] Once a day for 30 day(s) Active Folic Acid 1 MG Oral for 45 Days Active Immunizations Vaccine Route Administration Date Status Comme nts Influenza Unknown 03/10/2023 Administered Influenza Unknown 02/02/2024 Administered Social History Tobacco Use: Social History Observation Description Date Details (start date - stop date) Never Smoker NA - NA Tobacco Use/Smoking Question Answer Notes Patient is a nonsmoker Alcohol Screen Question Answer Notes Did you have a drink containing alcohol in the p ast year? No Points 0 Interpretation Negative Section Notes: Nonsmoker; no sig alcohol Nonsmoker; no sig alcohol Nonsmoker; no sig alcohol Problems Problem Type SNOMED Code ICD Code Onset Dates Problem Status W/U Status Risk Notes Problem [id number] Encounter for screening for malignant neoplasm of colon (Z12.11) Active confirmed Problem History of adenomatous polyp of colon (674859686) History of adenomatous polyp of colon (Z86.010) Active confirmed Problem Diverticular disease of colon (563095474) Diverticulosis of large intestine without perforation or abscess without bleeding (K57.30) Active confirmed Problem Iron deficiency anemia (89426770) Iron deficiency anemia (D50.9) Active confirmed Problem 925227329 Gastroesophageal reflux disease, esophagitis presence not specified (K21.9) Active confirmed Problem Benign neoplasm of stomach (64507489) Gastric polyps (K31.7) Active confirmed Problem Anemia (845847713) Anemia (D64.9) Active confirmed Problem 311259898 B12 deficiency (E53.8) Active confirmed Problem Microcytic anemia (332345686) Microcytic anemia (D50.9) Active confirmed Vital Signs Temperature 97.8 degrees Fahrenheit 06/24/2024 Blood pressure diastolic 01 mm Hg 06/24/2024 Height 66 in 06/24/2024 Blood pressure systolic 001 mm Hg 06/24/2024 Weight 187 lbs 06/24/2024 BMI 30.18 kg/m2 06/24/2024 Encounters Encounter Location Date Provider Diagnosis [facility] Outpatient [address] [place] [phone] 01/13/2024 Amarjit Linares Iron deficiency anem ia D50.9 ; Diverticulosis of large intestine without perforation or abscess without bleeding K57.30 ; Other hemorrhoids K64.8 ; Hiatal hernia K44.9 and Gastric polyps K31.7 [facility] [address] [place] [phone] 06/24/2024 Amarjit Linares B12 deficiency E53.8 ; Gastroesophageal reflux disease, esophagitis presence not specified K21.9 ; Encounter for screening for malignant neoplasm of colon Z12.11 ; History of adenomatous polyp of colon Z86.010 and Anemia D64.9 [facility] [address] [place] [phone] 12/30/2023 Amarjit Linares Gastroesophageal ref lux disease, esophagitis presence not specified K21.9 ; Microcytic anemia D50.9 ; Encounter for screening for malignant neoplasm of colon Z12.11 and History of adenomatous polyp of colon Z86.010 [facility] [address] [place] [phone] 01/08/2024 Amarjit Linares B12 deficiency E53.8 [facility] [address] [place] [phone] 01/15/2024 Amarjit Linares B12 deficiency E53.8 [facility] [address] [place] [phone] 01/27/2024 Amarjit Linares B12 deficiency E53.8 [facility] [address] [place] [phone] 03/03/2024 Amarjit Linares B12 deficiency E53.8 [facility] [address] [place] [phone] 08/24/2023 Amarjit Linares [facility] [address] [place] [phone] 12/30/2023 Amarjit Linares [facility] [address] [place] [phone] 01/07/2024 Amarjit Linares [facility] [address] [place] [phone] 01/17/2024 Amarjit Linares [facility] [address] [place] [phone] 01/26/2024 Amarjit Linares Anemia D64.9 [facility] [address] [place] [phone] 02/03/2024 Amarjit Linares Assessments Encounter Date Diagnosis (ICD Code) Assessment Notes Treatment Notes Treatment Clinical Notes Section Notes 01/13/2024 Diverticulosis of large intestine without perforation or abscess without bleeding (ICD-10 - K57.30) 01/13/2024 Iron deficiency anemia (ICD-10 - D50.9) 06/24/2024 B12 deficiency (ICD-10 - E53.8) You need a B12 shot every other month 12/30/2023 Gastroesophageal reflux disease, esophagitis presence not specified (ICD-10 - K21.9) Overall, Steff appears well and does not have any new or worrisome GI symptoms. However, I did review her microcytic anemia with her in detail and advised her of my concern about some possible ongoing chronic blood loss from her GI tract. Given her history of tubular adenomas removed over 5 years ago and her anemia, I did recommend a followup colonoscopy for further evaluation to rule out anything such as GI neoplasm, recurrent polyps, and/or angiodysplasias . I also recommended a followup upper endoscopy on the same day to further evaluate the anemia and to rule out any other issues such as celiac disease with iron malabsorption, silent ulcer disease or gastritis, and esophagitis.. Full consent was obtained for both procedures, including risks of bleeding and perforation. The procedures will be done with monitored anesthesia care. She was given the below instructions regarding adjustment of her medication for the procedures. I shall check some followup laboratories today in regard to a followup blood count, iron studies, and celiac disease labs. I want to be sure the blood count has not gone down any further so as to be sure she does not require iron infusions or blood transfusions prior to the procedures. I did advise her to continue her daily esomeprazole for her reflux as that seems to be working well for her. I did advise Steff to stop aspirin for 3 days before the procedures as well. Steff was comfortable with this plan. Thank you again for allowing me to participate in Steff's care. I shall continue to keep you advised of her progress. 12/30/2023 Microcytic anemia (ICD-10 - D50.9) Overall, Steff appears well and does not have any new or worrisome GI symptoms. However, I did review her microcytic anemia with her in detail and advised her of my concern about some possible ongoing chronic blood loss from her GI tract. Given her history of tubular adenomas removed over 5 years ago and her anemia, I did recommend a followup colonoscopy for further evaluation to rule out anything such as GI neoplasm, recurrent polyps, and/or angiodysplasias . I also recommended a followup upper endoscopy on the same day to further evaluate the anemia and to rule out any other issues such as celiac disease with iron malabsorption, silent ulcer disease or gastritis, and esophagitis.. Full consent was obtained for both procedures, including risks of bleeding and perforation. The procedures will be done with monitored anesthesia care. She was given the below instructions regarding adjustment of her medication for the procedures. I shall check some followup laboratories today in regard to a followup blood count, iron studies, and celiac disease labs. I want to be sure the blood count has not gone down any further so as to be sure she does not require iron infusions or blood transfusions prior to the procedures. I did advise her to continue her daily esomeprazole for her reflux as that seems to be working well for her. I did advise Steff to stop aspirin for 3 days before the procedures as well. Steff was comfortable with this plan. Thank you again for allowing me to participate in Steff's care. I shall continue to keep you advised of her progress. 01/08/2024 B12 deficiency (ICD-10 - E53.8) 01/15/2024 B12 deficiency (ICD-10 - E53.8) 01/27/2024 B12 deficiency (ICD-10 - E53.8) 03/03/2024 B12 deficiency (ICD-10 - E53.8) 01/26/2024 Anemia (ICD-10 - D64.9) 01/13/2024 Other hemorrhoids (ICD-10 - K64.8) 06/24/2024 Gastroesophageal reflux disease, esophagitis presence not specified (ICD-10 - K21.9) Continue omeprazole for the reflux 12/30/2023 Encounter for screening for malignant neoplasm of colon (ICD-10 - Z12.11) Do not take aspirin for 3 days before the colonoscopy Overall, Steff appears well and does not have any new or worrisome GI symptoms. However, I did review her microcytic anemia with her in detail and advised her of my concern about some possible ongoing chronic blood loss from her GI tract. Given her history of tubular adenomas removed over 5 years ago and her anemia, I did recommend a followup colonoscopy for further evaluation to rule out anything such as GI neoplasm, recurrent polyps, and/or angiodysplasias . I also recommended a followup upper endoscopy on the same day to further evaluate the anemia and to rule out any other issues such as celiac disease with iron malabsorption, silent ulcer disease or gastritis, and esophagitis.. Full consent was obtained for both procedures, including risks of bleeding and perforation. The procedures will be done with monitored anesthesia care. She was given the below instructions regarding adjustment of her medication for the procedures. I shall check some followup laboratories today in regard to a followup blood count, iron studies, and celiac disease labs. I want to be sure the blood count has not gone down any further so as to be sure she does not require iron infusions or blood transfusions prior to the procedures. I did advise her to continue her daily esomeprazole for her reflux as that seems to be working well for her. I did advise Steff to stop aspirin for 3 days before the procedures as well. Steff was comfortable with this plan. Thank you again for allowing me to participate in Steff's care. I shall continue to keep you advised of her progress. 01/13/2024 Hiatal hernia (ICD-10 - K44.9) 06/24/2024 Encounter for screening for malignant neoplasm of colon (ICD-10 - Z12.11) Repeat colonoscopy in 202812/30/2023 History of adenomatous polyp of colon (ICD-10 - Z86.010) Overall, Steff appears well and does not have any new or worrisome GI symptoms. However, I did review her microcytic anemia with her in detail and advised her of my concern about some possible ongoing chronic blood loss from her GI tract. Given her history of tubular adenomas removed over 5 years ago and her anemia, I did recommend a followup colonoscopy for further evaluation to rule out anything such as GI neoplasm, recurrent polyps, and/or angiodysplasias . I also recommended a followup upper endoscopy on the same day to further evaluate the anemia and to rule out any other issues such as celiac disease with iron malabsorption, silent ulcer disease or gastritis, and esophagitis.. Full consent was obtained for both procedures, including risks of bleeding and perforation. The procedures will be done with monitored anesthesia care. She was given the below instructions regarding adjustment of her medication for the procedures. I shall check some followup laboratories today in regard to a followup blood count, iron studies, and celiac disease labs. I want to be sure the blood count has not gone down any further so as to be sure she does not require iron infusions or blood transfusions prior to the procedures. I did advise her to continue her daily esomeprazole for her reflux as that seems to be working well for her. I did advise Steff to stop aspirin for 3 days before the procedures as well. Steff was comfortable with this plan. Thank you again for allowing me to participate in Steff's care. I shall continue to keep you advised of her progress. 01/13/2024 Gastric polyps (ICD-10 - K31.7) 06/24/2024 History of adenomatous polyp of colon (ICD-10 - Z86.010) 06/24/2024 Anemia (ICD-10 - D64.9) Plan Of Treatment Pending Test Test Name Order Date LIVER PROFILE 12/30/2023 IRON + IBC (FE) 01/26/2024 IRON + IBC (FE) 12/30/2023 CEA 12/30/2023 CBC w DIFF 12/30/2023 CBC w DIFF 01/26/2024 CELIAC PANEL #10 12/30/2023 Ferritin 01/26/2024 Vitamin B12 01/26/2024 Future Test Test Name Order Date UPPER GI ENDOSCOPY 03/24/2017 COLONOSCOPY 03/24/2017 UPPER GI ENDOSCOPY 12/30/2023 COLONOSCOPY 12/30/2023 Insurance Providers Payer Name Payer Address Payer Phone Subscriber Number Group Number Insured Name Patient Relationship to Insured Coverage Start Date Coverage End Date [employer] [address] [address] [place] [address] [id number] Steff Parker Self - patient is the insured Medications Administered Medication Instructions Date of Administration Dosage Notes B12 01/08/2024 1000 mL B12 01/15/2024 1000 mL B12 01/27/2024 1000 mL B-12 03/03/2024 1000 mL B-12 06/24/2024 1000 mL Medical (General) History Medical History History ICD Code Hypertension Asthma Denies [place],DM,CV ,renal disease Kidney stones Depression/Anxiety Migraines Colonoscopy 05/2017 small tubular adenoma s removed EGD in 05/2017 small hiatal hernia but no esophagitis or Hernandez's esophagus Microcytic anemia with a hemoglobin of 9 .2 and MCV of 74 in October of 2023 Surgical History Surgery Date(Month/Year) x1 Cholecystectomy
--- OUTSIDE RECORDS SUMMARY | 2024-07-21 07:57 | XMS_ITS | Patient Health Record ---
Author Organization [facility] Address [address] [place] [address] Care Team Providers Care System Administrator Name Role Phone Rosy GUZMAN, Brandi Grullon Primary Care Provider Un available Carl Flood Unavailable [phone] Allergies Allergen (clinical drug ingredient) Drug/Non Drug [...] Status Risk Notes Problem Acquired hallux valgus (35460888) Hallux valgus (acquired), left foot (M20.12) Active confirmed Problem [id number] Hallux valgus (acquired), right foot (M20.11) Active confirmed Problem Acquired hallux rigidus (3228740) Hallux rigidus, right foot (M20.21) Active confirmed [...] Coverage End Date [employer] [address] [address] [place] [address] [id number] Steff Brandt Self - patient is the insured Medical (General) History Medical History History ICD Code Headaches/Migraines Reflux ( GERD) Surgical History Surgery Date(Month/Year) 1st MPJ Right Arthrosurface Implant 08/28
--- OUTSIDE RECORDS SUMMARY | 2024-07-21 07:57 | XMS_ITS ---
Author Organization [facility] Address [address] [place] [address] Care Team Providers Care Key Account Coordinator Name Role Phone Rosy GUZMAN, Brandi Primary Care Provider Amarjit Dawson [phone] Allergies No Known Allergies REASON FOR VISIT Patient presents today for anemia Medications Medication SIG (Take, Route, Frequency, Duration) [...] PO QD HS Oral for 30 Active Folic Acid 1 MG Oral for 45 Days Active Esomeprazole Magnesium 20 MG 1 tablet Orally Once a day Active Advair Diskus 100-50 MCG/DOSE INHALE 1 PUFF PO BID Inhalation for 30 Active Aspirin 81 81 MG 1 tablet Orally Once a day for 30 day(s) Active Atorvastatin Calcium 10 MG 1 tablet Orally Once a day for 30 day(s) Active Social History Tobacco Use: Social History Observation Description Date Details (start date - stop date) Never Smoker NA - NA Tobacco Use/Smoking Question Answer Notes Patient is a nonsmoker Alcohol Screen Question Answer Notes Did you have a drink containing alcohol in the p ast year? No Points 0 Interpretation Negative Section Notes: Nonsmoker; no sig alcohol Vital Signs Temperature 97.8 degrees Fahrenheit 06/25/19 25 Blood pressure systolic 001 mm Hg 06/25/19 25 Blood pressure diastolic 01 mm Hg 03/14/2 025 Height 66 in 06/24/2024 Weight 187 lbs 06/24/2024 BMI 30.18 kg/m2 06/24/2024 Encounters Encounter Location Date Provider Diagnosis [facility] [address] [place] [id number] 06/24/2024 Amarjit Linares B12 deficiency E53.8 ; Gastroesophageal reflux disease, esophagitis presence not specified K21.9 ; Encounter for screening for malignant neoplasm of colon Z12.11 ; History of adenomatous polyp of colon Z86.010 and Anemia D64.9 Assessments Encounter Date Diagnosis (ICD Code) Assessment Notes Treatment Notes Treatment Clinical Notes Section Notes 06/24/2024 B12 deficiency (ICD-10 - E53.8) You need a B12 shot every other month 06/24/2024 Gastroesophageal reflux disease, esophagitis presence not specified (ICD-10 - K21.9) Continue omeprazole for the reflux 06/24/2024 Encounter for screening for malignant neoplasm of colon (ICD-10 - Z12.11) Repeat colonoscopy in 202806/24/2024 History of adenomatous polyp of colon (ICD-10 - Z86.010) 06/24/2024 Anemia (ICD-10 - D64.9) Plan Of Treatment Treatment Notes Assessment Notes B12 deficiency You need a B12 shot every other month Gastroesophageal reflux dise ase, esophagitis presence not specified Continue omeprazole for the reflux Encounter for screening for malignant neoplasm of colon Repeat colonoscopy in 2028 Next Appt Details Follow Up: 1 Year, Reason: Medications Administered Medication Instructions Date of Administration Dosage Notes B-12 06/24/2024 1000 mL Progress Notes * Steff PARMARDOB:[birth year] (59 yo F)Acc No.[id number]:06/24/2024 Progress Notes Patient:?Steff PARMAR Provider:?Amarjit Linares MD :1965???Age:59 Y???Sex:Female D ate:06/24/2024 Address:[address] [place] [address] Pcp:Brandi Gallegos MD Subjective: * Chief Complaints: * ???1. Patient presents today for anemia. * Medical History:?Hypertensio n, Asthma, Denies HI,DM,CV ,renal disease, Kidney stones , Depression/Anxiety, Migraines, Colonoscopy 05/2017 small tubular adenomas removed, EGD in 05/2017 small hiatal hernia but no esophagitis or Hernandez's esophagus, Microcytic anemia with a hemoglobin of 9.2 and MCV of 74 in October of 2023. * Surgical History:?Cholecyste ctomy , x1 . * Family History:?Father: dece ased.?Mother: , diagnosed with Diabetes.? No known hx of colon cancer..? No family history of liver cancer. * Social History:?Tobacco Use:?Tobacco Use/Smoking?Patient is a?nonsmoker.?Drugs/Alcohol:?Alcohol Screen?Did you have a drink containing alcohol in the past year??No,?Points?0,?Interpretation?Negative.?Miscellaneous:?Marital status: Single. 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 ???Nonsmoker; no sig alcohol. * Medications:?Taking Atorvast atin Calcium 10 MG Tablet 1 tablet Orally Once a day , Taking Aspirin 81 81 MG Tablet Delayed Release 1 tablet Orally Once a day , Taking Advair Diskus 100-50 MCG/DOSE Aerosol Powder Breath Activated INHALE 1 PUFF PO BID Inhalation , Taking Esomeprazole Magnesium 20 MG Tablet Delayed Release 1 tablet Orally Once a day , Taking Topiramate 100 MG Tablet TK 1 T PO QD HS Oral , Taking Citalopram Hydrobromide 10 MG Tablet TK 1 T PO QD Oral , Taking Montelukast Sodium 10 MG Tablet TK 1 T PO QD IN THE THIERNO Oral , Taking Folic Acid 1 MG Tablet Oral , Not-Taking/PRN Lisinopril 10 MG Tablet TK 1 T PO QD Oral , Medication List reviewed and reconciled with the patient * Allergies:?N.K.D.A. Objective: * Vitals:?Wt: 187 lbs, Ht: 66 in, BMI:30.18Index, BP: 001/01 mm Hg, Temp: 97.8, Wt-k.82. Assessment: * Assessment: 1.?B12 deficiency - E53.8 (P rimary)???2.?Gastroesophageal reflux disease, esophagitis presence not specified - K21.9???3.?Encounter for screening for malignant neoplasm of colon - Z12.11???4.?History of adenomatous polyp of colon - Z86.010???5.?Anemia - D64.9??? Plan: * Treatment: 2.?Gastroesophageal reflux d isease, esophagitis presence not specified? Notes: Continue omeprazole for the reflux?? 3.?Encounter for screening f or malignant neoplasm of colon? Notes: Repeat colonoscopy in 2028?? * Therapeutic Injections:? B-12 : 1000 mL (Dose No:1) (Route: Intramuscular) given by Krystin Valdivia on left arm intramuscular * Procedure Codes:?J3420 INJ V IT B-12 CYNOCOBLMN TO 1000 MCG, J3420 INJ VIT B-12 CYNOCOBLMN TO 1000 MCG, 00811 THER/PROPH/DIAG INJ, SC/IM, 88267 THER/PROPH/DIAG INJ, SC/IM * Preventive Medicine:? ??Counseling:?Care goal follow-up plan:?Above Normal BMI Follow-up?Dietary management education, guidance, and counseling,?BMI management provided?Yes.? * Follow Up:?1 Year * * The named appointment provid er may or may not be the originator of this progress note, and it is not deemed complete until electronically signed by the appointment provider. Sign off status: Pending * Provider:?Amarjit Linares MD Date:? 025 Generated for Tsering jeffrey/Mikayla/Mary Lou on:?07/21/2024 07:57 AM EDT
--- OUTSIDE RECORDS SUMMARY | 2024-07-21 07:57 | XMS_ITS ---
Author Organization [facility] Address [address] [place] [address] Care Team Providers Care Polisher And Sander Name Role Phone Rosy GUZMAN, Brandi Primary Care Provider Amarjit Dawson [phone] REASON FOR VISIT screening,hx polyps Encounters Encounter Location Date Provider Diagnosis [facility] Outpatient [address] [place] [phone] 05/13/2024 Amarjit Linares Plan Of Treatment No Information Progress Notes * Steff PARMARDOB:[birth year] (59 yo F)Acc No.[id number]:05/13/2024 COLON WITH MAC Patient:?Steff PARMAR Provider:?Amarjit Linares MD :1965???Age:58 Y???Sex:Female D ate:05/13/2024 Address:[address], [id number] Pcp:Brandi Gallegos MD Subjective: * Chief Complaints: * ???1. Screening,hx polyps. * Medical History:? Objective: * Vitals:? Assessment: Plan: * Treatment: * * The named appointment provid er may or may not be the originator of this progress note, and it is not deemed complete until electronically signed by the appointment provider. Sign off status: Pending * Provider:?Amarjit Linares MD Date:? 025 Generated for Nelii rachele/Mikayla/eTransmitting on:?07/21/2024 07:57 AM EDT
--- OUTSIDE RECORDS SUMMARY | 2024-07-21 07:57 | XMS_ITS ---
Author Organization [facility] Address [address] [place] [address] Care Team Providers Care Engineering Mgr Name Role Phone Rosy GUZMAN, Brandi Primary Care Provider Amarjit Dawson [phone] REASON FOR VISIT B12 deficiency Medications Medication SIG (Take, Route, Frequency, Duration) [...] Active Encounters Encounter Location Date Provider Diagnosis [facility] [address] [place] [phone] 03/03/2024 Amarjit Linares B12 deficiency E53.8 Assessments Encounter Date Diagnosis (ICD Code) Assessment Notes Treatment Notes Treatment Clinical Notes Section Notes 03/03/2024 B12 deficiency (ICD-10 - E53.8) Plan Of Treatment No Information Medications Administered Medication Instructions Date of Administration Dosage Notes B-12 03/03/2024 1000 mL Progress Notes * GHULAMSteff JuanitaDOB:[birth year] (58 yo F)Acc No.[id number]:03/03/2024 SHOT Patient:Steff Workman Provider:?Amarjit Linares MD :1965???Age:58 Y???Sex:Female D ate:03/03/2024 Address:[address] [place], [place] [id number] Pcp:Brandi Gallegos MD Subjective: * Chief Complaints: * ???1. B12 deficiency. * Medical History:? * Medications:?Taking Atorvast atin Calcium 10 MG Tablet 1 tablet Orally Once a day, Taking Aspirin 81 81 MG Tablet Delayed Release 1 tablet Orally Once a day, Taking Advair Diskus 100-50 MCG/DOSE Aerosol Powder Breath Activated INHALE 1 PUFF PO BID Inhalation , Taking Esomeprazole Magnesium 20 MG Tablet Delayed Release 1 tablet Orally Once a day, Taking Topiramate 100 MG Tablet TK 1 T PO QD HS Oral , Taking Citalopram Hydrobromide 10 MG Tablet TK 1 T PO QD Oral , Taking Montelukast Sodium 10 MG Tablet TK 1 T PO QD IN THE THIERNO Oral , Not-Taking/PRN Lisinopril 10 MG Tablet TK 1 T PO QD Oral Objective: Assessment: * Assessment: 1.?B12 deficiency - E53.8? Plan: * Treatment: * Therapeutic Injections:? B-12 : 1000 mL (Dose No:1) (Route: Intramuscular) given by Nathaly Tyler on left arm intramuscular * Procedure Codes:?J3420 INJ V IT B-12 CYNOCOBLMN TO 1000 MCG, J3420 INJ VIT B-12 CYNOCOBLMN TO 1000 MCG, [address]46 THER/PROPH/DIAG INJ, SC/IM, 23705 THER/PROPH/DIAG INJ, SC/IM * * Sign off status: Completed true * Provider:?Amarjit Linares MD Date:? 024 Generated for Nelii ng/Faxing/eTransmitting on:?07/21/2024 07:56 AM EDT
[2024-07-21 08:19] VITALS: BP 122/78; PULSE 90; TEMP 36.7; O2SAT 97; BMI 29.7
--- NOTE | 2024-07-21 08:19 | MHC.OFFWIV ---
Intake Vital Signs 07/21/24 08:19 Height 5 ft 6 in Weight 184 lb BMI 29.7 BP 122/78 Blood Pressure Location Lt brachial Position Sitting Pulse 90 Pulse Source Pulse Oximeter Temp 98.0 F Temp Source Oral Pulse Oximetry (%) 97 Oxygen Delivery Method Room Air Intake Visit Reasons: EP Pain in back, rt side Patient Tobacco Use Status: Never used Tobacco Allergies No Known Allergies Allergy (Verified 07/21/24 08:19) Do you need a note to return to daycare/school/sports/work: Yes HPI HPI Comments History of Present Illness Details History of Present Illness - The patient is a 59-year-old female presenting with chronic left-sided back pain that has persisted for several months. - She reports no preceding injury or trauma to the affected area. - The pain remains localized on the left side of the back and is characterized as a dull, achy sensation that intensifies with movements, particularly bending over or prolonged sitting. The pain does not radiate down buttocks or leg - Despite using Tylenol and a topical patch, she has not experienced significant relief from the pain. - She has not previously used Aleve or other anti-inflammatory medications and denies current use of blood thinners. Physical Exam General: Cooperative, healthy appearing, comfortable, no acute distress and well developed Orientation: Patient oriented x3 Limitations: Pain on the left side, worsens with movement such as bending over Head: Normal to inspection Ears: Hearing grossly normal bilaterally Nose: Normal External nose present Face and sinus: Normal facial exam Eyes: Appearance normal, both eyes and all related structures Neck: Normal visual inspection and Yes full ROM Respiratory: Normal respiratory effort and able to speak in complete sentences. Back/spine: no TTP cervical spine, thoracic spine or lumbar spine. some TTP to left lumbar back, no spasms appreciated on exam. Skin: No rashes or lesions noted Neuro: Patient oriented x3 Extremities: Normal to inspection [facility] Medical History (Updated 07/21/24 @ 08:29 by Betty West PA-C) Nausea and vomiting in adult Acute respiratory disease History of kidney stones History of depression History of adenomatous polyp of colon Vitamin B12 deficiency 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 Bunion of great toe of right foot Microcytic hypochromic anemia Mild intermittent asthma Dyslipidemia Chronic right sacroiliac pain GERD (gastroesophageal reflux disease) Surgical History H/O cystoscopy Previous section Hx of cholecystectomy Family History Father Diabetes mellitus Bronchial asthma Mother Breast cancer Cervical cancer Social History Household Members: Spouse Housing: Condominium Are you a primary child care leader to a significant other at home: No Do you presently have visiting nurse or other home services: No Alcohol intake: never Patient Tobacco Use Status: Never used Tobacco e-Cigarette/Vaping Use: Never Used Advance Directives Date on File: 02/08/24 service: No Current occupational status: employed 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 Cognitive needs: No Hearing needs: No Vision needs: Yes Female Reproductive History Menstrual Age of Menarche: 10 Review of Systems Const All systems reviewed & are unremarkable except as noted in HPI and below Physical Exam Vital Signs: Last Vital Signs Temp 98.0 F 07/21/24 08:19 Pulse 90 07/21/24 08:19 BP 122/78 07/21/24 08:19 Pulse Ox 97 07/21/24 08:19 Oxygen Delivery Method Room Air 07/21/24 08:19 BMI result Body Mass Index 29.7 Assessment & Plan Assessment & Plan (1) Left low back pain: Code(s): M54.50 - Low back pain, unspecified Qualifiers: Chronicity: acute Sciatica presence: without sciatica Qualified Code(s): M54.50 - Low back pain, unspecified Plan: To manage the patient's chronic left-sided back pain, I advised a trial of Diclofenac and Cyclobenzaprine to address inflammation and muscle relaxation, respectively. The patient was also encouraged to utilize either ice or heat application for additional symptomatic relief. If these interventions prove insufficient, we can consider referring the patient for physical therapy to aid in long-term pain management and functional improvement. All medications will be electronically sent to the [employer] pharmacy for the patient's collection. Patient was informed and verbally consented to the use of an ambient scribe for clinic note documentation during this visit. Medications: New cyclobenzaprine 5 mg PO Q8H PRN 20 tabs 0RF Muscle Spasm diclofenac sodium 50 mg PO Q12H PRN 20 tabs 0RF pain Coding Level of Care Code Est Pt Level 3 (05492) Diagnoses Acute left-sided low back pain without sciatica M54.50 Chronicity: acute Sciatica presence: without sciatica
== END 2024-07-21 08:30 | disposition home or self-care (01) ==
PROVIDERS: PCP Internal Medicine; Visit Provider Physician Assistant
DX: M54.50 Low back pain, unspecified (principal)

== ENCOUNTER → 2024-07-21 07:53 | Outpatient (BNVA) | payer OTHER, SELFPAY | PROVIDERS: PCP Internal Medicine; Visit Provider Physician Assistant | DX: Z13.89 Encounter for screening for other disorder (principal) ==

== ENCOUNTER 2024-11-02 07:50 | Outpatient (REF) | payer OTHER, SELFPAY ==
[2024-11-02 14:21] LABS: Folate 17.8 ng/mL (> or = 4.0); Vitamin B12 277 pg/mL (200-900)
[2024-11-07 15:47] LABS: Vitamin D 25-OH, D2 <4 ng/mL; Vitamin D 25-OH, D3 17 ng/mL; Vitamin D 25-OH, Total 17 ng/mL (30-100)
== END 2024-11-02 07:51 | disposition home or self-care (01) ==
LOC: HO.HKASLDS 07:50
PROVIDERS: Visit Provider Psychiatry & Neurology Neurology
DX: R41.89 Other symptoms and signs involving cognitive functions and awareness (principal); G47.10 Hypersomnia, unspecified; G47.33 Obstructive sleep apnea (adult) (pediatric); R42 Dizziness and giddiness; Z79.899 Other long term (current) drug therapy; Z99.89 Dependence on other enabling machines and devices
CPT/HCPCS: 36415; 82306; 82607; 82746; 84443; 85652

== ENCOUNTER 2024-11-02 07:50 | Outpatient (AMB) | payer OTHER, SELFPAY ==
--- OUTSIDE RECORDS SUMMARY | 2024-05-13 04:30 | XMS_ITS ---
Author Organization [facility] Address [address] [place] [phone] Care Team Providers Care Pharmacy Service Associate Name Role Phone Brandi Gallegos MD Primary Care Provider Amarjit Dawson [phone] REASON FOR VISIT screening,hx polyps Encounters Encounter Location Date Provider Diagnosis [facility] Outpatient [address] [place] [phone] 05/13/2024 Amarjit Linares Plan Of Treatment No Information Progress Notes * Steff PARMARDOB:[birth year] (59 yo F)Acc No.[id number]:05/13/2024 COLON WITH MAC Patient: Steff DALEY Provider: Sheyla Linares MD :1965 A ge:58 Y S ex:Female Date:05/13/2024 Address:[facility] [address], [place] [id number] Pcp:Brandi Gallegos MD Subjective: * Chief Complaints: [...] 05/13/2024 Generated for Printi ng/Faxing/eTransmitting on: 0 11/02/2024 07:53 AM EDT
--- OUTSIDE RECORDS SUMMARY | 2024-11-02 07:53 | XMS_ITS | Patient Health Record ---
Author Organization [facility] [place] Address [address] [place] [address] Care Team Providers Care Typing Secretary Name Role Phone Rosy GUZMAN, Brandi Grullon Primary Care Provider Un available Carl Flood Unavailable [phone] Allergies Allergen (clinical drug ingredient) Drug/Non Drug Allergy documented on EMR Reaction Allergy Type Onset Date Status Hair dye Hair Dye Sweling ,itcing Allergy Acti ve Reason For Referral No Information Medications Medication SIG (Take, Route, Frequency, Duration) Notes Start Date End Date Status Neurontin 300 MG 1 capsule Orally Onc e a day at night; Duration: 14 days 08/21/2022 Active oxyCODONE HCl 5 MG 1-2 tablet as needed Orally every 4-6 hrs; Duration: 7 days 08/21/2022 Active iron Active Montelukast Sodium 10 MG 1 tablet Orally Once a day Active Atorvastatin Calcium Active Voltaren 1 % as directed External ly apply bid to foot; Duration: 30 days Not-Taking Advair Diskus Active Ferrous Sulfate Acti ve Physical Therapy . . . 2-3x/week; Durat ion: 3-4 weeks 09/14/2022 Active Baby Aspirin Active Topiramate 100 MG 1 tablet Orally Once a day Not-Taking Work Note . . . Patient can retu rn full duty without restrictions starting November 11 2022 10/28/2022 Active Esomeprazole Magnesium 40 MG 1 capsule Orally Once a day; Duration: 30 day(s) Active Citalopram Hydrobromide 10 MG 1 tablet Orally Once a day Active Docusate Sodium 100 MG 1 tablet as neede d Orally Once a day Active Immunizations Vaccine Route Administration Date Status Comme nts Influenza Unknown 01/15/2021 Administered COVID-19 Pfizer BioNTech Vaccine Unknown 04/26/2020 Administered 1st 04/04/2020 Social History Tobacco Use: Social History Observation [...] Status Risk Notes Problem Acquired hallux valgus (34095791) Hallux valgus (acquired), left foot (M20.12) Active confirmed Problem Hallux valgus (acquired), right foot (M20.11) Active confirmed Problem Acquired hallux rigidus (6220089) Hallux rigidus, right foot (M20.21) Active confirmed [...] Coverage End Date [employer] Benefits [address] [address] [place] [address] [id number] Steff Brandt Self - patient is the insured Medical (General) History Medical History History ICD Code Headaches/Migraines Reflux ( GERD) Surgical History Surgery Date(Month/Year) 1st MPJ Right Arthrosurface Implant 08/28
--- NOTE | 2024-11-02 08:03 | MHC.OFFVIS ---
Vital Signs 11/02/24 08:04 Height 5 ft 6 in Weight 182 lb BMI 29.4 BP 130/70 Blood Pressure Location Rt brachial Position Sitting Pulse 82 Pulse Source Pulse Oximeter Pulse Oximetry (%) 95 Oxygen Delivery Method Room Air Intake Visit Reasons: 2022 pt - follow up Forensic Identification Specialist Required: No Accompanied by: Self / Same As Patient Allergies No Known Allergies Allergy (Verified 11/02/24 08:04) Medication List - Last Reconciled 11/02/24 by Agueda James MD albuterol sulfate 90 mcg/actuation 2 puffs inhalation QID PRN atorvastatin 20 mg PO BEDTIME esomeprazole magnesium 40 mg PO BEDTIME fluticasone propion-salmeterol 250-50 mcg/dose (Wixela Inhub) 1 inh inhalation Q12H folic acid 2 mg (2 x 1 mg) PO DAILY topiramate 25 mg PO DAILY HPI Comments Details: 56y/o female comes for cognitive evaluation she was seen here 2 years ago for dizziness. she was diagnosed with LORE and is on CPAP now. she says she is compliant.she still holcomb son and off dizziness. But she is concerned about her short term memory issues.she noticed some short term memory issues in the pats few mths . she loses directions while driving in familiar places. she forgets conversations. 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 No family h/o dementia no head injury she is using CPAP regularly but wakes up tired and 1-2 naps when she is home. the naps can be 1-2 hrs.she does not feel refreshed after her nap. she is always depressed. CPAP compliance 90 days 100% usage hrs 4 hrs 31 min 5-20 cm of water AHI 1.5 History from 2022-. In Jan she started feeling dizzy, nauseous, diaphoretic,lightheaded more when she bend over. It was episodic and she resolved when she sat and lied down. she went to ER after a few days as the dizziness was worsening especially when she stood up form sitting or lying down position, when she bend over etc. she also ahs h/o migraines and she had frequent headaches with these episodes. CT head showed a subtle focus of hypoattentuation in left caudate head . she was started on aspirin 81mg qd and atorvostatin . EKG , CTA Echo were unremarkable. The episodes of dizziness are persistent and she also has increased headaches. she has 2 headaches /week, usually in right frontal, temporal with light and noise sensitivity, sees black spots in her right visual field.she takes tylenol and the headache resolve in 1 hr. she denies double vision, tinnitus, ear stuffiness .Denies head injury. she reports snoring and excessive daytime sleepiness. [facility] Medical History (Updated 11/02/24 @ 08:35 by Agueda James MD) Cognitive change Carpal tunnel syndrome Migraine Nausea and vomiting in adult Acute respiratory disease History of kidney stones History of depression History of adenomatous polyp of colon Vitamin B12 deficiency 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 Bunion of great toe of right foot Microcytic hypochromic anemia Mild intermittent asthma Dyslipidemia Chronic right sacroiliac pain GERD (gastroesophageal reflux disease) Surgical History H/O cystoscopy Previous section Hx of cholecystectomy Family History Father Diabetes mellitus Bronchial asthma Mother Breast cancer Cervical cancer Social History Household Members: Spouse Housing: Condominium Are you a primary medicare coordinator to a significant other at home: No Do you presently have visiting nurse or other home services: No Alcohol intake: never Patient Tobacco Use Status: Never used Tobacco e-Cigarette/Vaping Use: Never Used Advance Directives Date on File: 02/08/24 service: No Current occupational status: employed Current occupation: [employer] Cognitive needs: No Hearing needs: No Vision needs: Yes Female Reproductive History Menstrual Age of Menarche: 10 Physical Exam Vital Signs: Last Vital Signs Pulse 82 11/02/24 08:04 BP 130/70 11/02/24 08:04 Pulse Ox 95 11/02/24 08:04 Oxygen Delivery Method Room Air 11/02/24 08:04 BMI result Body Mass Index 29.4 Const General: cooperative, healthy appearing, comfortable and no acute distress Nutritional Appearance: average body habitus Orientation/consciousness: patient oriented x3 HEENT Other: Mallampatti grade 4 Head: Yes normal to inspection, Yes normocephalic and Yes atraumatic Eyes Pupils: Equal, round and reactive pupils present Neck Neck: Yes no meningeal signs Neuro General: patient oriented x3, No gait normal, tone normal, moves all extremities, no meningeal signs, no focal motor deficits and Unable to assess gait Cranial nerves: Yes Facial sensation intact/muscles of mastication intact, Yes Equal, round and reactive pupils present, Yes Normal accommodation reflex present, No Bilaterally intact EOM present, Yes Nystagmus not present, Yes Normal facial strength present, Yes Midline tongue present, Yes Symmetric palate elevation present and Yes Ability to bilaterally elevate shoulders present Cognition (Neuro): normal cognition Gait exam (Neuro): Unable to assess gait Motor exam (neuro): 5/5 motor strength present throughout and Normal motor muscle tone present throughout Deep tendon reflexes (DTR's): Right triceps reflex intensity grade: 2+, Left triceps reflex intensity grade: 2+, Rt Biceps (C5, C6): 2+, Left biceps reflex intensity grade: 2+, Right brachioradialis reflex intensity grade: 2+, Left brachioradialis reflex intensity grade: 2+, Right patellar reflex intensity grade: 3+ and Left patellar reflex intensity grade: 3+ Coordination: [id number] test normal Psych Affect: Anxious affect present Orientation What is the (year) (season) (date) (day) (month)?: year, season, date, day and month Where are we (state) (county) (town or city) (hospital) (floor)?: state, county, town or city, hospital/clinic and floor Registration Name of 3 unrelated objects clearly and slowly, then ask patient to repeat all 3 of them. (1st repeat determines score. Make sure they can repeat all three): object 1, object 2 and object 3 Attention & Calculation (CHOOSE ONE) Spell WORLD backwards (DLROW): 5 letters Recall Ask patient to repeat the 3 items from question #3.: object 1 and object 3 Language Show patient a wristwatch & ask what it is. Repeat for pencil.: watch and pencil Ask the patient to repeat the phrase 'No ifs, ands, or buts' after you.: correct Ask the patient to 'take a piece of paper with their right hand' 'fold paper in half' 'place paper on floor': take paper in right hand, fold paper in half and place paper on floor Print the sentence 'CLOSE YOUR EYES' on a piece. If patient actually closes eyes then score.: followed written direction Give patient a blank piece of paper & ask to write a sentence. Score if it contains a noun & verb.: sentence contains subject and verb Score Score: 28 Assessment & Plan Assessment & Plan (1) Cognitive change: Code(s): R41.89 - Other symptoms and signs involving cognitive functions and awareness Category: Medical (2) Hypersomnia: Code(s): G47.10 - Hypersomnia, unspecified Category: Medical (3) 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: Comment: compliant with CPAP Code(s): G47.33 - Obstructive sleep apnea (adult) (pediatric); Z99.89 - Dependence on other enabling machines and devices Category: Medical Plan MRI brain to evaluate Check Vit D B 12 TSH ESR CAMRYN to r/o reversible causes of hypersomnia Will consider MSLT and wake promoting agents I will trial her on citalopram 10 mg qd for he rmood which might be the etiology of her fatigue and cognitive issues. Orders: Orders MR head/brain wo con Today G47.10 - Hypersomnia, unspecified, R41.89 - Other symptoms and signs involving cognitive functions and awareness TSH reflex Free T4 Today G47.10 - Hypersomnia, unspecified, R41.89 - Other symptoms and signs involving cognitive functions and awareness Vitamin B12 and Folate Today G47.10 - Hypersomnia, unspecified, R41.89 - Other symptoms and signs involving cognitive functions and awareness Vitamin D 25-OH (D2 and D3) Today G47.10 - Hypersomnia, unspecified, R41.89 - Other symptoms and signs involving cognitive functions and awareness Erythrocyte Sedimentation Rate Today G47.10 - Hypersomnia, unspecified, R41.89 - Other symptoms and signs involving cognitive functions and awareness Medications: New citalopram 10 mg PO DAILY 30 tabs 6RF Coding Level of Care Code New Pt Level 4 (70890) Complex EM visit Add On G2211 Diagnoses Cognitive change R41.89 Hypersomnia G47.10 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 G47.33; Z99.89
[2024-11-02 08:04] VITALS: BP 130/70; PULSE 82; O2SAT 95; BMI 29.4
== END 2024-11-02 08:40 | disposition home or self-care (01) ==
LOC: HO.HSMS 07:51
PROVIDERS: Visit Provider Psychiatry & Neurology Neurology
DX: R41.89 Other symptoms and signs involving cognitive functions and awareness (principal); G47.10 Hypersomnia, unspecified; G47.33 Obstructive sleep apnea (adult) (pediatric); Z99.89 Dependence on other enabling machines and devices
CPT/HCPCS: 99214

== ENCOUNTER 2024-11-03 10:34 | Outpatient (REF) | payer OTHER, SELFPAY ==
--- OUTSIDE RECORDS SUMMARY | 2024-05-13 04:30 | XMS_ITS ---
Author Organization [facility] Address [address] [place] [phone] Care Team Providers Care Hearing Aid Specialist Name Role Phone Brandi Gallegos MD Primary Care Provider Amarjit Dawson [phone] REASON FOR VISIT screening,hx polyps Encounters Encounter Location Date Provider Diagnosis [facility] Outpatient [address] [place] [phone] 05/13/2024 Amarjit Linares Plan Of Treatment No Information Progress Notes * Steff PARMARDOB:[birth year] (59 yo F)Acc No.[id number]:05/13/2024 COLON WITH MAC Patient: Steff DALEY Provider: Sheyla Linares MD :1965 A ge:58 Y S ex:Female Date:05/13/2024 Address:[facility] [address], [place] [id number] Pcp:Brandi Gallegos MD Subjective: * Chief Complaints: * 1 . Screening,hx polyps. * Medical History: Objective: * Vitals: Assessment: Plan: * Treatment: * * The named appointment provid er may or may not be the originator of this progress note, and it is not deemed complete until electronically signed by the appointment provider. Sign off status: Pending * Provider: Sheyla Linares MD Date: 0 05/13/2024 Generated for Printi ng/Faxing/eTransmitting on: 0 11/03/2024 11:27 AM EDT
--- NOTE | ~2024-11-03 | MR_ITS ---
EXAMINATION: MR BRAIN WITHOUT CONTRAST CLINICAL INFORMATION: Symptoms and signs involving cognitive function.. COMPARISON: May 02, 2022. TECHNIQUE: MRI of the brain was obtained using routine sequences without contrast. FINDINGS: No restricted diffusion. Cribriform pattern hyperintense T2 FLAIR signal centered in the corpus striatum nuclei and suresh radiata white matter. Bandlike shaped hyperintense T2 FLAIR signal in the quadrigeminal plate at the inferior colliculus and dorsal stepan at the brachii pontis. No acute intracranial hemorrhage, mass effect, midline shift shift, hydrocephalus or herniation. Garcia-white matter differentiation is normal. Flow-void signal within the main cerebral vessels is normal. Sellar/suprasellar region demonstrated no signal abnormality or masses. Craniocervical junction demonstrates normal position of the cerebellar tonsils. No signal abnormality or gross volume loss in the hippocampi. Paramagnetic field distortion at the left maxillary sinus. MR/MR head/brain wo con IMPRESSION: No acute brain abnormality. Consider small vascular disease.. Overall stable. Electronically signed by: Doug Hess MD 11/03/2024 11:32 AM EDT
--- OUTSIDE RECORDS SUMMARY | 2024-11-03 11:27 | XMS_ITS | Patient Health Record ---
[facility] Organization [facility] [place] Address [address] [place] [address] Care Team Providers Care Health Associate Name Role Phone Rosy GUZMAN, Brandi Grullon Primary Care Provider Un available Carl Flood Unavailable [phone] Allergies Allergen (clinical drug ingredient) Drug/Non Drug [...] Status Risk Notes Problem Acquired hallux valgus (17225854) Hallux valgus (acquired), left foot (M20.12) Active confirmed Problem Acquired hallux valgus (87153131) Hallux valgus (acquired), right foot (M20.11) Active confirmed Problem Acquired hallux rigidus (2325739) Hallux rigidus, right foot (M20.21) Active confirmed [...] Coverage End Date [employer] Benefits [address] [address] [place] [address] [id number] Steff Brandt Self - patient is the insured Medical (General) History Medical History History ICD Code Headaches/Migraines Reflux ( GERD) Surgical History Surgery Date(Month/Year) 1st MPJ Right Arthrosurface Implant 08/28
== END 2024-11-03 10:35 | disposition home or self-care (01) ==
LOC: HO.MRI 10:34
PROVIDERS: PCP Internal Medicine; Visit Provider Psychiatry & Neurology Neurology
DX: R41.89 Other symptoms and signs involving cognitive functions and awareness (principal); G47.10 Hypersomnia, unspecified
CPT/HCPCS: 70551

== ENCOUNTER → 2024-11-03 10:42 | Outpatient (BNV) | payer OTHER, SELFPAY | PROVIDERS: PCP Internal Medicine; Visit Provider Radiology Diagnostic Radiology | DX: R41.89 Other symptoms and signs involving cognitive functions and awareness (principal) | CPT/HCPCS: 70551 ==

== ENCOUNTER 2024-11-14 10:42 | Outpatient (REF) | payer OTHER, SELFPAY ==
[2024-11-14 10:53] LABS: MANUAL DIFF FLAG NO
[2024-11-14 11:13] LABS: Hematocrit 44.1 % (37.0-47.0); Hemoglobin 14.6 g/dl (12.0-16.0); Imm Gran Abs Auto 0.04 X10*3/uL (0.00-0.03); Imm Gran Pct Auto 0.6 % (0.0-0.4); Lymphocytes Absolute Auto 2.0 X10*3/uL (1.2-4.9); Mean Corpuscular HGB Conc 33.1 g/dl (31.0-35.0); Mean Corpuscular Hemoglobin 29.0 pg (27.0-33.0); Mean Corpuscular Volume 87.7 fL (80.0-98.0); NRBC Abs Auto 0.000 X10*3/uL (0.0-0.012); NRBC Pct Auto 0.0 /100WBC (0.0-0.2); Platelet Count 360 X10*3/uL (160-400); Red Blood Count 5.03 X10*6/uL (4.20-5.50); White Blood Count 7.2 X10*3/uL (4.8-10.8)
--- OUTSIDE RECORDS SUMMARY | 2024-11-14 11:34 | XMS_ITS | Patient Health Record ---
Author Organization [facility] [place] Address [address] [place] [address] Care Team Providers Care Combo Welder Name Role Phone Rosy GUZMAN, Brandi Grullon Primary Care Provider Un available Carl Flood Unavailable [phone] Allergies Allergen (clinical drug ingredient) Drug/Non Drug [...] Status Risk Notes Problem Acquired hallux valgus (76706625) Hallux valgus (acquired), left foot (M20.12) Active confirmed Problem Acquired hallux valgus (13835748) Hallux valgus (acquired), right foot (M20.11) Active confirmed Problem Acquired hallux rigidus (4819662) Hallux rigidus, right foot (M20.21) Active confirmed [...] Coverage End Date [employer] Benefits [address] [address] [place] [address] [id number] Steff Brandt Self - patient is the insured Medical (General) History Medical History History ICD Code Headaches/Migraines Reflux ( GERD) Surgical History Surgery Date(Month/Year) 1st MPJ Right Arthrosurface Implant 08/28
--- OUTSIDE RECORDS SUMMARY | 2024-11-14 11:35 | XMS_ITS | Patient Health Record ---
Author Organization [facility] Address [address] [place] [address] Care Team Providers Care Gray Tender Name Role Phone Rosy GUZMAN, Brandi Primary Care Provider Amarjit Dawson [phone] Allergies No Known Allergies Results Component Value Reference Range Notes Ferritin Reviewed date:01/01/2024 04:46:05 PM Interpretation: Performing Lab:[facility], [address] [place] [phone] Notes/Report: Ferritin 12 10-250 ng/mL Vitamin B12 and Folate Reviewed date:01/07/2024 07:03:32 PM Interpretation: Performing Lab:[facility], [address] [place] [phone] Notes/Report: Vitamin B12 198 200-900 pg/mL NORMAL 200-900 PG/ML INDETERMINATE 160-199 PG/ML DEFICIENT < 160 PG/ML Folate 14.1 > or = 4.0 ng/mL Reference Values: > or = 4.0 ng/mL < 4.0 ng/mL suggests folate deficiency Methotrexate, aminopterin and folinic acid (leucovorin) are chemotherapeutic agents whose molecular structures are similar to folate; therefore, the Kerrick Kleaner Operator folate assay cannot be used for patients using these drugs. Complete Blood Count Auto Di ff Reviewed date:01/07/2024 07:02:33 PM Interpretation: Performing Lab:[facility], [address] [place] [phone] Notes/Report: White Blood Count 7.9 4.8-10.8 X10*3/uL [...] Panel Reviewed date:01/01/2024 04:45:28 PM Interpretation: Performing Lab:[facility], [address] [place] [phone] Notes/Report: Bilirubin Total 0.4 0.0-1.0 mg/dL Bilirubin Direct 0.2 0.0-0.5 mg/dL Aspartate Amino Transferase 17 5-31 U/L Alanine Aminotransferase 20 0-31 U/L Total Protein 7.5 6.5-8.0 g/dL Albumin Level 4.1 3.5-5.0 g/dL Alkaline Phosphatase 82 39-117 U/L IRON PROFILE Reviewed date:01/01/2024 04:45:36 PM Interpretation: Performing Lab:[facility], [address] [place] [phone] Notes/Report: Iron 21 30-160 mcg/dL Total Iron Binding Capacity 315 228-428 mcg/d L Percent Iron Saturation 7 15-50 % Unsaturated Iron Binding 294 Carcinoembryonic Antigen Reviewed date:01/01/2024 04:45:43 PM Interpretation: Performing Lab:[facility], [address] [place] [phone] Notes/Report: Carcinoembryonic Antigen < 1.73 CEA Reference [...] A Reviewed date:01/06/2024 07:04:20 PM Interpretation: Performing Lab:[facility], [address] [place] [phone] Notes/Report: Immunoglobulin A 483 47-310 mg/dL THIS TEST WAS PERFORMED AT: [facility] [address] [place] [phone] CHADWICK MENDEZ MD Transglutaminase Ab IgG Reviewed date:01/06/2024 07:04:27 PM Interpretation: Performing Lab:[facility], [address] [place] [phone] Notes/Report: Transglutaminase Ab IgG <1.0 Value Interpretation ----- <15.0 Antibody not detected > or = 15.0 Antibody detected THIS TEST WAS PERFORMED AT: [facility] [address] [place] [phone] CHADWICK MENDEZ MD Transglutaminase IgA Reviewed date:01/06/2024 07:04:33 PM Interpretation: Performing Lab:[facility], [address] [place] [phone] Notes/Report: Transglutaminase IgA <1.0 Value Interpretation ----- <15.0 Antibody not detected > or = 15.0 Antibody detected THIS TEST WAS PERFORMED AT: [facility] [address] [place] [phone] CHADWICK MENDEZ MD Gliadin Ab Panel Reviewed date:01/06/2024 07:04:41 PM Interpretation: Performing Lab:[facility], [address] [place] [phone] Notes/Report: Gliadin Deamidated IgA Ab <1.0 Value Interpretation ----- <15.0 Antibody not detected > or = 15.0 Antibody detected Gliadin Deamidated IgG Ab <1.0 Value Interpretation ----- <15.0 Antibody not detected > or = 15.0 Antibody detected THIS TEST WAS PERFORMED AT: [facility] [address] [place] [phone] CHADWICK MENDEZ MD Endomysial IgA rflx Titer Reviewed date:01/06/2024 07:04:48 PM Interpretation: Performing Lab:[address] [phone] Notes/Report: Endomysial IgA Antibody Negative Negative THIS TEST WAS PERFORMED AT: [employer] [address] [phone] CRISSY FORMAN MD,PHD Endomysial Titer TNP Pathology Reviewed date:01/27/2024 12:38:02 AM Interpretation: Performing Lab:[facility], [address] [place] [phone] Notes/Report: Complete Blood Count Auto Di ff (Not yet reviewed by provider) Interpretation: Performing Lab:[address] [phone] Notes/Report: White Blood Count 7.2 4.8-10.8 X10*3/uL Red Blood Count 5.03 4.20-5.50 X10*6/uL Hemoglobin 14.6 12.0-16.0 g/dl Hematocrit 44.1 37.0-47.0 % Mean Corpuscular Volume 87.7 80.0-98.0 fL Mean Corpuscular Hemoglobin 29.0 27.0-33.0 pg Mean Corpuscular HGB Conc 33.1 31.0-35.0 g/dl Red Cell Distribution Width 12.3 11.0-16.0 % Platelet Count 360 160-400 X10*3/uL Mean Platelet Volume 9.5 9.4-12.3 fL Neutrophils Percent Auto 62.7 45-73 % Imm Gran Pct Auto 0.6 0.0-0.4 % Lymphocytes Percent Auto 27.1 20-40 % Monocytes Percent Auto 4.6 2-11 % Eosinophils Percent Auto 3.9 0-4 % Basophils Percent Auto 1.1 0-2 % NRBC Pct Auto 0.0 0.0-0.2 /100WBC Neutrophils Absolute Auto 4.5 2.0-8.3 x10*3/u L Imm Gran Abs Auto 0.04 0.00-0.03 X10*3/uL Lymphocytes Absolute Auto 2.0 1.2-4.9 X10*3/u L Monocytes Absolute Auto 0.3 0.1-1.2 X10*3/uL Eosinophils Absolute Auto 0.3 0.0-0.4 X10*3/u L Basophils Absolute Auto 0.1 0.0-0.2 X10*3/uL NRBC Abs Auto 0.000 0.0-0.012 X10*3/uL Reason For Referral No Information Medications Medication SIG (Take, Route, Frequency, Duration) Notes Start Date End Date Status Atorvastatin Calcium 10 MG 1 tablet Orally Once a day for 30 day(s) Active Advair Diskus 100-50 MCG/DOSE INHALE 1 PUFF PO BID Inhalation for 30 Active Aspirin 81 81 MG 1 tablet Orally Once a day for 30 day(s) Active Topiramate 100 MG TK 1 T PO QD HS Oral for 30 Active Esomeprazole Magnesium 20 MG 1 tablet Orally Once a day Active Citalopram Hydrobromide 10 MG TK 1 T PO QD Oral for 30 Active Lisinopril 10 MG TK 1 T PO QD Oral fo r 30 Not-Taking Montelukast Sodium 10 MG TK 1 T PO QD IN THE THIERNO Oral for 30 Active Folic Acid 1 [...] Problem Status W/U Status Risk Notes Problem [id number] Encounter for screening for malignant neoplasm of colon (Z12.11) Active confirmed Problem History of adenomatous polyp of colon (174785554) History of adenomatous polyp of colon (Z86.010) Active confirmed Problem Diverticular disease of colon (060849109) Diverticulosis of large intestine without perforation or abscess without bleeding (K57.30) Active confirmed Problem Iron deficiency anemia (57314288) Iron deficiency anemia (D50.9) Active confirmed Problem 640483363 Gastroesophageal reflux disease, esophagitis presence not specified (K21.9) Active confirmed Problem Benign neoplasm of stomach (38727788) Gastric polyps (K31.7) Active confirmed Problem Anemia (571702105) Anemia (D64.9) Active confirmed Problem 821171490 B12 deficiency (E53.8) Active confirmed Problem Microcytic anemia (049099046) Microcytic anemia (D50.9) Active confirmed Vital Signs Temperature 97.8 degrees Fahrenheit 06/24/2024 Blood pressure diastolic 01 mm Hg 06/24/2024 Height 66 in 06/24/2024 Blood pressure systolic 001 mm Hg 06/24/2024 Weight 187 lbs 06/24/2024 BMI 30.18 kg/m2 06/24/2024 Encounters Encounter Location Date Provider Diagnosis [facility] [place] [address]patient [address] [place], [place] [phone] 01/13/2024 Amarjit Linares Iron deficiency anem ia D50.9 ; Diverticulosis of large intestine without perforation or abscess without bleeding K57.30 ; Other hemorrhoids K64.8 ; Hiatal hernia K44.9 and Gastric polyps K31.7 [facility] [address] [place] [address] 11/03/2024 Amarjit Linares [facility] [address] [place] [phone] 11/14/2024 Amarjit Linares [facility] [address] [place] [phone] 12/30/2023 Amarjit Linares Gastroesophageal ref lux disease, esophagitis presence not specified K21.9 ; Microcytic anemia D50.9 ; Encounter for screening for malignant neoplasm of colon Z12.11 and History of adenomatous polyp of colon Z86.010 [facility] [address] [place] [address] 01/08/2024 Amarjit Linares B12 deficiency E53.8 [facility] [address] [place] [phone] 01/15/2024 Amarjit Linares B12 deficiency E53.8 [facility] [address] [place] [phone] 01/27/2024 Amarjit Linares B12 deficiency E53.8 [facility] [address] [place] [phone] 03/03/2024 Amarjit Linares B12 deficiency E53.8 [facility] [address] [place] [phone] 06/24/2024 Amarjit Linares B12 deficiency E53.8 ; Anemia D64.9 ; Gastroesophageal reflux disease, esophagitis presence not specified K21.9 ; Encounter for screening for malignant neoplasm of colon Z12.11 and History of adenomatous polyp of colon Z86.010 [facility] [address] [place] [phone] 12/30/2023 Amarjit Linares [facility] [address] [place] [phone] 01/07/2024 Amarjit Linares [facility] [address] [place] [phone] 01/17/2024 Amarjit Linares [facility] [address] [place] [phone] 01/26/2024 Amarjit Linares Anemia D64.9 [facility] [address] [place] [phone] 02/03/2024 Amarjit Linares [facility] [address] [place] [address] 10/11/2024 Amarjit Linares Anemia D64.9 and Vit deshpande B12 deficiency E53.8 Assessments Encounter Date Diagnosis (ICD Code) Assessment Notes Treatment Notes Treatment Clinical Notes Section Notes 01/13/2024 Diverticulosis of large intestine without perforation or abscess without bleeding (ICD-10 - K57.30) 01/13/2024 Iron deficiency anemia (ICD-10 - D50.9) 12/30/2023 Gastroesophageal reflux disease, [...] E53.8) 03/03/2024 B12 deficiency (ICD-10 - E53.8) 06/24/2024 Anemia (ICD-10 - D64.9) 06/24/2024 B12 deficiency (ICD-10 - E53.8) You need a B12 shot every other month 01/26/2024 Anemia (ICD-10 - D64.9) 10/11/2024 Anemia (ICD-10 - D64.9) 01/13/2024 Other hemorrhoids [...] to keep you advised of her progress. 06/24/2024 Gastroesophageal reflux disease, esophagitis presence not specified (ICD-10 - K21.9) Continue omeprazole for the reflux 10/11/2024 Vitamin B12 deficiency (ICD-10 - E53.8) 01/13/2024 Hiatal hernia (ICD-10 - K44.9) 12/30/2023 History of adenomatous polyp of colon (ICD-10 [...] to keep you advised of her progress. 06/24/2024 Encounter for screening for malignant neoplasm of colon (ICD-10 - Z12.11) Repeat colonoscopy in 202801/13/2024 Gastric polyps (ICD-10 - K31.7) 06/24/2024 History of adenomatous polyp of colon (ICD-10 - Z86.010) Plan Of Treatment Pending Test Test Name Order Date LIVER PROFILE 12/30/2023 IRON + IBC (FE) 10/11/2024 IRON + IBC (FE) 01/26/2024 IRON + IBC (FE) 12/30/2023 CEA 12/30/2023 CBC w DIFF 10/11/2024 CBC w DIFF 01/26/2024 CBC w DIFF 12/30/2023 CELIAC PANEL #10 12/30/2023 Complete Blood Count Auto Diff Ferritin 10/11/2024 Ferritin 01/26/2024 Vitamin B12 and Folate 10/11/2024 Vitamin B12 01/26/2024 Intrinsic Factor Antibodies 10/11/2024 Parietal Cell Antibody 10/11/2024 Future Test Test Name Order Date UPPER GI ENDOSCOPY 03/24/2017 COLONOSCOPY 03/24/2017 UPPER GI ENDOSCOPY 12/30/2023 COLONOSCOPY 12/30/2023 Insurance Providers Payer Name Payer Address Payer Phone Subscriber Number Group Number Insured Name Patient Relationship to Insured Coverage Start Date Coverage End Date [employer] [address] [address] [place] [address] [id number] Mercy BessSteff chew Self - patient is the insured Medications Administered Medication Instructions Date of Administration Dosage Notes B12 01/08/2024 1000 mL B12 01/15/2024 1000 mL B12 01/27/2024 1000 mL B-12 03/03/2024 1000 mL B-12 06/24/2024 1000 mL Medical (General) History Medical History History ICD Code Hypertension Asthma Denies [place],DM,CV ,renal disease Kidney stones Depression/Anxiety Migraines Colonoscopy 05/2017 small tubular adenoma s removed EGD in 05/2017 small hiatal hernia but no esophagitis or Hernandez's esophagus Microcytic anemia with a hemoglobin of 9 .2 and MCV of 74 in October of 2023 Surgical History Surgery Date(Month/Year) x1 Cholecystectomy
[2024-11-14 11:48] LABS: Iron 74 mcg/dL (30-160); Percent Iron Saturation 29 % (15-50); Total Iron Binding Capacity 251 mcg/dL (228-428); Unsaturated Iron Binding 177 ug/dL
[2024-11-14 11:57] LABS: Ferritin 562 ng/mL (10-250)
[2024-11-14 12:16] LABS: Folate 18.1 ng/mL (> or = 4.0); Vitamin B12 > 2000 pg/mL (200-900)
[2024-11-17 14:58] LABS: Intrinsic Factor Antibodies Positive (Negative)
== END 2024-11-14 10:43 | disposition home or self-care (01) ==
LOC: HO.LAB 10:42
PROVIDERS: PCP Internal Medicine; Visit Provider Internal Medicine
DX: D64.9 Anemia, unspecified (principal); E53.8 Deficiency of other specified B group vitamins
CPT/HCPCS: 36415; 82607; 82728; 82746; 83516; 83540; 85025; 86340

== ENCOUNTER 2024-11-15 07:43 | Outpatient (REF) | payer OTHER, SELFPAY ==
--- OUTSIDE RECORDS SUMMARY | 2024-11-15 07:46 | XMS_ITS | Patient Health Record ---
Author Organization [facility] [place] Address [address] [place] [address] Care Team Providers Care Magnetic Locater Name Role Phone Rosy GUZMAN, Brandi Grullon Primary Care Provider Un available Carl Flood Unavailable [phone] Allergies Allergen (clinical drug ingredient) Drug/Non Drug [...] Status Risk Notes Problem Acquired hallux valgus (38550394) Hallux valgus (acquired), left foot (M20.12) Active confirmed Problem Acquired hallux valgus (36959977) Hallux valgus (acquired), right foot (M20.11) Active confirmed Problem Acquired hallux rigidus (1488413) Hallux rigidus, right foot (M20.21) Active confirmed [...] Coverage End Date [employer] [address] [address] [place] [address] [id number] Steff Brandt Self - patient is the insured Medical (General) History Medical History History ICD Code Headaches/Migraines Reflux ( GERD) Surgical History Surgery Date(Month/Year) 1st MPJ Right Arthrosurface Implant 08/28
--- OUTSIDE RECORDS SUMMARY | 2024-11-15 07:46 | XMS_ITS | Patient Health Record ---
Author Organization [facility] Address [address] [place] [address] Care Team Providers Care Lime Sludge Mixer Name Role Phone Rosy GUZMAN, Brandi Primary Care Provider Amarjit Dawson [phone] Allergies No Known Allergies Results Component Value Reference Range Notes Ferritin Reviewed date:01/01/2024 04:46:05 PM Interpretation: Performing Lab:[facility], [address] [place] [phone] Notes/Report: Ferritin 12 10-250 ng/mL Vitamin B12 and Folate Reviewed date:01/07/2024 07:03:32 PM Interpretation: Performing Lab:[facility], [address] [place] [phone] Notes/Report: Vitamin B12 198 200-900 pg/mL NORMAL 200-900 PG/ML INDETERMINATE 160-199 PG/ML DEFICIENT < 160 PG/ML Folate 14.1 > or = 4.0 ng/mL Reference Values: > or = 4.0 ng/mL < 4.0 ng/mL suggests folate deficiency Methotrexate, aminopterin and folinic acid (leucovorin) are chemotherapeutic agents whose molecular structures are similar to folate; therefore, the Microbiology Lab Analyst folate assay cannot be used for patients using these drugs. Complete Blood Count Auto Di ff Reviewed date:01/07/2024 07:02:33 PM Interpretation: Performing Lab:[facility], [address] [place] [phone] Notes/Report: White Blood Count 7.9 4.8-10.8 X10*3/uL [...] Panel Reviewed date:01/01/2024 04:45:28 PM Interpretation: Performing Lab:[facility], [address] [place] [phone] Notes/Report: Bilirubin Total 0.4 0.0-1.0 mg/dL Bilirubin Direct 0.2 0.0-0.5 mg/dL Aspartate Amino Transferase 17 5-31 U/L Alanine Aminotransferase 20 0-31 U/L Total Protein 7.5 6.5-8.0 g/dL Albumin Level 4.1 3.5-5.0 g/dL Alkaline Phosphatase 82 39-117 U/L IRON PROFILE Reviewed date:01/01/2024 04:45:36 PM Interpretation: Performing Lab:[facility], [address] [place] [phone] Notes/Report: Iron 21 30-160 mcg/dL Total Iron Binding Capacity 315 228-428 mcg/d L Percent Iron Saturation 7 15-50 % Unsaturated Iron Binding 294 Carcinoembryonic Antigen Reviewed date:01/01/2024 04:45:43 PM Interpretation: Performing Lab:[facility], [address] [place] [phone] Notes/Report: Carcinoembryonic Antigen < 1.73 CEA Reference [...] A Reviewed date:01/06/2024 07:04:20 PM Interpretation: Performing Lab:[facility], [address] [place] [phone] Notes/Report: Immunoglobulin A 483 47-310 mg/dL THIS TEST WAS PERFORMED AT: [email or web address] [address] [place] [phone] CHADWICK MENDEZ MD Transglutaminase Ab IgG Reviewed date:01/06/2024 07:04:27 PM Interpretation: Performing Lab:[facility], [address] [place] [phone] Notes/Report: Transglutaminase Ab IgG <1.0 Value Interpretation ----- <15.0 Antibody not detected > or = 15.0 Antibody detected THIS TEST WAS PERFORMED AT: [email or web address] [address] [place] [phone] CHADWICK MENDEZ MD Transglutaminase IgA Reviewed date:01/06/2024 07:04:33 PM Interpretation: Performing Lab:[facility], [address] [place] [phone] Notes/Report: Transglutaminase IgA <1.0 Value Interpretation ----- <15.0 Antibody not detected > or = 15.0 Antibody detected THIS TEST WAS PERFORMED AT: [email or web address] [address] [place] [phone] CHADWICK MENDEZ MD Gliadin Ab Panel Reviewed date:01/06/2024 07:04:41 PM Interpretation: Performing Lab:[facility], [address] [place] [phone] Notes/Report: Gliadin Deamidated IgA Ab <1.0 Value Interpretation ----- <15.0 Antibody not detected > or = 15.0 Antibody detected Gliadin Deamidated IgG Ab <1.0 Value Interpretation ----- <15.0 Antibody not detected > or = 15.0 Antibody detected THIS TEST WAS PERFORMED AT: [email or web address] [address] [place] [phone] CHADWICK MENDEZ MD Endomysial IgA rflx Titer Reviewed date:01/06/2024 07:04:48 PM Interpretation: Performing Lab:[address] [phone] Notes/Report: Endomysial IgA Antibody Negative Negative THIS TEST WAS PERFORMED AT: [facility] [phone] CRISSY FORMAN MD,PHD Endomysial Titer TNP Pathology Reviewed date:01/27/2024 12:38:02 AM Interpretation: Performing Lab:[facility], [address] [place] [phone] Notes/Report: Complete Blood Count Auto Di ff (Not yet reviewed by provider) Interpretation: Performing Lab:[address] [phone] Notes/Report: White Blood Count 7.2 4.8-10.8 X10*3/uL [...] X10*3/uL NRBC Abs Auto 0.000 0.0-0.012 X10*3/uL IRON PROFILE (Not yet review ed by provider) Interpretation: Performing Lab:[address] [address] Notes/Report: Iron 74 30-160 mcg/dL Total Iron Binding Capacity 251 228-428 mcg/d L Percent Iron Saturation 29 15-50 % Unsaturated Iron Binding 177 Ferritin (Not yet reviewed b y provider) Interpretation: Performing Lab:[address] [address] Notes/Report: Ferritin 562 10-250 ng/mL Vitamin B12 and Folate (Not yet reviewed by provider) Interpretation: Performing Lab:[address] [address] Notes/Report: Vitamin B12 > 2000 200-900 pg/mL NORMAL 200-900 PG/ML INDETERMINATE 160-199 PG/ML DEFICIENT < 160 PG/ML Folate 18.1 > or = 4.0 ng/mL Reference Values: > or = 4.0 ng/mL < 4.0 ng/mL suggests folate deficiency Methotrexate, aminopterin and folinic acid (leucovorin) are chemotherapeutic agents whose molecular structures are similar to folate; therefore, the Microbiology Lab Analyst folate assay cannot be used for patients using these drugs. Reason For Referral No Information Medications Medication [...] Problem Status W/U Status Risk Notes Problem [id number] Encounter for screening for malignant neoplasm of colon (Z12.11) Active confirmed Problem History of adenomatous polyp of colon (735686198) History of adenomatous polyp of colon (Z86.010) Active confirmed Problem Diverticular disease of colon (590271483) Diverticulosis of large intestine without perforation or abscess without bleeding (K57.30) Active confirmed Problem Iron deficiency anemia (96324095) Iron deficiency anemia (D50.9) Active confirmed Problem [id number] Gastroesophageal reflux disease, esophagitis presence not specified (K21.9) Active confirmed Problem Benign neoplasm of stomach (67517742) Gastric polyps (K31.7) Active confirmed Problem Anemia (888055620) Anemia (D64.9) Active confirmed Problem 646880511 B12 deficiency (E53.8) Active confirmed Problem Microcytic anemia (026052644) Microcytic anemia (D50.9) Active confirmed Vital Signs Temperature 97.8 degrees Fahrenheit 06/24/2024 Blood pressure diastolic 01 mm Hg 06/24/2024 Height 66 in 06/24/2024 Blood pressure systolic 001 mm Hg 06/24/2024 Weight 187 lbs 06/24/2024 BMI 30.18 kg/m2 06/24/2024 Encounters Encounter Location Date Provider Diagnosis [facility] [address] [place] [phone] 01/13/2024 Amarjit Linares Iron deficiency anem ia D50.9 ; Diverticulosis of large intestine without perforation or abscess without bleeding K57.30 ; Other hemorrhoids K64.8 ; Hiatal hernia K44.9 and Gastric polyps K31.7 [facility] [address] [place] [phone] 11/03/2024 Amarjit Linares [facility] [address] [place] [phone] 12/30/2023 Amarjit Linares Gastroesophageal ref lux disease, esophagitis presence not specified K21.9 ; Microcytic anemia D50.9 ; Encounter for screening for malignant neoplasm of colon Z12.11 and History of adenomatous polyp of colon Z86.010 [facility] [address] [place] [phone] 01/08/2024 Amarjit Linares B12 deficiency E53.8 [facility] [address] [place] [phone] 01/15/2024 Amarjit Linares B12 deficiency E53.8 [facility] [address] [place] [phone] 01/27/2024 Amarjit Linares B12 deficiency E53.8 [facility] [address] [place] [phone] 03/03/2024 Amarjit Linares B12 deficiency E53.8 [facility] [address] [place] [phone] 06/24/2024 Amarjit Linares B12 deficiency E53.8 ; Anemia D64.9 ; Gastroesophageal reflux disease, esophagitis presence not specified K21.9 ; Encounter for screening for malignant neoplasm of colon Z12.11 and History of adenomatous polyp of colon Z86.010 [facility] [address] [place] [phone] 11/14/2024 Amarjit Linares [facility] [address] [place] [phone] 12/30/2023 Amarjit Linares [facility] [address] [place] [phone] 01/07/2024 Amarjit Linares [facility] [address] [place] [phone] 01/17/2024 Amarjit Linares [facility] [address] [place] [phone] 01/26/2024 Amarjit Linares Anemia D64.9 [facility] [address] [place] [phone] 02/03/2024 Amarjit Linares [facility] [address] [place] [phone] 10/11/2024 Amarjit Linares Anemia D64.9 and Vit [...] #10 12/30/2023 Complete Blood Count Auto Diff IRON PROFILE 11/14/2024 Ferritin 10/11/2024 Ferritin 01/26/2024 Ferritin 11/14/2024 Vitamin B12 and Folate 11/14/2024 Vitamin B12 and Folate 10/11/2024 Vitamin B12 [...] [employer] [place] [address] [address] [place] [address] [id number] BrandtSteff Self - patient is the insured Medications Administered Medication Instructions Date of Administration Dosage Notes B12 01/08/2024 1000 mL B12 01/15/2024 1000 mL B12 01/27/2024 1000 mL B-12 03/03/2024 1000 mL B-12 06/24/2024 1000 mL Medical (General) History Medical History History ICD Code Hypertension Asthma Denies HI,DM,CV ,renal disease Kidney stones Depression/Anxiety Migraines Colonoscopy 05/2017 small tubular adenoma s removed EGD in 05/2017 small hiatal hernia but no esophagitis or Hernandez's esophagus Microcytic anemia with a hemoglobin of 9 .2 and MCV of 74 in October of 2023 Surgical History Surgery Date(Month/Year) x1 Cholecystectomy
== END 2024-11-15 07:44 | disposition home or self-care (01) ==
LOC: HO.MAMMO 07:43
PROVIDERS: PCP Internal Medicine; Visit Provider Internal Medicine
DX: Z12.31 Encounter for screening mammogram for malignant neoplasm of breast (principal)
CPT/HCPCS: 77063; 77067

== ENCOUNTER → 2024-11-15 07:45 | Outpatient (BNV) | payer OTHER, SELFPAY | PROVIDERS: PCP Internal Medicine; Visit Provider Internal Medicine | DX: Z12.31 Encounter for screening mammogram for malignant neoplasm of breast (principal) | CPT/HCPCS: 77063; 77067 ==

== ENCOUNTER 2024-12-25 07:08 | Emergency (ER) | payer OTHER, SELFPAY ==
--- OUTSIDE RECORDS SUMMARY | 2024-05-13 04:30 | XMS_ITS ---
Author Organization [facility] Address [address] [place] [phone] Care Team Providers Care Traffic Sign Erection Supervisor Name Role Phone Brandi Gallegos MD Primary Care Provider Amarjit Dawson [phone] REASON FOR VISIT screening,hx polyps Encounters Encounter Location Date Provider Diagnosis [facility] Outpatient [address] [place] [phone] 05/13/2024 Amarjit Linares Plan Of Treatment No Information Progress Notes * Steff PARMARDOB:[birth year] (59 yo F)Acc No.[id number]:05/13/2024 COLON WITH MAC Patient: Steff DALEY Provider: Sheyla Linares MD :1965 A ge:58 Y S ex:Female Date:05/13/2024 Address:[facility] [address], [place] [facility] Pcp:Brandi Gallegos MD Subjective: * Chief Complaints: [...] 05/13/2024 Generated for Printi ng/Faxing/eTransmitting on: 0 12/25/2024 07:31 AM EDT
--- NOTE | ~2024-12-25 | XR_ITS ---
CLINICAL HISTORY: cough sob 1 view chest x-ray Comparison: 03/31/2024 Findings: The lungs are clear. Heart size is normal. No acute fracture. IMPRESSION: 1. No acute findings. This document has been electronically signed by: Quoc Beatty MD on 12/25/2024 08:21:53
[2024-12-25 07:14] VITALS: BP 176/81; PULSE 103; RESP 18; TEMP 36.1; BMI 30.5
--- OUTSIDE RECORDS SUMMARY | 2024-12-25 07:31 | XMS_ITS | Patient Health Record ---
Author Organization [facility] Address [address] [facility] [address] [place] [address] Care Team Providers Care Through Operator Name Role Phone Rosy GUZMAN, Brandi Grullon Primary Care Provider Un available Carl Flood Unavailable [phone] Allergies Allergen (clinical drug ingredient) Drug/Non Drug [...] Status Risk Notes Problem Acquired hallux valgus (70145315) Hallux valgus (acquired), left foot (M20.12) Active confirmed Problem Acquired hallux valgus (96181580) Hallux valgus (acquired), right foot (M20.11) Active confirmed Problem Acquired hallux rigidus (2011686) Hallux rigidus, right foot (M20.21) Active confirmed Plan Of Treatment Pending Test Test Name Order Date X ray : Foot, left 3V 02/07/2021 X ray : Foot, right 3V 10/28/2022 X ray : Foot, right 3V 09/23/2022 X ray : Foot, right 3V 09/12/2022 X ray : Foot, right 3V 09/02/2022 X ray : Foot, right 3V 07/30/2022 X ray : Foot, right 3V 02/07/2021 Insurance Providers Payer Name Payer Address Payer Phone Subscriber Number Group Number Insured Name Patient Relationship to Insured Coverage Start Date Coverage End Date [employer] [address] [address] [place] [address] [id number] Steff Brandt Self - patient is the insured Medical (General) History Medical History History ICD Code Headaches/Migraines Reflux ( GERD) Surgical History Surgery Date(Month/Year) 1st MPJ Right Arthrosurface Implant 08/28
--- OUTSIDE RECORDS SUMMARY | 2024-12-25 07:32 | XMS_ITS | Patient Health Record ---
Author Organization [facility] Address [address] [place] [address] Care Team Providers Care Social Media Sr Strategy Manager Name Role Phone Rosy GUZMAN, Brandi Primary Care Provider Amarjit Dawson [phone] Allergies No Known Allergies Results Component Value Reference Range Notes Ferritin Reviewed date:01/01/2024 04:46:05 PM Interpretation: Performing Lab:[facility], [address] [place] [phone] Notes/Report: Ferritin 12 10-250 ng/mL Vitamin B12 and Folate Reviewed date:01/07/2024 07:03:32 PM Interpretation: Performing Lab:[facility], [address] [place] [phone] Notes/Report: Vitamin B12 198 200-900 pg/mL NORMAL 200-900 PG/ML INDETERMINATE 160-199 PG/ML DEFICIENT < 160 PG/ML Folate 14.1 > or = 4.0 ng/mL Reference Values: > or = 4.0 ng/mL < 4.0 ng/mL suggests folate deficiency Methotrexate, aminopterin and folinic acid (leucovorin) are chemotherapeutic agents whose molecular structures are similar to folate; therefore, the Scow Captain folate assay cannot be used for patients using these drugs. Complete Blood Count Auto Di ff Reviewed date:01/07/2024 07:02:33 PM Interpretation: Performing Lab:[facility], [address] [place] [phone] Notes/Report: White Blood Count 7.9 4.8-10.8 X10*3/uL [...] Panel Reviewed date:01/01/2024 04:45:28 PM Interpretation: Performing Lab:[facility], [address] [place] [phone] Notes/Report: Bilirubin Total 0.4 0.0-1.0 mg/dL Bilirubin Direct 0.2 0.0-0.5 mg/dL Aspartate Amino Transferase 17 5-31 U/L Alanine Aminotransferase 20 0-31 U/L Total Protein 7.5 6.5-8.0 g/dL Albumin Level 4.1 3.5-5.0 g/dL Alkaline Phosphatase 82 39-117 U/L IRON PROFILE Reviewed date:01/01/2024 04:45:36 PM Interpretation: Performing Lab:[facility], [address] [place] [phone] Notes/Report: Iron 21 30-160 mcg/dL Total Iron Binding Capacity 315 228-428 mcg/d L Percent Iron Saturation 7 15-50 % Unsaturated Iron Binding 294 Carcinoembryonic Antigen Reviewed date:01/01/2024 04:45:43 PM Interpretation: Performing Lab:[facility], [address] [place] [phone] Notes/Report: Carcinoembryonic Antigen < 1.73 CEA Reference [...] A Reviewed date:01/06/2024 07:04:20 PM Interpretation: Performing Lab:[facility], [address] [place] [phone] Notes/Report: Immunoglobulin A 483 47-310 mg/dL THIS TEST WAS PERFORMED AT: [facility] [address] [place] [phone] CHADWICK MENDEZ MD Transglutaminase Ab IgG Reviewed date:01/06/2024 07:04:27 PM Interpretation: Performing Lab:[facility], [address] [place] [phone] Notes/Report: Transglutaminase Ab IgG <1.0 Value Interpretation ----- <15.0 Antibody not detected > or = 15.0 Antibody detected THIS TEST WAS PERFORMED AT: [facility] [address] [place] [phone] CHADWICK MENDEZ MD Transglutaminase IgA Reviewed date:01/06/2024 07:04:33 PM Interpretation: Performing Lab:[facility], [address] [place] [phone] Notes/Report: Transglutaminase IgA <1.0 Value Interpretation ----- <15.0 Antibody not detected > or = 15.0 Antibody detected THIS TEST WAS PERFORMED AT: [facility] [address] [place] [phone] CHADWICK MENDEZ MD Gliadin Ab Panel Reviewed date:01/06/2024 07:04:41 PM Interpretation: Performing Lab:[facility], [address] [place] [phone] Notes/Report: Gliadin Deamidated IgA Ab <1.0 Value Interpretation ----- <15.0 Antibody not detected > or = 15.0 Antibody detected Gliadin Deamidated IgG Ab <1.0 Value Interpretation ----- <15.0 Antibody not detected > or = 15.0 Antibody detected THIS TEST WAS PERFORMED AT: [facility] [address] [place] [phone] CHADWICK MENDEZ MD Endomysial IgA rflx Titer Reviewed date:01/06/2024 07:04:48 PM Interpretation: Performing Lab:[address] [phone] Notes/Report: Endomysial IgA Antibody Negative Negative THIS TEST WAS PERFORMED AT: [facility] [phone] CRISSY FORMAN MD,PHD Endomysial Titer TNP Pathology Reviewed date:01/27/2024 12:38:02 AM Interpretation: Performing Lab:[facility], [address] [place] [phone] Notes/Report: Complete Blood Count Auto Di ff Reviewed date:12/23/2024 04:13:23 PM Interpretation: Performing Lab:[address] [phone] Notes/Report: White Blood Count 7.2 4.8-10.8 X10*3/uL [...] Abs Auto 0.000 0.0-0.012 X10*3/uL IRON PROFILE Reviewed date:11/15/2024 09:50:25 AM Interpretation: Performing Lab:[address] [phone] Notes/Report: Iron 74 30-160 mcg/dL Total Iron Binding Capacity 251 228-428 mcg/d L Percent Iron Saturation 29 15-50 % Unsaturated Iron Binding 177 Ferritin Reviewed date:12/23/2024 04:13:11 PM Interpretation: Performing Lab:[address] [phone] Notes/Report: Ferritin 562 10-250 ng/mL Vitamin B12 and Folate Reviewed date:11/30/2024 12:29:59 AM Interpretation: Performing Lab:[facility] [address] [address] Notes/Report: Vitamin B12 > 2000 200-900 pg/mL NORMAL 200-900 PG/ML INDETERMINATE 160-199 PG/ML DEFICIENT < 160 PG/ML Folate 18.1 > or = 4.0 ng/mL Reference Values: > or = 4.0 ng/mL < 4.0 ng/mL suggests folate deficiency Methotrexate, aminopterin and folinic acid (leucovorin) are chemotherapeutic agents whose molecular structures are similar to folate; therefore, the Scow Captain folate assay cannot be used for patients using these drugs. Intrinsic Factor Antibodies Reviewed date:12/23/2024 04:09:55 PM Interpretation: Performing Lab:[address] [address] Notes/Report: Intrinsic Factor Antibodies Positive Negative For additional information, please refer to http://education.[email or web address]/faq/IFAB (This link is being provided for informational/ educational purposes only.) THIS TEST WAS PERFORMED AT: [facility] [address] [place] [phone] CRISSY FORMAN MD,PHD Parietal Cell Antibody Reviewed date:11/30/2024 12:29:29 AM Interpretation: Performing Lab:[address] [address] Notes/Report: Parietal Cell Antibody <=20.0 <=20.0 Unit Reference Range: <= 20.0 Negative 20.1 - 24.9 Equivocal >= 25.0 Positive Anti-gastric parietal cell antibodies (Anti-GPA) were previously tested for by indirect immunofluorescence (IF) using mouse stomach as a substrate. Identification of the specific antibody target as H+/K+ ATPase protein (a gastric proton pump) has led to the development of an SMITA based assay. Antibodies to this protein are present in approximately 80% of patients with pernicious anemia and a small percentage of general adult population. The latter percentage increases with age and may reflect the presence of atrophic gastritis. A negative test does not exclude a diagnosis of pernicious anemia. A test for intrinsic factor blocking antibody (IFab) may provide serological evidence in support of the diagnosis in some of these patients. THIS TEST WAS PERFORMED AT: [facility] [address] [place] [address] CRISSY FORMAN MD,PHD Reason For Referral No Information Medications Medication [...] Problem Status W/U Status Risk Notes Problem 100723315 Encounter for screening for malignant neoplasm of colon (Z12.11) Active confirmed Problem History of adenomatous polyp of colon (593582612) History of adenomatous polyp of colon (Z86.010) Active confirmed Problem Diverticular disease of colon (941019200) Diverticulosis of large intestine without perforation or abscess without bleeding (K57.30) Active confirmed Problem Iron deficiency anemia (75523198) Iron deficiency anemia (D50.9) Active confirmed Problem 287930580 Gastroesophageal reflux disease, esophagitis presence not specified (K21.9) Active confirmed Problem Benign neoplasm of stomach (69289831) Gastric polyps (K31.7) Active confirmed Problem Anemia (196400742) Anemia (D64.9) Active confirmed Problem 876592324 B12 deficiency (E53.8) Active confirmed Problem Microcytic anemia (471474271) Microcytic anemia (D50.9) Active confirmed Vital Signs Temperature 97.8 degrees Fahrenheit 06/24/2024 Blood pressure diastolic 01 mm Hg 06/24/2024 Height 66 in 06/24/2024 Blood pressure systolic 001 mm Hg 06/24/2024 Weight 187 lbs 06/24/2024 BMI 30.18 kg/m2 06/24/2024 Encounters Encounter Location Date Provider Diagnosis [facility] Outpatient [address] [place] [id number] 01/13/2024 Amarjit Linares Iron deficiency anem ia D50.9 ; Diverticulosis of large intestine without perforation or abscess without bleeding K57.30 ; Other hemorrhoids K64.8 ; Hiatal hernia K44.[address] G[address] [facility] [address] [place] [phone] 12/30/2023 Amarjit Linares Gastroesophageal ref lux disease, esophagitis presence not specified K21.9 ; Microcytic anemia D50.9 ; Encounter for screening for malignant neoplasm of colon Z12.11 and History of adenomatous polyp of colon Z86.010 [facility] [address] [place] [phone] 01/08/2024 Amarjit Linares B12 deficiency E53.8 [facility] [address] [place] [phone] 01/15/2024 Amarjit Linares B12 deficiency E53.8 [facility] [address] [place] [address] Drive [address] [place] [phone] 01/27/2024 Amarjit Linares B12 deficiency E53.8 [facility] [address] [place] [phone] 03/03/2024 Amarjit Linares B12 deficiency E53.8 [facility] [address] [place] [phone] 06/24/2024 Amarjit Linares B12 deficiency E53.8 ; Anemia D64.9 ; Gastroesophageal reflux disease, esophagitis presence not specified K21.9 ; Encounter for screening for malignant neoplasm of colon Z12.11 and History of adenomatous polyp of colon Z86.010 [facility] [address] [place] [phone] 11/03/[address] [facility] [address] [place] [phone] 11/14/[address] [facility] [address] [place] [phone] 12/21/[address] [facility] [address] [place] [phone] 12/30/[address] [facility] [address] [place] [phone] 01/07/[address] [facility] [address] [place] [phone] 01/17/[address] [facility] [address] [place] [phone] 01/26/2024 Amarjit Linares Anemia D64.9 [facility] [address] [place] [phone] 02/03/[address] [facility] [address] [place] [phone] 10/11/2024 Amarjit Linares Anemia D64.9 and Vit [...] DIFF 12/30/2023 CELIAC PANEL #10 12/30/2023 Ferritin 10/11/2024 Ferritin 01/26/2024 Vitamin B12 and [...] [employer] [place] [address] [address] [place] [address] [id number] 5 Steff Brandt Self - patient is the insured Medications [...]
[2024-12-25 07:35] LABS: MANUAL DIFF FLAG NO
[2024-12-25 07:36] LABS: Hematocrit 43.0 % (37.0-47.0); Hemoglobin 14.6 g/dl (12.0-16.0); Imm Gran Abs Auto 0.03 X10*3/uL (0.00-0.03); Imm Gran Pct Auto 0.3 % (0.0-0.4); Lymphocytes Absolute Auto 1.5 X10*3/uL (1.2-4.9); Mean Corpuscular HGB Conc 34.0 g/dl (31.0-35.0); Mean Corpuscular Hemoglobin 29.6 pg (27.0-33.0); Mean Corpuscular Volume 87.2 fL (80.0-98.0); NRBC Abs Auto 0.000 X10*3/uL (0.0-0.012); NRBC Pct Auto 0.0 /100WBC (0.0-0.2); Platelet Count 325 X10*3/uL (160-400); Red Blood Count 4.93 X10*6/uL (4.20-5.50); White Blood Count 9.3 X10*3/uL (4.8-10.8)
[2024-12-25 08:00] VITALS: BP 142/95; PULSE 89; RESP 16; O2SAT 96
[2024-12-25 08:00] LABS: Alanine Aminotransferase 25 U/L (0-31); Albumin Level 4.5 g/dL (3.5-5.0); Alkaline Phosphatase 101 U/L (39-117); Anion Gap 15 (12-20); Aspartate Amino Transferase 22 U/L (5-31); Blood Urea Nitrogen 8 mg/dL (9-16); Calcium 9.4 mg/dL (8.4-10.2); Carbon Dioxide 26 mmol/L (22-29); Chloride 106 mmol/L (96-108); Creatinine Clr Calc Pharmacy 85.7; Estimated Glomerular Filt Rate > 60; Potassium 3.8 mmol/L (3.3-5.1); Sodium 143 mmol/L (135-145); Total Protein 7.5 g/dL (6.5-8.0)
[2024-12-25 08:13] LABS: COVID-19 Test Negative (Negative); IDNOW Serial# 55D5AD1C
[2024-12-25 08:14] LABS: IDNOW Serial# 58CA691E; Influenza B2 Negative (Negative)
--- NOTE | 2024-12-25 08:18 | ED.GENADULT ---
HPI - General Adult General Chief complaint: Upper Respiratory Symptoms Stated complaint: cough, asthma? Time Seen by Provider: 12/25/24 08:09 Source: patient and family () Mode of arrival: ambulatory Limitations: no limitations History of Present Illness ED Provider: SHALINI GOODWIN PA-C HPI narrative: 59-year-old female with past medical history significant for asthma, LORE, migraine headaches presents to the ED today for evaluation of cough, shortness of breath, rhinorrhea x3 days. Cough is nonproductive. Denies any hemoptysis, chest pain or palpitations. Using her rescue inhaler at home without relief. 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 No recent travel/ long car rides, no hormone use or remote use of OCPs. Denies fever, chills, nausea/vomiting, LE pain/swelling. Related Data Home Medications ?Medication ?Instructions ?Recorded ?Confirmed topiramate 25 mg tablet 25 mg PO DAILY 08/24/23 08/08/24 Previous Rx's ?Medication ?Instructions ?Recorded albuterol sulfate 90 mcg/actuation 2 puff inhalation QID PRN 08/24/23 aerosol inhaler shortness of breath or wheezing #8.5 grams fluticasone 250 mcg-salmeterol 50 1 inh inhalation Q12H #60 ea 04/22/24 mcg/dose blistr powdr for inhalation (Wixela Inhub) esomeprazole magnesium 40 mg 40 mg PO BEDTIME #90 caps 08/23/24 capsule,delayed release atorvastatin 20 mg tablet 20 mg PO BEDTIME #90 tabs 09/20/24 citalopram 10 mg tablet 10 mg PO DAILY #30 tabs 11/02/24 cholecalciferol (vitamin D3) 1,250 1,250 mcg PO QWEEK #20 caps 11/08/24 mcg (50,000 unit) capsule folic acid 1 mg tablet 2 mg (2 x 1 mg) PO DAILY #90 tabs 12/06/24 benzonatate 100 mg capsule 100 mg PO BID PRN cough #20 caps 12/25/24 doxycycline hyclate 100 mg capsule 100 mg PO BID 7 days #14 caps 12/25/24 prednisone 20 mg tablet 40 mg (2 x 20 mg) PO DAILY 5 days 12/25/24 #10 tabs Allergies Allergy/AdvReac Type Severity Reaction Status Date / Time No Known Allergies Allergy Verified 12/25/24 07:15 Review of Systems Review of Systems: Yes all other systems are reviewed and are negative [facility] Past Medical History Attestation statement: The following information was validated with the patient. Source: old records reviewed and nursing notes reviewed Medical History Cognitive change Carpal tunnel syndrome Migraine Nausea and vomiting in adult Acute respiratory disease History of kidney stones History of depression History of adenomatous polyp of colon Vitamin B12 deficiency 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 Bunion of great toe of right foot Microcytic hypochromic anemia Mild intermittent asthma Dyslipidemia Chronic right sacroiliac pain GERD (gastroesophageal reflux disease) Surgical History H/O cystoscopy Previous section Hx of cholecystectomy Family History Family History Father Diabetes mellitus Bronchial asthma Mother Breast cancer Cervical cancer Social History Social History Household Members: Spouse Housing: Condominium Are you a primary child care attendant school to a significant other at home: No Do you presently have visiting nurse or other home services: No Alcohol intake: never Patient Tobacco Use Status: Never used Tobacco e-Cigarette/Vaping Use: Never Used Advance Directives Date on File: 02/08/24 service: No Current occupational status: employed 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 Skin: Warm, dry, intact. No rashes or lesions. Head: Normocephalic, atraumatic. EENT: Hearing is intact b/l. Conjunctiva clear. Sclera is anicteric. PERRLA. EOM intact. Moist mucous membranes.? Neck: Supple without LAD Cardiac: Chest wall symmetric. RRR Lungs: Normal respiratory effort without accessory muscle use. Bronchospastic cough noted. Diffuse expiratory wheezes throughout. Back: No midline spinous or paraspinal tenderness. No step off deformity. Ext: No pitting edema. No calf tenderness bilaterally. Neuro: AOx3. Normal speech. Ambulating with steady gait. Course Course Course Narrative: CBC without leukocytosis or left shift. No anemia. H&H stable. Chemistry without acute electrolyte abnormality requiring intervention. No DANIELLA. Random glucose 137, no anion gap. Liver function at baseline. Negative COVID, flu. Chest x-ray does not demonstrate pneumonia. > history consistent with upper respiratory infection that is exacerbating patient's asthma. > treated with updraft, IV Solu-Medrol and IV magnesium with improvement in breathing. Lungs clear. No respiratory distress. I personally performed ambulatory O2 with patient, sustained between 95 and 96% on room air. Did not feel increasingly short of breath. > you shared decision-making with patient to determine disposition home. Will send patient a prescription for prednisone and doxycycline for coverage. Patient has remained stable throughout ED visit today. Discussed worrisome signs and symptoms and when to return to the ED. All questions answered at this time. Patient is agreeable with disposition and stable for discharge. Medications Administered Discontinued Medications Generic Name Dose Route Start Last Admin Trade Name Freq PRN Reason Stop Dose Admin Albuterol Sulfate 2.5 mg/ 0 mg 12/25/24 08:28 12/25/24 08:32 Albuterol/Ipratropium 3 ml INHALE 12/25/24 08:29 5 dose ONCE ONE Administration Magnesium Sulfate 2 gm in 50 mls @ 150 mls/hr 12/25/24 09:19 12/25/24 10:42 Magnesium Sulfate/H2o IV 12/25/24 09:38 Infused ONCE ONE Infusion Methylprednisolone Sodium Succinate 80 mg 12/25/24 08:17 12/25/24 08:28 Methylprednisolone Sod Succ 125 Mg/2 Ml Vial IVPUSH 12/25/24 08:18 80 mg ONCE ONE Administration Medical Decision Making Medical Decision Making [facility] Narrative: 59-year-old female with past medical history significant for asthma, LORE, migraine headaches presents to the ED today for evaluation of cough, shortness of breath, rhinorrhea x3 days. Satting 96% on room air. No respiratory distress noted, no tripoding. Bronchospastic cough. Diffuse expiratory wheezes throughout. No pitting edema or calf tenderness bilaterally. RRR. Differential diagnosis includes viral syndrome, bronchitis, pneumonia, asthma exacerbation, upper respiratory infection. Unlikely PE, ACS, arrhythmia. Plan for viral swabs, chest x-ray, screening labs, ED bronch protocol, re-evaluation Differential Diagnosis Differential Diagnoses: The differential diagnosis associated with the presentation includes as above. Admission/Observation not indicated. Lab Data MDM Lab Attestation statement: I reviewed the patient's lab results. as above. 12/25/24 07:31 12/25/24 07:31 Labs: Lab Results 12/25/24 12/25/24 Range/Units 07:31 07:43 WBC 9.3 (4.8-10.8) X10*3/uL RBC 4.93 (4.20-5.50) X10*6/uL Hgb 14.6 (12.0-16.0) g/dl Hct 43.0 (37.0-47.0) % MCV 87.2 (80.0-98.0) fL MCH 29.6 (27.0-33.0) pg MCHC 34.0 (31.0-35.0) g/dl RDW 12.3 (11.0-16.0) % Plt Count 325 (160-400) X10*3/uL MPV 9.5 (9.4-12.3) fL Immature Gran % (Auto) 0.3 (0.0-0.4) % Neut % (Auto) 72.5 (45-73) % Lymph % (Auto) 15.7 L (20-40) % Perry % (Auto) 6.8 (2-11) % Eos % (Auto) 3.9 (0-4) % Baso % (Auto) 0.8 (0-2) % Lymph # (Auto) 1.5 (1.2-4.9) X10*3/uL Perry # (Auto) 0.6 (0.1-1.2) X10*3/uL Eos # (Auto) 0.4 (0.0-0.4) X10*3/uL Baso # (Auto) 0.1 (0.0-0.2) X10*3/uL Abs Immat Gran (auto) 0.03 (0.00-0.03) X10*3/uL Absolute Neuts (auto) 6.7 (2.0-8.3) x10*3/uL Absolute Nucleated RBC 0.000 (0.0-0.012) X10*3/uL Nucleated RBC % (auto) 0.0 (0.0-0.2) /100WBC Sodium 143 (135-145) mmol/L Potassium 3.8 (3.3-5.1) mmol/L Chloride 106 (96-108) mmol/L Carbon Dioxide 26 (22-29) mmol/L Anion Gap 15 (12-20) BUN 8 L (9-16) mg/dL Creatinine 0.76 (0.5-1.4) mg/dL Estim Creat Clear Calc 85.7 Estimated GFR > 60 Random Glucose 137 H (60-115) mg/dL Calcium 9.4 (8.4-10.2) mg/dL Magnesium 1.9 (1.6-2.6) mg/dL Total Bilirubin 0.6 (0.0-1.0) mg/dL AST 22 (5-31) U/L ALT 25 (0-31) U/L Alkaline Phosphatase 101 (39-117) U/L Total Protein 7.5 (6.5-8.0) g/dL Albumin 4.5 (3.5-5.0) g/dL COVID-19 (SARITA) Negative (Negative) COVID-19 Clin Com See Note Influenza Type A (NICK) Negative (Negative) Influenza Type B (NICK) Negative (Negative) Influenza A & B Note See Note Independent Interpretation I performed an independent interpretation of an: Plain X-Ray Interpretation: Chest x-ray without infiltrate or consolidation Radiology Impression Discussion of test interpretation with radiology: I have reviewed the radiologist's reading. Radiologist Impression: Procedure(s): XR chest 1V Accession Number(s): [id number] cc: Brandi Gallegos MD; Collin Winslow MD~ Reason for Exam: cough/sob CLINICAL HISTORY: cough sob 1 view chest x-ray Comparison: 03/31/2024 Findings: The lungs are clear. Heart size is normal. No acute fracture. IMPRESSION: 1. No acute findings. This document has been electronically signed by: Quoc Beatty MD on 12/25/2024 08:21:53 Independent Historian Clinical information obtained from an independent historian. History obtained from or confirmed by: Spouse Prescription Management I considered prescription management with: Antibiotic (Doxycycline) and Other (Prednisone) Chronic Conditions Patient?s care impacted by: Other (asthma) Social Determinants Patient?s care significantly limited by Social Determinants of Health including: Other Social Determinant of Health Critical Care Time Critical Care Time Critical Care Time: Yes Total Critical Care Time: 31 Attestation: Critical care time in the amount of 31 minutes has been provided to the patient in terms of direct patient care, frequent reevaluation, review and interpretation of medical data and results, and management of potentially life-threatening conditions. This is all outside of any medical procedures. Discharge Plan Discharge Clinical Impression: Asthma exacerbation, Upper respiratory infection Patient Disposition: Home, Self-Care Instructions: Asthma (ED) Additional Instructions: Your blood work is reassuring. You have an upper respiratory infection that is exacerbating your asthma. Continue your inhalers at home as needed. If you find that you are using this more often without improvement in symptoms, please return to the ED. I am sending a 5 day course of prednisone to your pharmacy. Take this as prescribed. I am sending a 7 day course of doxycycline (antibiotics) to your pharmacy. Take this to completion. Jana cervantes have been sent to your pharmacy for you to take as needed for cough. Follow up with your PCP as needed. Return with any new or worsening symptoms. In the case of an emergency, call 911. Prescriptions: New prednisone 20 mg tablet 40 mg PO DAILY 5 Days Qty: 10 0RF doxycycline hyclate 100 mg capsule 100 mg PO BID 7 Days Qty: 14 0RF benzonatate 100 mg capsule 100 mg PO BID PRN (Reason: cough) Qty: 20 0RF No Action fluticasone propion-salmeterol [Wixela Inhub] 250-50 mcg/dose blister with device 1 inh inhalation Q12H Qty: 60 2RF esomeprazole magnesium 40 mg capsule,delayed release(DR/EC) 40 mg PO BEDTIME Qty: 90 1RF atorvastatin 20 mg tablet 20 mg PO BEDTIME Qty: 90 1RF cholecalciferol (vitamin D3) 1,250 mcg (50,000 unit) capsule 1,250 mcg PO QWEEK Qty: 20 0RF folic acid 1 mg Tablet 2 mg PO DAILY Qty: 90 3RF topiramate 25 mg tablet 25 mg PO DAILY albuterol sulfate 90 mcg/actuation HFA aerosol inhaler 2 puff inhalation QID PRN (Reason: shortness of breath or wheezing) Qty: 8.5 0RF citalopram 10 mg tablet 10 mg PO DAILY Qty: 30 6RF Referrals: Brandi Gallegos MD [Primary Care Provider, Internal Medicine] Stand Alone Forms: Work/School Release Interventions: ED Discharge Assessment Last Done: 12/25/24 11:33 Discharge Date/Time: 12/25/24 11:34 Print Language: Slovak
[2024-12-25 08:28] VITALS: PULSE 94; RESP 18; O2SAT 95
--- NOTE | 2024-12-25 08:30 | PC.NURSE ---
Addendum entered by Cindy Garcia RN 12/25/24 08:31: Patient is a 59 yo F with PMH of asthma, LORE, and migraine presents to ED with cough/SOB x3 days. Pt notes accompanying rhinorrhea and sore throat. Non-productive cough per pt. SOB worse on exertion and has not been improving with rescue albuterol. She has no prior h/o asthma exacerabation. Alert and oriented. Lungs with diffuse exp wheezes. Respirations even and non-labored. Congested, wheezy cough noted. Abdomen soft non-tender with positive bowel sounds. Positive pedal pulses with no edema. Original Note: Medical History Cognitive change Carpal tunnel syndrome Migraine Nausea and vomiting in adult Acute respiratory disease History of kidney stones History of depression History of adenomatous polyp of colon Vitamin B12 deficiency 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 Bunion of great toe of right foot Microcytic hypochromic anemia Mild intermittent asthma Dyslipidemia Chronic right sacroiliac pain GERD (gastroesophageal reflux disease)
[2024-12-25] MEDS: Albuterol Sulfate 2.5 MG, Albuterol/Iprat 2.5/0.5MG 3 ML 3 ML INHALE (08:32)
[2024-12-25 08:44] LABS: Magnesium 1.9 mg/dL (1.6-2.6)
[2024-12-25] MEDS: Magnesium Sulfate/H2O 2 GM/50 ML PIGGYBACK IV (10:22)
[2024-12-25 11:33] VITALS: BP 000/00; PULSE 94; RESP 18; TEMP 36.7
== END 2024-12-25 11:34 | disposition home or self-care (01) ==
PROVIDERS: Physician Assistant Medical; Emergency Provider Emergency Medicine; PCP Internal Medicine
DX: J45.901 Unspecified asthma with (acute) exacerbation (principal); J06.9 Acute upper respiratory infection, unspecified; R05.9 Cough, unspecified; R06.02 Shortness of breath; J34.89 Other specified disorders of nose and nasal sinuses; Z79.899 Other long term (current) drug therapy; Z11.52 Encounter for screening for COVID-19; Z03.818 Encounter for observation for suspected exposure to other biological agents ruled out
CPT/HCPCS: 36415; 71045; 80053; 83735; 85025; 87502; 87635; 94640; 96365; 96375; 99284; 99285; J2919; J3475

== ENCOUNTER → 2024-12-25 07:50 | Outpatient (BNV) | payer OTHER, SELFPAY | PROVIDERS: Emergency Provider Emergency Medicine; PCP Internal Medicine; Visit Provider Specialist | DX: R06.02 Shortness of breath (principal); R05.9 Cough, unspecified | CPT/HCPCS: 71045 ==

== ENCOUNTER 2025-03-06 07:49 | Outpatient (REF) | payer OTHER, SELFPAY ==
[2025-03-12 13:38] LABS: Vitamin D 25-OH, D2 38 ng/mL; Vitamin D 25-OH, D3 8 ng/mL; Vitamin D 25-OH, Total 46 ng/mL (30-100)
== END 2025-03-06 07:50 | disposition home or self-care (01) ==
LOC: HO.HKASLDS 07:49
PROVIDERS: PCP Internal Medicine; Visit Provider Psychiatry & Neurology Neurology
DX: G47.33 Obstructive sleep apnea (adult) (pediatric) (principal); R41.89 Other symptoms and signs involving cognitive functions and awareness; G43.709 Chronic migraine without aura, not intractable, without status migrainosus; Z13.21 Encounter for screening for nutritional disorder; Z99.89 Dependence on other enabling machines and devices
CPT/HCPCS: 36415; 82306

== ENCOUNTER 2025-03-06 07:49 | Outpatient (AMB) | payer OTHER, SELFPAY ==
--- OUTSIDE RECORDS SUMMARY | 2024-01-13 04:40 | XMS_ITS ---
Author Organization [facility] Address [address] [place] [address] Care Team Providers Care Upper Extremity Surgeon Name Role Phone Rosy GUZMAN, Brandi Primary Care Provider Amarjit Dawson [phone] REASON FOR VISIT gerd, microcytic anemia, screening,hx polyps Problems Problem Type SNOMED Code ICD Code Onset Dates Problem Status W/U Status Risk Notes Problem Iron deficiency anemia (29582727) Iron deficiency anemia (D50.9) Active confirmed Problem Diverticular disease of colon (462195626) Diverticulosis of large intestine without perforation or abscess without bleeding (K57.30) Active confirmed Problem Benign neoplasm of stomach (63343054) Gastric polyps (K31.7) Active confirmed Encounters Encounter Location Date Provider Diagnosis [facility] [place] [facility] [address] [place] [address] [id number] 01/13/2024 Amarjit Linares Iron deficiency an emia D50.9 ; Diverticulosis of large intestine without perforation or abscess without bleeding K57.30 ; Other hemorrhoids K64.8 ; Hiatal hernia K44.9 and Gastric polyps K31.7 Assessments Encounter Date Diagnosis (ICD Code) Assessment Notes Treatment Notes Treatment Clinical Notes Section Notes 01/13/2024 Iron deficiency anemia (ICD-10 - D50.9) 01/13/2024 Diverticulosis of large intestine without perforation or abscess without bleeding (ICD-10 - K57.30) 01/13/2024 Other hemorrhoids (ICD-10 - K64.8) 01/13/2024 Hiatal hernia (ICD-10 - K44.9) 01/13/2024 Gastric polyps (ICD-10 - K31.7) Plan Of Treatment No Information Progress Notes * Steff PARMARDOB:[birth year] (59 yo F)Acc No.[id number]:01/13/2024 EGD and COL/MAC Patient: Steff Marcos Provider: Sheyla Linares MD :1965 A ge:58 Y S ex:Female Date:01/13/2024 Address:[address] [place], [place] [id number] Pcp:Brandi Gallegos MD Subjective: * Chief Complaints: * G erd, microcytic anemia, screening,hx polyps Assessment: * Assessment: 1. I patti deficiency anemia - D50.9 (Primary) 2 . D iverticulosis of large intestine without perforation or abscess without bleeding - K57.30 3 . O ther hemorrhoids - K64.8 4 . H iatal hernia - K44.9 5 . G astric polyps - K31.7 Plan: * Procedure Codes: 4 5378 DIAGNOSTIC [id number] UPPER GI ENDOSCOPY, BIOPSY Billing Information: * Procedure Codes: 34155 DIAGNOSTIC COLONOSCOPY. 99672 UPPER GI ENDOSCOPY, BIOPSY. * The named appointment provid er may or may not be the originator of this progress note, and it is not deemed complete until electronically signed by the appointment provider. Sign off status: Pending * Provider: Sheyla Linares MD Date: Generated for Tsering jeffrey/Mikayla/eTelizabethsmitting on: 05/06/2024 07:52 AM EST
--- OUTSIDE RECORDS SUMMARY | 2024-05-13 03:30 | XMS_ITS ---
Author Organization [facility] Address [address] [place] [address] Care Team Providers Care News Specialist Name Role Phone Brandi Gallegos MD Primary Care Provider Amarjit Dawson [phone] REASON FOR VISIT screening,hx polyps Encounters Encounter Location Date Provider Diagnosis [facility] Outpatient [address] [place] [phone] 05/13/2024 Amarjit Linares Plan Of Treatment No Information Progress Notes * Steff PARMARDOB:[birth year] (59 yo F)Acc No.[id number]:05/13/2024 COLON WITH MAC Patient: Steff Marcos Provider: Sheyla Linares MD :1965 A ge:58 Y S ex:Female Date:05/13/2024 Address:[address], [id number] Pcp:Brandi Gallegos MD Subjective: * Chief Complaints: * S creening,hx polyps * The named appointment provid er may or may not be the originator of this progress note, and it is not deemed complete until electronically signed by the appointment provider. Sign off status: Pending * Provider: Sheyla Linares MD Date: 05/13/2024 Generated for Nelii ng/Famarcialg/eTransmitting on: 05/06/2024 07:51 AM EST
--- NOTE | 2025-03-06 07:50 | A.OFFVIS_ITS ---
Vital Signs 03/06/25 07:51 Height 5 ft 6 in Weight 192 lb BMI 31.0 BP 142/88 H Blood Pressure Location Rt brachial Position Sitting Pulse 76 Pulse Source Pulse Oximeter Pulse Oximetry (%) 97 Oxygen Delivery Method Room Air Intake Visit Reasons: 4mnth follow up Intake Note: Follow up Cognitive change, Hypersomnia and 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 Project Controls Scheduler Required: No Accompanied by: Self / Same As Patient Allergies No Known Allergies Allergy (Verified 03/06/25 07:51) Medication List - Last Reconciled 03/06/25 by Agueda James MD albuterol sulfate 90 mcg/actuation 2 puffs inhalation QID PRN atorvastatin 20 mg PO BEDTIME citalopram 10 mg PO DAILY esomeprazole magnesium 40 mg PO BEDTIME fluticasone propion-salmeterol 250-50 mcg/dose (Wixela Inhub) 1 inh inhalation Q12H folic acid 2 mg (2 x 1 mg) PO DAILY ketoconazole 2% topical topiramate 25 mg PO DAILY HPI Comments Details: 59y/o female comes for follow up of LORE and cognitive issues.Now she also c/o migraines and she use dto see and was on topiramate but stopped taking it few mths ago. Now her migraines have increased 3-4 /week she uses tylenol and the headaches last few hrs.she use dto be on topiramate. she is always depressed. CPAP compliance 90 days 91% usage hrs 5 hrs 31 min 5-20 cm of water AHI 1.6 History form last visit- she was seen here 2 years ago for dizziness. she was diagnosed with LORE and is on CPAP now. she says she is compliant.she still holcomb son and off dizziness. But she is concerned about her short term memory issues.she noticed some short term memory issues in the pats few mths . she loses directions while driving in familiar places. she forgets conversations. 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 No family h/o dementia no head injury History from 2022-. In Jan she started feeling dizzy, nauseous, diaphoretic,lightheaded more when she bend over. It was episodic and she resolved when she sat and lied down. she went to ER after a few days as the dizziness was worsening especially when she stood up form sitting or lying down position, when she bend over etc. she also ahs h/o migraines and she had frequent headaches with these episodes. CT head showed a subtle focus of hypoattentuation in left caudate head . she was started on aspirin 81mg qd and atorvostatin . EKG , CTA Echo were unremarkable. The episodes of dizziness are persistent and she also has increased headaches. she has 2 headaches /week, usually in right frontal, temporal with light and noise sensitivity, sees black spots in her right visual field.she takes tylenol and the headache resolve in 1 hr. she denies double vision, tinnitus, ear stuffiness .Denies head injury. she reports snoring and excessive daytime sleepiness. [facility] Medical History (Updated 03/06/25 @ 08:26 by Agueda James MD) Chronic migraine without aura Cognitive change Carpal tunnel syndrome Migraine Nausea and vomiting in adult Acute respiratory disease History of kidney stones History of depression History of adenomatous polyp of colon Vitamin B12 deficiency 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 Bunion of great toe of right foot Microcytic hypochromic anemia Mild intermittent asthma Dyslipidemia Chronic right sacroiliac pain GERD (gastroesophageal reflux disease) Surgical History H/O cystoscopy Previous section Hx of cholecystectomy Family History Father Diabetes mellitus Bronchial asthma Mother Breast cancer Cervical cancer Social History Household Members: Spouse Housing: Condominium Are you a primary customer care manager to a significant other at home: No Do you presently have visiting nurse or other home services: No Alcohol intake: never Patient Tobacco Use Status: Never used Tobacco e-Cigarette/Vaping Use: Never Used Advance Directives Date on File: 02/08/24 service: No Current occupational status: employed Current occupation: [employer] Cognitive needs: No Hearing needs: No Vision needs: Yes Female Reproductive History Menstrual Age of Menarche: 10 Physical Exam Vital Signs: Last Vital Signs Pulse 76 03/06/25 07:51 BP 142/88 H 03/06/25 07:51 Pulse Ox 97 03/06/25 07:51 Oxygen Delivery Method Room Air 03/06/25 07:51 BMI result Body Mass Index 31.0 Const General: cooperative, healthy appearing, comfortable and no acute distress Nutritional Appearance: average body habitus Orientation/consciousness: patient oriented x3 HEENT Other: Mallampatti grade 4 Head: Yes normal to inspection, Yes normocephalic and Yes atraumatic Eyes Pupils: Equal, round and reactive pupils present Neck Neck: Yes no meningeal signs Neuro General: patient oriented x3, No gait normal, tone normal, moves all extremities, no meningeal signs, no focal motor deficits and Unable to assess gait Cranial nerves: Yes Facial sensation intact/muscles of mastication intact, Yes Equal, round and reactive pupils present, Yes Normal accommodation reflex present, No Bilaterally intact EOM present, Yes Nystagmus not present, Yes Normal facial strength present, Yes Midline tongue present, Yes Symmetric palate elevation present and Yes Ability to bilaterally elevate shoulders present Cognition (Neuro): normal cognition Gait exam (Neuro): Unable to assess gait Motor exam (neuro): 5/5 motor strength present throughout and Normal motor muscle tone present throughout Coordination: [id number] test normal Psych Affect: Anxious affect present Assessment & Plan Assessment & Plan (1) Cognitive change: Code(s): R41.89 - Other symptoms and signs involving cognitive functions and awareness Category: Medical (2) 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: Comment: compliant with CPAP Code(s): G47.33 - Obstructive sleep apnea (adult) (pediatric); Z99.89 - Dependence on other enabling machines and devices Category: Medical (3) Chronic migraine without aura: Code(s): G43.709 - Chronic migraine without aura, not intractable, without status migrainosus Category: Medical Plan MRI brain - normal restart topiramate 25 mgq hs for migraine prophylaxis Recheck Vit D levels Continue CPAP compliance stressed Continue citalopram 10 mg qd for he rmood which might be the etiology of her fatigue and cognitive issues. Orders: Orders Vitamin D 25-OH (D2 and D3) Today G47.10 - Hypersomnia, unspecified Medications: New topiramate 25 mg PO DAILY 30 tabs 6RF Coding Level of Care Code Complex visit Add On G2211 Diagnoses Cognitive change R41.89 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 G47.33; Z99.89 Chronic migraine without aura G43.709
[2025-03-06 07:51] VITALS: BP 142/88; PULSE 76; O2SAT 97; BMI 31.0
--- OUTSIDE RECORDS SUMMARY | 2025-03-06 07:52 | XMS_ITS ---
Author Organization Unknown ENCOUNTERS Encounter Performer Location Date Diagnosis Diagnosis Status Emergency [facility] [address] [place] [address] [id number] PETAR Pre Admit Generic ED Physician [facility] [address] [place] [address] [id number] Emergency [facility] [address] [place] [address] [id number] PETAR Pre Admit [facility] [address] [place] [address] [id number] Pre Admit [facility] [address] [place] [address] [id number] Outpatient [facility] [address] [place] [address] [id number] PETAR Emergency [facility] [address] [place] [address] [id number] PETAR Pre Admit Generic ED Physician [facility] [address] [place] [address] [id number] Emergency [facility] [address] [place] [address] [id number] [place]O Pre Admit [facility] [address] [place] [address] [id number] [place] Pre Admit [facility] [address] [place] [address] [id number] Outpatient [facility] [address] [place] [address] [id number] PETAR Emergency [facility] [address] [place] [address] [id number] PETAR Emergency [facility] [address] [place] [address] [id number] LW Emergency [facility] [address] [place] [address] [id number] LWBS Emergency [facility]on [facility] [place] [address] [id number] LWBS Emergency Lydia [facility] [address] [place] [address] [id number] PETAR Emergency [facility] [address] [address] [id number] PETAR *Note: Encounters from your own facility or health system may be excluded. Allergies, Adverse Reactions, Alerts Allergen Type Severity Identification Date Medications Name Date Quantity Days Supplied [facility] Number
--- OUTSIDE RECORDS SUMMARY | 2025-03-06 07:52 | XMS_ITS | Patient Health Record ---
Author Organization [facility] Address [address] [place] [address] Care Team Providers Care Allergist/Pediatric Pulmonologist Name Role Phone Rosy GUZMAN, Brandi Grullon Primary Care Provider Un available Carl Alejandra [phone] Allergies Allergen (clinical drug ingredient) Drug/Non Drug [...] Status Risk Notes Problem Acquired hallux valgus (81447204) Hallux valgus (acquired), left foot (M20.12) Active confirmed Problem Acquired hallux valgus (91484437) Hallux valgus (acquired), right foot (M20.11) Active confirmed Problem Acquired hallux rigidus (6207830) Hallux rigidus, right foot (M20.21) Active confirmed [...] Coverage End Date [employer] Benefits [address] [address] [place] [address] [id number] Steff Brandt Self - patient is the insured Medical (General) History Medical History History ICD Code Headaches/Migraines Reflux ( GERD) Surgical History Surgery Date(Month/Year) 1st MPJ Right Arthrosurface Implant 08/28
--- OUTSIDE RECORDS SUMMARY | 2025-03-06 07:52 | XMS_ITS | Patient Health Record ---
Author Organization [facility] Address [address] [place] [address] Care Team Providers Care Harness Worker Name Role Phone Rosy GUZMAN, Brandi Primary Care Provider Amarjit Dawson [phone] Allergies No Known Allergies Results Component Value Reference Range Flag Notes Intrinsic Factor Antibodies Reviewed date:12/23/2024 04:09:55 PM Interpretation: Performing Lab:[facility], [address] [place] [phone] Notes/Report: Intrinsic Factor Antibodies Positive Negative A For additional information, please refer to [email or web address] (This link is being provided for informational/ educational purposes only.) THIS TEST WAS PERFORMED AT: [facility]/[address] [address] CRISSY FORMAN MD,PHD Vitamin B12 and Folate Reviewed date:11/30/2024 12:29:59 AM Interpretation: Performing Lab:[facility], [address] [place] [phone] Notes/Report: Vitamin B12 > 2000 200-900 pg/mL H NORMAL 200-900 PG/ML INDETERMINATE 160-199 PG/ML DEFICIENT < 160 PG/ML Folate 18.1 > or = 4.0 ng/mL Reference Values: > or = 4.0 ng/mL < 4.0 ng/mL suggests folate deficiency Methotrexate, aminopterin and folinic acid (leucovorin) are chemotherapeutic agents whose molecular structures are similar to folate; therefore, the [facility] folate assay cannot be used for patients using these drugs. Ferritin Reviewed date:12/23/2024 04:13:11 PM Interpretation: Performing Lab:[facility], [address] [place] [phone] Notes/Report: Ferritin 562 10-250 ng/mL H IRON PROFILE Reviewed date:11/15/2024 09:50:25 AM Interpretation: Performing Lab:[facility], [address] [place] [phone] Notes/Report: Iron 74 30-160 mcg/dL N Total Iron Binding Capacity 251 228-428 mcg/dL N Percent Iron Saturation 29 15-50 % N Unsaturated Iron Binding 177 Complete Blood Count Auto Di ff Reviewed date:12/23/2024 04:13:23 PM Interpretation: Performing Lab:[facility], [address] [place] [phone] Notes/Report: White Blood Count 7.2 4.8-10.8 X10*3/uL N Red Blood Count 5.03 4.20-5.50 X10*6/uL N Hemoglobin 14.6 12.0-16.0 g/dl N Hematocrit 44.1 37.0-47.0 % N Mean Corpuscular Volume 87.7 80.0-98.0 fL N Mean Corpuscular Hemoglobin 29.0 27.0-33.0 pg N Mean Corpuscular HGB Conc 33.1 31.0-35.0 g/dl N Red Cell Distribution Width 12.3 11.0-16.0 % N Platelet Count 360 160-400 X10*3/uL N Mean Platelet Volume 9.5 9.4-12.3 fL N Neutrophils Percent Auto 62.7 45-73 % N Imm Gran Pct Auto 0.6 0.0-0.4 % H Lymphocytes Percent Auto 27.1 20-40 % N Monocytes Percent Auto 4.6 2-11 % N Eosinophils Percent Auto 3.9 0-4 % N Basophils Percent Auto 1.1 0-2 % N NRBC Pct Auto 0.0 0.0-0.2 /100WBC N Neutrophils Absolute Auto 4.5 2.0-8.3 x10*3/uL N Imm Gran Abs Auto 0.04 0.00-0.03 X10*3/uL H Lymphocytes Absolute Auto 2.0 1.2-4.9 X10*3/uL N Monocytes Absolute Auto 0.3 0.1-1.2 X10*3/uL N Eosinophils Absolute Auto 0.3 0.0-0.4 X10*3/uL N Basophils Absolute Auto 0.1 0.0-0.2 X10*3/uL N NRBC Abs Auto 0.000 0.0-0.012 X10*3/uL N Parietal Cell Antibody Reviewed date:11/30/2024 12:29:29 AM Interpretation: Performing Lab:[facility], [address] [place] [phone] Notes/Report: Parietal Cell Antibody <=20.0 <=20.0 Unit [...] these patients. THIS TEST WAS PERFORMED AT: [facility]/[address] [address] CRISSY FORMAN MD,PHD Reason For Referral No Information Medications Medication SIG (Take, Route, Frequency, Duration) Notes Start Date End Date Status Atorvastatin Calcium 10 MG Tablet 1 tablet Orally Once a day; Duration: 30 day(s) Active Advair Diskus 100-50 MCG/DOSE Aerosol Powder Breath Activated INHALE 1 PUFF PO BID Inhalation; Duration: 30 Active Aspirin 81 81 MG Tablet Delayed Release 1 tablet Orally Once a day; Duration: 30 day(s) Active Topiramate 100 MG Tablet TK 1 T PO QD HS Oral; Duration: 30 Active Esomeprazole Magnesium 20 MG Tablet Delayed Release 1 tablet Orally Once a day Active Citalopram Hydrobromide 10 MG Tablet TK 1 T PO QD Oral; Duration: 30 Active Lisinopril 10 MG Tablet TK 1 T PO QD Ora l; Duration: 30 Not-Taking/PRN Montelukast Sodium 10 MG Tablet TK 1 T PO QD IN THE THIERNO Oral; Duration: 30 Active Folic Acid 1 MG Tablet Oral; Duration: 4 5 Days Active Immunizations Vaccine Route Administration Date Status Comme nts Influenza Unknown 03/10/2023 Administered Influenza Unknown 02/02/2024 Administered Social History Tobacco Use: Social History Observation Description Date Details (start date - stop date) Never Smoker NA - NA Social History Drugs/Alcohol: Social Info Question Answer Notes Alcohol Screen Did you have a drink containing alcohol in the past year? 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[employer] [place] Section Notes: Nonsmoker; no sig alcohol Nonsmoker; no sig alcohol Nonsmoker; no sig alcohol Problems Problem Type SNOMED Code ICD Code Onset Dates Problem Status W/U Status Risk Notes Problem Screening for malignant neoplasm of colon (732886662) Encounter for screening for malignant neoplasm of colon (Z12.11) Active confirmed Problem History of adenomatous polyp of colon (139688800) History of adenomatous polyp of colon (Z86.010) Active confirmed Problem Diverticular disease of colon (057334187) Diverticulosis of large intestine without perforation or abscess without bleeding (K57.30) Active confirmed Problem Iron deficiency anemia (78247020) Iron deficiency anemia (D50.9) Active confirmed Problem Gastroesophageal reflux disease (088080592) Gastroesophageal reflux disease, esophagitis presence not specified (K21.9) Active confirmed Problem 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) Gastric polyps (K31.7) Active confirmed Problem Anemia (549102695) Anemia (D64.9) Active confir med Problem Vitamin B12 deficiency (non anemic) (79691121) B12 deficiency (E53.8) Active confirmed Problem Microcytic anemia (069905495) Microcytic anemia (D50.9) Active confirmed Vital Signs Temperature 97.8 degrees Fahrenheit 06/24/2024 Blood pressure diastolic 01 mm Hg 06/24/2024 Height 66 in 06/24/2024 Blood pressure systolic 001 mm Hg 06/24/2024 Weight 187 lbs 06/24/2024 BMI 30.18 kg/m2 06/24/2024 Encounters Encounter Location Date Provider Diagnosis [facility] [place] [phone] 06/24/2024 Amarjit Milagros B12 deficiency E53.8 ; Anemia D64.9 ; Gastroesophageal reflux disease, esophagitis presence not specified K21.9 ; Encounter for screening for malignant neoplasm of colon Z12.11 and History of adenomatous polyp of colon Z86.010 [facility] [address] [place] [phone] 11/03/2024 Amarjit Linares [facility] [address] [place] [phone] 11/14/2024 Amarjit Linares [facility] [address] [address] 10/11/2024 Amarjit Linares Anemia D64.9 and Vit deshpande B12 deficiency E53.8 [place] [address] [address] 12/21/2024 Amarjit Linares Assessments Encounter Date Diagnosis (ICD Code) Assessment Notes Treatment Notes Treatment Clinical Notes Section Notes 06/24/2024 Anemia (ICD-10 - D64.9) 06/24/2024 B12 deficiency (ICD-10 - E53.8) You need a B12 shot every other month 10/11/2024 Anemia (ICD-10 - D64.9) 10/11/2024 Vitamin B12 deficiency (ICD-10 - E53.8) 06/24/2024 Gastroesophageal reflux disease, esophagitis presence not specified (ICD-10 - K21.9) Continue omeprazole for the reflux 06/24/2024 Encounter for screening for malignant neoplasm of colon (ICD-10 - Z12.11) Repeat colonoscopy in 202806/24/2024 History of adenomatous polyp of colon (ICD-10 - Z86.010) Plan Of Treatment Pending Test Test Name Order Date LIVER PROFILE 12/30/2023 IRON + IBC (FE) 12/30/2023 IRON + IBC (FE) 01/26/2024 IRON + IBC (FE) 10/11/2024 CEA 12/30/2023 CBC w DIFF 12/30/2023 CBC w DIFF 01/26/2024 CBC w DIFF 10/11/2024 CELIAC PANEL #10 12/30/2023 Ferritin 01/26/2024 Ferritin 10/11/2024 Vitamin B12 and Folate 10/11/2024 Vitamin B12 01/26/2024 Intrinsic Factor Antibodies 10/11/2024 Parietal Cell Antibody 10/11/2024 Future Test Test Name Order Date UPPER GI ENDOSCOPY 03/24/2017 COLONOSCOPY 03/24/2017 UPPER GI ENDOSCOPY 12/30/2023 COLONOSCOPY 12/30/2023 Insurance Providers Payer Name Payer Address Payer Phone Subscriber Number Group Number Insured Name Patient Relationship to Insured Coverage Start Date Coverage End Date [employer] [address] [address] [place] [address] [id number] Steff Brandt Self - patient is the insured Medications Administered Medication Instructions Date of Administration Dosage Notes B-12 03/03/2024 1000 mL B-12 06/24/2024 1000 mL B12 01/08/2024 1000 mL B12 01/15/2024 1000 mL B12 01/27/2024 1000 mL Medical (General) History Medical History History ICD Code Hypertension Asthma Denies [place],DM,CV ,renal disease Kidney stones Depression/Anxiety Migraines Colonoscopy 05/2017 small tubular adenoma s removed EGD in 05/2017 small hiatal hernia but no esophagitis or Hernandez's esophagus Microcytic anemia with a hemoglobin of 9 .2 and MCV of 74 in October of 2023 Surgical History Surgery Date(Month/Year) Cholecystectomy x1
== END 2025-03-06 08:31 | disposition home or self-care (01) ==
LOC: HO.HSMS 07:50
PROVIDERS: PCP Internal Medicine; Visit Provider Psychiatry & Neurology Neurology
DX: R41.89 Other symptoms and signs involving cognitive functions and awareness (principal); G47.33 Obstructive sleep apnea (adult) (pediatric); Z99.89 Dependence on other enabling machines and devices; G43.709 Chronic migraine without aura, not intractable, without status migrainosus
CPT/HCPCS: 99214